=== PATIENT | female | born 1950 | race Caucasian/White ===

== ENCOUNTER 2019-09-21 11:27 | Outpatient (CLI) | payer MEDICARE, SELFPAY ==
[2019-09-21 11:49] LABS: Hematocrit 42.5 % (37.0-47.0); Hemoglobin 14.4 g/dL (12.0-15.0)
== END 2019-09-21 11:28 | disposition home or self-care (01) ==
LOC: ANHSURGERY 11:32
PROVIDERS: PCP Internal Medicine; Visit Provider Obstetrics & Gynecology
DX: Z01.818 Encounter for other preprocedural examination (principal); N95.9 Unspecified menopausal and perimenopausal disorder
CPT/HCPCS: 36415; 85014; 85018

== ENCOUNTER 2019-09-27 01:39 | Day surgery (SDC) | payer MEDICARE, SELFPAY ==
[2019-09-20 08:53] VITALS: BMI 21.2
--- NOTE | 2019-09-22 08:05 | P.HP_ITS ---
H&P: HPI History of Present Illness Chief complaint: post menopausal bleeding Narrative: Deidre Cuadra is a 68 year old female who is admitted for hysteroscopy dilatation curettage secondary to postmenopausal bleeding. She was turned over within her own. She had some mild spotting she will and underwent ultrasound which to an incomplete view of the endometrium. Risks and benefits of hysteroscopy dilatation curettage reviewed. She had all questions answered in asked to proceed. She received the [employer] handout entitled hysteroscopy is well dilatation curettage respectively. Review of Systems Review of Systems: All systems reviewed & are unremarkable except as noted in HPI and below COUNT INCLUDES THE [facility] Family History Family History (Updated 04/27/19 @ 08:43 by DOCTOR UNKNOWN) Mother Hypertension Sibling Patient's sister is in good health Patient's brother is in good health Family history of lung cancer Father Cerebrovascular accident Social History Social History Smoking status: Never smoker Alcohol intake: current Meds Home Medications and Allergies Home Medications Medication Instructions Recorded Confirmed Type estradiol 1 mg PO DAILY 09/20/19 09/20/19 History norethindrone acetate 5 mg PO DAILY 09/20/19 09/20/19 History Allergies Allergy/AdvReac Type Severity Reaction Status Date / Time adhesive Allergy Unknown Rash Verified 09/20/19 08:57 polymyxin B Allergy Unknown Rash Verified 09/20/19 08:57 Sulfa (Sulfonamide Allergy Unknown Hives Verified 09/20/19 08:57 Antibiotics) sulfanilamide Allergy Unknown Hives Verified 09/20/19 08:57 BANDAIDS Allergy Mild Rash Uncoded 09/20/19 08:57 NEOMYCIN SULFATE Allergy Mild Rash Uncoded 09/20/19 08:57 POLYMYXIN B SULFATE Allergy Mild Rash Uncoded 09/20/19 08:57 Exam Const: General: no acute distress Eyes: General: appearance normal, both eyes and all related structures Neck: Neck: supple and no JVD Thyroid: thyroid normal Resp: Effort & Inspection: normal respiratory effort Auscultation: clear to auscultation bilaterally Cardio: Rate: regular rate Rhythm: regular rhythm GI: Inspection: non-distended GI Palp: Yes Soft to palpation, No Tenderness to palpation present (GI) and No Guarding due to palpation present (GI) Auscultation: normal bowel sounds : General: Yes bladder normal to palpation External Female Exam: normal external appearance Speculum Exam - Vagina: normal vaginal discharge and No vaginal bleeding Speculum Exam - Cervix: nontender Bimanual exam- vagina & uterus: bladder normal to palpation and No Cervical tenderness present OB/external & speculum: No vaginal bleeding Skin: General skin exam: no rashes or lesions noted Extrem: General: normal to inspection and no edema Psych: Mental Status: mental status grossly normal Affect: normal affect Assessment and Plan Additional Plan Impression: Postmenopausal bleed Plan: Hysteroscopy, dilatation curettage
--- NOTE | 2019-09-27 06:54 | WPDHPUPDATE1 ---
History and Physical Update Update Date/Time: 09/27/19 06:54 History and Physical has been reviewed, including an updated exam of the patient. There are NO changes in the patient's condition. Risks, benefits, and alternatives have been discussed and questions answered. Patient agrees to proceed with procedure.
[2019-09-27 08:15] VITALS: BP 132/76; PULSE 72; RESP 18; TEMP 37; O2SAT 99
[2019-09-27] MEDS: LACTATED RINGERS 1,000 ML 30 ML IV CONT (08:15)
[2019-09-27] MEDS: ONDANSETRON INJ 4 MG/2 ML VIAL IV PUSH ×2 (08:35→08:45)
--- NOTE | 2019-09-27 08:54 | WPDANESEPPF ---
Anes - Initial Pre Proc Eval Procedure: Operation Date: 09/27/19 09:30 Proposed Procedures p Hysteroscopy Dilation and Curettage - Nicolas Lay MD Date/Time: 09/27/19 08:54 Surgeon: Nicolas Lay MD Pre Op Diagnosis: post menopausal bleeding Patient Data Age: 68 Gender: F Height: 5 ft 8 in Weight: 63.5 kg Allergies Allergy/AdvReac Type Severity Reaction Status Date / Time adhesive Allergy Unknown Rash Verified 09/20/19 08:57 polymyxin B Allergy Unknown Rash Verified 09/20/19 08:57 Sulfa (Sulfonamide Allergy Unknown Hives Verified 09/20/19 08:57 Antibiotics) sulfanilamide Allergy Unknown Hives Verified 09/20/19 08:57 BANDAIDS Allergy Mild Rash Uncoded 09/20/19 08:57 NEOMYCIN SULFATE Allergy Mild Rash Uncoded 09/20/19 08:57 POLYMYXIN B SULFATE Allergy Mild Rash Uncoded 09/20/19 08:57 Home Medications Medication Instructions Recorded Confirmed Type estradiol 1 mg PO DAILY 09/20/19 09/20/19 History norethindrone acetate 5 mg PO DAILY 09/20/19 09/20/19 History hydrocodone-acetaminophen [Maupin] 1 tablet PO Q4H PRN #10 tablet 09/27/19 Rx Patient hx anesthesia problems: none and post op nausea/vomiting Family hx anesthesia problems: none PMFSH Past Medical History Medical History Hx of migraines VONNIE (obstructive sleep apnea) Family History Family History Mother Hypertension Sibling Patient's sister is in good health Patient's brother is in good health Family history of lung cancer Father Cerebrovascular accident Social History Social History Smoking status: Never smoker Alcohol intake: current Anes - Eval Final PreProcedure Day of Procedure 09/27/19 08:54 Patient weight: normal Heart: regular rate and rhythm Lungs: clear to auscultation Airway: Mallampati scale class III Neurological: alert and oriented Last oral intake: >/= 8 hours ASA classification: II Emergent: no Anesthetic plan: proceed Anesthesia type and monitoring: general GIVS and standard monitoring Informed Consent: The patient's anesthetic plan and its attendant risks and benefits were discussed with the patient/family/POA. Questions were solicited and answers provided to the satisfaction of the patient/family/POA.
[2019-09-27] MEDS: SCOPOLAMINE 1.5 MG PATCH TRANSDERM (09:27)
[2019-09-27] MEDS: KETOROLAC 30 MG/ML VIAL (*BKC) IV PUSH (10:32)
--- NOTE | 2019-09-27 10:35 | PM.PROC ---
Procedure Note - Detailed Date of procedure: 09/27/19 Pre-op diagnosis: post menopausal bleeding Surgeon: Nicolas Lay MD Postop diagnosis: Postmenopausal bleeding/polyp Procedure: Hysteroscopy, polypectomy, dilatation curettage EBL: 5cc Findings: Benign-appearing endometrium with small endometrial polyp Complications: None Anesthesia: IV sedation local Description of procedure: The patient was prepped and draped in the normal sterile fashion placed in dorsal lithotomy position. Under excellent IV sedation weighted speculum placed post formed vagina. Anterior lip of the cervix grasped with a single-tooth tenaculum. 2.5cc of 1% xylocaine anesthesia placed at 2:48 a.m. and 10:00 a.m. respectively in the cervix. Uterus sounded to 8cm. Serial dilatation fragment out performed followed by passage of the 5mm visualizing hysteroscope. Normal saline was used as visualizing medium. A very small uterine polyp was seen and had a very benign appearance. This was grasped been broken and pieces. Next the D&C was undertaken. The uterus was scraped over entire 360? until a good grating sound was heard. When no further tissue removed. Instruments removed. All sponge, needle, instrument counts were correct. There were no immediate complications
[2019-09-27 10:39] VITALS: BP 101/51; PULSE 83; RESP 12; O2SAT 100
[2019-09-27 11:05] VITALS: BP 105/49; PULSE 66; O2SAT 100
[2019-09-27 11:35] VITALS: BP 114/75; PULSE 71
--- NOTE | 2019-09-27 11:53 | SUR.PHASEII ---
1150: RN called Dr. Lay so patient could get an update about her procedure. Patient is all dressed and ready to go home just waiting for ride. Patient is unhooked from the monitors and report given to KRYSTAL Randolph.
== END 2019-09-27 12:07 | disposition home or self-care (01) ==
PROVIDERS: PCP Internal Medicine; Visit Provider Obstetrics & Gynecology
PROC: 0U5B8ZZ Destruction of Endometrium, Via Natural or Artificial Opening Endoscopic (ICD-10-PCS; CPT 58563; principal; 2019-09-27 09:30)
DX: N95.0 Postmenopausal bleeding (principal); N84.0 Polyp of corpus uteri; G47.33 Obstructive sleep apnea (adult) (pediatric)
CPT/HCPCS: 58558; 88305; A9270; J0131; J1885; J2250; J2405; J2704; J3010; J7030; J7120

== ENCOUNTER → 2021-04-14 00:31 | Outpatient (CLI) | payer MEDICARE, SELFPAY ==
[2021-04-14 19:35] LABS: SARS-CoV-2 RNA PCR Negative
== END ==
PROVIDERS: PCP Internal Medicine; Visit Provider Internal Medicine Gastroenterology
DX: Z01.812 Encounter for preprocedural laboratory examination (principal); Z20.822 Contact with and (suspected) exposure to COVID-19
CPT/HCPCS: C9803; U0003; U0005

== ENCOUNTER 2021-04-18 01:36 | Day surgery (SDC) | payer MEDICARE, SELFPAY ==
[2021-04-10 09:20] VITALS: BMI 22.4
--- NOTE | 2021-04-17 14:01 | P.PNAN_ITS ---
Anes - Initial Pre Proc Eval Procedure: Operation Date: 04/18/21 10:00 Proposed Procedures p Screening Colonoscopy - Frank Smith MD Date/Time: 04/17/21 14:01 Surgeon: Frank Smith MD Pre Op Diagnosis: hx of colon polyps, neoplasm Patient Data Age: 70 Gender: F Height: 1.73 m Weight: 66.8 kg Allergies Allergy/AdvReac Type Severity Reaction Status Date / Time adhesive Allergy Unknown Rash Verified 04/18/21 09:03 polymyxin B Allergy Unknown Rash Verified 04/18/21 09:03 Sulfa (Sulfonamide Allergy Unknown Hives Verified 04/18/21 09:03 Antibiotics) sulfanilamide Allergy Unknown Hives Verified 04/18/21 09:03 BANDAIDS Allergy Mild Rash Uncoded 04/18/21 09:03 NEOMYCIN SULFATE Allergy Mild Rash Uncoded 04/18/21 09:03 POLYMYXIN B SULFATE Allergy Mild Rash Uncoded 04/18/21 09:03 Home Medications Medication Instructions Recorded Confirmed Type ascorbic acid (vitamin C) 500 mg 500 mg PO DAILY 02/28/21 04/10/21 History capsule calcium carbonate 600 mg (1,500 1 cap PO DAILY 02/28/21 04/10/21 History mg)-vitamin D3 500 unit capsule elderberry fruit 200 mg capsule 200 mg PO DAILY 02/28/21 04/10/21 History zinc 50 mg tablet 50 mg PO DAILY 02/28/21 04/10/21 History Patient hx anesthesia problems: none Family hx anesthesia problems: none Results Review: All pre-operative results and documents have been reviewed as p art of the pre-operative evaluation. [facility] Past Medical History Medical History (Updated 03/14/21 @ 13:46 by Arcelia Malhotra NP) Chicken pox Heartburn Hx of migraines Measles Mononucleosis Mumps VONNIE (obstructive sleep apnea) Surgical History Surgical History (Updated 04/17/21 @ 14:01 by Vu Alcantar DO) History of tubal ligation Family History Family History Mother Hypertension Sibling Patient's sister is in good health Patient's brother is in good health Family history of lung cancer Father Cerebrovascular accident Social History Social History Smoking status: Never smoker Alcohol intake: current Living arrangements: alone Spiritual care concerns: No Anes - Eval Final PreProcedure Day of Procedure 04/17/21 14:01 Patient weight: normal Heart: regular rate and rhythm Lungs: clear to auscultation and normal air movement Airway: Mallampati scale class III Neurological: alert and oriented Last oral intake: >/= 8 hours ASA classification: II Emergent: no Anesthetic plan: proceed Anesthesia type and monitoring: general GIVS and standard monitoring Results Review: All pre-operative results and documents have been reviewed as part of the pre-operative evaluation. Informed Consent: The patient's anesthetic plan and its attendant risks and benefits were discussed with the patient/family/POA. Questions were solicited and answers provided to the satisfaction of the patient/family/POA.
[2021-04-18 09:04] VITALS: BP 121/80; PULSE 72; RESP 16; TEMP 36.6; O2SAT 96
[2021-04-18] MEDS: LACTATED RINGERS 1,000 ML 150 ML IV CONT (09:14)
--- NOTE | 2021-04-18 09:32 | PM.HPGS ---
History of Present Illness History of Present Illness Consent: Risks, benefits, and alternatives have been discussed and questions answered. Patient agrees to proceed with procedure. Chief complaint: hx of colon polyps, neoplasm Narrative: Deidre Cuadra is a 70 year old female with last colonoscopy 2013 Review of Systems Constitutional: Constitutional: Denies headache(s) and Denies weakness Eyes: Eyes: Denies blurry vision ENT: Reports Normal hearing present, Denies headache(s) and Denies neck pain Cardiovascular: Cardiovascular: Denies chest pain and Denies dyspnea Respiratory: Respiratory: Denies dyspnea Gastrointestinal: Gastrointestinal: Reports no additional gastrointestinal complaints Genitourinary: Genitourinary: Denies dysuria Musculoskeletal: Musculoskeletal: Denies neck pain Integumentary/Breasts: Skin/Breast: Denies dry skin Neurologic: Reports Normal hearing present, Denies headache(s) and Denies weakness Psychiatric: Psychiatric: Denies anxiety Endocrine: Endocrine: Denies change in body appearance Hematologic/Lymphatic: Hematologic/Lymphatic: Denies easy bleeding Allergic/Immunologic: Allergic/Immunologic: Denies urticaria PMFSH Past Medical History Medical History (Updated 03/14/21 @ 13:46 by Arcelia Malhotra NP) Chicken pox Heartburn Hx of migraines Measles Mononucleosis Mumps VONNIE (obstructive sleep apnea) Surgical History Surgical History (Updated 04/17/21 @ 14:01 by Vu Alcantar DO) History of tubal ligation Family History Family History Mother Hypertension Sibling Patient's sister is in good health Patient's brother is in good health Family history of lung cancer Father Cerebrovascular accident Social History Social History Smoking status: Never smoker Alcohol intake: current Living arrangements: alone Spiritual care concerns: No Meds Home Medications and Allergies Home Medications Medication Instructions Recorded Confirmed Type ascorbic acid (vitamin C) 500 mg 500 mg PO DAILY 02/28/21 04/10/21 History capsule calcium carbonate 600 mg (1,500 1 cap PO DAILY 02/28/21 04/10/21 History mg)-vitamin D3 500 unit capsule elderberry fruit 200 mg capsule 200 mg PO DAILY 02/28/21 04/10/21 History zinc 50 mg tablet 50 mg PO DAILY 02/28/21 04/10/21 History Allergies Allergy/AdvReac Type Severity Reaction Status Date / Time adhesive Allergy Unknown Rash Verified 04/18/21 09:03 polymyxin B Allergy Unknown Rash Verified 04/18/21 09:03 Sulfa (Sulfonamide Allergy Unknown Hives Verified 04/18/21 09:03 Antibiotics) sulfanilamide Allergy Unknown Hives Verified 04/18/21 09:03 BANDAIDS Allergy Mild Rash Uncoded 04/18/21 09:03 NEOMYCIN SULFATE Allergy Mild Rash Uncoded 04/18/21 09:03 POLYMYXIN B SULFATE Allergy Mild Rash Uncoded 04/18/21 09:03 Vital Signs Vital Signs - 24 hr 04/18/21 09:04 Temperature 97.8 F Pulse Rate 72 Respiratory Rate 16 Blood Pressure 121/80 Pulse Oximetry 96 Exam Const: General: comfortable and no acute distress HENMT: General nose exam: Normal nares present Eyes: General: appearance normal, both eyes and all related structures Neck: Neck: no JVD Resp: Auscultation: clear to auscultation bilaterally Cardio: Rate: regular rate Rhythm: regular rhythm GI: Inspection: non-distended GI Palp: Yes Soft to palpation Skin: General skin exam: normal color Neuro: General: gait normal Speech: normal speech Extrem: General: normal to inspection Psych: Mental Status: mental status grossly normal Assessment and Plan Assessment and plan (1) Screening for colon cancer: Code(s): Z12.11 - Encounter for screening for malignant neoplasm of colon Status: Acute Assessment and Plan: colonoscopy
[2021-04-18 10:00] VITALS: BP 102/83; PULSE 68; RESP 15; O2SAT 100
[2021-04-18 10:10] VITALS: BP 121/83; PULSE 71; RESP 19; O2SAT 100
[2021-04-18 10:20] VITALS: BP 129/81; PULSE 72; RESP 15; O2SAT 100
== END 2021-04-18 10:35 | disposition home or self-care (01) ==
PROVIDERS: PCP Internal Medicine; Visit Provider Internal Medicine Gastroenterology
PROC: 0DJD8ZZ Inspection of Lower Intestinal Tract, Via Natural or Artificial Opening Endoscopic (ICD-10-PCS; CPT 45378; principal; 2021-04-18 10:00)
DX: Z12.11 Encounter for screening for malignant neoplasm of colon (principal); K63.5 Polyp of colon; K57.30 Diverticulosis of large intestine without perforation or abscess without bleeding; K64.8 Other hemorrhoids; G47.33 Obstructive sleep apnea (adult) (pediatric)
CPT/HCPCS: 45380; 88305; C9803; J2704; J7120; U0003; U0005

== ENCOUNTER 2021-08-24 10:58 | Outpatient (CLI) | payer MEDICARE, SELFPAY ==
--- NOTE | ~2021-08-24 | MM_ITS ---
EXAMINATION: MM screening [facility] BI w pippa HISTORY: Screening mammogram TECHNIQUE: Craniocaudal and mediolateral oblique 3-D tomosynthesis images were obtained and synthetic 2-D images were generated. CAD analysis was submitted and interpreted. COMPARISON: 11/15/2016, 05/25/2014, 09/16/2012 BREAST PARENCHYMAL COMPOSITION: The breasts are heterogeneously dense, which may obscure small masses . FINDINGS: There is no evidence of suspicious mass, calcification, or architectural distortion to sugg est malignancy in either breast. There has been no suspicious interval change. IMPRESSION: 1. No mammographic evidence of malignancy. 2. Recommend routine screening mammography in one year. BI-RADS Category 1: Negative Reviewed, dictated and finalized at location A. LE END SEWER
== END 2021-08-24 10:59 | disposition home or self-care (01) ==
LOC: ANHIMG 10:59
PROVIDERS: PCP Internal Medicine; Visit Provider Nurse Practitioner
DX: Z12.31 Encounter for screening mammogram for malignant neoplasm of breast (principal)
CPT/HCPCS: 77063; 77067

== ENCOUNTER 2022-06-20 11:23 | Emergency (ER) | payer MEDICARE, SELFPAY ==
[2022-06-20 11:38] VITALS: BP 121/84; PULSE 93; RESP 16; TEMP 38.3; O2SAT 99
--- NOTE | 2022-06-20 11:46 | ED.URI ---
HPI - URI/Sore Throat General Chief Complaint: Upper Respiratory Infection Stated Complaint: fever, coughing, SOB, headache Time Seen by Provider: 06/20/22 11:46 Source: patient Mode of arrival: ambulatory Limitations: no limitations History of Present Illness HPI Narrative: 71-year-old female presents with complaint of fever, fatigue, chills, cough, nasal congestion, headache for 2 days. Taking TheraFlu to treat symptoms. Denies chest pain and shortness of breath. No nausea vomiting diarrhea. All systems reviewed and negative except as noted above. Related Data Home Medications Medication Instructions Recorded Confirmed ascorbic acid (vitamin C) 500 mg 500 mg PO DAILY 02/28/21 04/10/21 capsule calcium carbonate 600 mg-vitamin 1 cap PO DAILY 02/28/21 04/10/21 D3 12.5 mcg (500 unit) capsule (Calcium 600 with Vitamin D3) elderberry fruit 200 mg capsule 200 mg PO DAILY 02/28/21 04/10/21 zinc 50 mg tablet 50 mg PO DAILY 02/28/21 04/10/21 estradiol 10 mcg vaginal tablet 10 mcg vaginal USEASDIRECTD 06/20/22 06/20/22 Allergies Allergy/AdvReac Type Severity Reaction Status Date / Time adhesive Allergy Unknown Rash Verified 06/20/22 11:37 polymyxin B Allergy Unknown Rash Verified 06/20/22 11:37 Sulfa (Sulfonamide Allergy Unknown Hives Verified 06/20/22 11:37 Antibiotics) sulfanilamide Allergy Unknown Hives Verified 06/20/22 11:37 BANDAIDS Allergy Mild Rash Uncoded 06/20/22 11:37 NEOMYCIN SULFATE Allergy Mild Rash Uncoded 06/20/22 11:37 POLYMYXIN B SULFATE Allergy Mild Rash Uncoded 06/20/22 11:37 Review of Systems Review of Systems: CONSTITUTIONAL: Report fever, chills, or sweats. EYES: Denies visual changes, redness, or discharge. ENT: Reports rhinorrhea, congestion, sore throat. Denies otalgia. CARDIOVASCULAR: Denies chest pain, palpitations, or edema. RESPIRATORY: Reports cough. Denies dyspnea. GASTROINTESTINAL: Denies abdominal pain, nausea, vomiting, or diarrhea. GENITOURINARY: Denies dysuria or hematuria. SKIN: Denies rash or itching. MUSCULOSKELETAL: Denies back pain, joint pain, or myalgia. NEUROLOGIC: Denies headache, numbness, or weakness. PSYCHIATRIC: Denies anxiety or depression. All other systems reviewed are negative, except as documented in HPI. [facility] Past Medical History Medical History (Updated 06/20/22 @ 11:52 by Lady Mckinley NP) Chicken pox Heartburn Hx of migraines Measles Mononucleosis Mumps VONNIE (obstructive sleep apnea) Surgical History Surgical History (Updated 04/17/21 @ 14:01 by Vu Alcantar DO) History of tubal ligation Family History Family History Mother Hypertension Sibling Patient's sister is in good health Patient's brother is in good health Family history of lung cancer Father Cerebrovascular accident Social History Social History Smoking status: Never smoker Alcohol intake: current Spiritual care concerns: No Comments At time of signature, agree with nursing past medical, surgical, social and family history. There is no relevant family history pertinent to the presenting complaint. Exam Narrative: GENERAL: This is a well-nourished, well-developed patient. Patient ill-appearing but no distress rate HEAD: normocephalic, atraumatic. EYES: PERRL. Sclera clear/white. Vision is grossly intact. EARS: External ears normal, auditory canals clear and without drainage, TMs normal without perforation. Hearing grossly intact. NOSE: External nose normal with clear nasal drainage, erythema tenderness. THROAT: Mucous membranes moist, mild erythema. NECK: Neck supple, non-tender without lymphadenopathy, masses or thyromegaly. CARDIOVASCULAR: Regular rate and rhythm without murmurs, gallops, or rubs. RESPIRATORY: Clear to auscultation. Breath sounds equal bilaterally. No wheezes, rales, or rhonchi. SKIN: warm, Dry, intact wit
== END 2022-06-20 11:58 | disposition home or self-care (01) ==
PROVIDERS: Emergency Provider Nurse Practitioner Family; PCP Internal Medicine
DX: J10.1 Influenza due to other identified influenza virus with other respiratory manifestations (principal)
CPT/HCPCS: 87804; 99213; G0463

== ENCOUNTER → 2022-08-28 11:04 | Outpatient (CLI) | payer MEDICARE, SELFPAY ==
--- NOTE | ~2022-08-28 | XR_ITS ---
XR hip RT min 2V 08/28/2022 11:22 Indication: Right hip pain Procedure: 2 views right hip Comparison: No prior studies for comparison. Findings: There is mild osteoarthritis of the right hip. No fracture, subluxation or dislocation is s acral foramen are symmetric. No significant soft tissue abnormality. No foreign bodies. Impression: 1: Mild osteoarthritis of the right hip. Reviewed, dictated and finalized at location A. ESSIONAL BASS FISHER Impression: 1: Mild osteoarthritis of the right hip.
--- NOTE | ~2022-08-28 | XR_ITS ---
EXAMINATION: XR hip LT min 2V INDICATION: Left hip pain TECHNIQUE: Two views of the left hip are obtained. COMPARISON: 06/01/2018 FINDINGS: Bone alignment is normal. There is no fracture. There is mild osteoarthritis of the left hi p. Mild spondylosis is noted in the visualized lower lumbar spine. There are phleboliths of the pelvi s. IMPRESSION: 1. Mild osteoarthritis of the hip. Reviewed, dictated and finalized at location B. CAPTAIN
== END ==
PROVIDERS: PCP Internal Medicine; Visit Provider Nurse Practitioner
DX: M16.0 Bilateral primary osteoarthritis of hip (principal)
CPT/HCPCS: 73502

== ENCOUNTER → 2022-08-30 12:49 | Outpatient (CLI) | payer MEDICARE, SELFPAY ==
--- NOTE | ~2022-08-30 | US_ITS ---
US soft tissue upper back 08/30/2022 13:07 Indication: Palpable lump of the midupper back on the right Procedure: High-resolution Limited ultrasound of the right midupper back soft tissues Comparison: No prior studies for comparison. Findings: In the area of palpable concern there is an oval circumscribed hypoechoic mass with paralle l orientation, no significant posterior features and no internal vascularity measuring 1.6 x 1.5 x 0. 4 cm. There are areas of horizontally oriented linear striation. Impression: 1: Benign-appearing elliptical hypoechoic mass corresponding to the area of palpable concern. This ma y represent a benign lipoma, seroma or hematoma. Recommend follow-up ultrasound as clinically warrant ed. Reviewed, dictated and finalized at location A. LE WRAPPER Impression: 1: Benign-appearing elliptical hypoechoic mass corresponding to the area of pal pable concern. This may represent a benign lipoma, seroma or hematoma. Recommen d follow-up ultrasound as clinically warranted.
== END ==
PROVIDERS: PCP Internal Medicine; Visit Provider Nurse Practitioner
DX: R22.9 Localized swelling, mass and lump, unspecified (principal)
CPT/HCPCS: 76604

== ENCOUNTER 2022-10-17 09:00 | Outpatient (RCR) | payer MEDICARE, SELFPAY ==
--- NOTE | 2022-09-26 13:26 | PTOPEVAL1 ---
Assessment and note entered by Justus Galvin, PT, DPT Evaluation Information Assessment Status Evaluation Diagnosis andrea hip pain Onset chronic Subjective Information Pt states her imaging shows mild hip OA R > L. She states she has had hip pain for a while but it has increased notably in the last 6 months. She states her worst pain is initially when standing. Pt likes to swing dance. Reported Pain Level Pain Score 3: Self Report Assessment PT Clinical Summary Deidre presents to therapy today for her initial evaluation with a diagnosis of Andrea hip pain. Today she demonstrates decreased active and passive ROM of her R hip when compared to her L hip. She does demonstrate decreased strength andrea R >L, resulting in decreased strength and stability during functional tasks. Skilled physical therapy services are indicated to improve ROM, strength, and pain, to improve stability, and to improve overall functional mobility. Plan of Care Interventions Electrical Stimulation,Gait Training,Hot Pack/Cold Pack,Manual Therapy,Neuro Re-education,Patient/ Caregiver Educati,Therapeutic Activities, Therapeutic Exercise PT Services Indicated Yes Treatment Frequency and 2x/wk for 4 wks Duration These treatments will address the objective and functional deficits as defined above. The patient will be advanced safely and appropriately in order for the patient to progress towards his/her prior level of function. Additional exercises will be introduced and as well as a comprehensive home exercise program upon discharge, if needed, ?to ensure carryover of functional gains achieved in the clinic. This treatment plan has been reviewed and agreement upon by the patient.
--- NOTE | 2022-10-04 09:53 | PCPTNOTE ---
Patient canceled this date due to battery.
--- NOTE | 2022-10-17 09:41 | PTOPDC ---
Assessment and note entered by Justus Galvin, PT, DPT Evaluation Information Assessment Status Discharge Diagnosis anali hip pain Onset chronic Subjective Information Pt states sometimes her hip is better. She states it feels like her hip is worse the morning after she dances. She states her leg is a 10/10 pain after she dances but she is too lazy to take ibuprofen to help . She states she can go up/down the stairs better than usual. She reports 40-50% improvement in overall symptoms . Reported Pain Level Pain Score 3: Self Report Assessment PT Clinical Summary Deidre presents to therapy today for her progress report following 4 visits of skilled therapy to treat her R hip pain. Today she demonstrates improved hip rotation ROM and reports decreased pain reports with passive ROM. She demonstrates decreased deviations during sit <> stands as well as ambulation. Her subjective pain reports remain high but her overall function, strength, and mobility has improved. She would like to continue her HEP on her own. She will be discharged at this time. Plan of Care PT Services Indicated No
== END 2022-10-17 11:14 | disposition home or self-care (01) ==
LOC: ANHGOSHPT 09:00
PROVIDERS: PCP Internal Medicine; Visit Provider Nurse Practitioner
DX: M25.551 Pain in right hip (principal); M25.552 Pain in left hip
CPT/HCPCS: 97110; 97112; 97140; 97161

== ENCOUNTER 2023-06-19 10:12 | Outpatient (CLI) | payer MEDICARE, SELFPAY ==
[2023-06-19 12:00] LABS: Basophils Absolute Auto 0.1 K/mm3 (0.0-0.1); Basophils Percent Auto 0.7 % (0.2-1.2); Eosinophils Absolute Auto 0.1 K/mm3 (0-0.3); Eosinophils Percent Auto 0.8 % (0-4.4); Hematocrit 41.6 % (37.0-47.0); Hemoglobin 13.4 g/dL (12.0-15.0); Immature Granulocyte Absolute 0.05 K/mm3 (0.00-0.031); Immature Granulocyte Percent A 0.7 % (0-0.5); Lymphocytes Absolute Auto 1.36 K/mm3 (0.9-3.2); Lymphocytes Percent Auto 18.8 % (18.3-44.2); Mean Corpuscular HGB Conc 32.2 g/dl (32-36); Mean Corpuscular Hemoglobin 31.3 pg (26-34); Mean Corpuscular Volume 97.2 fl (80-100); Mean Platelet Volume 10.5 fl (7.4-10.4); Monocytes Absolute Auto 0.8 K/mm3 (0.1-0.6); Monocytes Percent Auto 10.8 % (2.6-8.5); Neutrophils Absolute Auto 4.9 K/mm3 (1.3-6.7); Neutrophils Percent Auto 68.2 % (45.5-73.1); Platelet Count Result 400 k/mm3 (150-375); Red Blood Count 4.28 M/mm3 (4.2-5.4); Red Cell Distribution Width 13.2 % (11.5-14.5); White Blood Count 7.2 K/mm3 (4.5-10.0)
[2023-06-19 12:11] LABS: Alanine Aminotransferase 18 U/L (6-35); Albumin Level 4.5 g/dL (3.5-5.1); Alkaline Phosphatase 84 U/L (38-126); Anion Gap 9 mmol/L (8-16); Appearance Urine Cloudy (Clear); Aspartate Amino Transferase 43 U/L (14-36); Bilirubin Urine Negative (Negative); Bilirubin,Total 0.9 mg/dL (0.2-1.3); Blood Urea Nitrogen 14 mg/dL (7-17); Blood Urine Negative (Negative); Calcium 9.5 mg/dL (8.4-10.2); Calcium Oxalate Crystals Urine Present /hpf; Carbon Dioxide 33 mmol/L (22-30); Chloride 89 mmol/L (98-107); Color Urine Dark Yellow (Yellow); Estimated Glomerular Filt Rate 44; Glucose 230 mg/dL (65-110); Glucose Urine UA Trace mg/dL (Negative); Ketones Urine 1+ mg/dL (Negative); Leukocyte Esterase Ur 1+ LEU/UL (NEGATIVE); Need Manual Microscopic Reviewed; Nitrate Urine Negative (Negative); Non Pathogenic Casts 0-2; Potassium 3.7 mmol/L (3.4-5.0); Protein Urine 1+ mg/dL (Negative); RBC Urine 0-2 /hpf (0-2); Sodium 131 mmol/L (137-145); Squamous Epithelial Cell Urine Many /hpf (Few); WBC Urine 51-100 /hpf (0-3); pH Urine 5.5 (5.0-9.0)
[2023-06-19 12:18] LABS: Specific Grav Ur 1.036 (1.001-1.035)
[2023-06-19 12:19] LABS: Add Urine Microscopic? YES; Bacteria Urine 1+ /hpf
[2023-06-19 12:28] LABS: Erythrocyte Sedimentation Rate 8 mm/hr (0-20)
[2023-06-19 12:33] LABS: Hemoglobin A1C 7.6 % (<5.7)
== END 2023-06-19 10:13 | disposition home or self-care (01) ==
LOC: ANHGOSHLAB 10:14
PROVIDERS: PCP Internal Medicine; Visit Provider Internal Medicine
DX: C64.9 Malignant neoplasm of unspecified kidney, except renal pelvis (principal); M25.551 Pain in right hip; M25.552 Pain in left hip; E10.9 Type 1 diabetes mellitus without complications; R30.0 Dysuria
CPT/HCPCS: 36415; 80053; 81001; 82607; 82746; 83036; 85025; 85652; 87086

== ENCOUNTER 2023-06-20 13:07 | Observation (INO) | payer MEDICARE, SELFPAY ==
[2023-06-20] VITALS (14 sets, daily range): BP systolic 146–169; BP diastolic 78–115; PULSE 67–82; RESP 11–20; TEMP 36.6–37; O2SAT 95–99; BMI 21.9
--- NOTE | 2023-06-20 16:05 | ED.GENADULT ---
HPI - General Adult General Chief complaint: Nausea/Vomiting/Diarrhea Stated complaint: nausea Time Seen by Provider: 06/20/23 16:05 History of Present Illness HPI narrative: Patient is a 72-year-old female with history of renal cell carcinoma, status post left nephrectomy March 2023, medication induced type 1 diabetes here with nausea, vomiting, diarrhea, dizziness, headache. her daughter at bedside helps with history. They state that she was diagnosed with renal cell carcinoma, had a nephrectomy at [facility] in March 2023. She then received 2 courses of Keytruda and developed type 1 diabetes as a side effect of the medication. She has been in an out of both [facility] and [facility] since this diagnosis. They note that after IV fluids she tends to feel a bit better but quickly feels worse again. she was last in an emergency department at [facility] from 06-09 through 06-10, receive some IV fluids and was discharged home. They have changed the type of insulin that she has been on to be similar to the insulin she receives well being hospitalized, they are unsure if this has helped. They are also unsure if the cage treated could be causing these persistent symptoms. He did see her primary care doctor yesterday, he had recommended she come into the emergency department at that time, the compromised and she received IV fluids through the infusion center and had lab work performed. He identified a large number of white blood cells on a urine dipstick in his office and had called in [facility], it is not been started yet. No cough, congestion, fever. No sick contacts. Related Data Home Medications Medication Instructions Recorded Confirmed blood sugar diagnostic (OneTouch #10 ea 05/26/23 06/19/23 Verio test strips) lancets 33 gauge (OneTouch Delica #100 ea 05/26/23 06/19/23 Plus Lancet) pen needle, diabetic 32 gauge x #1,200 ea 05/26/23 06/19/23 (BD Priyanka 2nd Gen Pen Needle) meclizine 25 mg tablet 25 mg PO TID 06/19/23 06/19/23 metoclopramide HCl 10 mg tablet 10 mg PO Q6H PRN 06/19/23 06/19/23 prochlorperazine maleate 10 mg 10 mg PO Q8H PRN 12/07/23 12/07/23 tablet Allergies Allergy/AdvReac Type Severity Reaction Status Date / Time adhesive Allergy Unknown Rash Verified 06/20/23 13:19 polymyxin B Allergy Unknown Rash Verified 06/20/23 13:19 Sulfa (Sulfonamide Allergy Unknown Hives Verified 06/20/23 13:19 Antibiotics) sulfanilamide Allergy Unknown Hives Verified 06/20/23 13:19 BANDAIDS Allergy Mild Rash Uncoded 06/19/23 09:27 NEOMYCIN SULFATE Allergy Mild Rash Uncoded 06/19/23 09:27 POLYMYXIN B SULFATE Allergy Mild Rash Uncoded 06/19/23 09:27 PMFSH Past Medical History Medical History Chicken pox Heartburn Hx of migraines Measles Mononucleosis Mumps VONNIE (obstructive sleep apnea) Vomiting Surgical History Surgical History History of tubal ligation Family History Family History Mother Hypertension Sibling Patient's sister is in good health Patient's brother is in good health Family history of lung cancer Father Cerebrovascular accident Social History Social History Smoking status: Never smoker Alcohol intake: current Lack of Transportation: No Lack of Food: Never True Current Housing: I Have Housing Concerned About Future Housing: No Difficulty Paying Gas/Electric Bills: No Difficulty Paying for Meds: No Currently Unemployed: No Education: High School Diploma/GED Difficulty w/ Childcare or Family Care: No Living arrangements: alone Spiritual care concerns: No Course Course Emergency Course: Chart review performed. Patient here with N/V headache, weakness. Reportedly had nephrectomy 2 months ago at outside h
--- NOTE | 2023-06-20 16:07 | ECG_ITS ---
Measurements Intervals [place] Rate: 75 P: 79 [place]: 150 QRS: 67 QRSD: 92 T: 62 QT: 397 QTc: 445 Interpretive Statements SINUS RHYTHM NO PREVIOUS ECG AVAILABLE FOR COMPARISON Electronically Signed On 06-22-2023 10:13:28 PROCESS CONTROL MANAGER by Doyle Medeiros M.D.
[2023-06-20 16:28] LABS: Glucose Point of Care 203 mg/dl (65-105)
[2023-06-20 16:34] LABS: Fractional Inspired Oxygen 21 %; HCO3 VBG 29.8 mEq/l (24.0-30.0); PCO2 VBG 41.8 mmHg (42.0-48.0); PO2 VBG 41.8 mmHg (35.0-45.0)
[2023-06-20 16:39] LABS: Device ROOM AIR; pH VBG 7.471 (7.300-7.400)
[2023-06-20 16:42] LABS: Basophils Absolute Auto 0.1 K/mm3 (0.0-0.1); Basophils Percent Auto 0.6 % (0.2-1.2); Eosinophils Absolute Auto 0.1 K/mm3 (0-0.3); Eosinophils Percent Auto 1.2 % (0-4.4); Hemoglobin 12.8 g/dL (12.0-15.0); Immature Granulocyte Absolute 0.06 K/mm3 (0.00-0.031); Immature Granulocyte Percent A 0.7 % (0-0.5); Lymphocytes Absolute Auto 2.27 K/mm3 (0.9-3.2); Lymphocytes Percent Auto 27.7 % (18.3-44.2); Mean Corpuscular HGB Conc 32.8 g/dl (32-36); Mean Corpuscular Hemoglobin 31.4 pg (26-34); Mean Corpuscular Volume 95.6 fl (80-100); Mean Platelet Volume 9.7 fl (7.4-10.4); Monocytes Absolute Auto 0.9 K/mm3 (0.1-0.6); Monocytes Percent Auto 11.5 % (2.6-8.5); Neutrophils Absolute Auto 4.8 K/mm3 (1.3-6.7); Neutrophils Percent Auto 58.3 % (45.5-73.1); Platelet Count Result 384 k/mm3 (150-375); Red Blood Count 4.08 M/mm3 (4.2-5.4); White Blood Count 8.2 K/mm3 (4.5-10.0)
[2023-06-20 16:55] LABS: Alanine Aminotransferase 21 U/L (6-35); Albumin Level 4.4 g/dL (3.5-5.1); Alkaline Phosphatase 74 U/L (38-126); Anion Gap 8 mmol/L (8-16); Aspartate Amino Transferase 37 U/L (14-36); Bilirubin,Total 0.8 mg/dL (0.2-1.3); Blood Urea Nitrogen 12 mg/dL (7-17); Calcium 9.5 mg/dL (8.4-10.2); Carbon Dioxide 31 mmol/L (22-30); Chloride 90 mmol/L (98-107); Estimated CRCL calculation 37 ml/min; Estimated Glomerular Filt Rate 49; Glucose 183 mg/dL (65-110); Lipase 245 U/L (23-300); Potassium 3.9 mmol/L (3.4-5.0); Sodium 129 mmol/L (137-145)
[2023-06-20 16:56] LABS: Lactic Acid Reflex 1.1 mmol/L (0.7-2.0); Magnesium 1.7 mg/dL (1.6-2.3)
[2023-06-20] MEDS: ONDANSETRON INJ 4 MG/2 ML VIAL IV PUSH (17:24)
[2023-06-20] MEDS: LACTATED RINGERS 1,000 ML 999 ML IV CONT ×2 (17:24→18:36)
[2023-06-20 18:08] LABS: Influenza A QL RT-PCR Negative (Negative); Influenza B QL RT-PCR Negative (Negative); RSV RNA, RT-PCR Negative (Negative); SARS-CoV-2 RNA PCR Negative (Negative)
[2023-06-20 19:00] LABS: Appearance Urine Clear (Clear); Bacteria Urine None Seen /hpf; Bilirubin Urine Negative (Negative); Blood Urine Negative (Negative); Color Urine Yellow (Yellow); Glucose Urine UA Negative (Negative); Ketones Urine 1+ mg/dL (Negative); Leukocyte Esterase Ur 1+ LEU/UL (Negative); Nitrate Urine Negative (Negative); Non Pathogenic Casts 0-2; Protein Urine Negative (Negative); RBC Urine 0-2 /hpf (0-2); Specific Grav Ur 1.013 (1.001-1.035); Squamous Epithelial Cell Urine None seen /hpf (Few); Urobilinogen Urine 0.2 mg/dL (<2.0)
[2023-06-20 19:15] LABS: Add Urine Microscopic? YES
--- NOTE | 2023-06-20 19:28 | PC.NURSE ---
This RN assumed care of patient. This RN took patient report from KRYSTAL Scott.
--- NOTE | 2023-06-20 20:04 | PM.IMHP ---
H&P: HPI History of Present Illness Date/Time: 06/20/23 20:04 Chief Complaint: Nausea and vomiting Narrative: This is a 72-year-old female with past medical history significant for renal cell carcinoma status left nephrectomy, patient presents to the emergency room due to nausea vomiting poor per orally intake. Found to several WBCs present in urinalysis. Patient tested negative for COVID 19, influenza type A influenza type B and RSV. Patient was and Keytruda which had to be stopped due to adverse effects, pancreatitis. Review of Systems Review of Systems: Nausea, vomiting, poor per orally intake Constitutional: Constitutional: Denies chills, Denies fever(s), Reports malaise, Denies night sweats, Reports poor appetite and Reports weakness Eyes: Eyes: Denies change in vision ENT: Denies dysphagia, Denies vertigo, Denies dizziness and Denies odynophagia Cardiovascular: Cardiovascular: Denies chest pain, Denies radiating jaw, neck or arm pain and Denies palpitations Respiratory: Respiratory: Denies chest congestion, Denies cough and Denies dyspnea Gastrointestinal: Gastrointestinal: Denies abdominal pain, Reports nausea and Reports vomiting Genitourinary: Genitourinary: Denies dysuria Musculoskeletal: Musculoskeletal: Reports muscle weakness Integumentary/Breasts: Skin/Breast: Denies rash Neurologic: Denies focal weakness and Denies Sensory deficit (Neuro) Psychiatric: Psychiatric: Reports no additional psychiatric complaints and Reports as per HPI Endocrine: Endocrine: Denies cold intolerance, Denies fatigue, Denies flushing, Denies heat intolerance, Denies polyphagia, Denies polydipsia and Denies palpitations Hematologic/Lymphatic: Hematologic/Lymphatic: Reports no additional hematologic/lymphatic complaints and Reports as per HPI Allergic/Immunologic: Allergic/Immunologic: Reports no additional allergic/immunologic complaints and Reports as per HPI PMFSH Past Medical History Medical History Chicken pox Heartburn Hx of migraines Measles Mononucleosis Mumps VONNIE (obstructive sleep apnea) Vomiting Surgical History Surgical History History of tubal ligation Family History Family History Mother Hypertension Sibling Patient's sister is in good health Patient's brother is in good health Family history of lung cancer Father Cerebrovascular accident Social History Social History (Reviewed 06/19/23 @ 09:24 by Jennifer Camargo [facility]) Smoking status: Never smoker Alcohol intake: former Substance use: never Substance use type: does not use Lack of Transportation: No Lack of Food: Never True Current Housing: I Have Housing Concerned About Future Housing: No Difficulty Paying Gas/Electric Bills: No Difficulty Paying for Meds: No Currently Unemployed: No Education: High School Diploma/GED Difficulty w/ Childcare or Family Care: No Living arrangements: alone Spiritual care concerns: No Meds Home Medications and Allergies Home Medications Medication Instructions Recorded Confirmed Type Mask refit #1 ea 11/06/22 06/20/23 Rx blood sugar diagnostic (OneTouch #10 ea 05/26/23 06/20/23 History Verio test strips) lancets 33 gauge (OneTouch Delica #100 ea 05/26/23 06/20/23 History Plus Lancet) pen needle, diabetic 32 gauge x #1,200 ea 05/26/23 06/20/23 History 5/32 (BD Priyanka 2nd Gen Pen Needle) insulin lispro 100 unit/mL See Rx Instructions subcut 06/12/23 06/20/23 Rx subcutaneous pen (Humalog KwikPen USEASDIRECTD #15 mL (U-100) Insulin) insulin glargine 100 unit/mL (3 8 unit (0.08 mL) subcut QPM #15 mL 06/13/23 06/20/23 Rx mL) subcutaneous pen metoclopramide HCl 10 mg tablet 10 mg PO Q6H PRN Nausea And 06/19/23 06/20/23 History Vomiting Allergies Allergy/AdvReac Type Se
[2023-06-20 22:10] LABS: Glucose Point of Care 212 mg/dl (65-105)
--- NOTE | 2023-06-20 22:29 | ADMGEN ---
This patient, Deidre Cuadra, was admitted to 2 Medical Room 258-. Patient/family oriented to hospital policies and general routines including ID bracelet, bed and alarms, visiting hours, pain management, procedures, bathroom and other care routines, personal items, smoking policy, room service/diet, and visiting hours. Information on how to activate the Rapid Response Team has been discussed. Patient/Family are encouraged to report perceived risks to care and to ask questions if they do not understand what they are told or what they should do.
[2023-06-21] MEDS: ONDANSETRON INJ 4 MG/2 ML VIAL IV PUSH (02:54)
[2023-06-21 06:00] VITALS: BP 153/88; PULSE 76; RESP 18; TEMP 36.8; O2SAT 96
[2023-06-21 08:24] LABS: Glucose Point of Care 142 mg/dl (65-105)
--- NOTE | 2023-06-21 09:42 | PC.NURSE ---
Pt self-admistering insulin in bed. Pt states she takes 2 units with each meal. Pt instructed that no scheduled insulin is ordered for her in the hospital, only sliding scale insulin is ordered. Pt administered it to herself from her own supply.
[2023-06-21] MEDS: SODIUM CHLORIDE 0.9% IV 1,000 ML 100 ML IV CONT (09:45)
[2023-06-21] MEDS: METOCLOPRAMIDE HCL INJ 10 MG/2 ML VIAL IV PUSH ×3 (11:09→23:00)
[2023-06-21 12:23] LABS: Glucose Point of Care 193 mg/dl (65-105)
--- NOTE | 2023-06-21 12:36 | PM.IMPN ---
Progress Note: A&P Assessment and Plan (1) Acute urinary tract infection: Code(s): N39.0 - Urinary tract infection, site not specified Status: Acute Assessment and Plan: UA on 06/20/2023 showed +1 leukocyte esterase and 11-20 wbc's. Started on Rocephin Urine cultures pending. Adjust antibiotics to culture results. (2) Acute dehydration: Code(s): E86.0 - Dehydration Status: Acute Assessment and Plan: Patient given IV fluids in the ED. Encourage oral hydration. (3) Nausea: Code(s): R11.0 - Nausea Status: Acute Assessment and Plan: Patient has been nauseous for months now. She uses Reglan at home. IV Reglan q.6 hours Nausea began (4) Type 1 diabetes mellitus: Qualifiers: Diabetes mellitus complication status: with hyperglycemia Qualified Code(s): E10.65 - Type 1 diabetes mellitus with hyperglycemia Code(s): E10.9 - Type 1 diabetes mellitus without complications Status: Acute Assessment and Plan: Insulin Lispro sliding scale, Accu-checks qAc and HS and Hold oral hypoglycemics To units of glargine with meals Initiate hypoglycemic precautions (5) Renal carcinoma: Qualifiers: Laterality: left Qualified Code(s): C64.2 - Malignant neoplasm of left kidney, except renal pelvis Code(s): C64.9 - Malignant neoplasm of unspecified kidney, except renal pelvis Status: Acute Assessment and Plan: Status post left nephrectomy Subjective Date/time seen: 06/21/23 12:36 Interval history: Patient states that she continues to have nausea. Patient was very agitated that she did not get IV fluids overnight. I explained to her that IV fluids were not necessary at this time and encourage oral hydration. Although she is still nauseous she is adamant that she needs a diet. She has been nauseous for the past several weeks since she started the Keytruda. Keytruda has since been discontinued due to it causing diabetes and ongoing nausea. Being treated for UTI with IV antibiotics. Urine culture pending. Exam Narrative: GENERAL: Comfortable, no acute distress HENMT: moist mucous membranes EYES: EOM intact b/l NECK: no lymphadenopathy RESPIRATORY: clear to auscultation CARDIO: RRR GI: soft, nontender, bowel sounds present SKIN: no rashes EXTREMITIES: no edema, redness or tenderness Objective Data Vital Signs Vital Signs: Vital Signs - 24 hr 06/20/23 13:14 06/20/23 16:25 06/20/23 16:31 Temperature 98.6 F Pulse Rate 82 72 71 Respiratory Rate 16 14 11 L Blood Pressure 168/98 H 161/85 H 153/115 H Pulse Oximetry 98 97 97 Oxygen Delivery 06/20/23 16:46 06/20/23 17:01 06/20/23 17:16 Temperature Pulse Rate 67 69 69 Respiratory Rate 14 14 13 Blood Pressure 158/91 H 152/95 H 156/99 H Pulse Oximetry 96 97 95 Oxygen Delivery 06/20/23 17:31 06/20/23 17:45 06/20/23 17:46 Temperature Pulse Rate 69 78 76 Respiratory Rate 12 14 18 Blood Pressure 166/89 H 163/94 H Pulse Oximetry 98 98 98 Oxygen Delivery 06/20/23 18:11 06/20/23 18:12 06/20/23 18:16 Temperature Pulse Rate 70 71 76 Respiratory Rate 17 16 14 Blood Pressure 156/93 H 169/103 H Pulse Oximetry 96 97 97 Oxygen Delivery 06/20/23 18:31 06/20/23 22:09 06/20/23 22:00 Temperature 98 F Pulse Rate 79 67 Respiratory Rate 12 20 Blood Pressure 146/80 H 159/78 H Pulse Oximetry 99 98 Oxygen Delivery Room Air 06/21/23 06:00 06/21/23 08:00 Temperature 98.2 F Pulse Rate 76 Respiratory Rate 18 Blood Pressure 153/88 H Pulse Oximetry 96 Oxygen Delivery Room Air Intake/Output Intake/Output: Intake & Output 06/18/23 06/19/23 06/20/23 06/21/23 23:59 23:59 23:59 23:59 Intake Total 1050 240 Balance 1050 240 Meds/Results Medications: Active Medications Generic Name Dose Route Start Last Admin Trade Name Freq PRN Reason Stop
[2023-06-21] MEDS: ACETAMINOPHEN 325 MG TABLET 650 MG PO (12:58)
[2023-06-21 14:00] VITALS: BP 148/82; PULSE 72; RESP 18; TEMP 36.8; O2SAT 95
[2023-06-21] MEDS: LOPERAMIDE HCL 2 MG CAPSULE PO (14:48)
[2023-06-21 15:11] LABS: IFOB Positive Control Positive; Immunochemical Fecal Occult Bl Negative (N)
[2023-06-21 15:38] LABS: Toxigenic C. Diff NEGATIVE (NEGATIVE)
[2023-06-21 17:23] LABS: Glucose Point of Care 174 mg/dl (65-105)
[2023-06-21 19:31] VITALS: BP 147/92; PULSE 80; RESP 18; TEMP 36.6; O2SAT 96
[2023-06-21] MEDS: HOME MEDICATION 8 EACH SUB-Q (20:18)
[2023-06-21 20:40] LABS: Glucose Point of Care 239 mg/dl (65-105)
[2023-06-22] MEDS: METOCLOPRAMIDE HCL INJ 10 MG/2 ML VIAL IV PUSH (05:14)
[2023-06-22 06:00] VITALS: BP 167/99; PULSE 74; RESP 18; TEMP 36.7; O2SAT 95
[2023-06-22 06:04] LABS: Hematocrit 38.3 % (37.0-47.0); Hemoglobin 12.5 g/dL (12.0-15.0); Mean Corpuscular HGB Conc 32.6 g/dl (32-36); Mean Corpuscular Hemoglobin 31.6 pg (26-34); Mean Corpuscular Volume 96.7 fl (80-100); Mean Platelet Volume 9.8 fl (7.4-10.4); Platelet Count Result 395 k/mm3 (150-375); Red Blood Count 3.96 M/mm3 (4.2-5.4); White Blood Count 6.2 K/mm3 (4.5-10.0)
[2023-06-22 06:24] LABS: Anion Gap 4 mmol/L (8-16); Blood Urea Nitrogen 10 mg/dL (7-17); Calcium 9.5 mg/dL (8.4-10.2); Carbon Dioxide 33 mmol/L (22-30); Chloride 94 mmol/L (98-107); Estimated CRCL calculation 39 ml/min; Estimated Glomerular Filt Rate 49; Glucose 141 mg/dL (65-110); Potassium 3.8 mmol/L (3.4-5.0); Sodium 131 mmol/L (137-145)
[2023-06-22 08:48] LABS: Glucose Point of Care 170 mg/dl (65-105)
--- NOTE | 2023-06-22 11:00 | PM.DS ---
DS: Admitting Diagnosis Discharge Date 06/22/23 Admitting Diagnosis UTI DS: Discharge Diagnosis Discharge Diagnosis (1) Acute urinary tract infection: Code(s): N39.0 - Urinary tract infection, site not specified Status: Acute (2) Acute dehydration: Code(s): E86.0 - Dehydration Status: Acute (3) Nausea: Code(s): R11.0 - Nausea Status: Acute (4) Type 1 diabetes mellitus: Qualifiers: Diabetes mellitus complication status: with hyperglycemia Qualified Code(s): E10.65 - Type 1 diabetes mellitus with hyperglycemia Code(s): E10.9 - Type 1 diabetes mellitus without complications Status: Acute (5) Renal carcinoma: Qualifiers: Laterality: left Qualified Code(s): C64.2 - Malignant neoplasm of left kidney, except renal pelvis Code(s): C64.9 - Malignant neoplasm of unspecified kidney, except renal pelvis Status: Acute DS: Summary Hospital Course Hospital Course: This is a 72-year-old female with past medical history of renal cell carcinoma status post left nephrectomy the presented to the ED due to nausea vomiting. Patient has had nausea vomiting since she has started Keytruda that cause adverse effects to her pancreas. She has since discontinued the Keytruda but nausea continues. She was found to have a UA that appeared infectious and she was admitted for further testing. She did have some urinary frequency and she was started on Rocephin. UA came back with normal growth. Due to patient being symptomatic will go ahead and continue full treatment of UTI. She was given antibiotics by her primary care provider and advised that she pick these up from pharmacy and continue those. She takes Reglan at home for her ongoing nausea. Her labs and vital signs are stable and she is medically cleared for discharge at this time. Time Spent with Patient Time attestation: Total time spent providing and/or coordinating discharge services: Exam Narrative: GENERAL: Comfortable, no acute distress HENMT: moist mucous membranes EYES: EOM intact b/l NECK: no lymphadenopathy RESPIRATORY: clear to auscultation CARDIO: RRR GI: soft, nontender, bowel sounds present SKIN: no rashes EXTREMITIES: no edema, redness or tenderness DS: Data Data Completed and Pending Labs on day of discharge: Labs from last 24 hours 06/22/23 06/22/23 06/21/23 08:41 05:40 20:17 WBC 6.2 RBC 3.96 L Hgb 12.5 Hct 38.3 MCV 96.7 MCH 31.6 MCHC 32.6 RDW 13.0 Plt Count 395 H MPV 9.8 Sodium 131 L Potassium 3.8 Chloride 94 L Carbon Dioxide 33 H Anion Gap 4 L BUN 10 Creatinine 1.10 H Estim Creat Clear Calc 39 Estimated GFR 49 L Glucose 141 H POC Capillary Glucose 170 H 239 H Calcium 9.5 Stl Occult Blood (IFOB) C. difficile (PCR) 06/21/23 06/21/23 06/21/23 17:15 14:17 12:13 WBC RBC Hgb Hct MCV MCH MCHC RDW Plt Count MPV Sodium Potassium Chloride Carbon Dioxide Anion Gap BUN Creatinine Estim Creat Clear Calc Estimated GFR Glucose POC Capillary Glucose 174 H 193 H Calcium Stl Occult Blood (IFOB) Negative C. difficile (PCR) Negative Preliminary micro results at discharge 06/20/23 16:30 Blood Culture - Preliminary Blood 06/20/23 16:46 Blood Culture - Preliminary Blood Discharge Plan Discharge Attending physician on discharge: Lyndsay Caba Discharging Clinician: Leticia Casper Patient Disposition: Home, Self-Care Activity: as tolerated Diet: diabetic Discharge Instructions: Take antibiotic that was prescribed by your PCP as prescribed. For further evaluation of ongoing nausea will refer to outpatient GI. Discharge disposition: Take medications as prescribed Monitor blood pressures Avoid social areas, you wear a mask when in social settings Encouraged to
[2023-06-22 12:22] LABS: Glucose Point of Care 188 mg/dl (65-105)
== END 2023-06-22 12:30 | disposition home or self-care (01) ==
LOC: ANHED 19:51 → ANH2MED 06-22 08:22
PROVIDERS: Internal Medicine Critical Care Medicine; Admitting Provider Internal Medicine; Emergency Provider Student in an Organized Health Care Education/Training Program; PCP Internal Medicine; Visit Provider Family Medicine
DX: N39.0 Urinary tract infection, site not specified (principal); E86.0 Dehydration; R11.0 Nausea; E10.65 Type 1 diabetes mellitus with hyperglycemia; R19.7 Diarrhea, unspecified; C64.2 Malignant neoplasm of left kidney, except renal pelvis; R42 Dizziness and giddiness; R53.1 Weakness; R51.9 Headache, unspecified; G47.33 Obstructive sleep apnea (adult) (pediatric); Z20.822 Contact with and (suspected) exposure to COVID-19; Z90.5 Acquired absence of kidney; Z85.528 Personal history of other malignant neoplasm of kidney; F10.90 Alcohol use, unspecified, uncomplicated; Z79.4 Long term (current) use of insulin
CPT/HCPCS: 36415; 80048; 80053; 81001; 82274; 82803; 82948; 83605; 83690; 83735; 85025; 85027; 87040; 87045; 87086; 87427; 87449; 87493; 87637; 93005; 96361; 96365; 96375; 96376; 99285; A9270; G0378; J0696; J1815; J2405; J2765; J7030; J7120

== ENCOUNTER 2023-09-29 11:27 | Outpatient (CLI) | payer MEDICARE, SELFPAY ==
[2023-09-29 12:52] LABS: Basophils Absolute Auto 0.1 K/mm3 (0.0-0.1); Basophils Percent Auto 0.7 % (0.2-1.2); Eosinophils Absolute Auto 0.2 K/mm3 (0-0.3); Eosinophils Percent Auto 2.5 % (0-4.4); Hematocrit 45.7 % (37.0-47.0); Hemoglobin 14.4 g/dL (12.0-15.0); Immature Granulocyte Absolute 0.03 K/mm3 (0.00-0.031); Immature Granulocyte Percent A 0.4 % (0-0.5); Lymphocytes Absolute Auto 2.15 K/mm3 (0.9-3.2); Lymphocytes Percent Auto 30.3 % (18.3-44.2); Mean Corpuscular HGB Conc 31.5 g/dl (32-36); Mean Corpuscular Hemoglobin 30.7 pg (26-34); Mean Corpuscular Volume 97.4 fl (80-100); Monocytes Absolute Auto 0.7 K/mm3 (0.1-0.6); Monocytes Percent Auto 9.2 % (2.6-8.5); Neutrophils Percent Auto 56.9 % (45.5-73.1); Platelet Count Result 366 k/mm3 (150-375); Red Blood Count 4.69 M/mm3 (4.2-5.4); Red Cell Distribution Width 12.2 % (11.5-14.5); White Blood Count 7.1 K/mm3 (4.5-10.0)
[2023-09-29 13:11] LABS: Alanine Aminotransferase 34 U/L (6-35); Albumin Level 4.4 g/dL (3.5-5.1); Alkaline Phosphatase 85 U/L (38-126); Anion Gap 6 mmol/L (8-16); Aspartate Amino Transferase 66 U/L (14-36); Bilirubin,Total 0.8 mg/dL (0.2-1.3); Blood Urea Nitrogen 25 mg/dL (7-17); CRP < 0.5 mg/dL (<1.0); Calcium 10.1 mg/dL (8.4-10.2); Carbon Dioxide 34 mmol/L (22-30); Chloride 96 mmol/L (98-107); Estimated Glomerular Filt Rate 44; Glucose 126 mg/dL (65-110); Potassium 3.7 mmol/L (3.4-5.0); Sodium 136 mmol/L (137-145)
[2023-09-29 13:14] LABS: D Dimer 2.35 ug/mL (<0.48)
[2023-09-29 13:15] LABS: Iron 109 ug/dL (37-170)
[2023-09-29 13:31] LABS: Percent Iron Saturation 41 % (20-50)
[2023-09-29 13:34] LABS: Free T4 Free Thyroxine 1.17 ng/mL (0.78-2.19)
[2023-09-29 13:52] LABS: Vitamin D 25 Hydroxy 65.1 ng/mL
[2023-09-29 13:57] LABS: Erythrocyte Sedimentation Rate 10 mm/hr (0-20)
[2023-09-29 14:08] LABS: Folic Acid 10.6 ng/mL (2.76->20)
[2023-10-02 07:21] LABS: T3 Reverse 18 ng/dL (8-25)
[2023-10-02 11:47] LABS: Anti Nuclear Antibody Titer 1:40 (Negative)
[2023-10-02 23:15] LABS: Vitamin D 1,25 (OH)2 Total 22 pg/mL (18-72); Vitamin D2 1,25 (OH)2 <8 pg/mL; Vitamin D3 1,25 (OH)2 22 pg/mL
[2023-10-03 12:10] LABS: Vitamin B1 15 nmol/L (8-30)
[2023-10-03 15:02] LABS: Vitamin B6 15.2 ng/mL (2.1-21.7)
== END 2023-09-29 11:28 | disposition home or self-care (01) ==
PROVIDERS: PCP Internal Medicine; Visit Provider Clinical Nurse Specialist
DX: C64.9 Malignant neoplasm of unspecified kidney, except renal pelvis (principal); E10.9 Type 1 diabetes mellitus without complications; M62.81 Muscle weakness (generalized); R06.02 Shortness of breath; R63.4 Abnormal weight loss; Z13.21 Encounter for screening for nutritional disorder; Z90.5 Acquired absence of kidney; E55.9 Vitamin D deficiency, unspecified; R74.8 Abnormal levels of other serum enzymes
CPT/HCPCS: 36415; 80053; 82306; 82607; 82652; 82728; 82746; 83540; 83550; 84207; 84425; 84439; 84443; 84482; 85025; 85380; 85652; 86038; 86039; 86140; 86800

== ENCOUNTER 2023-09-29 14:50 | Outpatient (CLI) | payer MEDICARE, SELFPAY ==
--- NOTE | ~2023-09-29 | CT_ITS ---
EXAMINATION: CTA chest PE protocol DATE: 09/29/2023 15:17 INDICATION: R06.02 - Shortness of breath TECHNIQUE: Computed tomography angiography (CTA) of the chest was performed with 100 mL Omnipaque-350 intravenous contrast timed to evaluate the pulmonary arteries. Coronal maximum intensity projection 3D-reconstructions were created by the technologist. The dose-length product (DLP) was 153.77 mGy-cm. Automated exposure control and iterative reconstruction technique were employed. COMPARISON: None. FINDINGS: Lung parenchyma and airways: Clear. Pleura: Unremarkable. Thoracic inlet, axillae and chest wall: Unremarkable. Thoracic aorta: No significant dilation. No dissection. Mediastinum: Normal. Heart and pericardium: Normal. Coronary artery calcifications: Absent. Upper abdomen: No significant finding. Bones: No acute osseous finding. Pulmonary arteries: Study quality: Adequate. No pulmonary emboli detected. IMPRESSION: No CT evidence of acute pulmonary embolus. No acute process detected in the chest. Reviewed, dictated and finalized at location K.
== END 2023-09-29 14:51 | disposition home or self-care (01) ==
LOC: ANHIMG 14:53
PROVIDERS: PCP Internal Medicine; Visit Provider Clinical Nurse Specialist
DX: R06.02 Shortness of breath (principal); R79.89 Other specified abnormal findings of blood chemistry
CPT/HCPCS: 36415; 71275; 80053; 82306; 82607; 82652; 82728; 82746; 83540; 83550; 84207; 84425; 84439; 84443; 84482; 85025; 85380; 85652; 86038; 86039; 86140; 86800; Q9967

== ENCOUNTER 2023-10-16 12:29 | Outpatient (CLI) | payer MEDICARE, SELFPAY ==
--- NOTE | ~2023-10-16 | MR_ITS ---
EXAMINATION: MR brain/brain stem wo/w con DATE: 10/16/2023 13:21 INDICATION: Traumatic subdural hematoma. TECHNIQUE: Magnetic resonance imaging (MRI) of the brain and brainstem was performed without and with 11 mL MultiHance intravenous contrast. COMPARISON: Brain MRI 02/13/2017 FINDINGS: There are scattered areas of nonspecific increased T2-weighted signal intensity in the cere bral white matter. There is no intracranial hemorrhage, acute infarction, or abnormal intracranial ma ss lesion. There is bilateral pachymeningeal thickening and enhancement. The ventricles are normal in size. There are likely changes of ocular lens replacement surgeries. There is mucosal thickening in the paranasal sinuses. There is a trace right mastoid effusion. IMPRESSION: 1. Bilateral pachymeningeal thickening and enhancement. This finding is most commonly secondary to pr ior lumbar puncture or spine surgery and can be chronic. 2. Mild nonspecific cerebral white matter disease, which likely represents chronic small vessel ische addi disease. Reviewed, dictated and finalized at location A. IMPRESSION: 1. Bilateral pachymeningeal thickening and enhancement. This finding is most co mmonly secondary to prior lumbar puncture or spine surgery and can be chronic. 2. Mild nonspecific cerebral white matter disease, which likely represents chronic disease manager rosy small vessel ischemic disease.
--- NOTE | 2023-10-16 13:38 | ECHO_ITS ---
Patient Info Name: Deidre Cuadra Age: 73 years : 1950 Gender: Female Ht: 67 in Wt: 112 lbs BSA: 1.54 m2 HR: 70 bpm BP: 131 / 94 mmHg Technical Quality: Good Exam Date: 10/16/2023 1:42 PM Exam Location: Echo Lab Patient Status: Outpatient Admit Date: 10/16/2023 Staff Ordering Physician: Adeola Porter Liquor Merchant: Baltazar Ragland RDCS Attending Provider: Adeola Porter Referring Physician: Charlotte CAMACHO; Exam Type: CA echo doppler color flow Study Info Indications R06.02 - Shortness of breath Complete two-dimensional, color flow and Doppler transthoracic echocardiogram is performed. Summary 1. Complete two-dimensional, color flow and Doppler transthoracic echocardiogram is performed. 2. Left ventricular chamber dimension is normal. 3. Left ventricular systolic function is normal, estimated at 65-70%. 4. The left ventricular diastolic function is grade I diastolic dysfunction. 5. E/e' 7 is not elevated. 6. There is mild mitral valve regurgitation. 7. There is moderate tricuspid valve regurgitation. 8. No pulmonary hypertension, estimated pulmonary arterial systolic pressure is 28 mmHg. Left Ventricle E/e' 7 is not elevated. Left ventricular chamber dimension is normal. Left ventricular systolic function is normal, estimated at 65-70%. The left ventricular diastolic function is grade I diastolic dysfunction. Right Ventricle Right ventricular systolic function is normal and with normal TAPSE 2.4 cm. Right ventricular chamber dimension is normal. Left Atria Left atrial chamber dimension is normal. Right Atria Right atrial chamber dimension is normal. Aortic Valve The aortic valve is trileaflet. There is no aortic valve stenosis. There is no aortic valve regurgitation. Pulmonic Valve There is no pulmonic regurgitation. Mitral Valve There is no mitral valve stenosis. There is mild mitral valve regurgitation. Tricuspid Valve There is moderate tricuspid valve regurgitation. No pulmonary hypertension, estimated pulmonary arterial systolic pressure is 28 mmHg. Pericardium/Pleural There is no pericardial effusion. Inferior Vena Cava Normal inferior vena cava with >50% collapse upon inspiration consistent with normal right atrial pressure, 5 mmHg. Aorta The aortic root size at the sinus of Valsalva is normal. Left Ventricular Outflow Tract Name Value Normal LVOT 2D LVOT Diameter 1.9 cm LVOT Doppler LVOT Peak Gradient 3 mmHg LVOT Mean Gradient 1 mmHg LVOT VTI 17 cm LVOT VTI/AV VTI Ratio 0.9 LVOT Stroke Volume 51 ml LVOT CO 3.5 l/min LVOT CI 2.3 l/min/m2 Pulmonic Valve Name Value Normal RVOT Doppler RVOT Peak Gradient 1 mmHg PV Doppler
--- NOTE | 2023-10-16 17:26 | WPDPFTINT ---
PFT Procedure Performed PFT Procedure Performed Spirometry with Pre/Post Bronchodilator Plethysmography (Lung Vol) Diffusing Cap (DLCO) Flow Vol Loop PFT Interpretation This is a pulmonary function test with pre and post-bronchodilator spirometry, plethysmography and diffusing capacity. The test was performed and results interpreted in accordance with the 2019 and 2005 ATS/ERS Task Force guidelines respectively using the Global Lung Function Initiative-2012 reference equations. Patient demonstrated good effort and cooperation. Reproducibility criteria were met. The quality of the pre bronchodilator spirometry maneuver was Grade A and post bronchodilator spirometry maneuver was Grade A. Findings: Spirometry: The contour the inspiratory and expiratory flow tracing are normal. The pre bronchodilator FVC is 3.39 L, 112% predicted. The pre bronchodilator FEV1 is 2.60 L, 113% predicted. The pre bronchodilator FEV1: FVC ratio is 77%. The post bronchodilator FVC is 3.17 L, representing a 6% decrease. The post bronchodilator FEV1 is 2.61 L, representing no change. The post bronchodilator FEV1: FVC ratio was 82%. Plethysmography: The total lung capacity is 5.32 L, 97% predicted. The functional residual capacity is 3.67 L, 116% predicted. The residual volume is 1.93 L, 80% predicted. Diffusing capacity: The diffusing capacity unadjusted for hemoglobin and carboxyhemoglobin is 14.2, 67% predicted. The diffusing capacity adjusted for alveolar volume is 3.54, 87% predicted. Impression: The spirometry is normal without evidence of an obstructive abnormality. There is no significant improvement after inhaling a single dose of albuterol. The lung volumes are normal. The diffusing capacity unadjusted for hemoglobin and carboxyhemoglobin is mildly decreased and normalizes when adjusted for alveolar volume. There are no prior studies for comparison
== END 2023-10-16 12:30 | disposition home or self-care (01) ==
PROVIDERS: PCP Internal Medicine; Visit Provider Clinical Nurse Specialist
DX: R06.02 Shortness of breath (principal); S06.5XAA Traumatic subdural hemorrhage with loss of consciousness status unknown, initial encounter; Z12.11 Encounter for screening for malignant neoplasm of colon; X58.XXXA Exposure to other specified factors, initial encounter; R90.82 White matter disease, unspecified
CPT/HCPCS: 70553; 93306; 94060; 94726; 94729; A9577

== ENCOUNTER 2023-12-15 09:00 | Outpatient (RCR) | payer MEDICARE, SELFPAY ==
--- NOTE | 2023-09-18 11:42 | PTOPEVAL1 ---
Assessment and note entered by Davey Carias, PT Evaluation Information Assessment Status Evaluation Diagnosis Generalized muscle weakness Onset February 2023 Subjective Information Reports that she had kidney cancer last year resulting in removal on left kidney. She was put on medication which caused pancreatic dysfunction. She is not diabetic. Reports that she also had history of a fall which resulted in small brain bleed on 08/24/23 and 08/27/23. Reports that she feels she may have had a mini stroke because her coordination and strength have been off. She was assessed on 08/28-08/30 receiving testing. She has chronic diarrhea which causes dehydration. Reports that she has frequent stomach pains but no extremity or back pain. Reported Pain Level Pain Score 0: Self Report Assessment PT Clinical Summary Patient presented to therapy with elevated blood sugar levels today limiting exertion and exercise activity. Emphasis was placed on conversation about self care and therapy planning. Presents with poor balance, anali hip weakness, and poor endurance with increased fall risk at this time. She will benefit from skilled therapy to address deficits and promote increased mobility and safety with ADLs. Plan of Care Interventions Gait Training,Manual Therapy,Neuro Re-education, Therapeutic Activities,Therapeutic Exercise PT Services Indicated Yes Treatment Frequency and 2x/week for 10 visits Duration These treatments will address the objective and functional deficits as defined above. The patient will be advanced safely and appropriately in order for the patient to progress towards his/her prior level of function. Additional exercises will be introduced and as well as a comprehensive home exercise program upon discharge, if needed, ?to ensure carryover of functional gains achieved in the clinic. This treatment plan has been reviewed and agreement upon by the patient.
--- NOTE | 2023-09-18 11:43 | OPREHPOC ---
Outpatient Therapy Plan of Care This is a Multidisciplinary Plan of Care that may contain components documented by all disciplines (PT, OT, and ST.) PT Problem 1 PT Problem #1 Knowledge Deficit PT Goal 1 Goal Independent with HEP Target Visit 4 PT Problem 2 PT Problem #2 Impaired Strength PT Goal 1 Goal Improve anali hip flexion strength to 4+/5 to improve foot clearance with ADL activity. Target Visit 10 PT Goal 2 Goal Improve anali hip abduction strength to 4/5 to improve lateral stability with ADL activity. Target Visit 10 PT Problem 3 PT Problem #3 Impaired Balance PT Goal 1 Goal Improve Tinetti score by 6 points to reduce fall risk with ADL performance and walking Target Visit 10
--- NOTE | 2023-11-06 11:49 | PTOPPROG ---
Assessment and note entered by Davey Carias, PT Evaluation Information Assessment Status Progress Diagnosis Generalized muscle weakness Onset February 2023 Subjective Information Reports that overall she feels that her balance is getting a lot better. Most days she feels that she is walking better and doing a little more. She has been concentrating on her gait cycle and progress. She has been out more including trips to [place] and 2 trips [place] [facility] for [place]. She is more comfortable with long walks. Assessment PT Clinical Summary Patient has shown progress at this time with strength and Tinetti score improvement reducing her overall fall risk. She continues to show apprehension with gait independent of AD which will need continued work through proprioception and lateral hip stability. Patient will continue to benefit from skilled therapy to address these deficits and improve gross function safely. Plan of Care Interventions Gait Training,Manual Therapy,Neuro Re-education, Therapeutic Activities,Therapeutic Exercise PT Services Indicated Yes Treatment Frequency and 2x/week for 10 visits Duration These treatments will address the objective and functional deficits as defined above. The patient will be advanced safely and appropriately in order for the patient to progress towards his/her prior level of function. Additional exercises will be introduced and as well as a comprehensive home exercise program upon discharge, if needed, ?to ensure carryover of functional gains achieved in the clinic. This treatment plan has been reviewed and agreement upon by the patient.
--- NOTE | 2023-11-06 11:49 | OPREHPOC ---
Outpatient Therapy Plan of Care This is a Multidisciplinary Plan of Care that may contain components documented by all disciplines (PT, OT, and ST.) PT Problem 1 PT Problem #1 Knowledge Deficit PT Goal 1 Goal Independent with HEP Target Visit 4 Progress Met PT Problem 2 PT Problem #2 Impaired Strength PT Goal 1 Goal Improve anali hip flexion strength to 4+/5 to improve foot clearance with ADL activity. Target Visit 20 Progress Partially Met PT Goal 2 Goal Improve anali hip abduction strength to 4/5 to improve lateral stability with ADL activity. Target Visit 20 Progress Partially Met PT Problem 3 PT Problem #3 Impaired Balance PT Goal 1 Goal Improve Tinetti score by 6 points to reduce fall risk with ADL performance and walking Target Visit 20 Progress Partially Met Comment Update: Improve to 22+
--- NOTE | 2023-11-17 09:17 | PCPTNOTE ---
Pt. called to cancel appointment due to transportation issues today.
--- NOTE | 2023-11-27 15:40 | PCPTNOTE ---
Patient cancelled today's appointment secondary to illness.
--- NOTE | 2023-12-15 10:00 | OPREHPOC ---
Outpatient Therapy Plan of Care This is a Multidisciplinary Plan of Care that may contain components documented by all disciplines (PT, OT, and ST.) PT Problem 1 PT Problem #1 Knowledge Deficit PT Goal 1 Goal Independent with HEP Target Visit 4 Progress Met PT Goal 2 Goal 12-15-23 progress met goal continue to progress HEP and education Target Visit 24 PT Problem 2 PT Problem #2 Impaired Strength PT Goal 1 Goal Improve anali hip flexion strength to 4+/5 to improve foot clearance with ADL activity. Target Visit 20 Progress Partially Met PT Goal 2 Goal Improve anali hip abduction strength to 4/5 to improve lateral stability with ADL activity. Target Visit 20 Progress Partially Met Comment 12-15-23 progress improved with both but goals not met; continue to increase hip strength: ADD: *single leg standing R x 10 seconds * single leg standing L x 10 seconds PT Problem 3 PT Problem #3 Impaired Balance PT Goal 1 Goal Improve Tinetti score by 6 points to reduce fall risk with ADL performance and walking Target Visit 20 Progress Partially Met Comment Update: Improve to 22+ PT Goal 2 Goal 12-15-23 progress goal not met NEW GOAL: * Tinetti balance score of 24/28 * 2 minute walking test distance of 360' with assistive device Target Visit 24
--- NOTE | 2023-12-15 10:00 | PTOPPROG ---
Assessment and note entered by Karley Molina, PT Progress Report Assessment Status Progress Diagnosis Generalized muscle weakness Onset February 2023 Subjective Information feel like I am about the same; frustrated about her situation; have good days and bad days; sometimes feel walking and balance are better, other days not so good; have appointments for food analyst and Speech therapy; R side is not working well and not where I want to be at with getting around; have been doing the exercises at home. following with neurologist, 3d specialist at start of session--blood glucose monitor 160 reading; problems with using R arm with cooking- it goes where it wants to go; have not had any falls; use the wheeled walker when go out of home; in the house do not use the wheeled walker, have bi-level home with constantly going on stairs. is doing her light home cleaning laundry and drives. having problems keeping up with her home- live alone and stairs are an issue and have yard work hired out now; Assessment PT Clinical Summary Deidre has received 18 PT sessions. Compared to the last progress report: increased R and L LE strength; 2 minute walking test distance without device is 130' and with rollator is 310'; Tinetti balance score improved by 1 to 18= high risk for falls; on stairs, requires one hand railing and single step pattern; The goals were partially met. Progress has been limited due to her issues with blood glucose and fatigue, requiring frequent breaks and rest periods. Continue PT, with decreased frequency to 1x/week. Plan of Care Interventions Gait Training,Neuro Re-education,Patient Education,Therapeutic Activities,Therapeutic Exercise PT Services Indicated Yes Treatment Frequency and 1x/wk for 6 additional visits Duration These treatments will address the objective and functional deficits as defined above. The patient will be advanced safely and appropriately in order for the patient to progress towards his/her prior level of function. Additional exercises will be introduced and as well as a comprehensive home exercise program upon discharge, if needed, ?to ensure carryover of functional gains achieved in the clinic. This treatment plan has been reviewed and agree
--- NOTE | 2023-12-17 10:15 | PCPTNOTE ---
This treatment is being continued on visit number [id number]. Please see documentation on both accounts to view progress. Completed interventions, outcomes, and problems have been marked as Inactive to facilitate the copying of the Care plan routine for recurring accounts.
== END 2023-12-16 08:48 | disposition home or self-care (01) ==
LOC: ANHPT 09:00
PROVIDERS: PCP Internal Medicine; Visit Provider Clinical Nurse Specialist
DX: M62.81 Muscle weakness (generalized) (principal)
CPT/HCPCS: 97110; 97112; 97116; 97161; 97530

== ENCOUNTER 2023-12-16 09:26 | Outpatient (CLI) | payer MEDICARE, SELFPAY ==
--- NOTE | ~2023-12-16 | MM_ITS ---
EXAMINATION: MM screening veronica BI w pippa HISTORY: Screening TECHNIQUE: Craniocaudal and mediolateral oblique 3-D tomosynthesis images were obtained and synthetic 2-D images were generated. CAD analysis was submitted and interpreted. COMPARISON: Comparison to multiple prior studies sequentially, with oldest reviewed study dated 05/14. BREAST PARENCHYMAL COMPOSITION: Dense: The breasts are extremely dense, which lowers the sensitivity of mammography. FINDINGS: There is no evidence of suspicious mass, calcification, or architectural distortion to sugg est malignancy in either breast. There has been no suspicious interval change. IMPRESSION: 1. No mammographic evidence of malignancy. 2. Recommend routine screening mammography in one year. BI-RADS Category 1: Negative Reviewed, dictated and finalized at location B.
== END 2023-12-16 09:27 | disposition home or self-care (01) ==
PROVIDERS: PCP Internal Medicine; Visit Provider Internal Medicine
DX: Z12.31 Encounter for screening mammogram for malignant neoplasm of breast (principal)
CPT/HCPCS: 77063; 77067

== ENCOUNTER 2024-01-26 10:00 | Outpatient (RCR) | payer MEDICARE, SELFPAY ==
--- NOTE | 2023-12-17 10:17 | PCPTNOTE ---
This treatment is being continued from visit number [id number]. Please see documentation on both accounts to view progress. Completed interventions, outcomes, and problems have been marked as Inactive to facilitate the copying of the Care plan routine for recurring accounts.
--- NOTE | 2023-12-22 13:02 | OPREHPOC ---
Outpatient Therapy Plan of Care This is a Multidisciplinary Plan of Care that may contain components documented by all disciplines (PT, OT, and ST.) PT Problem 1 PT Problem #1 Knowledge Deficit PT Goal 1 Goal Independent with HEP Target Visit 4 Progress Met PT Goal 2 Goal 624 progress met goal continue to progress HEP and education Target Visit 24 PT Problem 2 PT Problem #2 Impaired Strength PT Goal 1 Goal Improve anali hip flexion strength to 4+/5 to improve foot clearance with ADL activity. Target Visit 20 Progress Partially Met PT Goal 2 Goal Improve anali hip abduction strength to 4/5 to improve lateral stability with ADL activity. Target Visit 20 Progress Partially Met PT Problem 3 PT Problem #3 Impaired Balance PT Goal 1 Goal Improve Tinetti score by 6 points to reduce fall risk with ADL performance and walking Target Visit 20 Progress Partially Met PT Goal 2 Goal 12-15-23 progress goal not met NEW GOAL: * Tinetti balance score of 24/28 * 2 minute walking test distance of 360' with assistive device Target Visit [address] Problem #[address] Goal 1 Goal 1. Patient will voice and demonstrate anatomy and physiology related to speech and voicing, communication impairment, treatment plan, home exercise program, compensatory programs, and risks and benefits related to direct Speech Therapy tasks. Target Visit [address] Problem #[address] Goal 1 Goal 1. Patient will demonstrate good understanding of vocal hygiene program and tasks to increase the strength of the voice without abusing the voice.
--- NOTE | 2023-12-22 13:03 | STOPEVAL1 ---
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 She reported that she feels her tongue feels thick and she has to think about her words and concentrate in order to choose her words and say them clearly. She stated she knows what she wants to say but has to concentrate on getting it out right. She reported she did not feel she necessarily needed Speech Therapy however her neurologist recommended it and that people told her she was slurring her speech. The Immediate Memory portion of the Ross Information Processing Assessment (RIPA) was presented to assess patient's ability to recall lengthy and complex information immediately after presentation. She she received 27/30 points for dropping pieces of information from each sentence. She was also presented with a lengthy and complex sentence from the Repetition subtest of the Western Aphasia Battery and dropped 2/3 pieces of information from that sentence. Patient was presented with three words from the Recent Memory subtest of the RIPA and with delay, she was able to use self-cues to recall 3/3 words presented prior to the Immediate Memory subtest. Patient was given the word repetition subtest from the Frenchay Dysarthria Assessment and imitated each mono- and bi-syllable word with 100% accuracy, On the Repetition subtest of the Western Aphasia Battery, she also imitated words, phrases, and sentences with 100% intelligibility for speech sound precision. Where she exhibited difficulty was during diadochokinetic rate (rapid repetition of speech sounds) test. See below this paragraph. Additionally, vocal loudness averaged 65 decibels, range 61-71 decibels. Average loudness for this speech therapy room is 68-74 decibels. Diadochokinetic rates
--- NOTE | 2023-12-29 15:18 | STOPDC ---
Assessment and note entered by Brissa Kruse MOVERS Evaluation Information Assessment Status Discharge Reported Pain Level Pain Score 0: Self Report Assessment ST Clinical Summary DISCHARGE SUMMARY AND TREATMENT SUMMARY The patient was seen for an initial speech evaluation which revealed mildly reduced vocal loudness and mild labial/lingual weakness, both contributing to friends and family having to ask her to repeat herself in order for them to understand her. She was seen for two additional visits, one for instruction of home exercise program, and a second to answer any questions, assess progress, and determine need to adjust any part of the home program or add new exercises. Today patient completed exercises with adequate loudness for sustaining ah sound, oral reading of common sentences, and responding to open-ended questions with 1-2 word and 3+word phrases/ sentences. She sustained ah sounds with 79-83 decibels, range over 15 trials, orally read sentences with an average of 72 decibels, average (within normal range as opposed to initial evaluation when speech averaged 64 decibels), and she responded to open-ended questions with 70 decibels, average. She reported that she feels that she has to exert herself to speak within the average loudness range (68-74 decibels, average) in this speech therapy room but she voices understanding that she must speak like that to be understood, especially in environments where other noises are present and competing for attention such as when the television is turned on or in the car with the radio playing. Patient is discharged this date with goals achieved and home exercise program in established. No additional skilled Speech Therapy is recommended at this time. Plan of Care ST Services Indicated No
--- NOTE | 2024-01-26 10:56 | PTOPDC ---
Assessment and note entered by Karley Molina, PT Discharge Report Assessment Status Discharge Diagnosis Generalized muscle weakness Onset February 2023 Subjective Information ready to be done with therapy; walk without anything most of the time; use the walker when walking a distance by myself; no falls; have been doing the exercises; is doing everything at home OK; working on blood sugar levels--going to get a pump and had training with master tax advisor; Reported Pain Level Pain Score 0: Self Report Assessment PT Clinical Summary Deidre has received a total of 24 PT sessions. Compared to the last reevaluation, she has improved in all areas: increase LE strength; gait without assistive device, with 2 minute walking test distance from 120' to 320'; Tinetti balance score from 18 to 25/28; single leg standing on R 6/ L 12 seconds; education completed for HEP. The goals were achieved except single leg standing time on R LE. Discharge PT services. She is to continue with her home exercise program. Plan of Care PT Services Indicated No
== END 2024-01-26 13:46 | disposition home or self-care (01) ==
LOC: ANHPT 10:00
PROVIDERS: PCP Internal Medicine; Visit Provider Clinical Nurse Specialist
DX: M62.81 Muscle weakness (generalized) (principal); G93.9 Disorder of brain, unspecified; R47.02 Dysphasia
CPT/HCPCS: 92507; 92522; 96125; 97110; 97112; 97116; 97530

== ENCOUNTER 2024-03-02 09:15 | Outpatient (RCR) | payer MEDICARE, SELFPAY ==
[2023-12-16 10:50] VITALS: BMI 17.2
[2023-12-24 08:15] VITALS: BMI 18.3
[2024-01-07 09:40] VITALS: BMI 18.0; BMI 18.3
== END 2024-03-15 23:59 | disposition home or self-care (01) ==
LOC: ANHDMC 09:15
PROVIDERS: PCP Internal Medicine; Visit Provider Clinical Nurse Specialist
DX: E10.9 Type 1 diabetes mellitus without complications (principal); C64.9 Malignant neoplasm of unspecified kidney, except renal pelvis; R63.4 Abnormal weight loss; Z90.5 Acquired absence of kidney; Z71.3 Dietary counseling and surveillance; Z71.89 Other specified counseling
CPT/HCPCS: 97802; 97803; G0108

== ENCOUNTER 2024-06-08 09:15 | Outpatient (RCR) | payer MEDICARE, SELFPAY | END 2024-07-05 08:30 | disposition home or self-care (01) | LOC: ANHDMC 09:15 | PROVIDERS: PCP Internal Medicine; Visit Provider Clinical Nurse Specialist | DX: E10.65 Type 1 diabetes mellitus with hyperglycemia (principal); E10.649 Type 1 diabetes mellitus with hypoglycemia without coma; Z71.89 Other specified counseling; R63.4 Abnormal weight loss; C64.9 Malignant neoplasm of unspecified kidney, except renal pelvis; Z90.5 Acquired absence of kidney | CPT/HCPCS: G0108 ==

== ENCOUNTER 2024-06-16 08:45 | Outpatient (CLI) | payer MEDICARE, SELFPAY ==
--- NOTE | ~2024-06-16 | US_ITS ---
EXAMINATION: US soft tissue abdomen DATE: 06/16/2024 09:07 INDICATION: Left flank lump. TECHNIQUE: Multiple grayscale and Doppler ultrasound images of the abdomen were obtained. COMPARISON: Chest CT 09/29/2023 FINDINGS: In the patient's area of concern in the left flank, there is a 6 x 7 x 4 mm subcutaneous ma ss that is isoechoic to subcutaneous fat with similar echotexture. IMPRESSION: 1. Nonspecific 7 mm subcutaneous mass in the left flank, which may be inflammation or a lipoma. Reviewed, dictated and finalized at location A. CTOR PRODUCT MANAGEMENT IMPRESSION: 1. Nonspecific 7 mm subcutaneous mass in the left flank, which may be inflammat ion or a lipoma.
--- NOTE | ~2024-06-16 | US_ITS ---
EXAMINATION: US soft tissue groin LT DATE: 06/16/2024 09:07 INDICATION: Left groin lump. TECHNIQUE: Multiple grayscale and Doppler ultrasound images of the left groin were obtained. COMPARISON: None FINDINGS: There are normal lymph nodes in the left groin. IMPRESSION: 1. No abnormal mass or lymphadenopathy in the left groin. Reviewed, dictated and finalized at location A. ONAL SUPPORT WORKER
--- NOTE | ~2024-06-16 | US_ITS ---
EXAMINATION: US soft tissue groin RT DATE: 06/16/2024 09:07 INDICATION: Right groin lump. TECHNIQUE: Multiple grayscale and Doppler ultrasound images of the right groin were obtained. COMPARISON: None FINDINGS: There are normal lymph nodes in the right groin. IMPRESSION: 1. No abnormal mass or lymphadenopathy in the right groin. Reviewed, dictated and finalized at location A. AND WO[employer]ODU[employer] FACTORY WORKER
== END 2024-06-16 08:46 | disposition home or self-care (01) ==
LOC: GOSHIMG 08:45
PROVIDERS: PCP Internal Medicine; Visit Provider Clinical Nurse Specialist
DX: M25.551 Pain in right hip (principal); M25.552 Pain in left hip; Z85.528 Personal history of other malignant neoplasm of kidney
CPT/HCPCS: 76705; 76882

== ENCOUNTER 2024-07-08 09:58 | Outpatient (CLI) | payer MEDICARE, SELFPAY ==
--- NOTE | ~2024-07-08 | XR_ITS ---
3 VIEWS LUMBAR SPINE Ordering provider: MEIR Hartley History: . M54.50 - Low back pain, unspecified . Comparison: None. FINDINGS: VERTEBRAL BODIES: No visible fracture or subluxation. DISK SPACES: Narrowing of the disc L4-L5 and L5-S1. SOFT TISSUES: Normal. IMPRESSION: No acute osseous abnormality lumbar spine. Degenerative disc disease at the level of L4-L5 and L5-S1. Reviewed, dictated and finalized at location A. E MANAGEMENT SPECIALIST
== END 2024-07-08 09:59 | disposition home or self-care (01) ==
PROVIDERS: PCP Internal Medicine; Visit Provider Clinical Nurse Specialist
DX: M51.379 Other intervertebral disc degeneration, lumbosacral region without mention of lumbar back pain or lower extremity pain (principal); M51.369 Other intervertebral disc degeneration, lumbar region without mention of lumbar back pain or lower extremity pain; R27.0 Ataxia, unspecified
CPT/HCPCS: 72100

== ENCOUNTER 2024-09-07 16:58 | Observation (INO) | payer MEDICARE, SELFPAY ==
--- NOTE | ~2024-09-07 | MR_ITS ---
EXAMINATION: MR brain/brain stem wo/w con DATE: 09/08/2024 11:34 INDICATION: Medullary stroke TECHNIQUE: Magnetic resonance imaging (MRI) of the brain and brainstem was performed without and with 11 mL Multihance intravenous contrast. Sequences included sagittal and axial T1-weighted SE, axial d iffusion-weighted FS SE, axial 3D SWAN, axial T2-weighted FLAIR, and axial T2-weighted FSE. Postcontr ast axial and coronal T1-weighted SE was obtained. Apparent diffusion coefficient (ADC) maps were cre ated. COMPARISON: 10/16/2023 FINDINGS: There are no areas of restricted diffusion to suggest acute infarction. No intracranial hemorrhage or abnormal intracranial mass lesion. There are scattered areas of nonspecific increased T2-weighted si gnal intensity in the cerebral white matter, predominantly involving the deep and periventricular whi te matter. There are no intraparenchymal signal abnormalities seen on the other pulse sequences. The ventricles are symmetric and normal in size. There are no abnormal extra-axial fluid collections. Terry w voids are seen in the cerebral arteries on the T2-weighted sequences consistent with their expected patency. Changes of bilateral intraocular lens replacement. Visualized orbits and soft tissues are u nremarkable. The prior pachymeningeal enhancement has resolved. There are no areas of abnormal enhanc ement on the post contrast images. IMPRESSION: 1. No acute intracranial process. 2. No significant change in mild scattered nonspecific cerebral white matter hyperintensity consisten t with chronic small vessel ischemic disease. Reviewed, dictated and finalized at location B. 3D ARTIST IMPRESSION: 1. No acute intracranial process. 2. No significant change in mild scattered nonspecific cerebral white matter hy perintensity consistent with chronic small vessel ischemic disease.
--- NOTE | ~2024-09-07 | MR_ITS ---
EXAMINATION: MRA brain wo con DATE: 09/08/2024 11:25 INDICATION: Cerebrovascular accident. TECHNIQUE: Magnetic resonance angiography (MRA) of the brain was performed without intravenous contra st with T1-weighted SPGR by the 3D [id number] technique. Maximum intensity projection 3D-reconstr uctions were obtained. COMPARISON: None. FINDINGS: Left vertebral artery is dominant. There is no significant stenosis of basilar artery or the posterio r cerebral arteries. There is no significant stenosis of the intracranial internal carotid arteries o r anterior or middle cerebral arteries. Anterior communicating artery is normal. Posterior communicat ing arteries are not identified. There is no aneurysm. IMPRESSION: 1. Normal MRA. Reviewed, dictated and finalized at location A. RACTS LAW PROFESSOR IMPRESSION: 1. Normal MRA.
--- NOTE | ~2024-09-07 | CT_ITS ---
EXAMINATION: CT brain wo con DATE: 09/07/2024 18:45 INDICATION: headache, atraumatic . TECHNIQUE: Computed tomography (CT) of the head was performed without intravenous contrast. The mA wa s adjusted according to patient size. Iterative reconstruction technique was employed. The dose-lengt h product was 605.33 mGy-cm. COMPARISON: MR brain 10/16/2023 and 02/13/2017. FINDINGS: No acute intracranial hemorrhage or extra-axial fluid collection. No hydrocephalus, mass, or herniation. No acute large vessel ischemic infarct. Focal, 6 mm hypodensity in the left medulla. Unremarkable dural venous sinus attenuation. No acute osseous abnormality. Minimal left mastoid fluid, mild right maxillary mucosal thickening, small right maxillary retention cyst or polyp, the remaining aerated spaces are clear. Mild atrophy and chronic white matter change. Atherosclerotic intracranial calcification. Bilateral l ens replacements. IMPRESSION: Focal hypodensity in the left medulla, may represent acute or chronic infarct versus artifact. Recomm end MRI of the brain for further characterization. Reviewed, dictated and finalized at location K. FINISHER IMPRESSION: Focal hypodensity in the left medulla, may represent acute or chronic infarct v ersus artifact. Recommend MRI of the brain for further characterization.
--- NOTE | ~2024-09-07 | XR_ITS ---
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 RESULT: Lines, tubes, and devices: None. Lungs and pleura: Clear. Cardiomediastinal silhouette: Dilated aortic root, prominent aortic knob, aortic unfolding. Normal h eart size. Other: No acute osseous or upper abdominal finding. IMPRESSION: Aortic ectasia. Consider CTA of the chest there is concern for aortic aneurysm/dissection. Reviewed, dictated and finalized at location K. WORKER IMPRESSION: Aortic ectasia. Consider CTA of the chest there is concern for aortic aneurysm/ dissection.
--- NOTE | 2024-09-07 17:21 | PC.NURSE ---
Pt called twice for VS, no answer.
[2024-09-07 18:08] VITALS: BP 178/110; PULSE 81; RESP 16; TEMP 36.7; O2SAT 99
--- NOTE | 2024-09-07 18:18 | ED_ITS ---
HPI - Recheck/Abnormal Lab/Rx General Chief Complaint: Recheck/Abnormal Lab/Rx <Robby Uribe PA-C - Last Filed: 09/07/24 18:29> Stated Complaint: htn <Robby Uribe PA-C - Last Filed: 09/07/24 18:29> Time Seen by Provider: 09/07/24 18:18 <Robby Uribe PA-C - Last Filed: 09/07/24 18:29> Focused HPI: This is a 73-year-old female who presents to the ED for chief complaint of elevated blood pressure. She was seen urgent care prior to arrival because she was taking her blood pressures at home and noticed there elevated. She was told to come to the ER with a blood pressure of 170 systolic. Patient states that she has been feeling generally unwell today. She has had nausea and dizziness today. Endorses mild headache and mild chest pressure. States that she is actually feeling much better on my initial evaluation. States that she go home from a cruise about a week ago. GENERAL: Well-appearing, well-nourished, and in no acute distress. HEAD: Normocephalic, atraumatic. CHEST: Clear to auscultation. No respiratory distress. HEART: Regular rate and rhythm. NEURO: Alert and oriented x3. Patient screened in triage and initial orders placed. Additional care and disposition to be based upon diagnostic testing and treatment. <Robby Uribe PA-C - Last Filed: 09/07/24 18:29> Source: patient <Robby Uribe PA-C - Last Filed: 09/07/24 18:29> Mode of arrival: ambulatory <Robby Uribe PA-C - Last Filed: 09/07/24 18:29> Limitations: no limitations <Robby Uribe PA-C - Last Filed: 09/07/24 18:29> History of Present Illness HPI narrative: I agree with the above HPI <Michael Rivera MD - Last Filed: 09/08/24 00:10> Related Data Home Medications: Home Medications ?Medication ?Instructions ?Recorded ?Confirmed ?Last Taken ?Type subcutaneous insulin pump 03/01/24 06/17/24 Unknown History estradiol 10 mcg vaginal tablet mcg vaginal 07/01/24 07/01/24 Unknown History <Robby Uribe PA-C - Last Filed: 09/07/24 18:29> Allergies/Adverse Reactions: Allergies Allergy/AdvReac Type Severity Reaction Status Date / Time insulin aspart (From Novolog Allergy Severe Rash Verified 09/07/24 16:59 U-100 Insulin aspart) adhesive Allergy Unknown Rash Verified 09/07/24 16:59 polymyxin B Allergy Unknown Rash Verified 09/07/24 16:59 Sulfa (Sulfonamide Allergy Unknown Hives Verified 09/07/24 16:59 Antibiotics) sulfanilamide Allergy Unknown Hives Verified 09/07/24 16:59 BANDAIDS Allergy Mild Rash Uncoded 09/07/24 16:59 NEOMYCIN SULFATE Allergy Mild Rash Uncoded 09/07/24 16:59 POLYMYXIN B SULFATE Allergy Mild Rash Uncoded 09/07/24 16:59 <Robby Uribe PA-C - Last Filed: 09/07/24 18:29> Review of Systems 2 Review of Systems: All systems as dictated in HPI <Robby Uribe PA-C - Last Filed: 09/07/24 18:29> [facility] Past Medical History Medical History: Medical History Acute cerebellar syndrome Ataxia Cerebellar midline syndrome Cerebellar stroke syndrome Chicken pox Chronic kidney disease (CKD) Heartburn Hx of migraines Measles Mononucleosis Mumps VONNIE (obstructive sleep apnea) Renal cell carcinoma Vomiting <Robby Uribe PA-C - Last Filed: 09/07/24 18:29> Surgical History Surgical History: Surgical History History of tubal ligation <Robby Uribe PA-C - Last Filed: 09/07/24 18:29> Family History Family History: Family History Mother Hypertension Sibling Patient's sister is in good health Patient's brother is in good health Family history of lung cancer Father Cerebrovascular accident <Robby Uribe PA-C - Last Filed: 09/07/24 18:29> Social History Social History: Social History Smoking status: Never smoker Alcohol intake: former Substance use: never Substance use type: does not use Do You Feel Safe in your Home?: Yes Lack of Transportation: No Lack of Food: Never True Current Housing: I Have Housing Concerned About Future Housing: No Difficulty Paying Gas/Electric Bills: No Difficulty Paying for Meds: No Currently Unemployed: No Education: High School Diploma/GED Difficulty w/ Childcare or Family Care: No Living arrangements: alone Spiritual care concerns: No <Robby Uribe PA-C - Last Filed: 09/07/24 18:29> Exam 2 Narrative: GENERAL: Well-appearing, well-nourished, and in no acute distress. HEAD: Normocephalic, atraumatic. EYES: PERRLA and EOMI. ENT: Nares clear, no rhinorrhea or epistaxis. Mucous membranes moist. Oropharynx without tonsillar hypertrophy exudate or other lesions. NECK: Supple. No adenopathy or masses. CHEST: No respiratory distress. Clear to auscultation. No wheezes rales or rhonchi HEART: Regular rate and rhythm. No murmur heard. Normal peripheral pulses. ABDOMEN: Soft, nontender, nondistended, normal active bowel sounds. MSK: Normal range of motion. No edema. SKIN: Warm, dry, no rash. NEURO: Alert and oriented x4. No focal deficits. PSYCH: Normal mood and affect. <Robby Uribe PA-C - Last Filed: 09/07/24 18:29> GENERAL: Well-appearing, well-nourished, and in no acute distress. HEAD: Normocephalic, atraumatic. EYES: PERRLA and EOMI. ENT: Nares clear, no rhinorrhea or epistaxis. Mucous membranes moist. Oropharynx without tonsillar hypertrophy exudate or other lesions. NECK: Supple. No adenopathy or masses. CHEST: No respiratory distress. Clear to auscultation. No wheezes rales or rhonchi HEART: Regular rate and rhythm. No murmur heard. Normal peripheral pulses. ABDOMEN: Soft, nontender, nondistended, normal active bowel sounds. MSK: Normal range of motion. No edema. SKIN: Warm, dry, no rash. NEURO: Alert and oriented x4. No focal deficits. Patient does have chronic right-sided deficits which he states are unchanged today. PSYCH: Normal mood and affect. <Michael Rivera MD - Last Filed: 09/08/24 00:10> Course Vital Signs Vital signs: Vital Signs Temperature 98.1 F 09/07/24 18:08 Pulse Rate 81 09/07/24 18:08 Respiratory Rate 16 09/07/24 18:08 Blood Pressure 178/110 H 09/07/24 18:08 Pulse Oximetry 99 09/07/24 18:08 Temperature 98.1 F 09/07/24 18:08 Pulse Rate 64 09/07/24 22:30 Respiratory Rate 20 09/07/24 22:30 Blood Pressure 165/91 H 09/07/24 22:30 Pulse Oximetry 99 09/07/24 22:30 <Robby Uribe PA-C - Last Filed: 09/07/24 18:29> Vital Signs Temperature 98.1 F 09/07/24 18:08 Pulse Rate 81 09/07/24 18:08 Respiratory Rate 16 09/07/24 18:08 Blood Pressure 178/110 H 09/07/24 18:08 Pulse Oximetry 99 09/07/24 18:08 Temperature 98.1 F 09/07/24 18:08 Pulse Rate 64 09/07/24 22:30 Respiratory Rate 20 09/07/24 22:30 Blood Pressure 165/91 H 09/07/24 22:30 Pulse Oximetry 99 09/07/24 22:30 <Michael Rivera MD - Last Filed: 09/08/24 00:10> MDM - Recheck/Abnormal Lab/Rx MDM Narrative Medical decision making narrative: [age] old female presents emergency department for evaluation for an episode of feeling flushed dizzy and not feeling well today when she went to Urgent Care was found to be hypertensive. Patient was instructed to present to emergency department for further evaluation. Patient is currently afebrile with no leukocytosis and a stable hemoglobin of 13.4. Patient has no significant abnormalities on her CMP patient was negative for influenza RSV, CT brain was concerning for possible medullary infarct. 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 No change in that deficit. Neurology was consulted and they were comfortable with plan for admission with MRI. They are also okay with maintaining permissive hypertension. Case was discussed with hospitalist patient was accepted for admission. Patient was updated on the results of workup and plan for admission. All questions concerns were addressed. <Michael Rivera MD - Last Filed: 09/08/24 00:10> Differential Diagnosis Differential diagnosis: Likely other (TIA, CVA, hypertension) <Michael Rivera MD - Last Filed: 09/08/24 00:10> Lab Data Attestation: I reviewed the patient's lab results. <Michael Rivera MD - Last Filed: 09/08/24 00:10> Result diagrams: 09/07/24 20:51 09/07/24 20:51 <Robby Uribe PA-C - Last Filed: 09/07/24 18:29> Labs: Lab Results 09/07/24 Range/Units 20:51 WBC 6.1 (4.5-10.0) K/mm3 RBC 4.28 (4.2-5.4) M/mm3 Hgb 13.4 (12.0-15.0) g/dL Hct 40.5 (37.0-47.0) % MCV 94.6 (80-100) fl MCH 31.3 (26-34) pg MCHC 33.1 (32-36) g/dl RDW 12.8 (11.5-14.5) % Plt Count 248 (150-375) k/mm3 MPV 10.0 (7.4-10.4) fl Immature Gran % (Auto) 0.2 (0-0.5) % Neut % (Auto) 49.8 (45.5-73.1) % Lymph % (Auto) 37.0 (18.3-44.2) % [place] % (Auto) 10.0 H (2.6-8.5) % Eos % (Auto) 2.3 (0-4.4) % Baso % (Auto) 0.7 (0.2-1.2) % Lymph # (Auto) 2.26 (0.9-3.2) K/mm3 [place] # (Auto) 0.6 (0.1-0.6) K/mm3 Eos # (Auto) 0.1 (0-0.3) K/mm3 Baso # (Auto) 0.0 (0.0-0.1) K/mm3 Abs Immat Gran (auto) 0.01 (0.00-0.031) K/mm3 Absolute Neuts (auto) 3.0 (1.3-6.7) K/mm3 Absolute Nucleated RBC 0.000 (0.0-0.012) K/mm3 Nucleated RBC % 0.0 (0.0-0.2) % Sodium 132 L (137-145) mmol/L Potassium 4.7 (3.4-5.0) mmol/L Chloride 92 L (98-107) mmol/L Carbon Dioxide 32 H (22-30) mmol/L Anion Gap 8 (4-12) mmol/L BUN 22 H (7-17) mg/dL Creatinine 1.05 H (0.7-1.0) mg/dL Estim Creat Clear Calc 35 ml/min Estimated GFR 51 L (59 - ) Glucose 288 H (65-110) mg/dL Hemoglobin A1c Pending Calcium 9.5 (8.4-10.2) mg/dL Total Bilirubin 1.1 (0.2-1.3) mg/dL AST 35 (14-36) U/L ALT 27 (6-35) U/L Alkaline Phosphatase 129 H (38-126) U/L Troponin I < 0.012 (0.000-0.034) ng/mL Total Protein 7.0 (6.3-8.2) g/dL Albumin 4.3 (3.5-5.1) g/dL Triglycerides Pending Cholesterol Pending LDL Cholesterol Direct Pending HDL Direct Pending Influenza A (RT-PCR) Negative (Negative) Influenza B (RT-PCR) Negative (Negative) RSV (RT-PCR) Negative (Negative) SARS-CoV-2 RNA (RT-PCR) Negative (Negative) <Robby Uribe PA-C - Last Filed: 09/07/24 18:29> Lab Results 09/07/24 Range/Units 20:51 WBC 6.1 (4.5-10.0) K/mm3 RBC 4.28 (4.2-5.4) M/mm3 Hgb 13.4 (12.0-15.0) g/dL Hct 40.5 (37.0-47.0) % MCV 94.6 (80-100) fl MCH 31.3 (26-34) pg MCHC 33.1 (32-36) g/dl RDW 12.8 (11.5-14.5) % Plt Count 248 (150-375) k/mm3 MPV 10.0 (7.4-10.4) fl Immature Gran % (Auto) 0.2 (0-0.5) % Neut % (Auto) 49.8 (45.5-73.1) % Lymph % (Auto) 37.0 (18.3-44.2) % [place] % (Auto) 10.0 H (2.6-8.5) % Eos % (Auto) 2.3 (0-4.4) % Baso % (Auto) 0.7 (0.2-1.2) % Lymph # (Auto) 2.26 (0.9-3.2) K/mm3 [place] # (Auto) 0.6 (0.1-0.6) K/mm3 Eos # (Auto) 0.1 (0-0.3) K/mm3 Baso # (Auto) 0.0 (0.0-0.1) K/mm3 Abs Immat Gran (auto) 0.01 (0.00-0.031) K/mm3 Absolute Neuts (auto) 3.0 (1.3-6.7) K/mm3 Absolute Nucleated RBC 0.000 (0.0-0.012) K/mm3 Nucleated RBC % 0.0 (0.0-0.2) % Sodium 132 L (137-145) mmol/L Potassium 4.7 (3.4-5.0) mmol/L Chloride 92 L (98-107) mmol/L Carbon Dioxide 32 H (22-30) mmol/L Anion Gap 8 (4-12) mmol/L BUN 22 H (7-17) mg/dL Creatinine 1.05 H (0.7-1.0) mg/dL Estim Creat Clear Calc 35 ml/min Estimated GFR 51 L (59 - ) Glucose 288 H (65-110) mg/dL Hemoglobin A1c Pending Calcium 9.5 (8.4-10.2) mg/dL Total Bilirubin 1.1 (0.2-1.3) mg/dL AST 35 (14-36) U/L ALT 27 (6-35) U/L Alkaline Phosphatase 129 H (38-126) U/L Troponin I < 0.012 (0.000-0.034) ng/mL Total Protein 7.0 (6.3-8.2) g/dL Albumin 4.3 (3.5-5.1) g/dL Triglycerides Pending Cholesterol Pending LDL Cholesterol Direct Pending HDL Direct Pending Influenza A (RT-PCR) Negative (Negative) Influenza B (RT-PCR) Negative (Negative) RSV (RT-PCR) Negative (Negative) SARS-CoV-2 RNA (RT-PCR) Negative (Negative) <Michael Rivera MD - Last Filed: 09/08/24 00:10> Imaging Data Radiologist's impression: Impressions Head CT 09/07/24 18:46 IMPRESSION: Focal hypodensity in the left medulla, may represent acute or chronic infarct versus artifact. Recommend MRI of the brain for further characterization. Chest X-Ray 09/07/24 18:59 IMPRESSION: Aortic ectasia. Consider CTA of the chest there is concern for aortic aneurysm/dissection. <Michael Rivera MD - Last Filed: 09/08/24 00:10> ECG Data EKG #1: EKG Interpretation: normal rate, sinus rhythm, no ectopy, non-specific ST changes, normal QRS and normal QT <Michael Rivera MD - Last Filed: 09/08/24 00:10> Discharge Plan Discharge Clinical Impression: Acute CVA (cerebrovascular accident), Hypertension <Robby Uribe PA-C - Last Filed: 09/07/24 18:29> Patient Disposition: Home, Self-Care <Robby Uribe PA-C - Last Filed: 09/07/24 18:29> Condition: Stable <Robby Uribe PA-C - Last Filed: 09/07/24 18:29>
--- NOTE | 2024-09-07 18:26 | ECG_ITS ---
Test Date: 2024-09-07 21:01:01 Measurements Intervals [place] Rate: 65 P: 71 [place]: 184 QRS: 70 QRSD: 90 T: 60 QT: 427 QTc: 445 Interpretive Statements SINUS RHYTHM BASELINE ARTIFACT- I, II, III, AVR, AVL, AVF, V5-V6 NORMAL ECG No previous ECG available for comparison Electronically Signed On 09-08-2024 15:46:30 NEWS DIRECTOR by Miguel Arriola D.O.
--- OUTSIDE RECORDS SUMMARY | 2024-09-07 18:52 | XMS_ITS | Patient Health Summary ---
Author Organization [facility] Address [address] [place] [place] [address] Care Team Providers Care Carcass Splitter Name Role Phone Provider, No Pcp Primary Care Provider Unavailab le Note from [facility],non-owned Affiliates and Associated Physician Practices is amultiple site organization consisting of ambulatory clinics and hospital sitesin [place], [place], [place] and [place]. This disclosure is being madepursuant to the Care Everywhere program and may not contain all information available regarding this patient. Last updated 18.[facility] Allergies * Adhesive Sensitivity(Unknown) * Insulin Aspart(Nausea and/or Vomiting) -Low Criticality * Mlxqb-Xcszp-Fupwpnd-Pramoxine(Rash) -Medium Criticality * Sulfa Drugs(Unknown) Medications * Be aware that medications may not be up to date on this document. Alwaysverify current medications with the patient. * estradiol (Vagifem) 10 MCG vaginal tablet(Started 07/26/2023) Insert 1 (one) tablet into the vagina Two times a week * ascorbic acid (VITAMIN C) 500 MG tablet Take 1 (one) tablet by mouth once daily * Methylcobalamin (Methyl B-12) 5000 MCG CHEW Take 1 tablet by mouth once daily * ELDERBERRY PO Take 50 mg by mouth 2 times daily * Pantothenic Acid 500 MG Take 2 (two) tablets by mouth once daily * calcium carbonate (Calcium 600) 600 MG tablet Take 1 (one) tablet by mouth 2 times daily * Cholecalciferol (vitamin D3) 1.25 MG (15737 UT) capsule Take 1 (one) capsule by mouth once daily * Lancets (ONETOUCH DELICA PLUS 33G EXTRA FINE LANCET)(Started 09/24/2023) USE TO CHECK BLOOD SUGAR 4 TIMES DAILY * OneTouch Verio test strip(Started 09/24/2023) USE TO TEST BLOOD SUGAR 4 TIMES A DAY * fluticasone propionate (Flonase) 50 MCG/ACT nasal spray Hartly 2 (two) sprays into each nostril once daily * cetirizine (ZyrTEC) 10 MG tablet Take 1 (one) tablet by mouth once daily * Insulin Disposable Pump (Omnipod 5 G7 Intro, Gen 5,) KIT(Started 01/22/2024) Use 1 Each continuous * insulin lispro (HumaLOG) 100 UNIT/ML vial(Started 02/11/2024) Use for insulin pump, daily max 40 units 3 refills by 02/10/2025 * insulin glargine-yfgn (Semglee) pen(Started 02/17/2024) Inject 6 (six) Units subcutaneously at bedtime 3 refills by 02/16/2025 * insulin lispro (HumaLOG KwikPen) 100 UNIT/ML pen(Started 02/17/2024) Inject 3 (three) Units subcutaneously 3 times daily before meals 3 refills by 02/16/2025 * Insulin Disposable Pump (Omnipod 5 [id number] Pods Gen 5) MISC(Started 07/22/2024) CHANGE pod every TWO DAYS as directed. 3 refills by 07/22/2025 Active Problems No known active problems Social History Tobacco Use Types Packs/Day Years Used Date Smoking Tobacco: Never Smokeless Tobacco: Never Tobacco Cessation:Counseling Given: Not Answered Alcohol Use Standard Drinks/Week Comments Not Currently 0 (1 standard drink = 0.6 oz pur e alcohol) Sex and Gender Information Value Date Recorded Sex Assigned at Not on file Gender Identity Not on file Sexual Orientation Not on file Last Filed Vital Signs Vital Sign Reading Time Taken Comments Blood Pressure 138/91 04/26/2024 10:08 AM CDT Pulse 73 04/26/2024 10:08 AM CDT Temperature 36.6 C (97.8 F) 04/26/2024 10:08 AM CDT Respiratory Rate - - Oxygen Saturation 97% 04/26/2024 10:08 AM CDT Inhaled Oxygen Concentration - - Weight 54.9 kg (121 lb) 04/26/2024 10:08 AM CDT Height 170.2 cm (5' 7 ) 01/12/2024 10:31 AM CDT Body Mass Index 18.95 01/12/2024 10:31 AM CDT Procedures * HEMOGLOBIN A1C - POINT OF CARE (AMB) SLU(Performed 04/26/2024) Performed for Type 1 diabetes mellitus without complication (HCC) * CBC W AUTO DIFFERENTIAL(Performed 01/21/2024) * COMPREHENSIVE METABOLIC PANEL(Performed 01/21/2024) * C-PEPTIDE(Performed 01/21/2024) Performed for Type 1 diabetes mellitus without complication (HCC) * HEMOGLOBIN A1C - POINT OF CARE (AMB) [facility](Performed 01/12/2024) Performed for Type 1 diabetes mellitus without complication (HCC) * ISLET CELL ANTIBODY TITER(Performed 09/16/2023) * LIPID PROFILE(Performed 09/16/2023) Performed for Type 1 diabetes mellitus without complication (HCC) * T4 FREE(Performed 09/16/2023) Performed for Type 1 diabetes mellitus without complication (HCC) * MICROALB/CREAT RATIO URINE RANDOM PANEL(Performed 09/16/2023) Performed for Type 1 diabetes mellitus without complication (HCC) * ISLET CELL ANTIBODY(Performed 09/16/2023) Performed for Type 1 diabetes mellitus without complication (HCC) * INSULIN ANTIBODY(Performed 09/16/2023) Performed for Type 1 diabetes mellitus without complication (HCC) * TSH(Performed 09/16/2023) Performed for Type 1 diabetes mellitus without complication (HCC) * BASIC METABOLIC PANEL (CALCIUM TOTAL)(Performed 09/16/2023) Performed for Type 1 diabetes mellitus without complication (HCC) * ZINC TRANSPORTER 8 ANTIBODY(Performed 09/16/2023) Performed for Type 1 diabetes mellitus without complication (HCC) * IA-2 ANTIBODY(Performed 09/16/2023) Performed for Type 1 diabetes mellitus without complication (HCC) * GLUTAMIC ACID DECARBOXYLASE (TRELL) ANTIBODY(Performed 09/16/2023) Performed for Type 1 diabetes mellitus without complication (HCC) * HEMOGLOBIN A1C - POINT OF CARE (AMB) [facility]U(Performed 09/15/2023) Performed for Type 1 diabetes mellitus without complication (HCC) * DERMATOPATHOLOGY(Performed 08/26/2018) * DERMATOPATHOLOGY(Performed 10/01/2016) * DERMATOPATHOLOGY(Performed 09/19/2015) * DERMATOPATHOLOGY(Performed 01/06/2013) * DERMATOPATHOLOGY(Performed 11/24/2012) Results * HEMOGLOBIN A1C - POINT OF CARE (AMB) [facility] (04/26/2024 10:09 AM CDT) Only the most recent of3 resultswithin the time period is included. Hemoglobin A1c POCT 8.0 % THIERRY JACOME RD BLOOD SPECIMEN / Unknown 04/26/2024 10:09 AM CDT Arcelia M Immanuel [facility] LAB - POINT OF CARE ORDERABLES THIERRY JAC[address] RD [address], [facility] [address] [place] [address], [facility] [phone] * CBC WITH DIFFERENTIAL (01/21/2024 8:22 AM CDT) Pathologist [facility] White Blood Cell Count 7.1 3.8 - 10.8 Thousand/u L [facility] RBC 4.40 3.80 - 5.10 Million/uL [facility] Hemoglobin 13.9 11.7 - 15.5 g/dL [facility] Hematocrit 40.7 35.0 - 45.0 % [facility] MCV 92.5 80.0 - 100.0 fL [facility] MCH 31.6 27.0 - 33.0 pg [facility] MCHC 34.2 32.0 - 36.0 g/dL [facility] RDW 12.3 11.0 - 15.0 % [facility] Platelet Count 312 140 - 400 Thousand/u L [facility] MPV 11.0 7.5 - 12.5 fL [facility] Neutrophil Absolute 4040 1500 - 7800 cells/uL [facility] Lymphocytes Absolute 2166 850 - 3900 cells/uL [facility] Absolute Monocytes 632 200 - 950 cells/uL [facility] Eosinophils Absolute 220 15 - 500 cells/uL [facility] Basophils Absolute 43 0 - 200 cells/uL [facility] Granulocytes % 56.9 % [facility] Lymphocytes % 30.5 % [facility] Monocytes % 8.9 % [facility] Eosinophils % 3.1 % [facility] Basophils % 0.6 % [facility] Comment: Test Performed at: [facility] [address] [address] ABIMAEL WU MD 01/21/2024 8:22 AM CDT 01/21/2024 8:23 AM CDT Rosemary Mayen PA-C LAB - HEMATOLOGY ORD ERABLES Performing Organization Address [facility] de Phone Number [facility] [address] [place] [address] * (ABNORMAL) COMPREHENSIVE METABOLIC PANEL (01/21/2024 8:22 AM CDT) Glucose 200(H) 65 - 99 mg/dL [facility] Comment: Fasting reference interval For someone without known diabetes, a glucose value >125 mg/dL indicates that they may have diabetes and this should be confirmed with a follow-up test. BUN 23 7 - 25 mg/dL [facility] Creatinine 1.13(H) 0.60 - 1.00 mg/dL [facility] eGFR by Cystatin C 51(L) > OR = 60 mL/min/1.7 3m2 [facility] BUN/Creatinine Ratio 20 6 - 22 (calc) [facility] Sodium 137 135 - 146 mmol/L [facility] Potassium 4.8 3.5 - 5.3 mmol/L [facility] Chloride 98 98 - 110 mmol/L [facility] CO2 32 20 - 32 mmol/L [facility] Calcium 9.9 8.6 - 10.4 mg/dL [facility] Protein Total 7.2 6.1 - 8.1 g/dL [facility] Albumin 4.3 3.6 - 5.1 g/dL [facility] Globulin Total 2.9 1.9 - 3.7 g/dL (calc) [facility] Albumin/Globulin Ratio 1.5 1.0 - 2.5 (calc) [facility] Bilirubin Total 0.7 0.2 - 1.2 mg/dL [facility] Alkaline Phosphatase 115 37 - 153 U/L [facility] AST 21 10 - 35 U/L [facility] ALT 18 6 - 29 U/L [facility] Comment: Test Performed at: [facility] [id number] [facility] [place] [address] ABIMAEL WU MD 01/21/2024 8:22 AM CDT 01/21/2024 8:23 AM CDT Rosemary Mayen PA-C LAB - CHEMISTRY ORDBarbara MAYES Performing Organization Address [facility] de Phone Number [facility] [address] [place] [address] * (ABNORMAL) C-PEPTIDE (01/21/2024 8:18 AM CDT) C-Peptide 0.20(L) 0.80 - 3.85 ng/mL [facility] Comment: REPORT COMMENT: FASTING:YES Test Performed at: [facility] [place] [address] [place] [address] ABIMAEL WU MD Blood BLOOD SPECIMEN / Unknown 01/21/2024 8:18 AM CDT 01/21/2024 8:19 AM CDT Arcleia Castro Immanuel [facility] LAB - CHEMISTRY ESEQUIEL MAYES Performing Organization Address [facility] [place] [address] * ZINC TRANSPORTER 8 ANTIBODY (09/16/2023 9:33 AM ORNAMENTAL METAL WORKER) Zinc Transporter 8 Antibody <10 <15 U/mL [facility] Comment: For additional information, please refer to http://education.Zmqnw.com.cn/faq/OWR174 (This link is being provided for information/educational purposes only.) Test Performed at: [facility] [facility] [address] [place] [address] ROMAN LAI MD,PHD,BRODY Blood BLOOD SPECIMEN / Unknown 09/16/2023 9:33 AM ORNAMENTAL METAL WORKER 09/16/2023 9:35 AM ORNAMENTAL METAL WORKER Arcelia Gambino DO LAB - CHEMISTRY LEONIDASBarbara GERBER Performing Organization Address [facility] Co de Phone Number [address] [address] * (ABNORMAL) INSULIN ANTIBODY (09/16/2023 9:33 AM ORNAMENTAL METAL WORKER) Insulin Antibody 1.6(H) <0.4 U/mL [facility] Comment: Test Performed at: [facility] [facility] [address] [place] [address] ROMAN LAI MD,PHD,BRODY Blood BLOOD SPECIMEN / Unknown 09/16/2023 9:33 AM ORNAMENTAL METAL WORKER 09/16/2023 9:35 AM ORNAMENTAL METAL WORKER Arcelia Gambino DO LAB - CHEMISTRY ORDE RABKANE Performing Organization Address [facility] Co de Phone Number [facility] [address] [place] [address] * (ABNORMAL) IA-2 ANTIBODY (09/16/2023 9:33 AM ORNAMENTAL METAL WORKER) IA-2 Antibody 130.7(H) <5.4 U/mL [facility] Comment: This test was performed using the IA-2 Antibody JUAN PABLO method which is standardized against the WHO Reference Reagent 97/550. The reference range reported was established specifically for this test method. Test Performed at: [facility] [address] [place] [address] ROMAN LAI MD,PHD,BRODY Blood BLOOD SPECIMEN / Unknown 09/16/2023 9:33 AM ORNAMENTAL METAL WORKER 09/16/2023 9:35 AM ORNAMENTAL METAL WORKER Arcelia Gambino DO LAB - SEROLOGY ORDER RON Performing Organization Address [facility] de Phone Number [facility] [address] [place] [address] * MICROALB/CREAT RATIO URINE RANDOM PANEL (09/16/2023 9:33 AM ORNAMENTAL METAL WORKER) Creatinine Urine 220 20 - 275 mg/dL [facility] Microalbumin Urine 2.0 mg/dL [facility] Comment: Reference Range Not established Microalbumin/Creat inine Ratio 9 <30 mcg/mg creat [facility] Comment: The ADA defines abnormalities in albumin excretion as follows: Albuminuria Category Result (mcg/mg creatinine) Normal to Mildly increased <30 Moderately increased 30-299 Severely increased > OR = 300 The ADA recommends that at least two of three specimens collected within a 3-6 month period be abnormal before considering a patient to be within a diagnostic category. Test Performed at: [facility] [address] [place] [address] ABIMAEL WU MD Urine URINE SPECIMEN OBTAINED BY CLEAN CATCH PROCEDURE / Unknown 09/16/2023 9:33 AM ORNAMENTAL METAL WORKER 09/16/2023 9:35 AM ORNAMENTAL METAL WORKER Arcelia Gambino DO LAB - URINE CHEMISTR Y ORDERABLES Performing Organization Address [facility] Co de Phone Number [facility] [phone] [place] [address] * (ABNORMAL) ISLET CELL ANTIBODY (09/16/2023 9:33 AM ORNAMENTAL METAL WORKER) Pathologist [facility] Islet Cell Antibody Screen POSITIVE( A) NEGATIVE [facility] Comment: This test was developed and its analytical performance characteristics have been determined by [employer]. It has not been cleared or approved by FDA. This assay has been validated pursuant to the CLIA regulations and is used for clinical purposes. Test Performed at: [facility] [address] [place] [address] ROMAN LAI MD,PHD,BRODY Blood BLOOD SPECIMEN / Unknown 09/16/2023 9:33 AM ORNAMENTAL METAL WORKER 09/16/2023 9:35 AM ORNAMENTAL METAL WORKER Arcelia Gambino DO LAB - SEROLOGY ORDER RON Performing Organization Address [facility] de Phone Number [facility] [phone] [place] [address] * (ABNORMAL) ISLET CELL ANTIBODY TITER (09/16/2023 9:33 AM ORNAMENTAL METAL WORKER) Pathologist [facility] Islet Cell Antibody Titer 320(H) JDF units [facility] Comment: Reference Range: LESS THAN 1.25 NOTE: End point titers are compared to a single international reference standard and values are reported in JDF (Juvenile Diabetes Foundation) units. Test Performed at: [facility] [facility] [address] [place] [address] ROMAN LAI MD,PHD,BRODY 09/16/2023 9:33 AM ORNAMENTAL METAL WORKER 09/16/2023 9:35 AM ORNAMENTAL METAL WORKER Arcelia Gambino DO LAB - SEROLOGY ORDER RON Performing Organization Address [facility] Co de Phone Number [facility] [phone] [place] [address] * (ABNORMAL) GLUTAMIC ACID DECARBOXYLASE (TRELL) ANTIBODY (09/16/2023 9:33 AM ORNAMENTAL METAL WORKER) Glutamic Acid Decarboxylase Antibody >250(H) <5 IU/mL [facility] Comment: This test was performed using the GAD65 JUAN PABLO method, which is standardized against the International reference preparation 97/550. Test Performed at: [facility] [address] [place], [place] MARKEL GRAY MD,PHD Blood BLOOD SPECIMEN / Unknown 09/16/2023 9:33 AM ORNAMENTAL METAL WORKER 09/16/2023 9:35 AM ORNAMENTAL METAL WORKER Arcelia Gambino DO LAB - SEROLOGY ORDER RON Performing Organization Address [facility] de Phone Number [facility] [address] [place] [address] * (ABNORMAL) BASIC METABOLIC PANEL (CALCIUM TOTAL) (09/16/2023 9:33 AM ORNAMENTAL METAL WORKER) Glucose 187(H) 65 - 99 mg/dL [facility] Comment: Fasting reference interval For someone without known diabetes, a glucose value >125 mg/dL indicates that they may have diabetes and this should be confirmed with a follow-up test. BUN 22 7 - 25 mg/dL [facility] Creatinine 1.24(H) 0.60 - 1.00 mg/dL [facility] eGFR by Cystatin C 46(L) > OR = 60 mL/min/1.7 3m2 [facility] BUN/Creatinine Ratio 18 6 - 22 (calc) [facility] Sodium 137 135 - 146 mmol/L [facility] Potassium 4.1 3.5 - 5.3 mmol/L [facility] Chloride 93(L) 98 - 110 mmol/L [facility] CO2 30 20 - 32 mmol/L [facility] Calcium 10.2 8.6 - 10.4 mg/dL [facility] Comment: Test Performed at: [facility] [place] [address] [place] [address] ABIMAEL WU MD Blood BLOOD SPECIMEN / Unknown 09/16/2023 9:33 AM ORNAMENTAL METAL WORKER 09/16/2023 9:35 AM ORNAMENTAL METAL WORKER Arcelia Gambino DO LAB - CHEMISTRY ORDE GERBER Performing Organization Address City/[facility] Co de Phone Number [facility] [address] [place] [phone] * TSH (09/16/2023 9:33 AM ORNAMENTAL METAL WORKER) [facility] TSH 3.96 0.40 - 4.50 mIU/L [facility] Comment: Test Performed at: [facility] [address] [place] [address] ABIMAEL WU MD Blood BLOOD SPECIMEN / Unknown 09/16/2023 9:33 AM ORNAMENTAL METAL WORKER 09/16/2023 9:35 AM ORNAMENTAL METAL WORKER Arcelia Gambino DO LAB - CHEMISTRY ORDBarbara MAYES Performing Organization Address City/[facility]/ZIP Co de Phone Number [facility] [address] [place] [phone] * T4 FREE (09/16/2023 9:33 AM ORNAMENTAL METAL WORKER) [facility] T4 Free 1.2 0.8 - 1.8 ng/dL [facility] Comment: Test Performed at: [facility] [address] [place] [address] ABIMAEL WU MD Blood BLOOD SPECIMEN / Unknown 09/16/2023 9:33 AM ORNAMENTAL METAL WORKER 09/16/2023 9:35 AM ORNAMENTAL METAL WORKER Arcelia Gambino DO LAB - CHEMISTRY ESEQUIEL MAYES Performing Organization Address [facility] Co de Phone Number [facility] [address] [place] [address] * (ABNORMAL) LIPID PROFILE (09/16/2023 9:33 AM ORNAMENTAL METAL WORKER) [facility] Cholesterol 211(H) <200 mg/dL [facility] HDL Cholesterol 80 > OR = 50 mg/dL [facility] Triglycerides 129 <150 mg/dL [facility] LDL Calculated 107(H) mg/dL (calc) [facility] Comment: Reference range: <100 Desirable range <100 mg/dL for primary prevention; <70 mg/dL for patients with CHD or diabetic patients with > or = 2 CHD risk factors. LDL-C is now calculated using the Jem calculation, which is a validated novel method providing better accuracy than the Friedewald equation in the estimation of LDL-C. Luis CUEVAS et al. KRISTAN. 2013;310(19): 9184-7672 (http://education.[facility].Sandata/faq/ULP197) CHOL/HDLC RATIO 2.6 <5.0 (calc) [facility] Non HDL Cholesterol 131(H) <130 mg/dL (calc) [facility] Comment: For patients with diabetes plus 1 major ASCVD risk factor, treating to a non-HDL-C goal of <100 mg/dL (LDL-C of <70 mg/dL) is considered a therapeutic option. Test Performed at: [facility] [address] [place] [address] ABIMAEL WU MD Blood BLOOD SPECIMEN / Unknown 09/16/2023 9:33 AM ORNAMENTAL METAL WORKER 09/16/2023 9:35 AM ORNAMENTAL METAL WORKER Arcelia M Immanuel [facility] LAB - CHEMISTRY ESEQUIEL MAYES Performing Organization Address City/State/[facility] Co de Phone Number [facility] [address] [place] [address] * DERMATOPATHOLOGY (08/26/2018 12:00 AM ORNAMENTAL METAL WORKER) Only the most recent of5 resultswithin the time period is included. 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 SKIN, left upper quadrant abdomen: SOLAR LENTIGO, INFLAMED (L81.4) Specimen B. 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 B: R/O Jordan's. Check margins. 12:44 PM [facility] Gross Description Specimen A: Received is one formalin filled container labeled with the patient's name and designated left upper quadrant abdomen. The specimen consists of a shave biopsy measuring [id number]. Jar 0. Specimen B: Received is one formalin filled container labeled with the patient's name and designated left lateral upper arm.The specimen consists of a punch excision measuring [id number] and is oriented with the notch at the 12 o'clock position labeled on the requisition as notch 12 o'clock. The epidermal surface consists of a 5x5mm pale macule near one margin. The 12 to 6 o'clock margin is inked green. The 6 o'clock to 12 o'clock margin is inked black. The 12 o'clock tip is submitted in cassette 1. The 6 o'clock tip is submitted in cassette 2. The remainder of the ellipse is serially sectioned and submitted in cassettes 3-4. Jar 0. 9 12:44 PM [facility] Microscopic Description Specimen A. SKIN, left upper quadrant abdomen: There is orthokeratosis. There is a slight increase in epidermal thickness with lentiginous buds of hyperpigmented keratinocytes. The number of melanocytes is only mildly increased. In the dermis, there is basophilic degeneration of elastic fibers. There is a lymphohistiocytic infiltrate within the dermis. Specimen B. SKIN, left lateral upper arm: There are fibroblasts and collagen bundles oriented parallel to the skin surface. There are elongated blood vessels, some of which are oriented perpendicular to the skin surface. No residual squamous cell carcinoma in situ is identified. The dermal scar extends to the margin of the specimen and is present at the 12 to 6 o'clock (green inked) margin of the specimen in block 4 and is present at the base of the specimen. 9 12:44 PM [facility] Disclaimer An external and internal positive and negative controls are appropriate for the histochemical, immunohistochemical and immunofluorescence stain(s) in this case (if any), except where stated explicitly. The performance characteristics of the stain(s) cited in this report were developed and its performance characteristic determined by the Dermatopathology Laboratory at [facility], directed by Dr. Hong Mohr. These tests need not be, and therefore are not, approved by the [place] Food and Drug Administration. The tests are used for clinical purposes. Billing Codes Specimen Charges Stain Charges 48232 [id number] 1 1 9 12:44 PM ORNAMENTAL METAL WORKER DERMATOPATHOLOGY LABORATORY Embedded Images 9 12:44 PM ORNAMENTAL METAL WORKER DERMATOPATHOLOGY LABORATORY Pathology/Cytology TISSUE SPECIMEN FROM SKIN / Unknown 08/26/2018 08/27/2018 11:34 AM ORNAMENTAL METAL WORKER Miscellaneous samples (specimen) TISSUE SPECIMEN FROM SKIN / Unknown 08/26/2018 08/27/2018 11:34 AM ORNAMENTAL METAL WORKER Vishnu Aggarwal MD LAB - PATHOLOGY/CYTO LOGY ORDERABLES DERMATOPATHOLOGY LABORATORY [facility] - Department of Dermatology [address] [place] [address], [address] Floor Lab [address] [phone] Care Teams Carcass Splitter Relationship Specialty Start Date End Date Provider, No Pcp PCP - General 04/26/24
--- OUTSIDE RECORDS SUMMARY | 2024-09-07 18:52 | XMS_ITS | Referral Summary ---
Author Organization [facility] Address [address] [place] [address] Care Team Providers Care Chemical Strength Tester Name Role Phone Provider, No Pcp Primary Care Provider Unavailab le Source Comments [facility],non-owned Affiliates and Associated Physician Practices is amultiple site organization consisting of ambulatory clinics and hospital sitesin [place], [place], [place] and [place]. This disclosure is being madepursuant to the Care Everywhere program and may not contain all information available regarding this patient. Last updated 18.[facility] Encounters Date Type Department Care Team Description 07/22/2024 Refill [facility] - Endocrinology [address] [place] [address] Arcelia Gambino DO Refill Request 06/23/2024 Travel from Last 3 Months Allergies Active Allergy Reactions Criticality Noted Date Comments Adhesive Sensitivity Unknown 03/31/2020 Insulin Aspart Nausea and/or Vomiting Low 4 Rpzos-Bqzkl-Wzmdhpw-Pramoxine Rash Medium 2022 Sulfa Drugs Unknown 03/31/2020 Medications * Be aware that medications may not be up to date on this document. Alwaysverify current medications with the patient. Medication Sig Dispensed Refills Start Date End Date Status estradiol (Vagifem) 10 MCG vaginal tablet Insert 1 (one) tablet into the vagina Two times a week 07/26/2023 Active ascorbic acid (VITAMIN C) 500 MG tablet Take 1 (one) tablet by mouth once daily Active Methylcobalamin (Methyl B-12) 5000 MCG CHEW Take 1 tablet by mouth once daily Active ELDERBERRY PO Take 50 mg by mouth 2 times daily Active Pantothenic Acid 500 MG Take 2 (two) tablets by mouth once daily Active calcium carbonate (Calcium 600) 600 MG tablet Take 1 (one) tablet by mouth 2 times daily Active Cholecalciferol (vitamin D3) 1.25 MG (85346 UT) capsule Take 1 (one) capsule by mouth once daily Active Lancets (ONETOUCH DELICA PLUS 33G EXTRA FINE LANCET) USE TO CHECK BLOOD SUGAR 4 TIMES DAILY 09/24/2023 Active OneTouch Verio test strip USE TO TEST BLOOD SUGAR 4 TIMES A DAY 09/24/2023 Active fluticasone propionate (Flonase) 50 MCG/ACT nasal spray [place] 2 (two) sprays into each nostril once daily Active cetirizine (ZyrTEC) 10 MG tablet Take 1 (one) tablet by mouth once daily Active Insulin Disposable Pump (Omnipod 5 G7 Intro, Gen 5,) KITIndications:Type 1 diabetes mellitus without complication (HCC) Use 1 Each continuous 1 kit 01/22/2024 Active insulin lispro (HumaLOG) 100 UNIT/ML vial Use for insulin pump, daily max 40 units 30 mL 3 02/11/2024 Active insulin glargine-yfgn (Semglee) penIndications:Type 1 diabetes mellitus without complication (HCC) Inject 6 (six) Units subcutaneously at bedtime 15 mL 3 02/17/2024 Active Additional Information Patient not taking.Reported on 04/26/2024 insulin lispro (HumaLOG KwikPen) 100 UNIT/ML penIndications:Type 1 diabetes mellitus without complication (HCC) Inject 3 (three) Units subcutaneously 3 times daily before meals 15 mL 3 02/17/2024 Active Insulin Disposable Pump (Omnipod 5 [id number] Pods Gen 5) MISCIndications:Typ e 1 diabetes mellitus without complication (HCC) CHANGE pod every TWO DAYS as directed. 15 Each 3 07/22/2024 Active Active Problems No known active problems Social [...] Mass Index 18.95 01/12/2024 10:31 AM CDT Plan of Treatment Upcoming Encounters Date Type Department Care Team (Late st Contact Info) Description 10/07/2024 2:20 PM CDT Office Visit [facility] - Endocrinology [address] [place] [address] Arcelia Gambino, DO [address] [facility] [address] [place] [id number] Procedures Procedure Name Priority Date/Time Associated Diagnosis Comments LIPID PROFILE Routine 09/16/2023 9:33 AM VALVE TECHNICIAN Type 1 diabetes mellitus without complication (HCC) from Last 3 Months or Most Recently Relevant to Health Maintenance Results * (ABNORMAL) LIPID PROFILE (09/16/2023 9:33 AM VALVE TECHNICIAN) Cholesterol 211(H) <200 mg/dL [facility] HDL Cholesterol [...] LDL-C. Luis CUEVAS et al. KRISTAN. 2013;310(19): 4484-7167 (http://education.[employer].Rewarder/faq/RCO832) CHOL/HDLC RATIO 2.6 <5.0 (calc) [facility] Non HDL Cholesterol 131(H) <130 mg/dL (calc) [facility] Comment: For patients with diabetes plus 1 major ASCVD risk factor, treating to a non-HDL-C goal of <100 mg/dL (LDL-C of <70 mg/dL) is considered a therapeutic option. Test Performed at: [facility] [address] [place] [address] ABIMAEL WU MD Blood BLOOD SPECIMEN / Unknown 09/16/2023 9:33 AM VALVE TECHNICIAN 09/16/2023 9:35 AM VALVE TECHNICIAN Arcelia Gambino DO LAB - CHEMISTRY [facility] [place] [address] [place] [address] from Last 3 Months or Most Recently Relevant to Health Maintenance Care Teams Chemical Strength Tester Relationship Specialty Start Date End Date Provider, No Pcp PCP - General 04/26/24
--- OUTSIDE RECORDS SUMMARY | 2024-09-07 18:52 | XMS_ITS | Encounter Summary ---
Author Organization [facility] Address [address] [facility] [place] [address] Care Team Providers Care Teletype Or Varitype Keyboard Operator Name Role Phone Lonnyjunito Giovanny Mario Alberto DO Primary Care Provider Provider, No Pcp Primary Care Provider Unavailab le Encounter Details Date Type Department Care Team (Late Contact Info) Description 08/27/2018 Lab Requisition [facility] D[facility] Lab [address] [facility] [place] [phone] Vishnu Aggarwal MD [address] [place] [address] Social History Tobacco Use Types Packs/Day Years Used Date Smoking Tobacco: Never Assessed Sex and Gender Information Value Date Recorded Sex Assigned at Not on file Gender Identity Not on file Sexual Orientation Not on file documented as of this encounter Plan of Treatment Upcoming Encounters Date Type Department Care Team (Late Contact Info) Description 10/07/2024 2:20 PM CDT Office Visit [facility] - Endocrinology [address] [place] [phone] Arcelia Gambino DO [address] [facility] [address] [place] [phone] documented as of this encounter Procedures Procedure Name Priority Date/Time Associated Diagnosis Comments DERMATOPATHOLOGY Routine 08/26/2018 12:0 0 AM TURBINE BLADE ASSEMBLER documented in this encounter Results * DERMATOPATHOLOGY (08/26/2018 12:00 AM TURBINE BLADE ASSEMBLER) Case Report Dermatopathology Report Case: [id number] Authorizing Provider: Vishnu Aggarwal MD Collected: 08/26/2018 12:00 AM Pathologist: Barbie Fitzgerald MD Received: 08/27/2018 11:34 AM Specimens: A) - Skin, left upper quadrant abdomen B) - Skin, left lateral upper arm 12:44 PM [facility] DERMATOP[facility]ORATORY Amended Report Addition of in situ to diagnosis and microscopic description to read 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 SKIN, left upper quadrant abdomen: SOLAR LENTIGO, INFLAMED (L81.4) Specimen B. 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 B: R/O Jordan's. Check margins. 12:44 PM [facility] DERMATOPATHOLOGY LABORATORY Gross Description Specimen A: Received is one formalin filled container labeled with the patient's name and designated left upper quadrant abdomen. The specimen consists of a shave biopsy measuring [id number]. Jar 0. Specimen B: Received is one formalin filled container labeled with the patient's name and designated left lateral upper arm.The specimen consists of a punch excision measuring [id number] and is oriented with the notch at [...] and submitted in cassettes 3-4. Jar 0. 12:44 PM [facility] DERMAT[facility]ATH[facility]ORATORY Microscopic Description Specimen A. SKIN, [...] present at the base of the specimen. 12:44 PM [facility] DERMAT[facility]ATH[facility]ORY Disclaimer An external and internal positive and negative controls are appropriate for the histochemical, immunohistochemical and immunofluorescence stain(s) in this case (if any), except where stated explicitly. The performance characteristics of the stain(s) cited in this report were developed and its performance characteristic determined by the Dermatopathology Laboratory at [facility], directed by Dr. Hong Mohr. These tests need not be, and therefore are not, approved by the [place] Food and Drug Administration. The tests are used for clinical purposes. Billing Codes Specimen Charges Stain Charges 58223 21364 1 1 12:44 PM [facility] DERMATOPATH[facility]Y [facility]ORATORY Embedded Images 12:44 PM [facility] DERMATOP[facility]ORY Pathology/Cytology TISSUE SPECIMEN FROM SKIN / Unknown 08/26/2018 08/27/2018 11:34 AM TURBINE BLADE ASSEMBLER Miscellaneous samples (specimen) TISSUE SPECIMEN FROM SKIN / Unknown 08/26/2018 08/27/2018 11:34 AM TURBINE BLADE ASSEMBLER Vishnu Aggarwal MD LAB - PATHOLOGY/CYTO LOGY ORDERABLES DERMATOPATHOLOGY LABORATORY [facility] - Department of Dermatology [facility] [facility] [place] [address], [place] [phone] documented in this encounter Visit Diagnoses Not on filedocumented in this encounter Care Teams Teletype Or Varitype Keyboard Operator Relationship Specialty Start Date End Date Giovanny Farias, PCP - General Internal Medicine 06/10/23 04/25/24 Provider, No Pcp PCP - General 04/26/24 documented as of this encounter
--- OUTSIDE RECORDS SUMMARY | 2024-09-07 18:52 | XMS_ITS | Clinical Summary ---
Author Organization [facility] Address [address] [place] [address] Phone Care Team Providers Care Urinalysis Technician Name Role Phone ShaniajonathanGiovanny king Garland Primary Care Provider Allergies Active Allergy Reactions Criticality Noted Date Comments Adhesive Tape-Silicones Unknown 03/31/2020 Insulin Aspart Nausea and Vomiting Low 08/28/2023 Oklfx-Kwmyn-Qkvrqtn-Pramoxine Rash Low 2022 Neomycin Rash Low 02/20/2023 Mszbuzfn-Oohapsihpp-Gmpvvhfkr Rash Medium 2023 Penicillin Unknown 10/24/2023 Polymyxin B Rash Low 02/20/2023 Sulfa (Sulfonamide Antibiotics) Unknown 03/14 Medications estradioL (VAGIFEM) 10 mcg tablet Insert 1 Tablet (10 mcg) vaginally twice weekly. 24 Tablet 4 3 Active pantothenic acid, vit B5, (PANTOTHENIC ACID ORAL) Take 1 Tablet by mouth daily. Active cholecalciferol , vitamin D3, (VITAMIN D3 ORAL) Take by mouth. Activ e CALCIUM ORAL Take by mouth. Ac tive ascorbic acid (VITAMIN C ORAL) Take 1 Tablet by mouth daily. Active ZINC ORAL Take by mouth. Activ e elderberry fruit (ELDERBERRY ORAL) Take by mouth. Activ e [id number] HYDROFOLATE-B6 ORAL Take by mouth. Activ e blood sugar diagnostic (OneTouch Verio test strips) Strip Use to test blood glucose 3 times daily as directed. 100 Each 05/19/2023 3:06 PM HOUSE MANAGER 3 Active Blood-Glucose Meter (OneTouch Verio Flex meter) Use as directed 1 Each 05/28/2023 11:33 AM HOUSE MANAGER 3 Active prochlorperazin e maleate (Compazine) 10 mg tabletIndicatio ns:Bilious vomiting with nausea Take 1 Tablet (10 mg) by mouth every 6 hours as needed for Nausea/Emesis. 30 Tablet 1 3 Active Blood-Glucose Sensor (Dexcom G7 Sensor) Device Discreetly worn under clothing to measure glucose levels just underneath the skin. Must change sensor every 10.5 days. 3 Each 11 3 Active insulin lispro (HumaLOG) 100 unit/mL vial Inject 0-10 Units by subcutaneous injection 3 times daily with meals. For Blood Sugar: 180 or less no insulin 181-200, Give 2 units; 201-250, Give 4 units; 251-300, Give 6 units; 301-350, Give 8 units; 351-400, Give 10 units. 401 and greater, Give 12 units Active estradioL (VAGIFEM) 10 mcg tablet Insert 1 Tablet (10 mcg) vaginally twice weekly. 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 coma 05/18/2023 Clear cell adenocarcinoma of left kidney 023 Overview (05/19/2023): Clear cell, pathology 03/14/23 Dehydration 03/08/2023 VONNIE (obstructive sleep apnea) 03/08/2023 Overview (05/19/2023): Settings 10/20, nasal CPAP, noncompliance Resolved Problems Problem Noted Date Diagnosed Date Resolved Date Renal carcinoma, left 05/19/20232022 Overview (05/19/2023): Clear Cell, pathology 03/14/23 Left renal mass 03/08/2023 05/19/2023 Flank pain 03/08/2023 05/19/2023 Acute cystitis with hematuria 03/08/2023 05/19/2023 Leukemoid reaction 03/08/2023 Hyperglycemia 03/08/2023 05/19/2023 Encounters Date Type Department Care Team Description 08/06/2024 Results Follow-Up [facility] (Former[facility]3] RELIEF MANAGER [facility] [address] [facility] [address] [place] [address] Haldey Truong MD CERV/VAG CYTO SCREEN PAP RLFX HPV 08/04/2024 12:40 PM HOUSE MANAGER Office Visit [facility] ([facility]3] RELIEF MANAGER [facility] [address] [facility] [address] [place] [address] Hadley Truong MD Encounter for gynecological examination with abnormal finding (Primary Dx); Declined influenza vaccine; Encounter for osteoporosis screening in asymptomatic postmenopausal patient; Vaginal dryness, menopausal; Dyspareunia in female; History of kidney cancer; Screening mammogram, encounter for; Screening for cervical cancer 07/27/2024 External Device Data STL ABSTRACTION Provider, Abstract 07/12/2024 Abstract [facility] ([facility]3] RELIEF MANAGER [facility] [address] [facility] [address] [place] [address] Hadley Truong MD from Last 3 Months Family History Medical History Relation Name Comments Melanoma Father Edward Delaney Stroke Father Edward Delaney at age 92 Heart Disease Mother Cynthia Delaney at age 86 Hypertension Mother Cynthia Delaney Melanoma Mother Cynthia Delaney Small spot on left thigh Lung Cancer Sister 1 lifelong smoker - mets to brain as well. Hypertension Sister 2 Mariluz Guzman Lung Cancer Sister 3 Veronica Lanier Relation Name Status Comments Father Edward Delaney Alive Mother Cynthia Delaney Alive Sister 1 Sister 2 Mariluz Guzman Alive Sister 3 Veronica Lanier Alive Social History Tobacco Use Types Packs/Day Years Used Date Smoking Tobacco: Never Passive Smoke Exposure: Never Smokeless Tobacco: Never Tobacco Cessation:Counseling Given: Yes Alcohol Use Standard Drinks/Week Comments Never 0 (1 standard drink = 0.6 oz pur e alcohol) Occasionally Feeling Safe Answer Date Recorded Are you in a relationship wi th someone who hurts you emotionally and/or physically? No 08/28/2023 Food Insecurity Answer Date Recorded Social/Environmental Concerns No concerns Transportation Needs Answer Date Record ed Social/Environmental Concerns No concerns Housing Stability Answer Date Recorded Social/Environmental Concerns No concerns Utility Needs Answer Date Recorded Social/Environmental Concerns No concerns Comments No Sex and Gender Information Value Date Recorded Sex Assigned at Female 02/16/2023 9:31 PM CDT Legal Sex Female 6:06 AM HOUSE MANAGER Gender Identity Female 02/16/2023 9:31 PM CDT Sexual Orientation Not on file Last Filed Vital Signs Vital Sign Reading Time Taken Comments Blood Pressure 114/68 08/04/2024 12:43 PM HOUSE MANAGER Pulse 104 04/29/2024 10:46 AM CDT Temperature 36.3 C (97.4 F) 04/29/2024 10:46 AM CDT Respiratory Rate 18 04/29/2024 10:46 AM CDT Oxygen Saturation 98% 04/29/2024 10:46 AM CDT Inhaled Oxygen Concentration - - Weight 55.3 kg (122 lb) 08/04/2024 12:43 PM HOUSE MANAGER Height 170.2 cm (5' 7 ) 08/04/2024 12:43 PM HOUSE MANAGER Body Mass Index 19.11 08/04/2024 12:43 PM HOUSE MANAGER Plan of Treatment Upcoming Encounters Date Type Department Care Team (Late st Contact Info) Description 10/21/2024 9:15 AM CDT Office Visit [facility] [place] [address] [place] [address] Johan Ledesma MD [id number] [place] [address] 11/02/2024 10:30 AM CDT Office Visit [facility] [place] [address] [place] [address] Marvin Holman MD [address] [facility] [address] [place] [address] Health Maintenance Due Date Last Done Comments DIABETES ANNUAL FOOT EXAM 10/05/1967 DIABETES ANNUAL RETINAL EXAM 10/05/1967 DIABETES MICROALBUMIN ANNUAL SCREEN 10/05/1967 LDL CHOLESTEROL ANNUAL 10/05/1967 DTAP/TDAP/TD VACCINES (1 - Tdap) 1968 PNEUMOCOCCAL VACCINE 65+ YEA RS (1 of 2 - PCV) 1968 BREAST CANCER SCREENING 1989 FIT-DNA Q 3 years 1994 FIT/FOBT Q 1 year 1994 Flex Sig/CT Colonography Q 5 years 1994 ZOSTER VACCINE (1 of 2) 10/05/1999 RSV VACCINE (60+ or ) (1 - Risk 60-74 years 1-dose series) 2009 OSTEOPOROSIS SCREENING 2014 DIABETES HBA1C Q 6 MONTHS 10/25/20242023, 01/12/2024, 09/15/2023, Additional history exists COLORECTAL SCREENING 08/30/2033 08/30/2023, 08/30/19 Colorectal Cancer Screening 08/30/2033 INFLUENZA VACCINE Completed 08/04/2024 Medicare Advantage (NE) Preventative Visit/Annual Wellness Visit Completed 08/04/2024 Medical Devices Implanted Type Area Foster Parent Device Identifier Shelf Expiration Date Model / Serial / Lot Glucose Monitor Continuous Glucose Monitor Description:Must be removed prior to MRI -yasmeen 08/29/23 Hemostat Surg Snow 2x4in 2081 - [id number] Implanted:Qt y: 1 on 03/14/2023 by Marvin Holman MD at [facility] Hemostatic Left: Abdomen J[employer]J- [employer] [id number] 2081 / / Hemostat Surg Snow 2x4in 2081 - [id number] Implanted:Qt y: 1 on 03/14/2023 by Marvin Holman MD at [facility] Hemostatic Left: Abdomen J[employer]- [employer] [id number] 09/10/2024 2082 / / [id number] Tmj Implants Procedures Procedure Name Priority Date/Time Associated Diagnosis Comments CERV/VAG CYTO SCREEN PAP RLFX HPV Routine 08/04/2024 3:14 PM HOUSE MANAGER Encounter for gynecological examination with abnormal finding Screening for cervical cancer COLONOSCOPY REPORT 08/30/2023 9: 48 AM HOUSE MANAGER HEMOGLOBIN A1C Routine 08/28/2023 10:50 PM HOUSE MANAGER from Last 3 Months or Most Recently Relevant to Health Maintenance Results * CERV/VAG CYTO SCREEN PAP RLFX HPV (08/04/2024 3:14 PM HOUSE MANAGER) CLINICAL INFORMATION Tennille Valdez Comment:Routine exam LAST MENSTRUAL PERIOD Tennille Valdez Comment:NONE GIVEN PREV PAP: Tennille Valdez Comment:NONE GIVEN PREV BX: Tennille Valdez Comment:NONE GIVEN SOURCE Tennille Valdez Comment:Endocervix ADEQUACY: Tennille Valdez Comment: Satisfactory for evaluation. Endocervical/transformation zone component present. PAP INTERP Tennille Valdez Comment: Cytology Results: Negative for intraepithelial lesion or malignancy. COMMENT (PAP TEST) Q uest Lorelei Valdez Comment: This Pap test has been evaluated with computer assisted technology. DIRECTOR FUNDRAISING: Yen Valdez Comment: FADY GRACE(ASCP) CT screening location: [place] [address] [address] [address] Lorelei Valdez Comment: EXPLANATORY NOTE: The Pap is a screening test for cervical cancer. It is not a diagnostic test and is subject to false negative and false positive results. It is most reliable when a satisfactory sample, regularly obtained, is submitted with relevant clinical findings and history, and when the Pap result is evaluated along with historic and current clinical information. Test Performed at: [place] [address] [address] [place] [address] [facility] Genital SWAB OF ENDOCERVIX / Unknown 08/04/2024 3:14 PM HOUSE MANAGER 08/05/2024 2:38 AM HOUSE MANAGER Hadley Truong MD PATHOLOGY/CYTOLOGY ORDERABLES Fi nal Result [facility] [phone] [place] [address] [place] [address] * COLONOSCOPY REPORT (08/30/2023 9:48 AM HOUSE MANAGER) Narrative Procedure Note Johan Ledesma MD - 08/30/2023 9:47 AM CST [facility] Endoscopy Patient Name: Deidre Cuadra Procedure Date: 08/30/2023 Date of : 1950 Attending MD: Johan Ledesma MD, Procedure: Colonoscopy Indications: Chronic diarrhea Providers: Johan Ledesma MD Referring MD: Giovanny Farias Medicines: Propofol per Anesthesia Complications: No immediate complications. Procedure: Informed consent was obtained for the procedure, including moderate sedation after risks were discussed. Based on the pre-procedure assessment, including review of the patient's medical history, medications, allergies, and review of systems, the patient was deemed to be an appropriate candidate for sedation. A timeout was performed. Continuous ECG monitoring, pulse oximetry, blood pressure monitoring, and direct observation were performed. The Colonoscope was introduced through the anus and advanced to the terminal ileum, with identification of the appendiceal orifice and IC valve. The colonoscopy was performed without difficulty. The patient tolerated the procedure well. The quality of the bowel preparation was good. Estimated Blood Loss: Estimated blood loss: none. Findings: Multiple small-mouthed diverticula were found in the sigmoid colon. Normal mucosa was found in the entire colon. Biopsies for histology were taken with a cold forceps from the entire colon for evaluation of microscopic colitis (bottles labeled proximal and distal). Internal hemorrhoids were found during retroflexion. The hemorrhoids were small. Impression: - Moderate diverticulosis. - Normal mucosa in the entire examined colon. Biopsied. - Internal hemorrhoids. Recommendation: - Await pathology results. - Imodium/Lomotil prn for diarrhea pending biopsy results. - Low residue diet. - Will sign off. Please call if GI issues or questions arise as inpatient Johan Ledesma MD 08/30/2023 9:47:30 AM This report has been signed electronically. Number of Addenda: [phone]; [place] [address] Johan Ledesma MD GI PROCEDURE ORDERABLES Final Re sult * (ABNORMAL) HEMOGLOBIN A1C (08/28/2023 10:50 PM HOUSE MANAGER) HEMOGLOBIN A1C 7.5(H) <5.7 % 08/28/2023 11:09 PM HOUSE MANAGER [facility] EST. AVG GLUCOSE, A1C 169 mg/dL 08/28/2023 11:09 PM HOUSE MANAGER [facility] Blood Venipuncture / Unknown 08/28/2023 10:50 PM HOUSE MANAGER 08/28/2023 10:50 PM HOUSE MANAGER Narrative [facility] - [facility] - 08/28/2023 11:09 PM HOUSE MANAGER HGB A1C INTERPRETATION NORMAL: <5.7% PRE-DIABETES: 5.7 - 6.4% DIABETES: 6.5% OR GREATER Mesha Tello MD CHEMISTRY ORDERABLES Final Result [facility] CLIA# [id number] [address] [place] [address] from Last 3 Months or Most Recently Relevant to Health Maintenance Insurance AETNA O [facility] RX AETNA Medicare Part D RX [employer] (INTERNAL) [facility] RX [facility] Commercial RX [employer] (INTERNAL) [facility] Advance Directives For more information, please contact: [phone] * Full Code (Latest Code Status on File) Date Activated Date Inactivated Comments 08/28/2023 10:10 PM 08/30/2023 3:43 PM * Full Code Date Activated Date Inactivated Comments 06/01/2023 2:26 PM 06/06/2023 11:55 PM * Full Code Date Activated Date Inactivated Comments 05/18/2023 3:26 AM 05/24/2023 5:41 PM * Full Code Date Activated Date Inactivated Comments 03/14/2023 8:43 PM 03/16/2023 6:09 PM * Full Code Date Activated Date Inactivated Comments 03/14/2023 11:34 AM 03/14/2023 8:43 PM Care Teams Urinalysis Technician Relationship Specialty Start Date End Date Giovanny Farias DO [address] [address] PCP - General Internal Medicine 03/13/23
--- OUTSIDE RECORDS SUMMARY | 2024-09-07 18:52 | XMS_ITS ---
Author Organization [facility] Address [address] [place] [address] Phone Care Team Providers Care Metal Smelter Name Role Phone Giovanny Farias DO Primary Care Provider Active Problems Problem Noted Date Diagnosed Date [...] nephrectomy 05/19/2023 Overview (05/19/2023): 03/14/[address] booth DM (diabetes mellitus) 05/19/2023 Diabetic acidosis without coma 05/18/2023 Clear cell adenocarcinoma of left kidney 023 Overview (05/19/2023): Clear cell, pathology 03/14/23 Dehydration 03/08/2023 VONNIE (obstructive sleep apnea) 03/08/2023 Overview (05/19/2023): Settings 10/20, nasal CPAP, noncompliance Current Treatment and Therapy Plans OP ONC HYDRATION* Plan Start Date:05/30/2023 Plan Provider:Sherrie Carmona ANP Linked Problems Clear cell adenocarcinoma of left kidney (CMS/HCC)Dehydration Treatment Medications No medications scheduled. 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 Lifetime Dose Tracking * Chemical Lifetime Dose Automatic Entry Manual Entr y Effective Dose 82.17 mSv 82.17 mSv 0 mSv Total DLP 4,052.2 DLP 4,052.2 DLP 0 DLP CTDIvol Max 52.8 mGy 52.8 mGy 0 mGy CTDIvol Min 12.7 mGy 12.7 mGy 0 mGy Resolved Problems Problem Noted Date Diagnosed Date Resolved Date Renal carcinoma, left 05/19/20232022 Overview (05/19/2023): Clear Cell, pathology 03/14/23 Left renal mass 03/08/2023 05/19/2023 Flank pain 03/08/2023 05/19/2023 Acute cystitis with hematuria 03/08/2023 05/19/2023 Leukemoid reaction 03/08/2023 3 Hyperglycemia 03/08/2023 05/19/2023
--- OUTSIDE RECORDS SUMMARY | 2024-09-07 18:52 | XMS_ITS | Clinical Summary ---
Author Organization [facility] [address] Address [address] [place] [address] Care Team Providers Care Ambulatory Care Name Role Phone Giovanny Farias DO Primary Care Provider [phone] Allergies Active Allergy Reactions Criticality Noted Date Comments Adhesive Rash Medium 03/31/2020 Adhesive Tape-Silicones Unknown 03/31/2020 Insulin Aspart Nausea And Vomiting Low 08/28/2023 Zxzggvcm-Nkvskcotkr-Loiiurxzn Rash Medium 2023 Penicillin Unknown 10/24/2023 Sulfa (Sulfonamide Antibiotics) Unknown 03/14 Medications estradioL (VAGIFEM) 10 mcg tablet 07/18/2022 Active elderberry fruit 50 mg/5 mL syrup Take 50 mg by mouth 2 (two) times a day Active calcium carbonate (OS-EDILBERTO) 1,500 mg (600 mg elemental) tablet Take 600 mg by mouth 2 (two) times a day Active zinc gluconate 50 mg tablet Take 1 tablet (50 mg total) by mouth daily Active insulin lispro (HumaLOG, ADMELOG) 100 unit/mL vial for injection Inject 0-10 Units under the skin 3 (three) times a day Active insulin glargine 100 unit/mL (3 mL) pen for injection INJECT 8 UNITS UNDER THE SKIN EVERY EVENING Active cholecalciferol (VITAMIN D-3) 50,000 unit capsule Take 1 capsule (50,000 Units total) by mouth daily Active PANTOTHENIC ACID, VIT B5, ORAL Take 500 mg by mouth daily Active ascorbic acid 500 mg tablet,chewable Take 1 tablet/chew tab (500 mg total) by mouth daily Active cyanocobalamin (Vitamin B-12) 500 mcg tablet Take 1 tablet (500 mcg total) by mouth daily Active Active Problems Problem Noted Date Diagnosed Date Positive KERVIN (antinuclear antibody) 10/24/2023 Overview (10/30/2023): Labs 10/24/23: CK 73 AVISE 10/24/23: KERVIN by patty only, equiv RF IgM 3.9, weak positive anti- cardiolipin IgM 11 Assessment & Plan (10/24/2023 12:03 PM CDT): 73-year-old female with PMHx of T2DM, clear cell adenocarinoma s/p Lt nephrectomy, VONNIE, sicca, cataracts, migraines, and diverticulitis 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 Has been noticing diarrhea, poor balance, and hair loss since being treated with Keytruda and as of 08/2023 she noted right sided weakness which is being evaluated by neurology for possible stroke. She denies arthralgias, photosensitivity, rashes, raynaud's, iritis/uveitis, or oral/nasal sores. Notes dry eyes and mouth. There is no obvious synovitis or tenderness on peripheral joint exam. Symptoms and exam are not overly suspicious for a rheumatologic disease. Due to positive KERVIN, will order appropriate serologies to further evaluate. Follow up in 2 weeks. Sooner if needed. Seen with Dr. Orta. Chronic pansinusitis 07/23/2022 Deviated nasal septum 07/23/2022 Hypertrophy of both inferior nasal turbinates Nasal obstruction 07/23/2022 Sialolithiasis 07/23/2022 Surgical History Surgery Date Site/Laterality Comments TUBAL LIGATION 07/14/1991 - 07/13/1992 TEMPOROMANDIBULAR JOINT SURGERY 1984 - replace discs w/ metal/screws; 1994 - remove hardware NEPHRECTOMY 03/14/2023 Left CATARACT EXTRACTION 09/23/2022 Right CATARACT EXTRACTION 10/08/2022 Left Medical History Medical History Date Comments Sinusitis TMJ (dislocation of temporomandibular joint) Family History Medical History Relation Name Comments Cancer Sister Relation Name Status Comments Sister Social History Tobacco Use Types Packs/Day Years Used Date Smoking Tobacco: Never Smokeless Tobacco: Never Tobacco Cessation:Counseling Given: Not Answered Personal Safety Answer Date Recorded Have you ever been in or are you currently in a harmful physical or emotional relationship or is someone making you feel afraid or unsafe? Denies 06/09/2023 Comments Unknown Sex and Gender Information Value Date Recorded Sex Assigned at Not on file Legal Sex Female 7:58 AM IT TECHNICAL SUPPORT SPECIALIST Gender Identity Not on file Sexual Orientation Not on file Obstetrics History Last Filed Vital Signs Vital Sign Reading Time Taken Comments Blood Pressure 114/66 10/24/2023 9:52 AM CDT Pulse 96 10/24/2023 9:52 AM CDT Temperature 36.9 C (98.4 F) 06/09/2023 6:20 PM IT TECHNICAL SUPPORT SPECIALIST Respiratory Rate 19 06/10/2023 9:00 AM IT TECHNICAL SUPPORT SPECIALIST Oxygen Saturation 100% 10/24/2023 9:52 AM CDT Inhaled Oxygen Concentration - - Weight 53.5 kg (118 lb) 10/24/2023 9:52 AM CDT Height 170.2 cm (5' 7 ) 06/09/2023 6:20 PM IT TECHNICAL SUPPORT SPECIALIST Body Mass Index 18.48 06/09/2023 6:20 PM IT TECHNICAL SUPPORT SPECIALIST Plan of Treatment Health Maintenance Due Date Last Done Comments Breast Cancer Screening-Mammogram 1950 Colon Cancer Screening-Colonoscopy 1950 Depression Screening 1950 Fall Risk Assessment 1950 Hepatitis C Screening 1950 Osteoporosis Screening-Bone Density Scan 1950 DTaP/Tdap/Td Vaccine (1 - Tdap) 1960 Hepatitis B Screening 10/05/1967 Pneumococcal vaccine 65+ (1 of 1 - PCV) 10/05/1999 Zoster Vaccine (1 of 2) 10/05/1999 Well Visit 65+ 2014 Influenza Vaccine (#1) 2024 05/02/2016, 2012 Insurance AETNA MEDICARE Care Teams Ambulatory Care Relationship Specialty Start Date End Date Giovanny Farias DO PCP - General Internal Medicine 07/17/22
--- OUTSIDE RECORDS SUMMARY | 2024-09-07 18:52 | XMS_ITS | Continuity of Care Document ---
Author Organization [facility]. If a dditional information is needed, contact Health Information Management at [phone] Address [address] [place] [address] Phone Care Team Providers Care Pipelayer Name Role Phone Unavailable Unavailable Unavailable Unavailable Unavailable Unavailable Unavailable Unavailable Unavailable Unavailable Unavailable Unavailable Problems Renal mass Onset:20-Feb-2023 Gary SCHMID Blood in urine Onset:20-Feb-2023 Gary Alya S SHARMAINE Allergies and Adverse Reactions Neomycin(Allergy) Onset: 20-Feb-2023 Reaction:RED BUMPS/RASH bacitracin(Allergy) Onset: 20-Feb-2023 Reaction:RED BUMPS/RASH Polymyxin B(Allergy) Onset: 20-Feb-2023 Reaction:RED BUMPS/RASH Medications iopamidol;Provider Administr ation Instructions:MAXIMUM DOSE: 150 ML = ISOVUE-300 TO BE GIVEN IN CT/RADIOLOGY ONLY Quantity:1 Марина Bryson N DO Start:20-Feb-2023 Status:Discontinued Comments:Provider Administration Instructions:MAXIMUM DOSE: 150 ML = ISOVUE-300 TO BE GIVEN IN CT/RADIOLOGY ONLY Social History Smoking Status Never smoked tobacco Recorded: 20-Feb-2023
--- OUTSIDE RECORDS SUMMARY | 2024-09-07 18:52 | XMS_ITS | Clinical Summary ---
Author Organization [facility] Address [address] [place] [address] Care Team Providers Care Quill Cleaning Machine Operator Name Role Phone Provider, No Pcp Primary Care Provider Unavailab le Source Comments [facility],non-owned Affiliates and Associated Physician Practices is amultiple site organization consisting of ambulatory clinics and hospital sitesin [place], [place], [place] and [place]. This disclosure is being madepursuant to the Care Everywhere program and may not contain all information available regarding this patient. Last updated 18.[facility] Allergies Active Allergy Reactions Criticality Noted Date Comments Adhesive Sensitivity Unknown 03/31/2020 Insulin Aspart Nausea and/or Vomiting Low 4 Sszzs-Vciue-Hofqfmp-Pramoxine Rash Medium 2022 Sulfa Drugs Unknown 03/31/2020 [...] daily Active Cholecalciferol (vitamin D3) 1.25 MG (51057 UT) capsule Take 1 (one) capsule by mouth once daily Active Lancets (ONETOUCH DELICA PLUS 33G EXTRA FINE LANCET) USE TO CHECK BLOOD SUGAR 4 TIMES DAILY 09/24/2023 Active OneTouch Verio test strip USE TO TEST BLOOD SUGAR 4 TIMES A DAY 09/24/2023 Active fluticasone propionate (Flonase) 50 MCG/ACT nasal spray [place] 2 (two) sprays into each nostril once [...] 02/17/2024 Active Insulin Disposable Pump (Omnipod 5 [id number] Pods Gen 5) MISCIndications:Typ e 1 diabetes mellitus without complication (HCC) CHANGE pod every TWO DAYS as directed. 15 Each 3 07/22/2024 Active Active Problems No known active problems Encounters Date Type Department Care Team Description 07/22/2024 Refill [facility] - Endocrinology [address] [place] [address] Arcelia Gambino, DO Refill Request 06/23/2024 Travel from Last 3 Months Social History Tobacco Use Types Packs/Day Years [...] Description 10/07/2024 2:20 PM CDT Office Visit [facility] Endocr[facility]ology [address] [place] [phone] Arcelia Gambino, DO [address] [facility] [address] [place] [phone] Health Maintenance Due Date Last Done Comments BONE DENSITY TESTING 1950 COLOGUARD (AGES 45-75) - COL ON CA SCREENING 1949 COLON MONITORING 1949 COLONOSCOPY - COLON CA SCREENING 1949 CT COLONOGRAPHY - COLON CA SCREENING 1950 Colorectal Cancer Screening 1949 FIT - COLON CA SCREENING 1949 FLEX SIG - COLON CA SCREENING 1949 MAMMOGRAM 1949 HEPATITIS C SCREENING 09/30/1967 DTAP/TDAP/TD VACCINES (1 - Tdap) 1968 PNEUMOCOCCAL VACCINE 50+ (1 of 2 - PCV) 1968 ZOSTER VACCINE (1 of 2) 10/05/1999 COVID-19 VACCINE ( - 2023-2 5 season) 2024 INFLUENZA VACCINE (#1) 2024 DEPRESSION SCREENING 07/14/2024 MEDICARE AWV CALENDAR YEAR 2024 Respiratory Syncytial Virus (RSV) Vaccine Pt: or over 60 yrs (1 - 1-dose 75+ series) 2024 LIPID TESTING 09/15/2028 09/16/2023 HEPATITIS B VACCINE Aged Out No longe r eligible based on patient's age to complete this topic HIB VACCINE Aged Out No longer eligi ble based on patient's age to complete this topic HPV VACCINE Aged Out No longer eligi ble based on patient's age to complete this topic MENINGOCOCCAL (Group B) VACCINE Aged Out No longer eligible based on patient's age to complete this topic MENINGOCOCCAL VACCINE Aged Out No codi dina eligible based on patient's age to complete this topic Procedures Procedure Name Priority Date/Time Associated Diagnosis Comments LIPID PROFILE Routine 09/16/2023 9:33 AM SHALE PLANER OPERATOR Type 1 diabetes mellitus without complication (HCC) from Last 3 Months or Most Recently Relevant to Health Maintenance Results * (ABNORMAL) LIPID PROFILE (09/16/2023 9:33 AM SHALE PLANER OPERATOR) Cholesterol 211(H) <200 mg/dL [facility] HDL Cholesterol 80 > OR = 50 mg/dL [facility] Triglycerides 129 <150 mg/dL [facility] LDL Calculated 107(H) mg/dL (calc) [facility] Comment: Reference range: <100 Desirable range <100 mg/dL for primary prevention; <70 mg/dL for patients with CHD or diabetic patients with > or = 2 CHD risk factors. LDL-C is now calculated using the Luis-Kathy calculation, which is a validated novel method providing better accuracy than the Friedewald equation in the estimation of LDL-C. Luis SS et al. KRISTAN. 2013;310(19): 9615-8822 (http://education.GoodGuide.com/faq/QNU824) CHOL/HDLC RATIO 2.6 <5.0 (calc) [facility] Non HDL Cholesterol 131(H) <130 mg/dL (calc) [facility] Comment: For patients with diabetes plus 1 major ASCVD risk factor, treating to a non-HDL-C goal of <100 mg/dL (LDL-C of <70 mg/dL) is considered a therapeutic option. Test Performed at: [facility] [place] [address] [place] [address] ABIMAEL WU MD Blood BLOOD SPECIMEN / Unknown 09/16/2023 9:33 AM SHALE PLANER OPERATOR 09/16/2023 9:35 AM SHALE PLANER OPERATOR Arcelia Gambino DO LAB - CHEMISTRY ESEQUIEL MA[facility] [address] [place] [address] from Last 3 Months or Most Recently Relevant to Health Maintenance Care Teams Quill Cleaning Machine Operator Relationship Specialty Start Date End Date Provider, No Pcp PCP - General 04/26/24
--- OUTSIDE RECORDS SUMMARY | 2024-09-07 18:53 | XMS_ITS | Encounter Summary ---
Author Organization [facility] Address [address] [place] [address] Care Team Providers Care Production Line Mechanic Name Role Phone Giovanny Farias Primary Care Provider Encounter Details Date Type Department Care Team (Late st Contact Info) Description 08/06/2024 Results Follow-Up [facility] THERMAL CUTTING MACHINE OPERATOR [address] [facility] [address] [place] [address] Hadley Truong MD [address] [facility] [address] [place] [address] CERV/VAG CYTO SCREEN PAP RLFX HPV Social History Tobacco Use Types Packs/Day Years Used Date Smoking Tobacco: Never Passive Smoke Exposure: Never Smokeless Tobacco: Never Alcohol Use Standard Drinks/Week Comments Never 0 [...] PM CDT Legal Sex Female 6:06 AM SCRAP KETTLE TENDER Gender Identity Female 02/16/2023 9:31 PM CDT Sexual Orientation Not on file documented as of this encounter Plan of Treatment Upcoming Encounters Date Type Department Care Team (Late st Contact Info) Description 10/21/2024 9:15 AM CDT Office Visit [facility] Gastroenterology [address] [facility] [address] [place] [phone] Johan Ledesma MD [address] [facility] [address] [place] [address] 11/02/2024 10:30 AM CDT Office Visit [facility] - [place] [address] [facility] [address] [place] [address] Marvin Holman MD [address] [facility] [address] [place] [address] documented as of this encounter Visit Diagnoses Not on filedocumented in this encounter Care Teams Production Line Mechanic Relationship Specialty Start Date End Date Giovanny Farias DO [address] [address] PCP - General Internal Medicine 03/13/23 documented as of this encounter
--- OUTSIDE RECORDS SUMMARY | 2024-09-07 18:53 | XMS_ITS | Referral Summary ---
Author Organization [facility] [employer] Address [address] [place] [address] Care Team Providers Care Arresting Gear Operator Name Role Phone Giovanny Farias DO Primary Care Provider +1- [phone] Allergies Active Allergy Reactions Criticality Noted Date Comments Adhesive Rash Medium 03/31/2020 Adhesive Tape-Silicones Unknown 03/31/2020 Insulin Aspart Nausea And Vomiting Low 08/28/2023 Hggmuhjv-Aijtnzjouf-Dnkepreci Rash Medium 2023 Penicillin Unknown 10/24/2023 Sulfa [...] nasal turbinates Nasal obstruction 07/23/2022 Sialolithiasis 07/23/2022 Social History Tobacco Use Types Packs/Day Years [...] on file Legal Sex Female 7:58 AM ALEMITE OPERATOR Gender Identity Not on file Sexual Orientation Not on file Last Filed Vital Signs Vital Sign Reading Time Taken Comments Blood Pressure 114/66 10/24/2023 9:52 AM CDT Pulse 96 10/24/2023 9:52 AM CDT Temperature 36.9 C (98.4 F) 06/09/2023 6:20 PM ALEMITE OPERATOR Respiratory Rate 19 06/10/2023 9:00 AM ALEMITE OPERATOR Oxygen Saturation 100% 10/24/2023 9:52 AM CDT Inhaled Oxygen Concentration - - Weight 53.5 kg (118 lb) 10/24/2023 9:52 AM CDT Height 170.2 cm (5' 7 ) 06/09/2023 6:20 PM ALEMITE OPERATOR Body Mass Index 18.48 06/09/2023 6:20 PM ALEMITE OPERATOR Plan of Treatment Not on file Insurance AETNA MEDICARE AETNA MEDICARE Care Teams Arresting Gear Operator Relationship Specialty Start Date End Date Giovanny Farias DO PCP - General Internal Medicine 07/17/22
[2024-09-07 21:18] LABS: Basophils Percent Auto 0.7 % (0.2-1.2); Eosinophils Absolute Auto 0.1 K/mm3 (0-0.3); Eosinophils Percent Auto 2.3 % (0-4.4); Hematocrit 40.5 % (37.0-47.0); Hemoglobin 13.4 g/dL (12.0-15.0); Immature Granulocyte Absolute 0.01 K/mm3 (0.00-0.031); Immature Granulocyte Percent A 0.2 % (0-0.5); Lymphocytes Absolute Auto 2.26 K/mm3 (0.9-3.2); Mean Corpuscular HGB Conc 33.1 g/dl (32-36); Mean Corpuscular Hemoglobin 31.3 pg (26-34); Mean Corpuscular Volume 94.6 fl (80-100); Monocytes Absolute Auto 0.6 K/mm3 (0.1-0.6); Neutrophils Percent Auto 49.8 % (45.5-73.1); Platelet Count Result 248 k/mm3 (150-375); Red Blood Count 4.28 M/mm3 (4.2-5.4); Red Cell Distribution Width 12.8 % (11.5-14.5); White Blood Count 6.1 K/mm3 (4.5-10.0)
[2024-09-07 21:28] LABS: Alanine Aminotransferase 27 U/L (6-35); Albumin Level 4.3 g/dL (3.5-5.1); Alkaline Phosphatase 129 U/L (38-126); Anion Gap 8 mmol/L (4-12); Aspartate Amino Transferase 35 U/L (14-36); Bilirubin,Total 1.1 mg/dL (0.2-1.3); Blood Urea Nitrogen 22 mg/dL (7-17); Calcium 9.5 mg/dL (8.4-10.2); Carbon Dioxide 32 mmol/L (22-30); Chloride 92 mmol/L (98-107); Estimated CRCL calculation 35 ml/min; Estimated Glomerular Filt Rate 51; Glucose 288 mg/dL (65-110); Potassium 4.7 mmol/L (3.4-5.0); Sodium 132 mmol/L (137-145)
[2024-09-07 21:39] LABS: Troponin I < 0.012 ng/mL (0.000-0.034)
[2024-09-07 21:55] LABS: Influenza A QL RT-PCR Negative (Negative); Influenza B QL RT-PCR Negative (Negative); RSV RNA, RT-PCR Negative (Negative); SARS-CoV-2 RNA PCR Negative (Negative)
--- OUTSIDE RECORDS SUMMARY | 2024-09-07 21:55 | XMS_ITS | Referral Summary ---
Author Organization [facility] Address [address] [place] [address] Care Team Providers Care Finance Executive Name Role Phone Provider, No Pcp Primary Care Provider Unavailab le Source Comments [facility],non-owned Affiliates and Associated Physician Practices is amultiple site organization consisting of ambulatory clinics and hospital sitesin [place], [place], [place] and [place]. This disclosure is being madepursuant to the Care Everywhere program and may not contain all information available regarding this patient. Last updated 18.[facility] Encounters Date Type Department Care Team Description 07/22/2024 Refill [facility] - Endocrinology [address] [place] [address] Arcelia Gambino DO Refill Request 06/23/2024 Travel from Last 3 Months Allergies Active Allergy Reactions Criticality Noted Date Comments Adhesive Sensitivity Unknown 03/31/2020 Insulin Aspart Nausea and/or Vomiting Low 4 Vwezr-Gtese-Bzflqbc-Pramoxine Rash Medium 2022 Sulfa Drugs Unknown 03/31/2020 [...] daily Active Cholecalciferol (vitamin D3) 1.25 MG (31563 UT) capsule Take 1 (one) capsule by mouth once daily Active Lancets (ONETOUCH DELICA PLUS 33G EXTRA FINE LANCET) USE TO CHECK BLOOD SUGAR 4 TIMES DAILY 09/24/2023 Active OneTouch Verio test strip USE TO TEST BLOOD SUGAR 4 TIMES A DAY 09/24/2023 Active fluticasone propionate (Flonase) 50 MCG/ACT nasal spray [place] 2 (two) sprays into each nostril once [...] 02/17/2024 Active Insulin Disposable Pump (Omnipod 5 [id number] Pods Gen 5) MISCIndications:Typ e 1 diabetes [...] Description 10/07/2024 2:20 PM CDT Office Visit [facility] - Endocrinology [address] [place] [address] Arcelia Gambino, DO [address] [facility] [address] [place] [address] Procedures Procedure Name Priority Date/Time Associated Diagnosis Comments LIPID PROFILE Routine 09/16/2023 9:33 AM ORTHOPEDIC RN Type 1 diabetes mellitus without complication (HCC) from Last 3 Months or Most Recently Relevant to Health Maintenance Results * (ABNORMAL) LIPID PROFILE (09/16/2023 9:33 AM ORTHOPEDIC RN) Cholesterol 211(H) <200 mg/dL [facility] HDL Cholesterol [...] LDL-C. Luis CUEVAS et al. KRISTAN. 2013;310(19): 8464-3810 (http://education.Flavorvanil.Vizalytics Technology/faq/SKD892) CHOL/HDLC RATIO 2.6 <5.0 (calc) [facility] Non HDL Cholesterol 131(H) <130 mg/dL (calc) [facility] Comment: For patients with diabetes plus 1 major ASCVD risk factor, treating to a non-HDL-C goal of <100 mg/dL (LDL-C of <70 mg/dL) is considered a therapeutic option. Test Performed at: [facility] [address] [place] [address] ABIMAEL WU MD Blood BLOOD SPECIMEN / Unknown 09/16/2023 9:33 AM ORTHOPEDIC RN 09/16/2023 9:35 AM ORTHOPEDIC RN Arcelia Gambino DO LAB - CHEMISTRY ESEQUIEL MAYES [facility] [address] [place] [address] from Last 3 Months or Most Recently Relevant to Health Maintenance Care Teams Finance Executive Relationship Specialty Start Date End Date Provider, No Pcp PCP - General 04/26/24
--- OUTSIDE RECORDS SUMMARY | 2024-09-07 21:55 | XMS_ITS | Referral Summary ---
Author Organization [facility] [employer] Address [address] [place] [address] Care Team Providers Care Airplane And Engine Inspector Name Role Phone Giovanny Farias DO Primary Care Provider +1- [phone] Allergies Active Allergy Reactions Criticality Noted Date Comments Adhesive Rash Medium 03/31/2020 Adhesive Tape-Silicones Unknown 03/31/2020 Insulin Aspart Nausea And Vomiting Low 08/28/2023 Gcbfsrhx-Hykzbhvewk-Bcrpiwupk Rash Medium 2023 Penicillin Unknown 10/24/2023 Sulfa [...] on file Legal Sex Female 7:58 AM FIELD SUPPORT ENGINEER Gender Identity Not on file Sexual Orientation Not on file Last Filed Vital Signs Vital Sign Reading Time Taken Comments Blood Pressure 114/66 10/24/2023 9:52 AM CDT Pulse 96 10/24/2023 9:52 AM CDT Temperature 36.9 C (98.4 F) 06/09/2023 6:20 PM FIELD SUPPORT ENGINEER Respiratory Rate 19 06/10/2023 9:00 AM FIELD SUPPORT ENGINEER Oxygen Saturation 100% 10/24/2023 9:52 AM CDT Inhaled Oxygen Concentration - - Weight 53.5 kg (118 lb) 10/24/2023 9:52 AM CDT Height 170.2 cm (5' 7 ) 06/09/2023 6:20 PM FIELD SUPPORT ENGINEER Body Mass Index 18.48 06/09/2023 6:20 PM FIELD SUPPORT ENGINEER Plan of Treatment Not on file Insurance AETNA MEDICARE AETNA MEDICARE Care Teams Airplane And Engine Inspector Relationship Specialty Start Date End Date Giovanny Farias DO PCP - General Internal Medicine 07/17/22
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
--- OUTSIDE RECORDS SUMMARY | 2024-09-07 21:55 | XMS_ITS | Encounter Summary ---
Author Organization [facility] Address [address] [place] [address] Care Team Providers Care Garde Manger Name Role Phone Lonnyjunito Giovanny Mario Alberto DO Primary Care Provider Provider, No Pcp Primary Care Provider Unavailab le Encounter Details Date Type Department Care Team (Late Contact Info) Description 08/27/2018 Lab Requisition [facility] DermPath Lab [address] [facility], [place] [phone] Vishnu Aggarwal MD [address] [place] [address] Social History Tobacco Use Types Packs/Day Years [...] Physician Group - Endocrinology [address] [place] [phone] Arcelia Gambino DO [address] [facility] [address] [place] [phone] documented as of this encounter Procedures Procedure Name Priority Date/Time Associated Diagnosis Comments DERMATOPATHOLOGY Routine 08/26/2018 12:0 0 AM SALES AGENT FINANCIAL REPORT SERVICE documented in this encounter Results * DERMATOPATHOLOGY (08/26/2018 12:00 AM SALES AGENT FINANCIAL REPORT SERVICE) Case Report Dermatopathology Report Case: [id number] Authorizing Provider: Vishnu Aggarwal MD Collected: 08/26/2018 12:00 AM Pathologist: Barbie Fitzgerald MD Received: 08/27/2018 11:34 AM Specimens: A) - Skin, left upper quadrant abdomen B) - Skin, left lateral upper arm 12:44 PM [facility] DERMATOPATHOLOGY LABORATORY Amended Report Addition of in situ to diagnosis and microscopic description to read 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 SKIN, left upper quadrant abdomen: SOLAR LENTIGO, INFLAMED (L81.4) Specimen B. 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 B: R/O Jordan's. Check margins. 12:44 PM [facility] DERMATOPATHOLOGY LABORATORY Gross Description Specimen A: Received is one formalin filled container labeled with the patient's name and designated left upper quadrant abdomen. The specimen consists of a shave biopsy measuring 3x4w1hz. Jar 0. Specimen B: Received is one formalin filled container labeled with the patient's name and designated left lateral upper arm.The specimen consists of a punch excision measuring [id number] and is oriented with the notch at [...] in cassettes 3-4. Jar 0. 12:44 PM [facility] DERMATOPATHOLOGY LABORATORY Microscopic Description Specimen A. SKIN, [...] the base of the specimen. 12:44 PM [facility] DERMATOPATHOLOGY LABORATORY Disclaimer An external and internal positive and negative controls are appropriate for the histochemical, immunohistochemical and immunofluorescence stain(s) in this case (if any), except where stated explicitly. The performance characteristics of the stain(s) cited in this report were developed and its performance characteristic determined by the Dermatopathology Laboratory at [facility], directed by Dr. Hong Mohr. These tests need not be, and therefore are not, approved by the [place] Food and Drug Administration. The tests are used for clinical purposes. Billing Codes Specimen Charges Stain Charges 79202 94268 1 1 12:44 PM [facility] DERMATOPATHOLOGY LABORATORY Embedded Images 12:44 PM [facility] DERMATOPATHOLOGY LABORATORY Pathology/Cytology TISSUE SPECIMEN FROM SKIN / Unknown 08/26/2018 08/27/2018 11:34 AM SALES AGENT FINANCIAL REPORT SERVICE Miscellaneous samples (specimen) TISSUE SPECIMEN FROM SKIN / Unknown 08/26/2018 08/27/2018 11:34 AM SALES AGENT FINANCIAL REPORT SERVICE Vishnu Aggarwal MD LAB - PATHOLOGY/CYTO LOGY ORDERABLES DERMATOPATHOLOGY LABORATORY [facility] - Department of Dermatology [facility] [facility] [place] [address], [facility] [phone] documented in this encounter Visit Diagnoses Not on filedocumented in this encounter Care Teams Garde Manger Relationship Specialty Start Date End Date Giovanny Farias, PCP - General Internal Medicine 06/10/23 04/25/24 Provider, No Pcp PCP - General 04/26/24 documented as of this encounter
--- OUTSIDE RECORDS SUMMARY | 2024-09-07 21:55 | XMS_ITS | Clinical Summary ---
Author Organization [facility] Address [address] [place] [address] Care Team Providers Care Supervisor Rod Placing Name Role Phone Provider, No Pcp Primary Care Provider Unavailab le Source Comments [facility],non-owned Affiliates and Associated Physician Practices is amultiple site organization consisting of ambulatory clinics and hospital sitesin [place], [place], [place] and [place]. This disclosure is being madepursuant to the Care Everywhere program and may not contain all information available regarding this patient. Last updated 18.[facility] Allergies Active Allergy Reactions Criticality Noted Date Comments Adhesive Sensitivity Unknown 03/31/2020 Insulin Aspart Nausea and/or Vomiting Low 4 Srxla-Txfmo-Gxulwkd-Pramoxine Rash Medium 2022 Sulfa Drugs Unknown 03/31/2020 [...] daily Active Cholecalciferol (vitamin D3) 1.25 MG (85640 UT) capsule Take 1 (one) capsule by mouth once daily Active Lancets (ONETOUCH DELICA PLUS 33G EXTRA FINE LANCET) USE TO CHECK BLOOD SUGAR 4 TIMES DAILY 09/24/2023 Active OneTouch Verio test strip USE TO TEST BLOOD SUGAR 4 TIMES A DAY 09/24/2023 Active fluticasone propionate (Flonase) 50 MCG/ACT nasal spray [place] 2 (two) sprays into each nostril once [...] 02/17/2024 Active Insulin Disposable Pump (Omnipod 5 [id number] Pods Gen 5) MISCIndications:Typ e 1 diabetes mellitus without complication (HCC) CHANGE pod every TWO DAYS as directed. 15 Each 3 07/22/2024 Active Active Problems No known active problems Encounters Date Type Department Care Team Description 07/22/2024 Refill [facility] - Endocrinology [address] [place] [address] Arcelia Gambino, DO Refill Request [...] Physician Group - Endocrinology [address] [place] [phone] Arcelia Gambino, DO [address] [facility] [place] [facility] [address] [place] [phone] Health Maintenance Due Date Last Done Comments [...] Comments LIPID PROFILE Routine 09/16/2023 9:33 AM REUSE TECHNICIAN Type 1 diabetes mellitus without complication (HCC) from Last 3 Months or Most Recently Relevant to Health Maintenance Results * (ABNORMAL) LIPID PROFILE (09/16/2023 9:33 AM REUSE TECHNICIAN) Cholesterol 211(H) <200 mg/dL [facility] HDL [...] LDL-C. Luis SS et al. KRISTAN. 2013;310(19): 9778-6862 (http://education.ForeUp.com/faq/SPY234) CHOL/HDLC RATIO 2.6 <5.0 (calc) [facility] Non HDL Cholesterol 131(H) <130 mg/dL (calc) [facility] Comment: For patients with diabetes plus 1 major ASCVD risk factor, treating to a non-HDL-C goal of <100 mg/dL (LDL-C of <70 mg/dL) is considered a therapeutic option. Test Performed at: [facility] [address] [place] [address] ABIMAEL WU MD Blood BLOOD SPECIMEN / Unknown 09/16/2023 9:33 AM REUSE TECHNICIAN 09/16/2023 9:35 AM REUSE TECHNICIAN Arcelia Gambino DO LAB - CHEMISTRY [facility] [address] [place] [address] from Last 3 Months or Most Recently Relevant to Health Maintenance Care Teams Supervisor Rod Placing Relationship Specialty Start Date End Date Provider, No Pcp PCP - General 04/26/24
--- OUTSIDE RECORDS SUMMARY | 2024-09-07 21:55 | XMS_ITS | Clinical Summary ---
Author Organization [facility] Care Team Providers Care Policyholder Information Clerk Name Role Phone Unavailable Primary Care Provider Unavailabl e Social History Tobacco Use Types Packs/Day Years Used Date Smoking Tobacco: Never Assessed Comments Unknown Sex and Gender Information Value Date Recorded Sex Assigned at Not on file Legal Sex Female 8:41 AM HOUSEHOLD COORDINATOR Gender Identity Not on file Sexual Orientation Not on file Plan of Treatment Health Maintenance Due Date Last Done Comments Hepatitis C Virus (HCV) Screening 1950 TdaP Immunization 1950 Colonoscopy 1994 Colorectal Cancer Screening 1994 Cologuard 10/05/1999 Immunochemical Fecal Occult Blood 10/05/1999 Pneumococcal Immunization (5 0+ years) (1 of 1 - PCV) 10/05/1999 Zoster Immunization (1 of 2) 10/05/1999 Influenza Immunization (#1) 2024 05/02/2016 SARS-COV-2 Immunization (1 - 2023- season) 2024 Respiratory Syncytial Virus (RSV) Immunization (Adult) (1 - 1-dose 75+ series) 2024 Hepatitis B Immunization Aged Out No longer eligible based on patient's age to complete this topic Meningococcal Immunization (ACWY) Aged Out No longer eligible based on patient's age to complete this topic Rotavirus Immunization Aged Out No lo nger eligible based on patient's age to complete this topic
--- OUTSIDE RECORDS SUMMARY | 2024-09-07 21:55 | XMS_ITS | Encounter Summary ---
Author Organization [facility] Address [address] [place] [address] Care Team Providers Care Churner Name Role Phone Giovanny Farias Primary Care Provider Encounter Details Date Type Department Care Team (Late st Contact Info) Description 08/06/2024 Results Follow-Up [facility] STEVEDORING SUPERINTENDENT Medical [place] [address] [facility] [employer] [address] [place] [address] Hadley Truong MD [address] [facility] [address] [place] [address] CERV/VAG CYTO SCREEN PAP RLFX [...] PM CDT Legal Sex Female 6:06 AM DIRECTOR OF LEARNING Gender Identity Female 02/16/2023 9:31 PM CDT Sexual Orientation Not on file documented as of this encounter Plan of Treatment Upcoming Encounters Date Type Department Care Team (Late st Contact Info) Description 10/21/2024 9:15 AM CDT Office Visit [facility] Gastroenterology [address] [place] [phone] Johan Ledesma MD [id number] [place] [address] 11/02/2024 10:30 AM CDT Office Visit [facility] UROLOGY - [place] [address] [facility] [address] [place] [address] Marvin Holman MD [address] [facility] [address] [place] [address] documented as of this encounter Visit Diagnoses Not on filedocumented in this encounter Care Teams Churner Relationship Specialty Start Date End Date Giovanny Farias DO [address] [address] PCP - General Internal Medicine 03/13/23 documented as of this encounter
--- OUTSIDE RECORDS SUMMARY | 2024-09-07 21:55 | XMS_ITS ---
Author Organization [employer] [facility] Address [address] [place] [address] Phone Care Team Providers Care Bakery Chef Name Role Phone Giovanny Farias DO Primary [...]
--- OUTSIDE RECORDS SUMMARY | 2024-09-07 21:55 | XMS_ITS | Clinical Summary ---
Author Organization [facility] [address] Address [address] [place] [address] Care Team Providers Care Set Designer Name Role Phone Giovanny Farias DO Primary Care Provider [phone] Allergies Active Allergy Reactions Criticality Noted Date Comments Adhesive Rash Medium 03/31/2020 Adhesive Tape-Silicones Unknown 03/31/2020 Insulin Aspart Nausea And Vomiting Low 08/28/2023 Drhgrtxn-Xvfcrxgvoc-Cnmvfdwjl Rash Medium 2023 Penicillin Unknown 10/24/2023 Sulfa [...] on file Legal Sex Female 7:58 AM EMPLOYMENT ADVISOR Gender Identity Not on file Sexual Orientation Not on file Obstetrics History Last Filed Vital Signs Vital Sign Reading Time Taken Comments Blood Pressure 114/66 10/24/2023 9:52 AM CDT Pulse 96 10/24/2023 9:52 AM CDT Temperature 36.9 C (98.4 F) 06/09/2023 6:20 PM EMPLOYMENT ADVISOR Respiratory Rate 19 06/10/2023 9:00 AM EMPLOYMENT ADVISOR Oxygen Saturation 100% 10/24/2023 9:52 AM CDT Inhaled Oxygen Concentration - - Weight 53.5 kg (118 lb) 10/24/2023 9:52 AM CDT Height 170.2 cm (5' 7 ) 06/09/2023 6:20 PM EMPLOYMENT ADVISOR Body Mass Index 18.48 06/09/2023 6:20 PM EMPLOYMENT ADVISOR Plan of Treatment Health Maintenance Due Date [...] 05/02/2016, 2012 Insurance [employer] MEDICARE Care Teams Set Designer Relationship Specialty Start Date End Date Giovanny Farias DO PCP - General Internal Medicine 07/17/22
--- OUTSIDE RECORDS SUMMARY | 2024-09-07 21:55 | XMS_ITS | Patient Health Summary ---
Author Organization [facility] Address [address] [place] [address] Care Team Providers Care Drug Abuse Program Coordinator Name Role Phone Provider, No Pcp Primary Care Provider Unavailab le Note from [facility],non-owned Affiliates and Associated Physician Practices is amultiple site organization consisting of ambulatory clinics and hospital sitesin [place], [place], [place] and [place]. This disclosure is being madepursuant to the Care Everywhere program and may not contain all information available regarding this patient. Last updated 18.[facility] Allergies * Adhesive Sensitivity(Unknown) * Insulin Aspart(Nausea and/or Vomiting) -Low Criticality * Muvqn-Sbacc-Jahxcdi-Pramoxine(Rash) -Medium Criticality * Sulfa Drugs(Unknown) Medications * [...] daily * Cholecalciferol (vitamin D3) 1.25 MG (54129 UT) capsule Take 1 (one) capsule by mouth once daily * Lancets (ONETOUCH DELICA PLUS 33G EXTRA FINE LANCET)(Started 09/24/2023) USE TO CHECK BLOOD SUGAR 4 TIMES DAILY * OneTouch Verio test strip(Started 09/24/2023) USE TO TEST BLOOD SUGAR 4 TIMES A DAY * fluticasone propionate (Flonase) 50 MCG/ACT nasal spray Pyatt 2 (two) sprays into each nostril once [...] 02/16/2025 * Insulin Disposable Pump (Omnipod 5 [id number] Pods Gen 5) MISC(Started 07/22/2024) CHANGE pod [...] ORDERABLES THIERRY JACOME RD Marlen JAC[address], [facility] [address] [place] [address], [facility] [phone] * CBC WITH DIFFERENTIAL (01/21/2024 8:22 AM CDT) Pathologist [facility] White Blood Cell Count 7.1 3.8 - [...] 0.6 % [facility] Comment: Test Performed at: [facility] [address] [address] ABIMAEL WU MD 01/21/2024 8:22 AM CDT 01/21/2024 8:23 AM CDT Rosemary Mayen PA-C LAB - HEMATOLOGY ORD ERABLES Performing Organization Address [facility] de Phone Number [facility] [address] [place] [address] * (ABNORMAL) COMPREHENSIVE METABOLIC PANEL (01/21/2024 8:22 [...] 29 U/L [facility] Comment: Test Performed at: [facility] [address] [facility] [address] ABIMAEL WU MD 01/21/2024 8:22 AM CDT 01/21/2024 8:23 AM CDT Rosemary Mayen PA-C LAB - CHEMISTRY ORDBarbara MAYES Performing Organization Address [facility] de Phone Number [facility] [address] [place] [address] * (ABNORMAL) C-PEPTIDE (01/21/2024 8:18 AM CDT) C-Peptide 0.20(L) 0.80 - 3.85 ng/mL [facility] Comment: REPORT COMMENT: FASTING:YES Test Performed at: [facility] [place] [address] [place] [address] ABIMAEL WU MD Blood BLOOD SPECIMEN / Unknown 01/21/2024 8:18 AM CDT 01/21/2024 8:19 AM CDT Arcelia Castro Immanuel BOGGS LAB - CHEMISTRY ESEQUIEL MAYES Performing Organization Address [facility] [place] [address] * ZINC TRANSPORTER 8 ANTIBODY (09/16/2023 9:33 AM ASSISTANT MAINTENANCE MANAGER) Zinc Transporter 8 Antibody <10 <15 U/mL [facility] Comment: For additional information, please refer to http://education.DoNever Campus Love/faq/QSK872 (This link is being provided for information/educational purposes only.) Test Performed at: [facility] [address] [place] [address] ROMAN LAI MD,PHD,BRODY Blood BLOOD SPECIMEN / Unknown 09/16/2023 9:33 AM ASSISTANT MAINTENANCE MANAGER 09/16/2023 9:35 AM ASSISTANT MAINTENANCE MANAGER Arcelia Gambino DO LAB - CHEMISTRY LEONIDASBarbara GERBER Performing Organization Address [facility] Co de Phone Number [address] [address] * (ABNORMAL) INSULIN ANTIBODY (09/16/2023 9:33 AM ASSISTANT MAINTENANCE MANAGER) Insulin Antibody 1.6(H) <0.4 U/mL [facility] Comment: Test Performed at: [facility] [address] [place] [address] ROMAN LAI MD,PHD,BRODY Blood BLOOD SPECIMEN / Unknown 09/16/2023 9:33 AM ASSISTANT MAINTENANCE MANAGER 09/16/2023 9:35 AM ASSISTANT MAINTENANCE MANAGER Arcelia Gambino DO LAB - CHEMISTRY ORDE RABKANE Performing Organization Address [facility] Co de Phone Number [facility] [address] [place] [address] * (ABNORMAL) IA-2 ANTIBODY (09/16/2023 9:33 AM ASSISTANT MAINTENANCE MANAGER) IA-2 Antibody 130.7(H) <5.4 U/mL [facility] Comment: This test was performed using the IA-2 Antibody JUAN PABLO method which is standardized against the WHO Reference Reagent 97/550. The reference range reported was established specifically for this test method. Test Performed at: [facility] [address] [place] [address] ROMAN LAI MD,PHD,BRODY Blood BLOOD SPECIMEN / Unknown 09/16/2023 9:33 AM ASSISTANT MAINTENANCE MANAGER 09/16/2023 9:35 AM ASSISTANT MAINTENANCE MANAGER Arcelia Gambino DO LAB - SEROLOGY ORDER RON Performing Organization Address [facility] de Phone Number [facility] [address] [place] [address] * MICROALB/CREAT RATIO URINE RANDOM PANEL (09/16/2023 9:33 AM ASSISTANT MAINTENANCE MANAGER) Creatinine Urine 220 20 - 275 mg/dL [...] within a diagnostic category. Test Performed at: [facility] [address] [address] [facility] [address] ABIMAEL WU MD Urine URINE SPECIMEN OBTAINED BY CLEAN CATCH PROCEDURE / Unknown 09/16/2023 9:33 AM ASSISTANT MAINTENANCE MANAGER 09/16/2023 9:35 AM ASSISTANT MAINTENANCE MANAGER Arcelia Gambino DO LAB - URINE CHEMISTR Y ORDERABLES Performing Organization Address [facility] Co de Phone Number [facility] [phone] [place] [address] * (ABNORMAL) ISLET CELL ANTIBODY (09/16/2023 9:33 AM ASSISTANT MAINTENANCE MANAGER) Pathologist [facility] Islet Cell Antibody Screen POSITIVE( A) NEGATIVE [facility] Comment: This test was developed and its analytical performance characteristics have been determined by [employer]. It has not been cleared or approved by FDA. This assay has been validated pursuant to the CLIA regulations and is used for clinical purposes. Test Performed at: [facility] [address] [place] [address] ROMAN LAI MD,PHD,BRODY Blood BLOOD SPECIMEN / Unknown 09/16/2023 9:33 AM ASSISTANT MAINTENANCE MANAGER 09/16/2023 9:35 AM ASSISTANT MAINTENANCE MANAGER Arcelia Gambino DO LAB - SEROLOGY ORDER RON Performing Organization Address [facility] de Phone Number [facility] [phone] [place] [address] * (ABNORMAL) ISLET CELL ANTIBODY TITER (09/16/2023 9:33 AM ASSISTANT MAINTENANCE MANAGER) Pathologist [facility] Islet Cell Antibody Titer 320(H) JDF units [facility] Comment: Reference Range: LESS THAN 1.25 NOTE: End point titers are compared to a single international reference standard and values are reported in JDF (Juvenile Diabetes Foundation) units. Test Performed at: [facility] [address] [place] [address] ROMAN LAI MD,PHD,BRODY 09/16/2023 9:33 AM ASSISTANT MAINTENANCE MANAGER 09/16/2023 9:35 AM ASSISTANT MAINTENANCE MANAGER Arcelia Gambino DO LAB - SEROLOGY ORDER RON Performing Organization Address [facility] Co de Phone Number [facility] [phone] [place] [address] * (ABNORMAL) GLUTAMIC ACID DECARBOXYLASE (TRELL) ANTIBODY (09/16/2023 9:33 AM ASSISTANT MAINTENANCE MANAGER) Glutamic Acid Decarboxylase Antibody >250(H) <5 IU/mL [facility] Comment: This test was performed using the GAD65 JUAN PABLO method, which is standardized against the International reference preparation 97/550. Test Performed at: [facility] [address] [place], [place] MARKEL GRAY MD,PHD Blood BLOOD SPECIMEN / Unknown 09/16/2023 9:33 AM ASSISTANT MAINTENANCE MANAGER 09/16/2023 9:35 AM ASSISTANT MAINTENANCE MANAGER Arcelia Gambino DO LAB - SEROLOGY ORDER RON Performing Organization Address [facility] de Phone Number [facility] [address] [place] [address] * (ABNORMAL) BASIC METABOLIC PANEL (CALCIUM TOTAL) (09/16/2023 9:33 AM ASSISTANT MAINTENANCE MANAGER) Glucose 187(H) 65 - 99 mg/dL [facility] [...] 10.4 mg/dL [facility] Comment: Test Performed at: [facility] [place] [address] [place] [address] ABIMAEL WU MD Blood BLOOD SPECIMEN / Unknown 09/16/2023 9:33 AM ASSISTANT MAINTENANCE MANAGER 09/16/2023 9:35 AM ASSISTANT MAINTENANCE MANAGER Arcelia Gambino DO LAB - CHEMISTRY ORDE GERBER Performing Organization Address City/[facility] Co de Phone Number [facility] [address] [place] [phone] * TSH (09/16/2023 9:33 AM ASSISTANT MAINTENANCE MANAGER) [facility] TSH 3.96 0.40 - 4.50 mIU/L [facility] Comment: Test Performed at: [facility] [address] [place] [address] ABIMAEL WU MD Blood BLOOD SPECIMEN / Unknown 09/16/2023 9:33 AM ASSISTANT MAINTENANCE MANAGER 09/16/2023 9:35 AM ASSISTANT MAINTENANCE MANAGER Arcelia Gambino DO LAB - CHEMISTRY ORDBarbara MAYES Performing Organization Address City/[facility]/ZIP Co de Phone Number [facility] [address] [place] [phone] * T4 FREE (09/16/2023 9:33 AM ASSISTANT MAINTENANCE MANAGER) [facility] T4 Free 1.2 0.8 - 1.8 ng/dL [facility] Comment: Test Performed at: [facility] [address] [place] [address] ABIMAEL WU MD Blood BLOOD SPECIMEN / Unknown 09/16/2023 9:33 AM ASSISTANT MAINTENANCE MANAGER 09/16/2023 9:35 AM ASSISTANT MAINTENANCE MANAGER Arcelia Gambino DO LAB - CHEMISTRY ESEQUIEL MAYES Performing Organization Address [facility] Co de Phone Number [facility] [address] [place] [address] * (ABNORMAL) LIPID PROFILE (09/16/2023 9:33 AM ASSISTANT MAINTENANCE MANAGER) [facility] Cholesterol 211(H) <200 mg/dL [facility] HDL Cholesterol [...] LDL-C. Luis CUEVAS et al. KRISTAN. 2013;310(19): 3929-1710 (http://education.Slacker.InteliVideo/faq/QCZ519) CHOL/HDLC RATIO 2.6 <5.0 (calc) [facility] Non HDL Cholesterol 131(H) <130 mg/dL (calc) [facility] Comment: For patients with diabetes plus 1 major ASCVD risk factor, treating to a non-HDL-C goal of <100 mg/dL (LDL-C of <70 mg/dL) is considered a therapeutic option. Test Performed at: [facility] [address] [facility] [place] [place] [address] ABIMAEL WU MD Blood BLOOD SPECIMEN / Unknown 09/16/2023 9:33 AM ASSISTANT MAINTENANCE MANAGER 09/16/2023 9:35 AM ASSISTANT MAINTENANCE MANAGER Arcelia M Immanuel BOGGS LAB - CHEMISTRY ESEQUIEL MAYES Performing Organization Address City/State/[facility] Co de Phone Number [facility] [address] [place] [address] * DERMATOPATHOLOGY (08/26/2018 12:00 AM ASSISTANT MAINTENANCE MANAGER) Only the most recent of5 resultswithin the time period is included. 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 SKIN, left upper quadrant abdomen: SOLAR LENTIGO, INFLAMED (L81.4) Specimen B. 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 B: R/O Jordan's. Check margins. 12:44 PM [facility] Gross Description Specimen A: Received is one formalin filled container labeled with the patient's name and designated left upper quadrant abdomen. The specimen consists of a shave biopsy measuring [id number]. Jar 0. Specimen B: Received is one formalin filled container labeled with the patient's name and designated left lateral upper arm.The specimen consists of a punch excision measuring [id number] and is oriented with the notch at [...] cassettes 3-4. Jar 0. 9 12:44 PM [facility] Microscopic Description Specimen A. SKIN, [...] base of the specimen. 9 12:44 PM [facility] Disclaimer An external and internal positive and negative controls are appropriate for the histochemical, immunohistochemical and immunofluorescence stain(s) in this case (if any), except where stated explicitly. The performance characteristics of the stain(s) cited in this report were developed and its performance characteristic determined by the Dermatopathology Laboratory at [facility], directed by Dr. Hogn Mohr. These tests need not be, and therefore are not, approved by the [place] Food and Drug Administration. The tests are used for clinical purposes. Billing Codes Specimen Charges Stain Charges [address] 1 1 9 12:44 PM ASSISTANT MAINTENANCE MANAGER DERMATOPATHOLOGY LABORATORY Embedded Images 9 12:44 PM ASSISTANT MAINTENANCE MANAGER DERMATOPATHOLOGY LABORATORY Pathology/Cytology TISSUE SPECIMEN FROM SKIN / Unknown 08/26/2018 08/27/2018 11:34 AM ASSISTANT MAINTENANCE MANAGER Miscellaneous samples (specimen) TISSUE SPECIMEN FROM SKIN / Unknown 08/26/2018 08/27/2018 11:34 AM ASSISTANT MAINTENANCE MANAGER Vishnu Aggarwal MD LAB - PATHOLOGY/CYTO LOGY ORDERABLES DERMATOPATHOLOGY LABORATORY [facility] - Department of Dermatology [address] [place] [address], [address] Lab [address] [phone] Care Teams Drug Abuse Program Coordinator Relationship Specialty Start Date End Date Provider, No Pcp PCP - General 04/26/24
[2024-09-07 22:30] VITALS: BP 165/91; PULSE 64; RESP 20; O2SAT 99
--- NOTE | 2024-09-07 23:50 | PM.IMHP ---
H&P: HPI History of Present Illness Date/Time: 09/07/24 23:50 Chief Complaint: 1. Hypertension 2. Malaise Narrative: Deidre Cuadra is a 73 yo F with a mHx significant for RCC s/p nephrectomy, IDDM. She presents to the ED after experiencing symptoms of malaise, headaches, flushing sensation, fatigue and a restriction of her ADLs. With no known modifying factors to her symptoms her SBP was elevated at home >160; she visited an urgent care center and was referred to the ED for further evaluation and care. 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 No change in that deficit. Neurology was consulted and they were comfortable with plan for admission with MRI. They are also okay with maintaining permissive hypertension. Work-up findings: Na 135; K 3.6; Cl 96; CO2 30; BUN 22; Cr 1.04; GFR 52 influenza A/B, RSV, COVID-19: Not detected CT Head: Focal hypodensity in the left medulla, may represent acute or chronic infarct versus artifact. Recommend MRI of the brain for further characterization. CXR: Aortic ectasia. Consider CTA of the chest there is concern for aortic aneurysm/dissection. Deidre Cuadra will be admitted, evaluated and managed for stroke-like symptoms with probable CVA Review of Systems Review of Systems: All systems reviewed & are unremarkable except as noted in HPI and below PMFSH Past Medical History Medical History Acute cerebellar syndrome Ataxia Cerebellar midline syndrome Cerebellar stroke syndrome Chicken pox Chronic kidney disease (CKD) Heartburn Hx of migraines Measles Mononucleosis Mumps VONNIE (obstructive sleep apnea) Renal cell carcinoma Vomiting Surgical History Surgical History History of tubal ligation Family History Family History Mother Hypertension Sibling Patient's sister is in good health Patient's brother is in good health Family history of lung cancer Father Cerebrovascular accident Social History Social History Smoking status: Never smoker Alcohol intake: current Substance use: never Substance use type: does not use Do You Feel Safe in your Home?: Yes Lack of Transportation: No Lack of Food: Never True Current Housing: I Have Housing Concerned About Future Housing: No Difficulty Paying Gas/Electric Bills: No Difficulty Paying for Meds: No Currently Unemployed: No Education: High School Diploma/GED Difficulty w/ Childcare or Family Care: No Living arrangements: alone Spiritual care concerns: No Meds Home Medications and Allergies Home Medications ?Medication ?Instructions ?Recorded ?Confirmed ?Type Mask refit #1 ea 11/06/22 09/08/24 Rx blood sugar diagnostic (OneTouch #200 ea 07/03/23 09/08/24 Rx Verio test strips) lancets 33 gauge (OneTouch Delica #200 ea 07/03/23 09/08/24 Rx Plus Lancet) pen needle, diabetic 32 gauge x #200 ea 07/03/23 09/08/24 Rx 5/32 (BD Priyanka 2nd Gen Pen Needle) subcutaneous insulin pump 03/01/24 09/08/24 History estradiol 10 mcg vaginal tablet 10 mcg vaginal .2xweek 07/01/24 09/08/24 History insulin lispro 100 unit/mL 1 sliding scale dose .Route 09/08/24 09/08/24 History subcutaneous solution .COMPLEX insulin pump cartridge,auto 09/08/24 09/08/24 History dose,BT,G6/G7 with controller subcutaneous (Omnipod 5 G6-G7 Intro Kit(Gen 5) subcutaneous cartridge and controller) Allergies Allergy/AdvReac Type Severity Reaction Status Date / Time insulin aspart (From Novolog Allergy Severe Rash Verified 09/07/24 16:59 U-100 Insulin aspart) adhesive Allergy Unknown Rash Verified 09/07/24 16:59 polymyxin B Allergy Unknown Rash Verified 09/07/24 16:59 Sulfa (Sulfonamide Allergy Unknown Hives Verified 09/07/24 16:59 Antibiotics) sulfanilamide Allergy Unknown Hives Verified 09/07/24 16:59 BANDAIDS Allergy Mild Rash Uncoded 09/07/24 16:59 NEOMYCIN SULFATE Allergy Mild Rash Uncoded 09/07/24 16:59 POLYMYXIN B SULFATE Allergy Mild Rash Uncoded 09/07/24 16:59 Vital Signs Vital Signs - 24 hr 09/07/24 18:08 09/07/24 22:30 Temperature 98.1 F Pulse Rate 81 64 Respiratory Rate 16 20 Blood Pressure 178/110 H 165/91 H Pulse Oximetry 99 99 Exam Const: General: comfortable HENMT: Ears: TM's normal bilaterally Face/Nose/Sinus: Normal nares present Eyes: General: appearance normal, both eyes and all related structures Pupils: Equal, round and reactive pupils present EOM: EOMs intact bilaterally Neck: Neck: supple Resp: Effort & Inspection: normal respiratory effort Auscultation: clear to auscultation bilaterally Cardio: Rate: regular rate Rhythm: regular rhythm Skin: General skin exam: normal color Neuro: General: gait normal Motor exam (neuro): 5/5 motor strength present throughout, Normal motor muscle tone present throughout and Abnormal motor strength present Extrem: General: normal to inspection Psych: Mental Status: mental status grossly normal Affect: normal affect and Anxious affect present H&P: Results Labs Labs: Short CBC 09/07/24 Range/Units 20:51 WBC 6.1 (4.5-10.0) K/mm3 Hgb 13.4 (12.0-15.0) g/dL Hct 40.5 (37.0-47.0) % Plt Count 248 (150-375) k/mm3 BMP 09/07/24 20:51 Sodium 132 L Potassium 4.7 Chloride 92 L Carbon Dioxide 32 H BUN 22 H Creatinine 1.05 H Glucose 288 H Calcium 9.5 Cardiac Enzymes 09/07/24 Range/Units 20:51 Troponin I < 0.012 (0.000-0.034) ng/mL Liver Function 09/07/24 Range/Units 20:51 Total Bilirubin 1.1 (0.2-1.3) mg/dL AST 35 (14-36) U/L ALT 27 (6-35) U/L Alkaline Phosphatase 129 H (38-126) U/L Albumin 4.3 (3.5-5.1) g/dL Assessment and Plan Assessment and plan (1) Hypertension: Code(s): I10 - Essential (primary) hypertension Status: Acute (2) Stroke-like symptoms: Code(s): R29.90 - Unspecified symptoms and signs involving the nervous system Status: Acute Plan Acute and principal conditions 1. Stroke like symptoms Focal hypodensity in the left medulla, may represent acute or chronic infarct . 2. Hypertension. Rx: REFRACTORY SPECIALIST, PT/OT eval and Rx MRI brain ECHO Lipid panel Neurology recommends permissive hypertension Neurology consult Chronic and stable conditions 1. IDDM. on Insulin pump 2. RCC. s/p nephrectomy Miscellaneous care. Code status. Full Nutrition. Heart healthy Quality VTE Prophylaxis VTE prophylaxis: pharmacologic ordered Hospitalist [facility] Advance Care Plan I have confirmed that the patient's Advanced Care Plan is present, code status is documented, or surrogate decision maker is listed in patient medical record.: Yes Medication Reconciliation I have utilized all available resources to obtain, update and review the patients current medications (includes all prescriptions, OTC, herbals, cannabis, and nutritional supplements).: Yes The patient is not eligible for med reconciliation; the patient is in a emergent medical situation where delaying treatment would jeopardize the patients health.: Yes
[2024-09-08] VITALS (9 sets, daily range): BP systolic 131–153; BP diastolic 77–94; PULSE 63–98; RESP 14–18; TEMP 36.5–36.6; O2SAT 95–100; BMI 19.8
--- NOTE | 2024-09-08 | ECHO_ITS ---
Patient Info Name: Deidre Cuadra Age: 73 years : 1950 Gender: Female Ht: 66 in Wt: 122 lbs BSA: 1.60 m2 HR: 98 bpm BP: 141 / 77 mmHg Heart Rhythm: Sinus Rhythm Technical Quality: Fair Exam Date: 09/08/2024 10:05 AM Exam Location: Echo Lab Patient Status: Inpatient Admit Date: 09/07/2024 Staff Ordering Physician: Vinicio Dolan MD Flight Nurse: Jayro Low RDCS Attending Provider: Vinicio Dolan MD Referring Physician: Kelsi PASTOR; Exam Type: CA echo doppler w bubble study Study Info Indications - CVA Complete two-dimensional, color flow and Doppler transthoracic echocardiogram is performed with agitated saline. Summary 1. Left ventricular chamber dimension is normal. 2. Left ventricular systolic function is hyperdynamic, estimated at >70%. 3. The left ventricular diastolic function is grade I diastolic dysfunction. 4. E/e' 7 is not elevated. 5. Left atrial chamber dimension is mildly enlarged. 6. There is mild tricuspid valve regurgitation. 7. No pulmonary hypertension, estimated pulmonary arterial systolic pressure is 32 mmHg. Left Ventricle E/e' 7 is not elevated. Left ventricular chamber dimension is normal. Left ventricular systolic function is hyperdynamic, estimated at >70%. The left ventricular diastolic function is grade I diastolic dysfunction. Right Ventricle Right ventricular systolic function is normal and with normal TAPSE 2.5 cm. Right ventricular chamber dimension is normal. Left Atria Left atrial chamber dimension is mildly enlarged. Right Atria Right atrial chamber dimension is normal. Atrial Septum Agitated saline injection opacified right side cardiac chambers without shunt to left side cardiac chambers. Intact interatrial septum visualized by 2D and agitated saline imaging. Aortic Valve The aortic valve is trileaflet. There is no aortic valve stenosis. There is no aortic valve regurgitation. Pulmonic Valve There is no pulmonic regurgitation. Mitral Valve There is no mitral valve stenosis. There is no mitral valve regurgitation. Tricuspid Valve There is mild tricuspid valve regurgitation. No pulmonary hypertension, estimated pulmonary arterial systolic pressure is 32 mmHg. Pericardium/Pleural There is no pericardial effusion. Inferior Vena Cava Normal inferior vena cava with >50% collapse upon inspiration consistent with normal right atrial pressure, 5 mmHg. Aorta The aortic root size at the sinus of Valsalva is normal. Left Ventricular Outflow Tract Name Value Normal LVOT 2D LVOT Diameter 2.0 cm LVOT Doppler LVOT Peak Gradient 4 mmHg LVOT Mean Gradient 2 mmHg LVOT VTI 23 cm LVOT VTI/AV VTI Ratio 1.0 LVOT Stroke Volume 74 ml LVOT CO 5.1 l/min LVOT CI 3.2 l/min/m2 Pulmonic Valve Name Value Normal PV Doppler PV Peak Gradient 4 mmHg Mitral Valve Name Value Normal MV Doppler MV Decel Crenshaw 256 cm/s2 MV PHT 70 ms MV Area (PHT) 3.1 cm2 4.0-5.0 MV Diastolic Function MV E Peak Velocity 62 cm/s MV A Peak Velocity 83 cm/s MV E/A 0.7 MV Decel Time 243 ms MV Annular TDI MV E/e' (Septal) 7.2 <=8.0 MV E/e' (Lateral) 7.9 <=8.0 MV E/e' (Average) 7.6 Tricuspid Valve Name Value Normal TV Regurgitation Doppler TR Peak Velocity 261 cm/s TR Peak Gradient 27 mmHg Estimated PAP/RSVP RA Pressure 5 mmHg <=5 PA Systolic Pressure 32 mmHg <36 RV Systolic Pressure 32 mmHg <36 Aortic Valve Name Value Normal AV Doppler AV Peak Velocity 108 cm/s AV Peak Gradient 5 mmHg AV Mean Gradient 2 mmHg AV VTI 24 cm AV Area (Cont Eq VTI) 3.1 cm2 >=3.0 AV Area (Cont Eq Pio) 2.9 cm2 AV Regurgitation 2D LVOT Area 3.2 cm2 Ventricles Name Value Normal LV Dimensions 2D/MM IVS Diastolic Thickness (2D) 1.1 cm 0.6-1.0 LVID Diastole (2D) 0.0 cm 3.8-5.2 LVIW Diastolic Thickness (2D) 3.0 cm 0.6-0.9 LVID Systole (2D) 2.1 cm 2.2-3.5 LVOT Diameter 2.0 cm LV Mass (2D Cubed) 55.19 g 67.00-162.00 LV Mass Index (2D Cubed) 34 g/m2 43-95 LV Fractional Shortening/Ejection Fraction 2D/MM LV Fractional Shortening (2D) 34 % 27-45 LV EF (2D Teicholz) 95 % 54-74 LV Diastolic Volume (4C MOD) 82 ml LV EF (4C MOD) 62 % LV Diastolic Volume (2C MOD) 73 ml LV EF (2C MOD) 56 % LV Diastolic Volume (BP MOD) 74 ml 46-106 LV Diastolic Volume Index (BP MOD) 46 ml/m2 29-61 LV Systolic Volume (BP MOD) 33 ml 14-42 LV Systolic Volume Index (BP MOD) 21 ml/m2 8-24 LV EF (BP MOD) 55 % 54-74 LV Diastolic Length (4C) 8.0 cm LV Systolic Length (4C) 6.4 cm LV Stroke Volume (4C MOD) 51 ml Atria Name Value Normal LA Dimensions LA Volume (4C A-L) 30 ml LA Volume (BP A-L) 48 ml RA Dimensions RA Area (4C) 15.5 cm2 <=18.0 Report Signatures
[2024-09-08 00:21] LABS: Cholesterol 201 mg/dL (0-200); HDL Direct 102 mg/dL; Triglycerides 113 mg/dL (<150)
[2024-09-08 00:33] LABS: LDL Cholesterol Direct 73 mg/dL
[2024-09-08 01:37] LABS: Hemoglobin A1C 7.7 % (<5.7)
--- NOTE | 2024-09-08 03:08 | ADMGEN ---
This patient, Deidre Cuadra, was admitted to Medical Room 344-01. Patient/family oriented to hospital policies and general routines including ID bracelet, bed and alarms, visiting hours, pain management, procedures, bathroom and other care routines, personal items, smoking policy, room service/diet, and visiting hours. Information on how to activate the Rapid Response Team has been discussed. Patient/Family are encouraged to report perceived risks to care and to ask questions if they do not understand what they are told or what they should do.
[2024-09-08] MEDS: SODIUM CHLORIDE 0.9% IV 1,000 ML 50 ML IV CONT ×2 (04:29→20:38)
[2024-09-08 05:58] LABS: Basophils Percent Auto 0.6 % (0.2-1.2); Eosinophils Absolute Auto 0.2 K/mm3 (0-0.3); Eosinophils Percent Auto 3.2 % (0-4.4); Hematocrit 40.8 % (37.0-47.0); Hemoglobin 13.2 g/dL (12.0-15.0); Immature Granulocyte Absolute 0.02 K/mm3 (0.00-0.031); Immature Granulocyte Percent A 0.3 % (0-0.5); Lymphocytes Absolute Auto 2.21 K/mm3 (0.9-3.2); Lymphocytes Percent Auto 35.4 % (18.3-44.2); Mean Corpuscular HGB Conc 32.4 g/dl (32-36); Mean Corpuscular Hemoglobin 30.8 pg (26-34); Mean Corpuscular Volume 95.1 fl (80-100); Mean Platelet Volume 10.3 fl (7.4-10.4); Monocytes Absolute Auto 0.8 K/mm3 (0.1-0.6); Monocytes Percent Auto 13.1 % (2.6-8.5); Neutrophils Percent Auto 47.4 % (45.5-73.1); Platelet Count Result 245 k/mm3 (150-375); Red Blood Count 4.29 M/mm3 (4.2-5.4); Red Cell Distribution Width 12.8 % (11.5-14.5); White Blood Count 6.2 K/mm3 (4.5-10.0)
[2024-09-08 06:15] LABS: Alanine Aminotransferase 23 U/L (6-35); Albumin Level 3.8 g/dL (3.5-5.1); Alkaline Phosphatase 114 U/L (38-126); Anion Gap 9 mmol/L (4-12); Aspartate Amino Transferase 32 U/L (14-36); Bilirubin,Total 0.9 mg/dL (0.2-1.3); Blood Urea Nitrogen 22 mg/dL (7-17); Calcium 9.3 mg/dL (8.4-10.2); Carbon Dioxide 30 mmol/L (22-30); Chloride 96 mmol/L (98-107); Estimated CRCL calculation 37 ml/min; Estimated Glomerular Filt Rate 52; Glucose 117 mg/dL (65-110); Potassium 3.6 mmol/L (3.4-5.0); Sodium 135 mmol/L (137-145)
[2024-09-08 09:11] LABS: Glucose Point of Care 129 mg/dl (65-105)
--- NOTE | 2024-09-08 09:38 | PCSTNOTE ---
Please refer to the Bedside Swallow Evaluation in the EMR. Please note, silent aspiration cannot be ruled out at bedside.
[2024-09-08] MEDS: ASPIRIN 81 MG CHEWABLE TABLET PO (09:57)
--- NOTE | 2024-09-08 11:49 | PM.IMPN ---
Progress Note: A&P Assessment and Plan (1) Hypertension: Code(s): I10 - Essential (primary) hypertension Status: Acute (2) Stroke-like symptoms: Code(s): R29.90 - Unspecified symptoms and signs involving the nervous system Status: Acute Plan Acute and principal conditions 1. Stroke like symptoms Focal hypodensity in the left medulla, may represent acute or chronic infarct . 2. Hypertension. Rx: ORIENTAL RUG REPAIRER, PT/OT eval and Rx MRI brain ECHO Lipid panel Neurology recommends permissive hypertension Neurology consulted- awaiting recommendations discussed with pt and will start on low dose losartan- monitor overnight. Possible to wean off medication but she will need to work with her PCP Chronic and stable conditions 1. IDDM. on Insulin pump 2. RCC. s/p nephrectomy Code status. Full Nutrition. Heart healthy Time Spent With Patient Time with patient: 25 - 35 minutes Subjective Date/time seen: 09/08/24 11:49 Interval history: 1. Hypertension 2. Malaise Deidre Cuadra is a 73 yo F with a mHx significant for RCC s/p nephrectomy, IDDM admitted for HTN and malaise and stroke like symptoms. She presents to the ED after experiencing symptoms of malaise, headaches, flushing sensation, fatigue and a restriction of her ADLs. With no known modifying factors to her symptoms her SBP was elevated at home >160; she visited an urgent care center and was referred to the ED for further evaluation and care. 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 No change in that deficit. Neurology was consulted and they were comfortable with plan for admission with MRI. They are also okay with maintaining permissive hypertension. Work-up findings: Na 135; K 3.6; Cl 96; CO2 30; BUN 22; Cr 1.04; GFR 52 influenza A/B, RSV, COVID-19: Not detected CT Head: Focal hypodensity in the left medulla, may represent acute or chronic infarct versus artifact. Recommend MRI of the brain for further characterization. CXR: Aortic ectasia. Consider CTA of the chest there is concern for aortic aneurysm/dissection. Pt is seen and examined. she was somewhat dizzy but feels better now. denies chest pain, still some discomfort to her leg but no new symptoms. Review of Systems Review of Systems: All systems reviewed & are unremarkable except as noted in HPI and below Exam Const: General: comfortable HENMT: Ears: TM's normal bilaterally Face/Nose/Sinus: Normal nares present Eyes: General: appearance normal, both eyes and all related structures Pupils: Equal, round and reactive pupils present EOM: EOMs intact bilaterally Neck: Neck: supple Resp: Effort & Inspection: normal respiratory effort Auscultation: clear to auscultation bilaterally Cardio: Rate: regular rate Rhythm: regular rhythm Skin: General skin exam: normal color Neuro: General: gait normal Cranial nerves: Yes Equal, round and reactive pupils present Motor exam (neuro): 5/5 motor strength present throughout, Normal motor muscle tone present throughout and Abnormal motor strength present Extrem: General: normal to inspection Psych: Mental Status: mental status grossly normal Affect: normal affect and Anxious affect present Objective Data Vital Signs Vital Signs: Vital Signs - 24 hr 09/07/24 18:08 09/07/24 22:30 09/08/24 01:36 Temperature 98.1 F Pulse Rate 81 64 63 Respiratory Rate 16 20 16 Blood Pressure 178/110 H 165/91 H 131/91 H Pulse Oximetry 99 99 100 Oxygen Delivery 09/08/24 04:00 09/08/24 04:23 09/08/24 04:46 Temperature 97.9 F Pulse Rate 65 98 Respiratory Rate 18 Blood Pressure 142/77 H Pulse Oximetry 95 Oxygen Delivery Room Air 09/08/24 08:00 09/08/24 09:57 Temperature Pulse Rate 70 Respiratory Rate Blood Pressure Pulse Oximetry Oxygen Delivery Room Air Intake/Output Intake/Output: Intake & Output 09/05/24 09/06/24 09/07/24 09/08/24 23:59 23:59 23:59 23:59 Intake Total 0 Balance 0 Meds/Results Medications: Active Medications Generic Name Dose Route Start Last Admin Trade Name Freq PRN Reason Stop Dose Admin Acetaminophen 650 mg 09/07/24 23:47 Acetaminophen 325 Mg Tablet PO Q4H PRN Mild Pain (1-3) or Fever Albuterol/Ipratropium 3 ml 09/07/24 23:47 Ipratropium 0.5 Mg/Albuterol Sulfate 2.5 Mg Ampul.Neb 3 Ml INHALATION Q4HRT PRN shortness of breath/Wheezing Aspirin 81 mg 09/08/24 08:00 09/08/24 09:57 Aspirin 81 Mg Chewable Tablet PO 81 mg DAILY@0800 SUSY Administration Bisacodyl 5 mg 09/07/24 23:47 Bisacodyl 5 Mg Tablet Ec PO DAILY PRN Constipation Dextrose 12.5 gm 09/08/24 06:38 Dextrose 50% 25 Gm/50 Ml Syringe IV PUSH PRN PRN Hypoglycemia Protocol Glucagon 1 mg 09/08/24 06:38 Glucagon For Inj 1 Mg Vial IM PRN PRN Hypoglycemia Protocol Glucose 15 gm 09/08/24 06:38 Glucose Oral Gel 15 Gm Of Glucse In 37.5 Gm Tube PO PRN PRN Hypoglycemia Protocol Guaifenesin/Dextromethorphan 10 ml 09/07/24 23:47 Guaifenesin/Dextromethorphan 10 Ml Udc PO Q4H PRN Cough Heparin Sodium (Porcine) 5,000 units 09/08/24 09:00 09/08/24 11:42 Heparin Sodium 5,000 Units/Ml Vial SUB-Q Not Given Q12HR SUSY Sodium Chloride 1,000 mls @ 50 mls/hr 09/07/24 23:50 09/08/24 04:29 Normal Saline Iv IV CONT 50 mls/hr .Q20H SUSY Administration Dextrose 1,000 mls @ 100 mls/hr 09/08/24 06:38 Dextrose 5% 1,000 Ml IVPB PRN PRN Hypoglycemia Protocol Melatonin 5 mg 09/07/24 23:47 Melatonin 5 Mg Tablet PO HS PRN Insomnia Perflutren Lipid Microsphere 0 ml 09/07/24 23:46 Perflutren Lipid Microspheres 1.5 Ml Vial Diluted To 10 Ml Total Volume IV PUSH 09/10/24 23:46 ONCE PRN adequate visualization Protocol Prochlorperazine Edisylate 10 mg 09/07/24 23:47 Prochlorperazine Edisylate 10 Mg/2 Ml Vial IV PUSH Q6H PRN Nausea And Vomiting Radiology Results: ITS Impressions Head CT 09/07/24 18:46 IMPRESSION: Focal hypodensity in the left medulla, may represent acute or chronic infarct versus artifact. Recommend MRI of the brain for further characterization. Chest X-Ray 09/07/24 18:59 IMPRESSION: Aortic ectasia. Consider CTA of the chest there is concern for aortic aneurysm/dissection. Brain MRA 09/08/24 11:29 IMPRESSION: 1. Normal MRA. Labs Labs: Laboratory Results - last 24 hr 09/07/24 09/08/24 09/08/24 20:51 05:29 09:02 WBC 6.1 6.2 RBC 4.28 4.29 Hgb 13.4 13.2 Hct 40.5 40.8 MCV 94.6 95.1 MCH 31.3 30.8 MCHC 33.1 32.4 RDW 12.8 12.8 Plt Count 248 245 MPV 10.0 10.3 Immature Gran % (Auto) 0.2 0.3 Neut % (Auto) 49.8 47.4 Lymph % (Auto) 37.0 35.4 [place] % (Auto) 10.0 H 13.1 H Eos % (Auto) 2.3 3.2 Baso % (Auto) 0.7 0.6 Lymph # (Auto) 2.26 2.21 [place] # (Auto) 0.6 0.8 H Eos # (Auto) 0.1 0.2 Baso # (Auto) 0.0 0.0 Abs Immat Gran (auto) 0.01 0.02 Absolute Neuts (auto) 3.0 3.0 Absolute Nucleated RBC 0.000 0.000 Nucleated RBC % 0.0 0.0 Sodium 132 L 135 L Potassium 4.7 3.6 Chloride 92 L 96 L Carbon Dioxide 32 H 30 Anion Gap 8 9 BUN 22 H 22 H Creatinine 1.05 H 1.04 H Estim Creat Clear Calc 35 37 Estimated GFR 51 L 52 L Glucose 288 H 117 H POC Capillary Glucose 129 H Hemoglobin A1c 7.7 H Calcium 9.5 9.3 Total Bilirubin 1.1 0.9 AST 35 32 ALT 27 23 Alkaline Phosphatase 129 H 114 Troponin I < 0.012 Total Protein 7.0 7.0 Albumin 4.3 3.8 Triglycerides 113 Cholesterol 201 H LDL Cholesterol Direct 73 HDL Direct 102 Influenza A (RT-PCR) Negative Influenza B (RT-PCR) Negative RSV (RT-PCR) Negative SARS-CoV-2 RNA (RT-PCR) Negative Quality VTE Prophylaxis VTE prophylaxis: pharmacologic ordered
[2024-09-08 12:14] LABS: Glucose Point of Care 133 mg/dl (65-105)
--- NOTE | 2024-09-08 14:35 | P.CONNEU_ITS ---
Assessment and Plan Assessment and plan (1) Hypertension: Code(s): I10 - Essential (primary) hypertension Status: Acute (2) History of left nephrectomy: Code(s): Z90.5 - Acquired absence of kidney Status: Acute (3) Stroke-like symptoms: Code(s): R29.90 - Unspecified symptoms and signs involving the nervous system Status: Acute Plan 1. Hypertension 2. Dizziness along with mild headache 3. Question about the focal hypodensity in the left side of the metal raising the possibility of brainstem stroke although MRI of the brain is normal and there is no stroke Also her MRI of the brain is normal 3 Aortic ectasia on the chest x-ray need to be clarified further. 4. In the meantime no changes in her medications. Her dizziness could very well be related to the neuropathy secondary to underlying diabetes mellitus. Consult date: 09/08/24 HPI: Deidre Cuadra is a 73 year old female Admitted to the hospital through the emergency room for the complaints of hypertension prior to coming to the ER she was seen in the urgent care where it was told to her to go to the ER because the blood pressure was high she has not been feeling generally well she has been experiencing nausea and dizziness along with a mild headache and mild chest discomfort. She has known diabetic with the insulin pump but has multiple allergies as outlined in the past she has had acute cerebellar syndrome, chronic renal disease, obstructive sleep apnea and renal cell carcinoma. She is never a smoker but former alcohol intake or in the emergency room she was she was found to have no abnormal neurological findings, but her routine vital signs reveal blood pressure 178/110 which remained elevated, she was admitted to the hospital with the diagnosis of TIA versus CVA versus hypertension only. Her CBC was normal BMP with a blood sugar of 288 incomplete Gomez metabolic panel were normal she was also negative the routine viral infections. CT scan of the brain revealed a focal hypodensity in the left medulla and on chest x-ray she was found to have concern for the aortic aneurysm. Her medications included S study all 10mg 2 times a week insulin pump as well. MRI of the head has been done which documented changes of bilateral intra-ocular lens replacement and no patchy meningeal enhancement also no focal hypodensity in the left medulla which was suspected on the CT scan of the brain emission MRA of the brain is also normal. X-ray of the chest has revealed the possibility of aortic ectasia for the CTA of the chest has been recommended to rule out the possibility of aortic aneurysm. Echocardiogram has been done which revealed only left atrial chamber dimension mildly enlarged and mild tricuspid valve regurgitation but no other abnormalities. Review of Systems 2 Review of Systems: All systems reviewed & are unremarkable except as noted in HPI and below PMFSH Past Medical History Medical History Cerebellar midline syndrome Chronic kidney disease (CKD) Acute cerebellar syndrome Renal cell carcinoma Cerebellar stroke syndrome Ataxia Vomiting Heartburn Mononucleosis Mumps Measles Chicken pox Hx of migraines VONNIE (obstructive sleep apnea) Surgical History Surgical History History of tubal ligation Family History Family History Mother Hypertension Sibling Patient's sister is in good health Patient's brother is in good health Family history of lung cancer Father Cerebrovascular accident Social History Social History Smoking status: Never smoker Alcohol intake: current Substance use: never Substance use type: does not use Do You Feel Safe in your Home?: Yes Lack of Transportation: No Lack of Food: Never True Current Housing: I Have Housing Concerned About Future Housing: No Difficulty Paying Gas/Electric Bills: No Difficulty Paying for Meds: No Currently Unemployed: No Education: High School Diploma/GED Difficulty w/ Childcare or Family Care: No Living arrangements: alone Spiritual care concerns: No Meds Home Medications and Allergies Home Medications ?Medication ?Instructions ?Recorded ?Confirmed ?Type Mask refit #1 ea 11/06/22 09/08/24 Rx blood sugar diagnostic (OneTouch #200 ea 07/03/23 09/08/24 Rx Verio test strips) lancets 33 gauge (OneTouch Delica #200 ea 07/03/23 09/08/24 Rx Plus Lancet) pen needle, diabetic 32 gauge x #200 ea 07/03/23 09/08/24 Rx 5/32 (BD Priyanka 2nd Gen Pen Needle) subcutaneous insulin pump 03/01/24 09/08/24 History estradiol 10 mcg vaginal tablet 10 mcg vaginal .2xweek 07/01/24 09/08/24 History insulin lispro 100 unit/mL 1 sliding scale dose .Route 09/08/24 09/08/24 History subcutaneous solution .COMPLEX insulin pump cartridge,auto 09/08/24 09/08/24 History dose,BT,G6/G7 with controller subcutaneous (Omnipod 5 G6-G7 Intro Kit(Gen 5) subcutaneous cartridge and controller) Allergies Allergy/AdvReac Type Severity Reaction Status Date / Time insulin aspart (From Novolog Allergy Severe Rash Verified 09/07/24 16:59 U-100 Insulin aspart) adhesive Allergy Unknown Rash Verified 09/07/24 16:59 polymyxin B Allergy Unknown Rash Verified 09/07/24 16:59 Sulfa (Sulfonamide Allergy Unknown Hives Verified 09/07/24 16:59 Antibiotics) sulfanilamide Allergy Unknown Hives Verified 09/07/24 16:59 BANDAIDS Allergy Mild Rash Uncoded 09/07/24 16:59 NEOMYCIN SULFATE Allergy Mild Rash Uncoded 09/07/24 16:59 POLYMYXIN B SULFATE Allergy Mild Rash Uncoded 09/07/24 16:59 Vital Signs Vital Signs - 24 hr 09/07/24 18:08 09/07/24 22:30 09/08/24 01:36 Temperature 36.7 C Pulse Rate 81 64 63 Respiratory Rate 16 20 16 Blood Pressure 178/110 H 165/91 H 131/91 H Pulse Oximetry 99 99 100 Oxygen Delivery 09/08/24 04:00 09/08/24 04:23 09/08/24 04:46 Temperature 36.6 C Pulse Rate 65 98 Respiratory Rate 18 Blood Pressure 142/77 H Pulse Oximetry 95 Oxygen Delivery Room Air 09/08/24 08:00 09/08/24 09:57 09/08/24 12:00 Temperature Pulse Rate 70 73 Respiratory Rate Blood Pressure Pulse Oximetry Oxygen Delivery Room Air Exam 2 Narrative: Examination today revealed her to be awake alert cooperative in no obvious acute distress, head normocephalic with no cranial bruits, ear nose throat examination normal, neck supple with no cervical bruit no thyromegaly no lymphadenopathy, heart regular lungs clear to auscultation with no rhonchi or crepitations, abdomen is soft nontender, neurologically she is awake alert oriented x3, his speech not dysphasic not dysarthric not dysphonic, pupils round regular react to light equally, feels the vision full in all 4 quadrants, extraocular movements are full with no nystagmus, facial sensation intact, face symmetrical, tongue in the oral cavity with no fasciculation uvula in the midline and motor examination of the upper and lower extremities revealed normal strength and tone with no drift against gravity deep tendon reflexes symmetrical plantars are downgoing. Results Labs 09/08/24 05:29 09/08/24 05:29 Labs: Short CBC 09/07/24 09/08/24 Range/Units 20:51 05:29 WBC 6.1 6.2 (4.5-10.0) K/mm3 Hgb 13.4 13.2 (12.0-15.0) g/dL Hct 40.5 40.8 (37.0-47.0) % Plt Count 248 245 (150-375) k/mm3 BMP 09/07/24 09/08/24 20:51 05:29 Sodium 132 L 135 L Potassium 4.7 3.6 Chloride 92 L 96 L Carbon Dioxide 32 H 30 BUN 22 H 22 H Creatinine 1.05 H 1.04 H Glucose 288 H 117 H Calcium 9.5 9.3 Cardiac Enzymes 09/07/24 Range/Units 20:51 Troponin I < 0.012 (0.000-0.034) ng/mL Liver Function 09/07/24 09/08/24 Range/Units 20:51 05:29 Total Bilirubin 1.1 0.9 (0.2-1.3) mg/dL AST 35 32 (14-36) U/L ALT 27 23 (6-35) U/L Alkaline Phosphatase 129 H 114 (38-126) U/L Albumin 4.3 3.8 (3.5-5.1) g/dL
--- NOTE | 2024-09-08 14:55 | PC.NURSE ---
1455: RN spoke with Dr. Nevarez at the nurses station in regards to patients MRI, MRA, and chest x-ray. Dr. Nevarez recommended chest CTA based off of chest xray results. RN verbalized that she would let the hospitalist Geraldine know his recommendations. 1459: RN called bob Chandler and informed her of Dr. Nevarez's recommendations. Bob Chandler stated she would put in chest CTA orders for tomorrow 09/09/2024.
[2024-09-08 17:15] LABS: Glucose Point of Care 243 mg/dl (65-105)
[2024-09-08] MEDS: MELATONIN 5 MG TABLET PO (20:37)
[2024-09-08 23:11] LABS: Glucose Point of Care 116 mg/dl (65-105)
[2024-09-09] VITALS: PULSE 67
[2024-09-09 04:00] VITALS: PULSE 62
[2024-09-09 06:00] VITALS: BP 143/79; PULSE 67; RESP 14; TEMP 36.6; O2SAT 98
[2024-09-09 06:05] LABS: Basophils Percent Auto 0.6 % (0.2-1.2); Eosinophils Absolute Auto 0.2 K/mm3 (0-0.3); Eosinophils Percent Auto 3.2 % (0-4.4); Hematocrit 40.8 % (37.0-47.0); Hemoglobin 13.4 g/dL (12.0-15.0); Immature Granulocyte Absolute 0.03 K/mm3 (0.00-0.031); Immature Granulocyte Percent A 0.5 % (0-0.5); Lymphocytes Percent Auto 36.7 % (18.3-44.2); Mean Corpuscular HGB Conc 32.8 g/dl (32-36); Mean Corpuscular Hemoglobin 30.9 pg (26-34); Mean Corpuscular Volume 94.2 fl (80-100); Monocytes Absolute Auto 0.7 K/mm3 (0.1-0.6); Monocytes Percent Auto 11.7 % (2.6-8.5); Neutrophils Percent Auto 47.3 % (45.5-73.1); Platelet Count Result 250 k/mm3 (150-375); Red Blood Count 4.33 M/mm3 (4.2-5.4); Red Cell Distribution Width 12.6 % (11.5-14.5); White Blood Count 6.3 K/mm3 (4.5-10.0)
[2024-09-09 06:18] LABS: Alanine Aminotransferase 21 U/L (6-35); Albumin Level 3.9 g/dL (3.5-5.1); Alkaline Phosphatase 104 U/L (38-126); Anion Gap 7 mmol/L (4-12); Aspartate Amino Transferase 31 U/L (14-36); Bilirubin,Total 0.9 mg/dL (0.2-1.3); Blood Urea Nitrogen 19 mg/dL (7-17); Calcium 9.2 mg/dL (8.4-10.2); Carbon Dioxide 29 mmol/L (22-30); Chloride 98 mmol/L (98-107); Estimated CRCL calculation 36 ml/min; Estimated Glomerular Filt Rate 51; Glucose 102 mg/dL (65-110); Potassium 4.1 mmol/L (3.4-5.0); Sodium 134 mmol/L (137-145)
[2024-09-09 06:27] LABS: NT Pro B Type Natriuretic Pept 210 pg/mL (19.9-100)
[2024-09-09 08:00] VITALS: PULSE 62
[2024-09-09 08:39] LABS: Glucose Point of Care 107 mg/dl (65-105)
[2024-09-09] MEDS: LOSARTAN POTASSIUM 12.5 MG TABLET PO (09:50)
[2024-09-09] MEDS: ASPIRIN 81 MG CHEWABLE TABLET PO (09:50)
[2024-09-09 12:00] VITALS: PULSE 69
[2024-09-09 12:34] LABS: Glucose Point of Care 320 mg/dl (65-105)
--- NOTE | 2024-09-09 13:03 | PCOTNOTE ---
Per nursing, pt. independent in room. No acute changes in condition. D/Cing today
--- NOTE | 2024-09-09 13:03 | PCPTNOTE ---
Per RN, pt is IND in her room without mobility concerns. Does not require physical therapy evaluation.
--- NOTE | 2024-09-09 13:48 | PM.DS ---
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 She presents to the ED after experiencing symptoms of malaise, headaches, flushing sensation, fatigue and a restriction of her ADLs. With no known modifying factors to her symptoms her SBP was elevated at home >160; she visited an urgent care center and was referred to the ED for further evaluation and care. 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 No change in that deficit. Neurology was consulted and they were comfortable with plan for admission with MRI. They are also okay with maintaining permissive hypertension. CT Head: Focal hypodensity in the left medulla, may represent acute or chronic infarct versus artifact. Recommend MRI of the brain for further characterization. CXR: Aortic ectasia. Consider CTA of the chest there is concern for aortic aneurysm/dissection. Neurology was consulted. Plan reviewed: Question about the focal hypodensity in the left side of the metal raising the possibility of brainstem stroke although MRI of the brain is normal and there is no stroke Also her MRI of the brain is normal 3 Aortic ectasia on the chest x-ray need to be clarified further. 4. In the meantime no changes in her medications. 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 Discussed with pt at great details with daughter, Lesli, present (over the phone). Recommended test here is CTA which require contrast. Pt doesn't want to undergo any more imaging with contrast as she has one kidney. She has a routine CT scan coming up with her kidney specialist soon and she would have her PCP write her an order to do CTA as well then to complete all image testing at the same time. She will need to have her BP under 140/90- discussed to continue losartan and keep BP log. Status at Discharge Functional status at discharge: independent ambulation Overall status at discharge: patient is progressing back to baseline Time Spent with Patient Time attestation: Total time spent providing and/or coordinating discharge services: Time spent: Greater than 30 minutes Exam Const: General: comfortable HENMT: Ears: TM's normal bilaterally Face/Nose/Sinus: Normal nares present Eyes: General: appearance normal, both eyes and all related structures Pupils: Equal, round and reactive pupils present EOM: EOMs intact bilaterally Neck: Neck: supple Resp: Effort & Inspection: normal respiratory effort Auscultation: clear to auscultation bilaterally Cardio: Rate: regular rate Rhythm: regular rhythm Skin: General skin exam: normal color Neuro: General: gait normal Cranial nerves: Yes Equal, round and reactive pupils present Motor exam (neuro): 5/5 motor strength present throughout, Normal motor muscle tone present throughout and Abnormal motor strength present Extrem: General: normal to inspection Psych: Mental Status: mental status grossly normal Affect: normal affect and Anxious affect present DS: Data Data Completed and Pending Labs on day of discharge: Labs from last 24 hours 09/09/24 09/09/24 09/09/24 12:28 08:33 05:40 WBC 6.3 RBC 4.33 Hgb 13.4 Hct 40.8 MCV 94.2 MCH 30.9 MCHC 32.8 RDW 12.6 Plt Count 250 MPV 10.0 Immature Gran % (Auto) 0.5 Neut % (Auto) 47.3 Lymph % (Auto) 36.7 [place] % (Auto) 11.7 H Eos % (Auto) 3.2 Baso % (Auto) 0.6 Lymph # (Auto) 2.30 [place] # (Auto) 0.7 H Eos # (Auto) 0.2 Baso # (Auto) 0.0 Abs Immat Gran (auto) 0.03 Absolute Neuts (auto) 3.0 Absolute Nucleated RBC 0.000 Nucleated RBC % 0.0 Sodium 134 L Potassium 4.1 Chloride 98 Carbon Dioxide 29 Anion Gap 7 BUN 19 H Creatinine 1.06 H Estim Creat Clear Calc 36 Estimated GFR 51 L Glucose 102 POC Capillary Glucose 320 H 107 H Calcium 9.2 Total Bilirubin 0.9 AST 31 ALT 21 Alkaline Phosphatase 104 NT-Pro-B Natriuret Pep 210 H Total Protein 7.0 Albumin 3.9 09/08/24 09/08/24 20:49 17:09 WBC RBC Hgb Hct MCV MCH MCHC RDW Plt Count MPV Immature Gran % (Auto) Neut % (Auto) Lymph % (Auto) [place] % (Auto) Eos % (Auto) Baso % (Auto) Lymph # (Auto) [place] # (Auto) Eos # (Auto) Baso # (Auto) Abs Immat Gran (auto) Absolute Neuts (auto) Absolute Nucleated RBC Nucleated RBC % Sodium Potassium Chloride Carbon Dioxide Anion Gap BUN Creatinine Estim Creat Clear Calc Estimated GFR Glucose POC Capillary Glucose 116 H 243 H Calcium Total Bilirubin AST ALT Alkaline Phosphatase NT-Pro-B Natriuret Pep Total Protein Albumin Discharge Plan Discharge Attending physician on discharge: Álvaro Souza Consulting providers: eJns Nevarez Discharging Clinician: Geraldine Troncoso Patient Disposition: Home, Self-Care Activity: may shower Diet: as tolerated and diabetic Discharge Instructions: you were admitted for fatigue/hypertension. We started losartan 12.5 mg daily. As we discussed please take it daily. Change position slowly- as any BP meds can cause fluctuation in bp and make you feel dizzy and light headed. Keep BP log- check it first thing in am and keep log for your PCP to review and adjust if needed. Goal for BP is under 140/90. WE asked neurology, DR Nevarez to see and evaluate you. Neurology was consulted. Plan reviewed: Question about the focal hypodensity in the left side of the metal raising the possibility of brainstem stroke although MRI of the brain is normal and there is no stroke Also her MRI of the brain is normal 3 Aortic ectasia on the chest x-ray need to be clarified further. 4. In the meantime no changes in her medications. 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 Consider CTA of the chest there is concern for aortic aneurysm/dissection. we discussed, chest xray in not a diagnostic tool for aneurism- you will need CTA (cat scan). Discussed CTA scan requires contrast. With a routine CT scan coming up with your kidney specialist, please discuss with your pcp to see if PCP can write you an order to do CTA as well then to complete all image testing at the same time. If you have any sudden chest pain, sharp chest pain, any sob or any new symptoms- report to ED right away. Patient Instructions: Antibiotic Form Patient Language: Lithuanian Stand Alone Forms: General Discharge Information Follow-up/Referrals: Jens Nevarez MD [Physician] - 2 Weeks Giovanny Farias, [Primary Care Provider] - 1 Week Discharge Medications: New aspirin [Children's Aspirin] 81 mg Tablet,Chewable 81 mg PO DAILY@0800 Qty: 90 0RF losartan 25 mg tablet 12.5 mg PO DAILY Qty: 90 0RF Continued estradiol 10 mcg tablet 10 mcg vaginal .2xweek Rx Instructions: friday and (DME) subcutaneous insulin pump Misc See Rx Instructions .Route Rx Instructions: As directed insulin lispro 100 unit/mL solution 1 sliding scale dose .ROUTE .COMPLEX Patient Comments: pt uses insulin pump Rx Instructions: 1 sliding scale dose uses own insulin pump; (DME) Omnipod 5 G6-G7 Intro Kt(Gen5) Cartridge SUBCUT (DME) Mask refit See Rx Instructions .Route .MEDSUPPLY Qty: 1 0RF Rx Instructions: As directed (DME) OneTouch Verio test strips Strip See Rx Instructions .ROUTE .MEDSUPPLY Qty: 200 5RF Rx Instructions: Use to check BS 4 times a day (DME) lancets [OneTouch Delica Plus Lancet] 33 gauge misc See Rx Instructions .ROUTE .MEDSUPPLY Qty: 200 5RF Rx Instructions: Use to check BS 4 times daily (DME) pen needle, diabetic [BD Priyanka 2nd Gen Pen Needle] 32 gauge x 5/32 needle See Rx Instructions .ROUTE .MEDSUPPLY Qty: 200 5RF Rx Instructions: Use with insulin 4 times daily. Date of admission: 09/07/24 22:32 Primary Care Provider: Giovanny Farias Admitting Provider: Vinicio Dolan Attending physician on admission: Vinicio Dolan Condition: Stable Quality VTE Prophylaxis VTE prophylaxis: pharmacologic ordered Hospitalist MIPS Heart Failure (Exclusion) Patient has history of Heart Transplant or Left Ventricular Assistive Device?: No IF YES, STOP HERE Heart Failure (Qualifier) Patient has current or prior documentation of LVEF less than or equal to 40%, or mod/servere depressed LVSF?: No IF NO, STOP HERE
[2024-09-09 14:00] VITALS: BP 154/83; PULSE 71; RESP 16; TEMP 37.3; O2SAT 98
== END 2024-09-09 15:40 | disposition home or self-care (01) ==
LOC: ANHED 21:53 → ANH3MED 09-08 05:47 → ANH3MEDSUR 09-10 07:36
PROVIDERS: Physician Assistant; Admitting Provider Internal Medicine; Emergency Provider Emergency Medicine; PCP Internal Medicine; Visit Provider Internal Medicine
DX: R29.90 Unspecified symptoms and signs involving the nervous system (principal); R53.81 Other malaise; R51.9 Headache, unspecified; R42 Dizziness and giddiness; I77.819 Aortic ectasia, unspecified site; E11.22 Type 2 diabetes mellitus with diabetic chronic kidney disease; I12.9 Hypertensive chronic kidney disease with stage 1 through stage 4 chronic kidney disease, or unspecified chronic kidney disease; N18.9 Chronic kidney disease, unspecified; G47.33 Obstructive sleep apnea (adult) (pediatric); Z85.528 Personal history of other malignant neoplasm of kidney; Z90.5 Acquired absence of kidney; Z96.41 Presence of insulin pump (external) (internal); Z79.4 Long term (current) use of insulin; Z79.890 Hormone replacement therapy; Z20.822 Contact with and (suspected) exposure to COVID-19; Z86.19 Personal history of other infectious and parasitic diseases; Z88.2 Allergy status to sulfonamides; Z88.8 Allergy status to other drugs, medicaments and biological substances
CPT/HCPCS: 36415; 70450; 70544; 70553; 71045; 80053; 80061; 82948; 83036; 83880; 84484; 85025; 87637; 92610; 93005; 93306; 96361; 96374; 96375; 99285; A9270; A9577; G0378; J7030

== ENCOUNTER 2024-09-20 09:00 | Outpatient (CLI) | payer MEDICARE, SELFPAY ==
[2024-09-20 14:47] LABS: Anion Gap 6 mmol/L (4-12); Blood Urea Nitrogen 28 mg/dL (7-17); Calcium 9.5 mg/dL (8.4-10.2); Carbon Dioxide 35 mmol/L (22-30); Chloride 94 mmol/L (98-107); Estimated Glomerular Filt Rate 45; Glucose 198 mg/dL (65-110); Potassium 4.5 mmol/L (3.4-5.0); Sodium 135 mmol/L (137-145)
[2024-09-20 14:55] LABS: Creatinine Urine 102.9 mg/dL
[2024-09-20 15:01] LABS: MALB Creatinine Ratio 8.8 mg/g (0-30); Microalbumin Urine Random 9.1 mg/L (0-16.7)
[2024-09-20 15:41] LABS: Free T3 6.37 pg/mL (2.45-5.93); Free T4 Free Thyroxine 1.69 ng/dL (0.78-2.19)
[2024-10-15 08:33] LABS: Reference Lab Test Name Paraneoplastic Ab
== END 2024-09-20 09:01 | disposition home or self-care (01) ==
PROVIDERS: PCP Internal Medicine; Visit Provider Internal Medicine
DX: I12.9 Hypertensive chronic kidney disease with stage 1 through stage 4 chronic kidney disease, or unspecified chronic kidney disease (principal); N18.9 Chronic kidney disease, unspecified; C64.9 Malignant neoplasm of unspecified kidney, except renal pelvis; R27.0 Ataxia, unspecified; G46.4 Cerebellar stroke syndrome
CPT/HCPCS: 36415; 80048; 82043; 83519; 84439; 84481; 86052; 86255; 86341; 86596

== ENCOUNTER 2024-09-30 09:10 | Outpatient (CLI) | payer MEDICARE, SELFPAY ==
--- NOTE | ~2024-09-30 | US_ITS ---
EXAMINATION: US retroperitoneal duplex ltd DATE: 09/30/2024 09:55 INDICATION: hypertension TECHNIQUE: Multiple grayscale, color Doppler, and pulsed Doppler images of the kidneys and renal oscar emiliano were obtained. COMPARISON: None. FINDINGS: Right kidney demonstrates normal renal contour and echogenicity and measures 11.0 x 4.5 x 6.3 cm. Lef t nephrectomy was reportedly resected in 2022. There are couple anechoic right renal cysts measuring 2.2 cm and 1.8 cm. There is no hydronephrosis. Normal right renal artery resistive indices of 0.53-0. 68. The aorta peak systolic velocity is 87 cm/s. The right renal artery peak systolic velocity is 138 cm/ s in the proximal segment, 197 cm/s in the mid segment, and 91 cm/s in the distal segment. The left r enal artery peak systolic velocity is cm/s in the proximal segment, cm/s in the mid segment, and cm/s in the distal segment. IMPRESSION: 1. Right renal artery peak systolic velocity in the mid segment at borderline criteria for >50-60% s tenosis. Reviewed, dictated and finalized at location A. IMPRESSION: 1. Right renal artery peak systolic velocity in the mid segment at borderline criteria for >50-60% stenosis.
--- OUTSIDE RECORDS SUMMARY | 2024-09-30 09:30 | XMS_ITS | Referral Summary ---
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 Gender Identity Not on file Sexual Orientation Not on file Last Filed Vital Signs Vital Sign Reading Time Taken Comments Blood Pressure 114/66 10/24/2023 9:52 AM CDT Pulse 96 10/24/2023 9:52 AM CDT Temperature 36.9 C (98.4 F) 06/09/2023 6:20 PM FREEZER WORKER Respiratory Rate 19 06/10/2023 9:00 AM FREEZER WORKER Oxygen Saturation 100% 10/24/2023 9:52 AM CDT Inhaled Oxygen Concentration - - Weight 53.5 kg (118 lb) 10/24/2023 9:52 AM CDT Height 170.2 cm (5' 7 ) 06/09/2023 6:20 PM FREEZER WORKER Body Mass Index 18.48 06/09/2023 6:20 PM FREEZER WORKER Plan of Treatment Not on file Insurance AETNA MEDICARE AETNA MEDICARE Care Teams Boat Fueler Relationship Specialty Start Date End Date Giovanny Farias DO PCP - General Internal Medicine 07/17/22
--- OUTSIDE RECORDS SUMMARY | 2024-09-30 09:30 | XMS_ITS | Clinical Summary ---
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 Gender Identity Not on file Sexual Orientation Not on file Obstetrics History Last Filed Vital Signs Vital Sign Reading Time Taken Comments Blood Pressure 114/66 10/24/2023 9:52 AM CDT Pulse 96 10/24/2023 9:52 AM CDT Temperature 36.9 C (98.4 F) 06/09/2023 6:20 PM GILL BOX OPERATOR Respiratory Rate 19 06/10/2023 9:00 AM GILL BOX OPERATOR Oxygen Saturation 100% 10/24/2023 9:52 AM CDT Inhaled Oxygen Concentration - - Weight 53.5 kg (118 lb) 10/24/2023 9:52 AM CDT Height 170.2 cm (5' 7 ) 06/09/2023 6:20 PM GILL BOX OPERATOR Body Mass Index 18.48 06/09/2023 6:20 PM GILL BOX OPERATOR Plan of Treatment Health Maintenance Due Date [...] (#1) 2024 05/02/2016, 2012 Insurance AETNA MEDICARE AETNA MEDICARE Care Teams Tile Shader Relationship Specialty Start Date End Date Giovanny Farias DO PCP - General Internal Medicine 07/17/22
--- OUTSIDE RECORDS SUMMARY | 2024-09-30 09:30 | XMS_ITS | Clinical Summary ---
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 Gender Identity Not on file Sexual Orientation Not on file Plan of Treatment Health Maintenance Due Date Last Done Comments Hepatitis C Virus (HCV) Screening 1950 TdaP Immunization 1950 Colonoscopy 1994 Colorectal Cancer Screening 1994 Cologuard 10/05/1999 Immunochemical Fecal Occult Blood 10/05/1999 Pneumococcal Immunization (5 0+ years) (1 of 1 - PCV) 10/05/1999 Zoster Immunization (1 of 2) 10/05/1999 Influenza Immunization (#1) 03/14/202404/14, 04/15/2013 SARS-COV-2 Immunization ( - season) 2024 Respiratory Syncytial Virus (RSV) Immunization (Adult) (1 - 1-dose 75+ series) 2024 Hepatitis B Immunization Aged Out No longer eligible based on patient's age to complete this topic Meningococcal Immunization (ACWY) Aged Out No longer eligible b ased on patient's age to complete this topic Rotavirus Immunization Aged Out No lo nger eligible based on patient's age to complete this topic
--- OUTSIDE RECORDS SUMMARY | 2024-09-30 09:30 | XMS_ITS | Continuity of Care Document ---
Author Organization [facility]. If a dditional information is needed, contact Health Information Management at [phone] Address [address] [place] [address] Phone Care Team Providers Care Sprinkler Helper Name Role Phone Unavailable Unavailable Unavailable Unavailable [...]
--- OUTSIDE RECORDS SUMMARY | 2024-09-30 09:30 | XMS_ITS | Clinical Summary ---
Author Organization [facility] Address [address] [place] [address] Care Team Providers Care Children'S Service Worker Name Role Phone Provider, No Pcp Primary Care Provider Unavailab le Source Comments [facility],non-owned Affiliates and Associated Physician Practices is amultiple site organization consisting of ambulatory clinics and hospital sitesin [place], [place], [place] and [place]. This disclosure is being madepursuant to the Care Everywhere program and may not contain all information available regarding this patient. Last updated 18.[facility] Allergies Active Allergy Reactions Criticality Noted Date Comments Adhesive Sensitivity Unknown 03/31/2020 Insulin Aspart Nausea and/or Vomiting Low 4 Seqgp-Lcwld-Zmxlhlo-Pramoxine Rash Medium 2022 Sulfa Drugs Unknown 03/31/2020 [...] daily Active Cholecalciferol (vitamin D3) 1.25 MG (26982 UT) capsule Take 1 (one) capsule by mouth once daily Active Lancets (ONETOUCH DELICA PLUS 33G EXTRA FINE LANCET) USE TO CHECK BLOOD SUGAR 4 TIMES DAILY 09/24/2023 Active OneTouch Verio test strip USE TO TEST BLOOD SUGAR 4 TIMES A DAY 09/24/2023 Active fluticasone propionate (Flonase) 50 MCG/ACT nasal spray [place] 2 (two) sprays into each nostril once [...] 02/17/2024 Active Insulin Disposable Pump (Omnipod 5 [id number] Pods Gen 5) MISCIndications:Typ e 1 diabetes mellitus without complication (HCC) CHANGE pod every TWO DAYS as directed. 15 Each 3 07/22/2024 Active Active Problems No known active problems Encounters Date Type Department Care Team Description 07/22/2024 Refill [facility] - Endocrinology [address] [place] [address] Arcelia Gambino, Refill Request from Last 3 Months Social History Tobacco [...] Physician Group - Endocrinology [address] [place] [address] Arcelia Gambino, DO [address] [address] [place] [id number] Health Maintenance Due Date Last Done Comments BONE DENSITY TESTING 1950 COLOGUARD (AGES 45-75) - COLON CA SCREENING 1950 COLON MONITORING 1950 COLONOSCOPY [...] VACCINE (1 of 2) 10/05/1999 COVID-19 VACCINE (1 - 2023- season) 2024 INFLUENZA VACCINE (#1) 2024 DEPRESSION SCREENING 07/14/2024 MEDICARE AWV CALENDAR YEAR 2024 Respiratory Syncytial Virus (RSV) Vaccine Pt: or over 60 yrs (1 - 1-dose 75+ series) 2024 LIPID TESTING 09/15/2028 09/16/2023, 08/14, 08/29/2023, Additional history exists HEPATITIS B VACCINE Aged Out No longe r eligible based on patient's age to complete this topic HIB VACCINE Aged Out No longer eligi ble based on patient's age to complete this topic HPV VACCINE Aged Out No longer eligi ble based on patient's age to complete this topic MENINGOCOCCAL (Group B) VACCINE SHARED DECISION-MAKING Aged Out No longer eligible based on patient's age to complete this topic MENINGOCOCCAL GROUPS A/C/Y/W VACCINE Aged Out No longer eligible based on patient's age to complete this topic Procedures Procedure Name Priority Date/Time Associated Diagnosis Comments LIPID PROFILE Routine 09/16/2023 9:33 AM PROTECTION ANALYST Type 1 diabetes mellitus without complication from Last 3 Months or Most Recently Relevant to Health Maintenance Results * (ABNORMAL) LIPID PROFILE (09/16/2023 9:33 AM PROTECTION ANALYST) Cholesterol 211(H) <200 mg/dL [facility] HDL Cholesterol 80 > OR = 50 mg/dL [facility] Triglycerides 129 <150 mg/dL [facility] LDL Calculated 107(H) mg/dL (calc) [facility] Comment: Reference range: <100 Desirable range <100 mg/dL for primary prevention; <70 mg/dL for patients with CHD or diabetic patients with > or = 2 CHD risk factors. LDL-C is now calculated using the Luis-Chavez calculation, which is a validated novel method providing better accuracy than the Friedewald equation in the estimation of LDL-C. Luis SS et al. KRISTAN. 2013;310(19): 8723-4990 (http://education.[employer]o/faq/ZYI270) CHOL/HDLC RATIO 2.6 <5.0 (calc) [facility] Non HDL Cholesterol 131(H) <130 mg/dL (calc) [facility] Comment: For patients with diabetes plus 1 major ASCVD risk factor, treating to a non-HDL-C goal of <100 mg/dL (LDL-C of <70 mg/dL) is considered a therapeutic option. Test Performed at: [facility] [id number] [place] [id number] ABIMAEL WU MD Blood BLOOD SPECIMEN / Unknown 09/16/2023 9:33 AM PROTECTION ANALYST 09/16/2023 9:35 AM PROTECTION ANALYST Arcelia Gambino DO LAB - CHEMISTRY [facility] [address] [place] [address] from Last 3 Months or Most Recently Relevant to Health Maintenance Care Teams Children'S Service Worker Relationship Specialty Start Date End Date Provider, No Pcp PCP - General 04/26/24
--- OUTSIDE RECORDS SUMMARY | 2024-09-30 09:30 | XMS_ITS | Clinical Summary ---
Author Organization [employer] [facility] Address [address] [place] [address] Phone Care Team Providers Care Switchboard Inspector Name Role Phone ShaniajonathanGiovanny king Garland Primary Care Provider Allergies Active Allergy Reactions Criticality Noted Date Comments Adhesive Tape-Silicones Unknown 03/31/2020 Insulin Aspart Nausea and Vomiting Low 08/28/2023 Lmbeo-Rhyur-Ggphyqz-Pramoxine Rash Low 2022 Neomycin Rash Low 02/20/2023 Oevpavcq-Bwaqatcqvt-Dibrqjxdr Rash Medium 2023 Penicillin Unknown 10/24/2023 Polymyxin [...] (ELDERBERRY ORAL) Take by mouth. Activ e A68-FIESWIOMMES HYDROFOLATE-B6 ORAL Take by mouth. Activ e blood sugar diagnostic (OneTouch Verio test strips) Strip Use to test blood glucose 3 times daily as directed. 100 Each 05/19/2023 3:06 PM BRIDGE GAME DIRECTOR 3 Active Blood-Glucose Meter (OneTouch Verio Flex meter) Use as directed 1 Each 05/28/2023 11:33 AM BRIDGE GAME DIRECTOR 3 Active prochlorperazin e maleate (Compazine) 10 [...] Department Care Team Description 08/06/2024 Results Follow-Up [facility] SWITCHMAN [facility] [address] [facility] [address] [place] [address] Hadley Truong MD CERV/VAG CYTO SCREEN PAP RLFX HPV 08/04/2024 12:40 PM BRIDGE GAME DIRECTOR Office Visit [facility] SWITCHMAN [facility] [address] [facility] [address] [place] [address] Hadley Truong MD Encounter for gynecological examination with abnormal finding (Primary Dx); Declined influenza vaccine; Encounter for osteoporosis screening in asymptomatic postmenopausal patient; Vaginal dryness, menopausal; Dyspareunia in female; History of kidney cancer; Screening mammogram, encounter for; Screening for cervical cancer 07/27/2024 External Device Data STL ABSTRACTION Provider, Abstract 07/12/2024 Abstract [facility] SWITCHMAN [facility] [address] [facility] [address] [place] [address] Hadley Truong MD from Last 3 Months [...] PM CDT Legal Sex Female 6:06 AM BRIDGE GAME DIRECTOR Gender Identity Female 02/16/2023 9:31 PM CDT Sexual Orientation Not on file Last Filed Vital Signs Vital Sign Reading Time Taken Comments Blood Pressure 114/68 08/04/2024 12:43 PM BRIDGE GAME DIRECTOR Pulse 104 04/29/2024 10:46 AM CDT Temperature 36.3 C (97.4 F) 04/29/2024 10:46 AM CDT Respiratory Rate 18 04/29/2024 10:46 AM CDT Oxygen Saturation 98% 04/29/2024 10:46 AM CDT Inhaled Oxygen Concentration - - Weight 55.3 kg (122 lb) 08/04/2024 12:43 PM BRIDGE GAME DIRECTOR Height 170.2 cm (5' 7 ) 08/04/2024 12:43 PM BRIDGE GAME DIRECTOR Body Mass Index 19.11 08/04/2024 12:43 PM BRIDGE GAME DIRECTOR Plan of Treatment Upcoming Encounters Date Type Department Care Team (Late st Contact Info) Description 10/21/2024 9:15 AM CDT Office Visit [facility] [address] [place] [address] Johan Ledesma MD [id number] [place] [address] 11/02/2024 10:30 AM CDT Office Visit [facility]OLOGY - [place] [address] [place] [address] Marvin Holman MD [address] [facility] [address] [place] [address] Health Maintenance Due Date Last Done Comments DIABETES ANNUAL FOOT EXAM 10/05/1967 DIABETES ANNUAL RETINAL EXAM 10/05/1967 DIABETES MICROALBUMIN ANNUAL SCREEN 10/05/1967 LDL CHOLESTEROL ANNUAL 10/05/1967 DTAP/TDAP/TD VACCINES (1 - Tdap) 1968 PNEUMOCOCCAL VACCINE 50+ YEA RS (1 of 2 - PCV) [...] Completed 08/04/2024 Medical Devices Implanted Type Area Management Lead Device Identifier Shelf Expiration Date Model / Serial / Lot Glucose Monitor Continuous Glucose Monitor Description:Must be removed prior to MRI -yasmeen 08/29/23 Hemostat Surg 2x4in 2081 - [id number] Implanted:Qt y: 1 on 03/14/2023 by Marvin Holman MD at [facility] Hemostatic Left: Abdomen J[employer]J- [employer] [id number] 2081 / / Hemostat Surg Snow 2x4in 2081 - [id number] Implanted:Qt y: 1 on 03/14/2023 by Marvin Holman MD at [facility] Hemostatic Left: Abdomen J[employer]- [employer] [id number] 09/10/2024 2082 / / [id number] Tmj Implants Procedures Procedure Name Priority Date/Time Associated Diagnosis Comments CERV/VAG CYTO SCREEN PAP RLFX HPV Routine 08/04/2024 3:14 PM BRIDGE GAME DIRECTOR Encounter for gynecological examination with abnormal finding Screening for cervical cancer COLONOSCOPY REPORT 08/30/2023 9: 48 AM BRIDGE GAME DIRECTOR HEMOGLOBIN A1C Routine 08/28/2023 10:50 PM BRIDGE GAME DIRECTOR from Last 3 Months or Most Recently Relevant to Health Maintenance Results * CERV/VAG CYTO SCREEN PAP RLFX HPV (08/04/2024 3:14 PM BRIDGE GAME DIRECTOR) CLINICAL INFORMATION Kim Valdez Comment:Routine exam LAST [...] has been evaluated with computer assisted technology. DELINQUENT TAX COLLECTOR: Yen Valdez Comment: BKA, CT(ASCP) CT screening location: [place] [address] [address] Nathan [address] Lorelei Valdez Comment: [...] and current clinical information. Test Performed at: [place] [address] [address] [place] Rivera [address] Ira Silva Genital SWAB OF ENDOCERVIX / Unknown 08/04/2024 3:14 PM BRIDGE GAME DIRECTOR 08/05/2024 2:38 AM BRIDGE GAME DIRECTOR us Hadley Truong MD PATHOLOGY/CYTOLOGY ORDERABLES Fi nal Result [facility] [phone] [facility] [address] [place] [address] * COLONOSCOPY REPORT (08/30/2023 9:48 AM BRIDGE GAME DIRECTOR) Narrative Procedure Note Johan Ledesma MD - 08/30/2023 9:47 AM CST [facility] Endoscopy Patient Name: Deidre Cuadra Procedure Date: [...] Addenda: [address]; [place] [address] Johan Ledesma MD GI PROCEDURE ORDERABLES Final Re sult * (ABNORMAL) HEMOGLOBIN A1C (08/28/2023 10:50 PM BRIDGE GAME DIRECTOR) HEMOGLOBIN A1C 7.5(H) <5.7 % 08/28/2023 11:09 PM BRIDGE GAME DIRECTOR [employer] [facility] EST. AVG GLUCOSE, A1C 169 mg/dL 08/28/2023 11:09 PM BRIDGE GAME DIRECTOR [employer] LABORATORY [facility] Blood Venipuncture / Unknown 08/28/2023 10:50 PM BRIDGE GAME DIRECTOR 08/28/2023 10:50 PM BRIDGE GAME DIRECTOR Narrative [employer] [facility]ORATORY SERVICES - [facility] - 08/28/2023 11:09 PM BRIDGE GAME DIRECTOR HGB A1C INTERPRETATION NORMAL: <5.7% PRE-DIABETES: 5.7 - 6.4% DIABETES: 6.5% OR GREATER Mesha Tello MD CHEMISTRY ORDERABLES Final Result [facility] [id number] [address] [place] [address] from Last 3 Months or Most Recently Relevant to Health Maintenance Insurance AETNA [facility] RX AETNA Medicare Part D RX [employer] (INTERNAL) [facility] RX OP HEALTH Commercial RX [employer] (INTERNAL) [facility] Advance Directives For more information, please contact: [phone] * Full Code (Latest Code Status on [...] 11:34 AM 03/14/2023 8:43 PM Care Teams Switchboard Inspector Relationship Specialty Start Date End Date Giovanny Farias DO [address] [address] PCP - General Internal Medicine 03/13/23
--- OUTSIDE RECORDS SUMMARY | 2024-09-30 09:30 | XMS_ITS | Continuity of Care Document ---
Author Organization [facility] Address [address] [place] [address] [address] [place] [address] Phone Care Team Providers Care Marine Erector Name Role Phone Wade OD, Troy Unavailable Unavailable Procedures Procedure Date Contact Lens Check Eye Exam & Treatment Refraction Contact Lens Hydrophilic, Spherical Medical Tax Contact Lens Hydrophilic, Spherical Saperion - Medical Eye Exam & Treatment Refraction No Charge Contact Lens Check CL Replacement - [employer] Other 008 Tax - Medical No Charge Contact Lens Check Eye Exam, New Patient Refraction Advance Directives Directive Yes / No Effective Date File Name No Information Encounters Encounter Description Practice Location Reason(s) For Visit Diagnoses Date Provider Providers Copied on Encounter [facility], [address] [place] [address] [address], [place], [place], [id number], [place] tel:[phone] SEC [facility] No Information Sep-3 0-201 0 Wade OD Troy. [address] , [address], [place], [address], [place]. tel:[phone] [facility], [address] [place] [address] [address], [place], [place], [id number], [place] tel:[phone] [facility] No Information Sep-2 3-201 0 Wade OD [place]. [address] , [address], [place], [place], [facility], [place]. tel:[phone] [facility], [address], [place], [place], [id number], [place] tel:[phone] [facility] No Information Aug-1 7-201 0 Wade OD [place]. [address], [place], [place], [facility], [place]. tel:[phone] [facility], [address] [place] [address] [address], [place], [place], [address], [place] tel:[phone] [facility] No Information Sep-1 6-201 0 Wade OD [place]. [address] , [address], [place], [facility], [place]. tel:[phone] [facility], [address] [place] [address] [address], [place], [place], [address], [place] tel:[phone] [facility] No Information Sep-1 7-200 9 Wade OD [place]. [address], [place], [facility], [place]. tel:[phone] [facility], [address] [place] [address] [address], [place], [place], [address], [place] tel:[phone] SEC [facility] No Information Filippo-1 7-200 8 Wade OD [place]. [address], [place], [facility], [place]. tel:[phone] [facility], [address] [place] [address] [address], [place], [place], [address], [place] tel:[phone] [facility] No Information Filippo-0 3-200 8 Wade OD [place]. [address], [place], [facility], [place]. tel:[phone] [facility], [address], [place], [place], [address], [place] tel:[phone] [facility] No Information 7-200 8 Wade OD [place]. [address], [place], [address], [place]. tel:[phone] Family History Family Member Type Diagnosis Age At Onset No Information Payers Payer name Insurance type Covered democrat ID Authoriza tion(s) No Information Social History Type Description Quantity Date Captured Comments Sex Female Smoking Status No Information Chief Complaint And Reason For Visit No Information Reason For Referral Reason For Referral No Information History Of Present Illness Encounter Date Complaint History Of Prese nt Illness No Information Functional Status Date Functional Assessmen t No Information Instructions Date Instruction Additional Infor mation No Information Assessments Type Assessment Date No Information Patient Care Teams Name Effective Dates (start - stop) Status Members No Information
--- OUTSIDE RECORDS SUMMARY | 2024-09-30 09:30 | XMS_ITS | Encounter Summary ---
Author Organization [facility] Address [address] [place] [address] Care Team Providers Care Statistical Financial Analyst Name Role Phone Giovanny Farias Primary Care Provider Encounter Details Date Type Department Care Team (Late st Contact Info) Description 08/06/2024 Results Follow-Up [facility] [place] [address] [facility] [address] [place] [address] Hadley Truong MD [address] [facility] [address] [place] [address] CERV/VAG CYTO SCREEN PAP RLFX [...] PM CDT Legal Sex Female 6:06 AM SECURITY ADMINISTRATOR Gender Identity Female 02/16/2023 9:31 PM CDT Sexual Orientation Not on file documented as of this encounter Plan of Treatment Upcoming Encounters Date Type Department Care Team (Late st Contact Info) Description 10/21/2024 9:15 AM CDT Office Visit [facility] [address] [facility] [address] [place] [address] Johan Ledesma MD [address] [facility] [id number] [place] [address] 11/02/2024 10:30 AM CDT Office Visit [facility] - [facility] [address] [facility] [address] [place] [address] Marvin Holman MD [address] [facility] [address] [place] [address] documented as of this encounter Visit Diagnoses Not on filedocumented in this encounter Care Teams Statistical Financial Analyst Relationship Specialty Start Date End Date Giovanny Farias DO [address] [address] PCP - General Internal Medicine 03/13/23 documented as of this encounter
--- OUTSIDE RECORDS SUMMARY | 2024-09-30 09:30 | XMS_ITS | Encounter Summary ---
Author Organization [facility] Address [address] [facility] [place] [address] Care Team Providers Care Traffic Routing Engineer Name Role Phone Lonnyjunito Giovanny Mario Alberto DO Primary Care Provider [phone] Provider, No Pcp Primary Care Provider Unavailab le Encounter Details Date Type Department Care Team (Late Contact Info) Description 08/27/2018 [facility] [address] [facility], [place] [address] Vishnu Aggarwal MD [address] [place] [address] Social History Tobacco Use Types Packs/Day Years [...] Physician Group - Endocrinology [address] [place] [phone] Arcelia Gambino DO [address] [facility] 2 [place] [address] documented as of this encounter Procedures Procedure Name Priority Date/Time Associated Diagnosis Comments DERMATOPATHOLOGY Routine 08/26/2018 12:0 0 AM 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 documented in this encounter Results * DERMATOPATHOLOGY (08/26/2018 12:00 AM 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 SKIN, left upper quadrant abdomen: SOLAR LENTIGO, INFLAMED (L81.4) Specimen B. 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 B: R/O Jordan's. Check margins. 12:44 PM [facility] DERMATOPATHOLOGY LABORATORY Gross Description Specimen A: Received is one formalin filled container labeled with the patient's name and designated left upper quadrant abdomen. The specimen consists of a shave biopsy measuring [id number]. Jar 0. Specimen B: Received is one formalin filled container labeled with the patient's name and designated left lateral upper arm.The specimen consists of a punch excision measuring [id number] and is oriented with the notch at [...] in cassettes 3-4. Jar 0. 12:44 PM [facility] DERMATOPATHOLOGY LABORATORY Microscopic Description Specimen [...] the base of the specimen. 12:44 PM [facility] DERMATOPATHOLOGY LABORATORY Disclaimer An external and internal positive and negative controls are appropriate for the histochemical, immunohistochemical and immunofluorescence stain(s) in this case (if any), except where stated explicitly. The performance characteristics of the stain(s) cited in this report were developed and its performance characteristic determined by the Dermatopathology Laboratory at [facility], directed by Dr. Hong Mohr. These tests need not be, and therefore are not, approved by the [place] Food and Drug Administration. The tests are used for clinical purposes. 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 Vishnu Aggarwal MD LAB - PATHOLOGY/CYTO LOGY ORDERABLES DERMATOPATHOLOGY LABORATORY [facility] - Department of Dermatology [facility], [address]th [place] [address], [facility] [phone] documented in this encounter Visit Diagnoses Not on filedocumented in this encounter Care Teams Traffic Routing Engineer Relationship Specialty Start Date End Date Giovanny Farias, PCP - General Internal Medicine 06/10/23 04/25/24 Provider, No Pcp PCP - General 04/26/24 documented as of this encounter
--- OUTSIDE RECORDS SUMMARY | 2024-09-30 09:30 | XMS_ITS ---
Author Organization [id number] [facility] Address [address] [place] [address] Phone Care Team Providers Care Water Treatment Plant Operator Name Role Phone Giovanny Farias DO [...] 05/19/2023 Leukemoid reaction 03/08/2023 3 Hyperglycemia 03/08/2023 05/19/2023"
== END 2024-09-30 09:11 | disposition home or self-care (01) ==
PROVIDERS: PCP Internal Medicine; Visit Provider Internal Medicine
DX: I10 Essential (primary) hypertension (principal); Z90.5 Acquired absence of kidney
CPT/HCPCS: 93976

== ENCOUNTER 2024-10-15 09:33 | Outpatient (CLI) | payer MEDICARE, SELFPAY ==
--- OUTSIDE RECORDS SUMMARY | 2024-10-15 09:44 | XMS_ITS | Clinical Summary ---
Author Organization [facility] Address [address] [place] [address] Phone Care Team Providers Care Criminal Attorney Name Role Phone ShaniajonathanGiovanny king Garland Primary Care Provider Allergies Active Allergy Reactions Criticality Noted Date Comments Adhesive Tape-Silicones Unknown 03/31/2020 Insulin Aspart Nausea and Vomiting Low 08/28/2023 Zzxtt-Mhzsv-Eeokwsq-Pramoxine Rash Low 2022 Neomycin Rash Low 02/20/2023 Aqenjryr-Ouetmhojfz-Tripcswjd Rash Medium 2023 Penicillin Unknown 10/24/2023 Polymyxin [...] (ELDERBERRY ORAL) Take by mouth. Activ e [id number] HYDROFOLATE-B6 ORAL Take by mouth. Activ e blood sugar diagnostic (OneTouch Verio test strips) Strip Use to test blood glucose 3 times daily as directed. 100 Each 05/19/2023 3:06 PM MENTAL HEALTH UNIT LEAD PSYCHOLOGIST 3 Active Blood-Glucose Meter (OneTouch Verio Flex meter) Use as directed 1 Each 05/28/2023 11:33 AM MENTAL HEALTH UNIT LEAD PSYCHOLOGIST 3 Active prochlorperazin e maleate (Compazine) 10 [...] Department Care Team Description 08/06/2024 Results Follow-Up [facility] [place] RECLAMATION SUPERVISOR [facility] [address] [address] [place] [address] Hadley Truong MD CERV/VAG CYTO SCREEN PAP RLFX HPV 08/04/2024 12:40 PM MENTAL HEALTH UNIT LEAD PSYCHOLOGIST Office Visit [facility] [place] RECLAMATION SUPERVISOR [facility] [address] [facility] [address] [place] [address] Hadley Truong MD Encounter for gynecological examination with abnormal finding (Primary Dx); Declined influenza vaccine; Encounter for osteoporosis screening in asymptomatic postmenopausal patient; Vaginal dryness, menopausal; Dyspareunia in female; History of kidney cancer; Screening mammogram, encounter for; Screening for cervical cancer 07/27/2024 External Device Data STL ABSTRACTION Provider, Abstract from Last 3 Months Family History Medical [...] Lanier Relation Name Status Comments Father Edward Juradouba Alive Mother Cynthia Delaney Alive Sister 1 Sister 2 Mariluz Thomas Alive Sister 3 Veronica Lanier Alive Social [...] PM CDT Legal Sex Female 6:06 AM MENTAL HEALTH UNIT LEAD PSYCHOLOGIST Gender Identity Female 02/16/2023 9:31 PM CDT Sexual Orientation Not on file Last Filed Vital Signs Vital Sign Reading Time Taken Comments Blood Pressure 114/68 08/04/2024 12:43 PM MENTAL HEALTH UNIT LEAD PSYCHOLOGIST Pulse 104 04/29/2024 10:46 AM CDT Temperature 36.3 C (97.4 F) 04/29/2024 10:46 AM CDT Respiratory Rate 18 04/29/2024 10:46 AM CDT Oxygen Saturation 98% 04/29/2024 10:46 AM CDT Inhaled Oxygen Concentration - - Weight 55.3 kg (122 lb) 08/04/2024 12:43 PM MENTAL HEALTH UNIT LEAD PSYCHOLOGIST Height 170.2 cm (5' 7 ) 08/04/2024 12:43 PM MENTAL HEALTH UNIT LEAD PSYCHOLOGIST Body Mass Index 19.11 08/04/2024 12:43 PM MENTAL HEALTH UNIT LEAD PSYCHOLOGIST Plan of Treatment Upcoming Encounters Date Type Department Care Team (Late st Contact Info) Description 10/21/2024 9:15 AM CDT Office Visit [facility] [address] [place] [address] Johan Ledesma MD [address]FT[address] [place] [address] 10/28/2024 9:00 AM CDT Appointment [facility] [address] [place] [address] Hadley Truong MD [address] [place] [address] 10/28/2024 9:45 AM CDT Appointment [facility] CT Scan [place] [address] [facility] [address] [place] [address] Rosemary Mayen PA-C [address] [facility] [address] [place] [address] 10/28/2024 10:30 AM CDT Appointment [facility] MRI [place] [address] [facility] [address] [place] [address] Rosemary Mayen PA-C [address] [place] [address] 11/02/2024 10:30 AM CDT Office Visit [facility] - [place] [address] [facility] [address] [place] [address] Marvin Holman MD [address] [facility] [address] [place] [address] Health Maintenance Due Date Last Done Comments DIABETES ANNUAL FOOT EXAM 10/05/1967 DIABETES ANNUAL RETINAL EXAM 10/05/1967 DIABETES MICROALBUMIN ANNUAL SCREEN 10/05/1967 LDL CHOLESTEROL ANNUAL 10/05/1967 DTAP/TDAP/TD VACCINES (1 - Tdap) 1968 PNEUMOCOCCAL VACCINE 50+ YEA RS (1 of 2 - PCV) 1968 FIT-DNA Q 3 years 1994 FIT/FOBT Q 1 year 1994 Flex Sig/CT Colonography Q 5 years 1994 ZOSTER VACCINE (1 of 2) 10/05/1999 OSTEOPOROSIS SCREENING 2014 RSV VACCINE (60+ or ) (1 - 1-dose 75+ series) 2024 DIABETES HBA1C Q 6 MONTHS 10/25/20242023, 01/12/2024, 09/15/2023, Additional history exists COLORECTAL SCREENING 08/30/2033 08/30/2023, 08/30/19 Colorectal Cancer Screening 08/30/2033 INFLUENZA VACCINE Completed 08/04/2024 Medical Devices Implanted Type Area [employer] Worker Device Identifier Shelf Expiration Date Model / Serial / Lot Glucose Monitor Continuous Glucose Monitor Description:Must be removed prior to MRI -yasmeen 08/29/23 Hemostat Surg Snow 2x4in 2081 - [id number] Implanted:Qt y: 1 on 03/14/2023 by Marvin Holman MD at [facility] Hemostatic Left: Abdomen [employer]- [employer] [id number] 2081 / / Hemostat Surg Snow 2x4in 2081 - [id number] Implanted:Qt y: 1 on 03/14/2023 by Marvin Holman MD at [facility] Hemostatic Left: Abdomen J[employer]- [employer] [id number] 09/10/20242081 / / [id number] Tmj Implants Procedures Procedure Name Priority Date/Time Associated Diagnosis Comments CERV/VAG CYTO SCREEN PAP RLFX HPV Routine 08/04/2024 3:14 PM MENTAL HEALTH UNIT LEAD PSYCHOLOGIST Encounter for gynecological examination with abnormal finding Screening for cervical cancer COLONOSCOPY REPORT 08/30/2023 9: 48 AM MENTAL HEALTH UNIT LEAD PSYCHOLOGIST HEMOGLOBIN A1C Routine 08/28/2023 10:50 PM MENTAL HEALTH UNIT LEAD PSYCHOLOGIST from Last 3 Months or Most Recently Relevant to Health Maintenance Results * CERV/VAG CYTO SCREEN PAP RLFX HPV (08/04/2024 3:14 PM MENTAL HEALTH UNIT LEAD PSYCHOLOGIST) CLINICAL INFORMATION Tennille Valdez Comment:Routine exam LAST [...] has been evaluated with computer assisted technology. SENIOR BENEFITS ANALYST: Yen Valdez Comment: SANJAY CT(ASCP) CT screening location: [place] [address] [address] [address] EXPLANATORY NOTE [facility] Lorelei Valdez Comment: EXPLANATORY NOTE: The Pap [...] and current clinical information. Test Performed at: [place] [address] [address] [place] [address] Ira Silva Genital SWAB OF ENDOCERVIX / Unknown 08/04/2024 3:14 PM MENTAL HEALTH UNIT LEAD PSYCHOLOGIST 08/05/2024 2:38 AM MENTAL HEALTH UNIT LEAD PSYCHOLOGIST us Hadley Truong MD PATHOLOGY/CYTOLOGY ORDERABLES Fi nal Result [facility] [phone] [place] [address] [address] [place] [address] * COLONOSCOPY REPORT (08/30/2023 9:48 AM MENTAL HEALTH UNIT LEAD PSYCHOLOGIST) Narrative Procedure Note Johan Ledesma MD - 08/30/2023 9:47 AM CST [facility] Endoscopy Patient Name: Deidre Cuadra Procedure [...] electronically. Number of Addenda: [address]; [place] [address] Johan Ledesma MD GI PROCEDURE ORDERABLES Final Re sult * (ABNORMAL) HEMOGLOBIN A1C (08/28/2023 10:50 PM MENTAL HEALTH UNIT LEAD PSYCHOLOGIST) HEMOGLOBIN A1C 7.5(H) <5.7 % 08/28/2023 11:09 PM MENTAL HEALTH UNIT LEAD PSYCHOLOGIST [facility] EST. AVG GLUCOSE, A1C 169 mg/dL 08/28/2023 11:09 PM MENTAL HEALTH UNIT LEAD PSYCHOLOGIST [facility] [employer] [facility] Blood Venipuncture / Unknown 08/28/2023 10:50 PM MENTAL HEALTH UNIT LEAD PSYCHOLOGIST 08/28/2023 10:50 PM MENTAL HEALTH UNIT LEAD PSYCHOLOGIST Narrative [facility] - 08/28/2023 11:09 PM MENTAL HEALTH UNIT LEAD PSYCHOLOGIST HGB A1C INTERPRETATION NORMAL: <5.7% PRE-DIABETES: 5.7 - 6.4% DIABETES: 6.5% OR GREATER Mesha Tello MD CHEMISTRY ORDERABLES Final Result [facility]# [id number] [address] [place] [address] from Last 3 Months or Most Recently Relevant to Health Maintenance Insurance AETNA PPO MCR RX AETNA Medicare Part D RX [employer] PLANS (INTERNAL) [facility] RX [facility] [facility] Commercial RX [employer] PLANS (INTERNAL) [facility] Advance Directives For more information, please contact: [phone] * Full Code (Latest Code Status on [...] 11:34 AM 03/14/2023 8:43 PM Care Teams Criminal Attorney Relationship Specialty Start Date End Date Giovanny Farias DO [address] [address] PCP - General Internal Medicine 03/13/23
--- OUTSIDE RECORDS SUMMARY | 2024-10-15 09:44 | XMS_ITS | Continuity of Care Document ---
Author Organization [facility] Address [address] [place] [address] [address] [place] [address] Phone Care Team Providers Care Pulp Mixer Name Role Phone Wade OD, Troy Unavailable Unavailable Procedures Procedure Date Contact Lens Check Eye Exam & Treatment Refraction Contact Lens Hydrophilic, Spherical Medical Tax Contact Lens Hydrophilic, Spherical [employer] - Medical Eye Exam & Treatment Refraction No Charge Contact Lens Check CL Replacement - [employer] Other 008 Tax - Medical No Charge Contact Lens Check Eye Exam, New Patient Refraction Advance Directives Directive Yes / No Effective Date File Name No Information Encounters Encounter Description Practice Location Reason(s) For Visit Diagnoses Date Provider Providers Copied on Encounter [facility], [address] [place] [address] [address], [place], [place], [id number], [place] tel:[phone] SEC [facility] No Information Sep-3 0-201 0 Wade OD Troy. [address] , [address], [place], [address], [place]. tel:[phone] [facility], [address] [place] [address] [address], [place], [place], [id number], [place] tel:[phone] [facility] No Information Sep-2 3-201 0 Wade OD [place]. [address] , [address], [place], [place], [facility], [place]. tel:[phone] [facility], [address], [place], [place], [id number], [place] tel:[phone] [facility] No Information Aug-1 7-201 0 Wade OD [place]. [address] , [address], [place], [place], [facility], [place]. tel:[phone] [facility], [address] [place] [address] [address], [place], [place], [address], [place] tel:[phone] [facility] No Information Sep-1 6-201 0 Wade OD [place]. [address], [place], [place], [facility], [place]. tel:[phone] [facility], [address] [place] [address] [address], [place], [place], [address], [place] tel:[phone] [facility] No Information Sep-1 7-200 9 Wade OD [place]. [address], [place], [place], [facility], [place]. tel:[phone] [facility], [address] [place] [address] [address], [place], [place], [address], [place] tel:[phone] [facility] No Information Filippo-1 7-200 8 Wade OD [place]. [address], [place], [facility], [place]. tel:[phone] [facility], [address] [place] [address] [address], [place], [place], [address], [place] tel:[phone] [facility] No Information Filippo-0 3-200 8 Wade OD [place]. [address], [place], [place], [facility], [place]. tel:[phone] [facility], [address], [place], [place], [address], [place] tel:[phone] [facility] No Information 7-200 8 Wade OD Troy. [address] , [address], [place], [address], [place]. tel:[phone] Family History Family Member Type Diagnosis Age At Onset No Information Payers Payer name Insurance type Covered republican ID Authoriza tion(s) No Information Social History [...]
--- OUTSIDE RECORDS SUMMARY | 2024-10-15 09:44 | XMS_ITS | Clinical Summary ---
Author Organization [facility] Address [address] [place] [address] Care Team Providers Care Station Helper Name Role Phone Provider, No Pcp Primary Care Provider Unavailab le Source Comments [facility],non-owned Affiliates and Associated Physician Practices is amultiple site organization consisting of ambulatory clinics and hospital sitesin [place], [place], [place] and [place]. This disclosure is being madepursuant to the Care Everywhere program and may not contain all information available regarding this patient. Last updated 18.[facility] Allergies Active Allergy Reactions Criticality Noted Date Comments Adhesive Sensitivity Unknown 03/31/2020 Insulin Aspart Nausea and/or Vomiting Low 4 Fhhbn-Usfra-Zhjdfgi-Pramoxine Rash Medium 2022 Sulfa Drugs Unknown 03/31/2020 [...] daily Active Cholecalciferol (vitamin D3) 1.25 MG (86834 UT) capsule Take 1 (one) capsule by mouth once daily Active Lancets (ONETOUCH DELICA PLUS 33G EXTRA FINE LANCET) USE TO CHECK BLOOD SUGAR 4 TIMES DAILY 09/24/2023 Active OneTouch Verio test strip USE TO TEST BLOOD SUGAR 4 TIMES A DAY 09/24/2023 Active fluticasone propionate (Flonase) 50 MCG/ACT nasal spray Allison 2 (two) sprays into each nostril once [...] 02/17/2024 Active Insulin Disposable Pump (Omnipod 5 [id number] Pods Gen 5) MISCIndications:Typ e 1 diabetes mellitus without complication (HCC) CHANGE pod every TWO DAYS as directed. 15 Each 3 07/22/2024 Active Active Problems No known active problems Encounters Date Type Department Care Team Description 2024 Travel 07/22/2024 Refill [facility] - Endocrinology [address] [place] [address] Arcelia Gambino, DO Refill Request from Last 3 Months Social [...] Care Team (Late st Contact Info) Description 02/03/2025 2:40 PM CDT Office Visit [facility] [address] [place] [address] Arcelia Gambino, DO [address] [facility] [address] [place] [address] Health Maintenance Due Date Last Done Comments [...] of 2) 10/05/1999 COVID-19 VACCINE (1 - season) 2024 DEPRESSION SCREENING 07/14/2024 MEDICARE AWV CALENDAR YEAR 2024 Respiratory Syncytial Virus (RSV) Vaccine Pt: or over 60 yrs (1 - 1-dose 75+ series) 2024 INFLUENZA VACCINE (Season Ended) 2025 LIPID TESTING 09/15/2028 09/16/2023, 08/14, 08/29/2023, Additional [...] Comments LIPID PROFILE Routine 09/16/2023 9:33 AM WELDING MACHINE OPERATOR HELPER ARC Type 1 diabetes mellitus without complication from Last 3 Months or Most Recently Relevant to Health Maintenance Results * (ABNORMAL) LIPID PROFILE (09/16/2023 9:33 AM WELDING MACHINE OPERATOR HELPER ARC) Cholesterol 211(H) <200 mg/dL [facility] HDL Cholesterol [...] LDL-C. Luis SS et al. KRISTAN. 2013;310(19): 0202-1015 (http://education.[employer]Docphin/faq/HRX924) CHOL/HDLC RATIO 2.6 <5.0 (calc) [facility] Non HDL Cholesterol 131(H) <130 mg/dL (calc) [facility] Comment: For patients with diabetes plus 1 major ASCVD risk factor, treating to a non-HDL-C goal of <100 mg/dL (LDL-C of <70 mg/dL) is considered a therapeutic option. Test Performed at: [facility] [address] [place] [address] ABIMAEL WU MD Blood BLOOD SPECIMEN / Unknown 09/16/2023 9:33 AM WELDING MACHINE OPERATOR HELPER ARC 09/16/2023 9:35 AM WELDING MACHINE OPERATOR HELPER ARC Arcelia Gambino DO LAB - CHEMISTRY [facility] [address] [place] [address] from Last 3 Months or Most Recently Relevant to Health Maintenance Care Teams Station Helper Relationship Specialty Start Date End Date Provider, No Pcp PCP - General 04/26/24
--- OUTSIDE RECORDS SUMMARY | 2024-10-15 09:44 | XMS_ITS | Continuity of Care Document ---
Author Organization [facility]. If a dditional information is needed, contact Health Information Management at [phone] [place] [address] Phone Care Team Providers Care Emergency Registrar Name Role Phone Unavailable Unavailable Unavailable Unavailable [...]
--- OUTSIDE RECORDS SUMMARY | 2024-10-15 09:44 | XMS_ITS ---
Author Organization [facility] Address [address] [place] [address] Phone Care Team Providers Care Summer Intern Name Role Phone Giovanny Farias DO Primary [...]
--- OUTSIDE RECORDS SUMMARY | 2024-10-15 09:44 | XMS_ITS | Encounter Summary ---
Author Organization [facility] Address [address] [place] [address] Care Team Providers Care Taker Off Name Role Phone Lonnyjunito Giovanny Mario Alberto DO Primary Care Provider [phone] Provider, No Pcp Primary Care Provider Unavailab le Encounter Details Date Type Department Care Team (Late Contact Info) Description 08/27/2018 Lab Requisition [facility] Care DermPath Lab [address] [facility] [place] [address] Vishnu Aggarwal MD [address] [place] [address] Social History Tobacco Use Types Packs/Day Years Used Date Smoking Tobacco: Never Assessed Sex and Gender Information Value Date Recorded Sex Assigned at Not on file Gender Identity Not on file Sexual Orientation Not on file documented as of this encounter Plan of Treatment Upcoming Encounters Date Type Department Care Team (Late Contact Info) Description 02/03/2025 2:40 PM CDT Office Visit [facility] - Endocrinology [address] [place] [address] Arcelia Gambino DO [address] [facility] [address] [place] [address] documented as of this encounter Procedures Procedure Name Priority Date/Time Associated Diagnosis Comments DERMATOPATHOLOGY Routine 08/26/2018 12:0 0 AM SWITCHBOX ASSEMBLER documented in this encounter Results * DERMATOPATHOLOGY (08/26/2018 12:00 AM SWITCHBOX ASSEMBLER) Case Report Dermatopathology Report Case: [id number] Authorizing Provider: Vishnu Aggarwal MD Collected: 08/26/2018 12:00 AM Pathologist: Barbie Fitzgerald MD Received: 08/27/2018 11:34 AM Specimens: A) - Skin, left upper quadrant abdomen B) - Skin, left lateral upper arm 12:44 PM [facility] DERMATOPATH[facility]Y [facility]ORAT[facility] Amended Report Addition of in situ to diagnosis and microscopic description to read 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 SKIN, left upper quadrant abdomen: SOLAR LENTIGO, INFLAMED (L81.4) Specimen B. 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 B: R/O Jordan's. Check margins. 12:44 PM [facility] DERMATOPATHOLOGY [facility]OR[facility] Gross Description Specimen A: Received is one formalin filled container labeled with the patient's name and designated left upper quadrant abdomen. The specimen consists of a shave biopsy measuring [id number]. Jar 0. Specimen B: Received is one formalin filled container labeled with the patient's name and designated left lateral upper arm.The specimen consists of a punch excision measuring [id number] and is oriented with the notch at [...] in cassettes 3-4. Jar 0. 12:44 PM [facility] DERMATOPATH[facility]Y [facility]OR[facility]ORY Microscopic Description [...] the base of the specimen. 12:44 PM [facility]ERMAT[facility]ATH[facility]ORY Disclaimer An external and internal positive and negative controls are appropriate for the histochemical, immunohistochemical and immunofluorescence stain(s) in this case (if any), except where stated explicitly. The performance characteristics of the stain(s) cited in this report were developed and its performance characteristic determined by the Dermatopathology Laboratory at [facility], directed by Dr. Hong Mohr. These tests need not be, and therefore are not, approved by the [place] Food and Drug Administration. The tests are used for clinical purposes. Billing Codes Specimen Charges Stain Charges 16846 48093 1 1 12:44 PM [facility] DERMATOPATH[facility]Y [facility]ORATORY Embedded Images 12:44 PM [facility] DERMAT[facility] Pathology/Cytology TISSUE SPECIMEN FROM SKIN / Unknown 08/26/2018 08/27/2018 11:34 AM SWITCHBOX ASSEMBLER Miscellaneous samples (specimen) TISSUE SPECIMEN FROM SKIN / Unknown 08/26/2018 08/27/2018 11:34 AM SWITCHBOX ASSEMBLER Vishnu Aggarwal MD LAB - PATHOLOGY/CYTO LOGY ORDERABLES DERMATOPATHOLOGY LABORATORY [facility] - Department of Dermatology [facility] [facility] [place] [address], [facility] [phone] documented in this encounter Visit Diagnoses Not on filedocumented in this encounter Care Teams Taker Off Relationship Specialty Start Date End Date Giovanny Farias, PCP - General Internal Medicine 06/10/23 04/25/24 Provider, No Pcp PCP - General 04/26/24 documented as of this encounter
--- OUTSIDE RECORDS SUMMARY | 2024-10-15 09:45 | XMS_ITS | Clinical Summary ---
Author Organization [facility] Care Team Providers Care Technical Editor Name Role Phone Unavailable Primary Care Provider Unavailabl e Social History Tobacco Use Types Packs/Day Years Used Date Smoking Tobacco: Never Assessed Comments Unknown Sex and Gender Information Value Date Recorded Sex Assigned at Not on file Legal Sex Female 8:41 AM CLEAN IN PLACES OPERATOR Gender Identity Not on file Sexual [...]
--- OUTSIDE RECORDS SUMMARY | 2024-10-15 09:45 | XMS_ITS | Clinical Summary ---
Author Organization [facility] [employer] Address [address] [place] [address] Care Team Providers Care Network Analyst Name Role Phone Giovanny Farias DO Primary Care Provider [phone]- [phone] Allergies Active Allergy Reactions Criticality Noted Date Comments Adhesive Rash Medium 03/31/2020 Adhesive Tape-Silicones Unknown 03/31/2020 Insulin Aspart Nausea And Vomiting Low 08/28/2023 Fdshcvvh-Nmbpusvfga-Llxzshyxa Rash Medium 2023 Penicillin Unknown 10/24/2023 Sulfa [...] on file Legal Sex Female 7:58 AM DUCT MAKER Gender Identity Not on file Sexual Orientation Not on file Obstetrics History Last Filed Vital Signs Vital Sign Reading Time Taken Comments Blood Pressure 114/66 10/24/2023 9:52 AM CDT Pulse 96 10/24/2023 9:52 AM CDT Temperature 36.9 C (98.4 F) 06/09/2023 6:20 PM DUCT MAKER Respiratory Rate 19 06/10/2023 9:00 AM DUCT MAKER Oxygen Saturation 100% 10/24/2023 9:52 AM CDT Inhaled Oxygen Concentration - - Weight 53.5 kg (118 lb) 10/24/2023 9:52 AM CDT Height 170.2 cm (5' 7 ) 06/09/2023 6:20 PM DUCT MAKER Body Mass Index 18.48 06/09/2023 6:20 PM DUCT MAKER Plan of Treatment Health Maintenance Due Date Last Done Comments Albumin Creatinine Ratio, Urine 1950 Colon Cancer Screening-Colonoscopy 1949 Depression Screening 1949 Fall Risk Assessment 1950 Foot Exam 1949 Hepatitis C Screening 1949 Osteoporosis Screening-Bone Density Scan 1949 Dilated Eye Exam 10/05/1959 DTaP/Tdap/Td Vaccine (1 - Tdap) 1960 Hepatitis B Screening 10/05/1967 Pneumococcal vaccine 65+ (1 of 2 - PCV) 1968 Zoster Vaccine (1 of 2) 10/05/1999 Well Visit 65+ 2014 Hemoglobin A1C 02/26/2024 08/28/2023, 11/0 10/2022, 03/08/2023 eGFR 06/10/2024 06/10/2023, 06/09/2023 Lipid Panel 09/15/2024 09/16/2023 TSH Level 09/15/2024 09/16/2023, 0211/2023, 06/09/2023, Additional history exists Influenza Vaccine (Season Ended) 2025 05/02/20 16, 04/15/2013 Procedures Procedure Name Priority Date/Time Associated Diagnosis Comments EGFR STAT 06/10/2023 6:24 AM DUCT MAKER THYROID FUNCTION CASCADE STAT 06/09/2023 6:29 PM DUCT MAKER from Last 3 Months or Most Recently Relevant to Health Maintenance Results * eGFR (06/10/2023 6:24 AM DUCT MAKER) eGFR 59 mL/min/1. 73 m2 [facility] Comment: Interpretive Data Reference Interval Normal >/= 90 mL/min/1.73m2 Mildly decreased* 60 - 89 mL/min/1.73m2 Mildly to moderately decreased 45 - 59 mL/min/1.73m2 Moderately to severely decreased 30 - 44 mL/min/1.73m2 Severely decreased 15 - 29 mL/min/1.73m2 Kidney Failure < 15 mL/min/1.73m2 *Relative to young adult level Estimated glomerular filtration rate is determined by the 2020 CKD-EPI equation recommended by the National Kidney Foundation (A Unifying Approach to GFR Estimation: Recommendations of the NKF-ASK Task Force on Reassessing the Inclusion of Race in Diagnosing Kidney Disease, JASN 2020). The CKD-EPI equation should not be used for patients with unstable renal function and has not been validated in children and those over 70. Current interpretive data was last reviewed 2021. Testing performed by: [address] [address] Blood 06/10/2023 6:24 AM DUCT MAKER 06/10/2023 6:49 AM DUCT MAKER us Braxton Gaines MD LAB BLOOD ORDERABLES Elina l Result [facility] [address] [facility] Department [place] [address] * TSH reflex to free T4 (06/09/2023 6:29 PM DUCT MAKER) TSH 3.03 0.30 - 4.20 mcIUnit/mL [facility] Comment:Testing performed by : [address], [place]., [address] Blood 06/09/2023 6:29 PM DUCT MAKER 06/09/2023 6:39 PM DUCT MAKER us Chelo Simmons MD LAB BLOOD ORDERABLES F inal Result [facility] [address] [facility] Department [place] [address] from Last 3 Months or Most Recently Relevant to Health Maintenance Insurance [id number] [place] [address] [id number] AETNA MEDICARE Care Teams Network Analyst Relationship Specialty Start Date End Date Giovanny Farias DO PCP - General Internal Medicine 07/17/22
--- OUTSIDE RECORDS SUMMARY | 2024-10-15 09:45 | XMS_ITS | Referral Summary ---
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 Gender Identity Not on file Sexual Orientation Not on file Last Filed Vital Signs Vital Sign Reading Time Taken Comments Blood Pressure 114/66 10/24/2023 9:52 AM CDT Pulse 96 10/24/2023 9:52 AM CDT Temperature 36.9 C (98.4 F) 06/09/2023 6:20 PM ASSOCIATE PROFESSOR OF GEOLOGY Respiratory Rate 19 06/10/2023 9:00 AM ASSOCIATE PROFESSOR OF GEOLOGY Oxygen Saturation 100% 10/24/2023 9:52 AM CDT Inhaled Oxygen Concentration - - Weight 53.5 kg (118 lb) 10/24/2023 9:52 AM CDT Height 170.2 cm (5' 7 ) 06/09/2023 6:20 PM ASSOCIATE PROFESSOR OF GEOLOGY Body Mass Index 18.48 06/09/2023 6:20 PM ASSOCIATE PROFESSOR OF GEOLOGY Plan of Treatment Not on file Procedures Procedure Name Priority Date/Time Associated Diagnosis Comments EGFR STAT 06/10/2023 6:24 AM ASSOCIATE PROFESSOR OF GEOLOGY THYROID FUNCTION CASCADE STAT 06/09/2023 6:29 PM ASSOCIATE PROFESSOR OF GEOLOGY from Last 3 Months or Most Recently Relevant to Health Maintenance Results * eGFR (06/10/2023 6:24 AM ASSOCIATE PROFESSOR OF GEOLOGY) eGFR 59 mL/min/1. 73 m2 [facility] Comment: Interpretive Data Reference Interval Normal >/= [...] was last reviewed 2021. Testing performed by: [facility], [address] [place] [address], [place]., [address] Blood 06/10/2023 6:24 AM ASSOCIATE PROFESSOR OF GEOLOGY 06/10/2023 6:49 AM ASSOCIATE PROFESSOR OF GEOLOGY us Braxton Gaines MD LAB BLOOD ORDERABLES Elina l Result Performing Organization Address [facility] Co de Phone Number [facility] [address] [place] [address] * TSH reflex to free T4 (06/09/2023 6:29 PM ASSOCIATE PROFESSOR OF GEOLOGY) TSH 3.03 0.30 - 4.20 mcIUnit/mL [facility] Comment:Testing performed by : [facility], [address] [place] [address]., [address] Blood 06/09/2023 6:29 PM ASSOCIATE PROFESSOR OF GEOLOGY 06/09/2023 6:39 PM ASSOCIATE PROFESSOR OF GEOLOGY us Chelo Simmons MD LAB BLOOD ORDERABLES F inal Result Performing Organization Address [facility] Co de Phone Number [address] [place] [address] from Last 3 Months or Most Recently Relevant to Health Maintenance Insurance T MEDICARE AETNA MEDICARE [address] [id number] Care Teams Logging Equipment Operator Relationship Specialty Start Date End Date Giovanny Farias DO PCP - General Internal Medicine 07/17/22
--- OUTSIDE RECORDS SUMMARY | 2024-10-15 09:45 | XMS_ITS | Encounter Summary ---
Author Organization [facility] Address [address] [place] [address] Care Team Providers Care Reo Asset Manager Name Role Phone Giovanny Farias Primary Care Provider Encounter Details Date Type Department Care Team (Late st Contact Info) Description 08/06/2024 Results Follow-Up [facility] TEST DIRECTOR [facility] [place] [address] [facility] [address] [place] [address] Hadley Truong MD [address] [facility] [address] [place] [address] CERV/VAG CYTO SCREEN PAP RLFX [...] PM CDT Legal Sex Female 6:06 AM CHIEF DIGITAL MEDIA OFFICER Gender Identity Female 02/16/2023 9:31 PM CDT Sexual Orientation Not on file documented as of this encounter Plan of Treatment Upcoming Encounters Date Type Department Care Team (Late st Contact Info) Description 10/21/2024 9:15 AM CDT Office Visit [facility] G[facility]ology [address] [address] [place] [phone] Johan Ledesma MD [address] [facility] [address] [place], [place] [id number] 10/28/2024 9:00 AM CDT Appointment [facility] Bone Density [place] [address] [facility] [address] [place] [address] Hadley Truong MD [address] [facility] [address] [place] [address] 10/28/2024 9:45 AM CDT Appointment Ronit CT Scan [place] [address] [facility] [address] [place] [address] Rosemary Mayen PA-C [address] [facility] [address] [place] [address] 10/28/2024 10:30 AM CDT [facility] [place] [address] [facility] [address] [place] [address] Rosemary Mayen PA-C [address] [facility] [address] [place] [address] 11/02/2024 10:30 AM CDT Office Visit [facility] UROLOGY - [place] [address] [facility] [address] [place] [address] Marvin Holman MD [address] [facility] [address] [place] [address] documented as of this encounter Visit Diagnoses Not on filedocumented in this encounter Care Teams Reo Asset Manager Relationship Specialty Start Date End Date Giovanny Farias DO [address] [address] PCP - General Internal Medicine 03/13/23 documented as of this encounter
[2024-10-15 14:42] LABS: Anion Gap 6 mmol/L (4-12); Blood Urea Nitrogen 25 mg/dL (7-17); Calcium 9.3 mg/dL (8.4-10.2); Carbon Dioxide 35 mmol/L (22-30); Chloride 95 mmol/L (98-107); Estimated Glomerular Filt Rate 52; Glucose 138 mg/dL (65-110); Potassium 4.8 mmol/L (3.4-5.0); Sodium 136 mmol/L (137-145)
[2024-10-15 15:57] LABS: Free T3 5.15 pg/mL (2.45-5.93)
== END 2024-10-15 09:34 | disposition home or self-care (01) ==
LOC: ANHGOSHLAB 09:34
PROVIDERS: PCP Internal Medicine; Visit Provider Internal Medicine
DX: N18.32 Chronic kidney disease, stage 3b (principal)
CPT/HCPCS: 36415; 80048; 84481

== ENCOUNTER 2024-10-22 13:57 | Outpatient (CLI) | payer MEDICARE, SELFPAY ==
--- NOTE | ~2024-10-22 | MR_ITS ---
MRI of the lumbar spine Clinical History: Back pain Technique: Axial T2-weighted images, and sagittal T1-weighted, T2-weighted, and T2 fat-sat images wer e acquired. Findings: There is no acute fracture in the lumbar spine. There are minimal grade 1 retrolisthesis of L1 over L2, and L2 over L3. No suspicious bone marrow signal abnormality seen. There are reactive ma rrow signal changes due to underlying areas of degenerative disc change. Probable intraosseous heena ioma in the L2 vertebral body. At L1-L2, there is no significant disc bulge or herniation. There is minimal facet arthropathy. No ce ntral canal stenosis. Probable moderate bilateral neural foraminal narrowing. At L2-L3, there is minimal disc bulge and moderate to advanced facet arthropathy. No central canal st enosis. There is moderate left neural foraminal narrowing. Right neural foramen may be minimally narr owed. L3-L4, there is degenerative disc narrowing with minimal disc bulge and moderate to advanced facet ar thropathy. No central canal stenosis or definite neural foraminal narrowing. At L4-L5, there is mild degenerative disc narrowing. There is minimal disc bulge with severe facet ar thropathy. No central canal stenosis or definite neural foraminal narrowing. At L5-S1, there is advanced degenerative distended. There is mild disc bulge and severe facet arthrop athy. No central canal stenosis. There is moderate bilateral neural foraminal narrowing. Paravertebral soft tissues are unremarkable. Impression: Moderate degenerative spondylosis overall, as detailed above. Reviewed, dictated and finalized at [facility]. Impression: Moderate degenerative spondylosis overall, as detailed above.
--- OUTSIDE RECORDS SUMMARY | 2024-10-22 14:04 | XMS_ITS | Clinical Summary ---
Author Organization [facility] Care Team Providers Care Song Lyricist Name Role Phone Unavailable Primary Care Provider Unavailabl e Social History Tobacco Use Types Packs/Day Years Used Date Smoking Tobacco: Never Assessed Comments Unknown Sex and Gender Information Value Date Recorded Sex Assigned at Not on file Legal Sex Female 8:41 AM FOOD AIDE Gender Identity Not on file Sexual Orientation Not on file Plan of Treatment Health Maintenance Due Date Last Done Comments Hepatitis C Virus (HCV) Screening 1950 TdaP Immunization 1950 Colonoscopy 1994 Colorectal Cancer Screening 1994 Cologuard 10/05/1999 Immunochemical Fecal Occult Blood 10/05/1999 Pneumococcal Immunization (5 0+ years) (1 of 1 - PCV) 10/05/1999 Zoster Immunization (1 of 2) 10/05/1999 SARS-COV-2 Immunization (1 - 2023- season) 2024 Respiratory Syncytial Virus (RSV) Immunization (Adult) (1 - 1-dose 75+ series) 2024 Influenza Immunization (Seas on Ended) 2025 05/02/2016, 04/15/2013 Hepatitis B Immunization Aged Out No longer eligible based on patient's age to complete this topic Meningococcal Immunization (ACWY) Aged Out No longer eligible b ased on patient's age to complete this topic Rotavirus Immunization Aged Out No lo nger eligible based on patient's age to complete this topic
--- OUTSIDE RECORDS SUMMARY | 2024-10-22 14:04 | XMS_ITS | Continuity of Care Document ---
Author Organization [facility] Address [address] [place] [address] utive [address] [place] [address] Phone Care Team Providers Care Supervisor Fitting Name Role Phone Wade OD, [place] Unavailable Unavailable Procedures Procedure Date Contact Lens Check Eye Exam & Treatment Refraction Contact Lens Hydrophilic, Spherical Medical Tax Contact Lens Hydrophilic, Spherical Enconcert - Medical Eye Exam & Treatment Refraction No Charge Contact Lens Check CL Replacement - Vistakon Other 008 Tax - Medical No Charge Contact Lens Check Eye Exam, New Patient Refraction Advance Directives Directive Yes / No Effective Date File Name No Information Encounters Encounter Description Practice Location Reason(s) For Visit Diagnoses Date Provider Providers Copied on Encounter [facility], [address] [place] [address] [address], [place], [place], [id number], [place] tel:[phone] [facility] No Information Sep-3 0-201 0 Wade OD [place]. [address] , [address], [place], [address], [place]. tel:[phone] [facility], [address] [place] [address] [address], [place], [place], [id number], [place] tel:[phone] [facility] No Information Sep-2 3-201 0 Wade OD [place]. [address], [place], [place], [facility], [place]. tel:[phone] [facility], [address], [place], [place], [id number], [place] tel:[phone] [facility] No Information Aug-1 7-201 0 Wade OD [place]. [address], [place], [place], [facility], [place]. tel:[phone] [facility], [address] [place] [address] [address], [place], [place], [id number], [place] tel:[phone] [facility] No Information Sep-1 6-201 0 Wade OD [place]. [address], [place], [place], [facility], [place]. tel:[phone] [facility], [address] [place] [address] [address], [place], [place], [id number], [place] tel:[phone] [facility] No Information Sep-1 7-200 9 Wade OD [place]. [address], [place], [place], [facility], [place]. tel:[phone] [facility], [address] [place] [address] [address], [place], [place], [id number], [place] tel:[phone] [facility] No Information Filippo-1 7-200 8 Wade OD [place]. [address], [place], [place], [facility], [place]. tel:[phone] [facility], [address] [place] [address] [address], [place], [place], [id number], [place] tel:[phone] [facility] No Information Filippo-0 3-200 8 Wade OD [place]. [address] , [address], [place], [place], [facility], [place]. tel:[phone] [facility], [address], [place], [place], [id number], [place] tel:[phone] [facility] No Information 7-200 8 Wade OD [place]. [address] , [address], [place], [address], [place]. tel:[phone] Family History Family Member Type Diagnosis Age At Onset No Information Payers Payer name Insurance type Covered alliance party ID Authoriza tion(s) No Information Social History [...]
--- OUTSIDE RECORDS SUMMARY | 2024-10-22 14:04 | XMS_ITS | Encounter Summary ---
Author Organization [facility] Address [address] [place] [address] Care Team Providers Care Cut Out Machine Operator Name Role Phone Giovanny Farias DO Primary Care Provider Reason for Referral * Radiology Services (Routine) - Open Specialty Diagnoses / Procedures Referred By Tiera ruiz Referred To Contact Diagnoses Esophageal dysphagia Procedures XR ESOPHAGUS BARIUM SWALLOW Johan Ledesma MD [address] [facility] [place] [address] Phone: tel: fax: Referral ID Status Reason Start Date Expiration Date Visits Re quested Visits Authorized [id number] Open 10/21/2024 11/21/2025 1 1 Reason for Visit * Reason Comments Chronic diarrhea Encounter Details Date Type Department Care Team (Latest Contact Info) Description 10/21/2024 9:15 AM CDT Office Visit 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 Gender Identity Female 02/16/2023 9:31 PM CDT Sexual Orientation Not on file documented as of this encounter Last Filed Vital Signs Vital Sign Reading Time Taken Comments Blood Pressure 128/80 10/21/2024 9:49 AM CDT Pulse 80 10/21/2024 9:49 AM CDT Temperature - - Respiratory Rate - - Oxygen Saturation - - Inhaled Oxygen Concentration - - Weight 57.6 kg (127 lb) 10/21/2024 9:49 AM CDT Height 170.2 cm (5' 7 ) 10/21/2024 9:49 AM CDT Body Mass Index 19.89 10/21/2024 9:49 AM CDT documented in this encounter Miscellaneous Notes * Patient Instructions - Johan Ledesma MD - 10/21/2024 10:17 AM CDT Barium swallow Esophageal manometry? Upper endoscopy? Esophageal motility disorder such as Achalasia vs esophageal spasm? documented in this encounter Plan of Treatment Upcoming Encounters Date Type Department Care Team (Late st Contact Info) Description 10/28/2024 9:00 AM CDT Appointment [facility] [place] [address] [place] [address] Hadley Truong MD [address] [place] [address] 10/28/2024 9:45 AM CDT Appointment Ronit CT Scan Dev [address] [place] [address] Rosemary Mayen PA-C [address] [facility] [address] [place] [address] 11/02/2024 8:[address] [facility] CT Scan [place] [address] [place] [address] Nereida Palma NP [address] [place] [address] 11/02/2024 9:[address] [facility] MRI [place] [address] [place] [address] Rosemary Mayen PA-C [address] [facility] [address] [place] [address] 11/04/2024 11:10 AM CDT Office Visit [facility] UROLOGY - [place] [address] [facility] [address] [place] [address] Marvin Holman MD [address] [facility] [address] [place] [address] Scheduled Orders Name Type Priority Associated Diagnoses Orde r Schedule XR ESOPHAGUS BARIUM SWALLOW Imaging Routine Esophageal dysphagia 1 Occurrences starting 10/21/2024 until 10/21/2025 documented as of this encounter Visit Diagnoses Diagnosis Esophageal dysphagia- Primary Dysphagia, pharyngoesophageal phase documented in this encounter Care Teams Cut Out Machine Operator Relationship Specialty Start Date End Date Giovanny Farias DO [address] [phone] PCP - General Internal Medicine 03/13/23 documented as of this encounter
--- OUTSIDE RECORDS SUMMARY | 2024-10-22 14:04 | XMS_ITS | Referral Summary ---
Author Organization [facility] [address] Address [address] [place] [address] Care Team Providers Care Quality Assurance Practice Manager Name Role Phone Giovanny Farias DO Primary Care Provider [phone]- [phone] Encounters Date Type Department Care Team Description 10/19/2024 2:24 PM CDT - 10/19/2024 11:59 PM CDT Hospital Encounter [address] [address] Type 1 diabetes mellitus without complication (HCC); Hypertension, unspecified type Discharge Disposition: Discharge to home or self care 10/19/2024 2:20 PM CDT Lab [facility] Endocrinology Metabolism and Lipid [address] [place] [id number] Type 1 diabetes mellitus without complication (HCC); Hypertension, unspecified type 10/19/2024 1:00 PM CDT Office Visit [facility] Endocrinology Metabolism and Lipid [address] [place] [address] Aba Pagan MD Hypertension, unspecified type (Primary Dx); Type 1 diabetes mellitus without complication (HCC) from Last 3 Months Allergies Active Allergy Reactions Criticality Noted Date Comments Adhesive Rash Medium 03/31/2020 Adhesive Tape-Silicones Unknown 03/31/2020 Insulin Aspart Nausea And Vomiting Low 08/28/2023 Neomycin Rash Medium 02/20/2023 Efbxyeta-Kbunxonnmn-Vusxtkfmi Rash Medium 2023 Penicillin Unknown 10/24/2023 Sulfa (Sulfonamide Antibiotics) Unknown 03/14 Medications estradioL (VAGIFEM) 10 mcg tablet 07/18/19 23 Active elderberry fruit 50 mg/5 mL syrup [...] skin 3 (three) times a day Active cholecalcifero l (VITAMIN D-3) 50,000 unit capsule Take 1 capsule (50,000 Units total) by mouth daily Active PANTOTHENIC ACID, VIT B5, ORAL Take 500 mg by mouth daily Active ascorbic acid 500 mg tablet,chewabl e Take 1 tablet/chew tab (500 mg total) by mouth daily Active cyanocobalamin (Vitamin B-12) 500 mcg tablet Take 1 tablet (500 mcg total) by mouth daily Active aspirin 81 mg chewable tablet CHEW AND SWALLOW 1 TABLET BY MOUTH DAILY AT 8 AM 09/09/19 25 Active blood-glucose sensor (Dexcom G7 Sensor) device Discreetly worn under clothing to measure glucose levels just underneath the skin. Must change sensor every 10.5 days. 06/02/20 23 Active Omnipod 5 G6-G7 Pods, Gen 5, cartridge CHANGE pod every TWO DAYS as directed. 08/02/19 25 Active losartan (COZAAR) 50 mg tablet Take 1 tablet (50 mg total) by mouth daily 09/24/19 25 Active scopolamine 1 mg over 3 days patch 3 day APPLY 1 PATCH TOPICALLY TO THE SKIN EVERY 72 HOURS 09/25/19 25 Active vitamin E 400 unit capsule Take 1 capsule (400 Units total) by mouth Active insulin glargine 100 unit/mL (3 mL) pen for injection INJECT 8 UNITS UNDER THE SKIN EVERY EVENING 025 Discontinued Active Problems Problem Noted Date Diagnosed Date Type 1 diabetes mellitus without complication Primary hypertension 10/19/2024 Positive KERVIN (antinuclear antibody) 10/24/2023 Overview (10/30/2023): [...] on file Legal Sex Female 7:58 AM FLARE MAN Gender Identity Not on file Sexual Orientation Not on file Last Filed Vital Signs Vital Sign Reading Time Taken Comments Blood Pressure 129/85 10/19/2024 12:59 PM CDT Pulse 76 10/19/2024 12:59 PM CDT Temperature 36.4 C (97.5 F) 10/19/2024 12:59 PM CDT Respiratory Rate 19 06/10/2023 9:00 AM FLARE MAN Oxygen Saturation 100% 10/24/2023 9:52 AM CDT Inhaled Oxygen Concentration - - Weight 57.9 kg (127 lb 9.6 oz) 10/19/2024 12:59 PM CDT Height 170.2 cm (5' 7 ) 10/19/2024 12:59 PM CDT Body Mass Index 19.98 10/19/2024 12:59 PM CDT Plan of Treatment Not on file Procedures Procedure Name Priority Date/Time Associated Diagnosis Comments METANEPHRINES, FRACTIONATED FREE, BLOOD Routine 10/19/2024 2:24 PM CDT Type 1 diabetes mellitus without complication (HCC) Hypertension, unspecified type RENIN ACTIVITY Routine 10/19/2024 2:24 PM CDT Type 1 diabetes mellitus without complication (HCC) Hypertension, unspecified type C-PEPTIDE Routine 10/19/2024 2:24 PM CDT Type 1 diabetes mellitus without complication (HCC) Hypertension, unspecified type COMPREHENSIVE METABOLIC PANEL Routine 10/19/2024 2:24 PM CDT Type 1 diabetes mellitus without complication (HCC) Hypertension, unspecified type POCT HEMOGLOBIN A1C Routine 10/19/2024 1 :12 PM CDT Type 1 diabetes mellitus without complication (HCC) THYROID FUNCTION CASCADE STAT 06/09/2023 6:29 PM FLARE MAN from Last 3 Months or Most Recently Relevant to Health Maintenance Results * Metanephrines, fractionated free, blood (10/19/2024 2:24 PM CDT) Metanephrines <0.20 <0.50 nmol/L [place] ref Lab Comment: ADDITIONAL INFORMATION This test was developed and its performance characteristics determined by [facility] in a manner consistent with CLIA requirements. This test has not been cleared or approved by the U.S. Food and Drug Administration. Test Performed by: [facility] [address] [id number] In Class Special Education Teacher: Nohemi Mace Ph.D.; CLIA# [id number] Normetanephrines 0.81 <0.90 nmol/L ABRAMVALERIE CYNTHIA Blood 10/19/2024 2:24 PM CDT 10/19/2024 2:55 PM CDT Aba Pagan MD LAB BLOOD ORDERABLES Fin al Result Performing Organization Address [facility] de Phone Number CRISTÓBAL MARIE [facility] Department [place] [address] [facility] ref [facility] * Renin activity (10/19/2024 2:24 PM CDT) Renin <0.6 ng/mL/H [facility] ref [facility] Comment: REFERENCE VALUE (Peripheral vein specimen) Na-deplete, upright: Mean: 5.9 Range: 2.9-10.8 Na-replete, upright: Mean: 1.0 Range: < or =0.6-3.0 ADDITIONAL INFORMATION Testing performed by Liquid Chromatography-Tandem Mass Spectrometry (LC-MS/MS). This test was developed and its performance characteristics determined by [facility] in a manner consistent with CLIA requirements. This test has not been cleared or approved by the U.S. Food and Drug Administration. Test Performed by: [facility] [address] [place] [address] In Class Special Education Teacher: Nohemi Mace Ph.D.; CLIA# [id number] Blood 10/19/2024 2:24 PM CDT 10/19/2024 2:55 PM CDT Aba Pagan MD LAB BLOOD ORDERABLES Fin al Result CRISTÓBAL TILLEY [facility] Department [place] [address] [place] ref Lab * (ABNORMAL) C-peptide (10/19/2024 2:24 PM CDT) C-Peptide <0.01(L) 1.10 - 4.40 ng/mL [facility] Comment:Repeated and Verifie d Blood 10/19/2024 2:24 PM CDT 10/19/2024 3:24 PM CDT us Aba Pagan MD LAB BLOOD ORDERABLES Fin al Result [facility] CORE [facility] * (ABNORMAL) Comprehensive metabolic panel (10/19/2024 2:24 PM CDT) Total Protein 7.4 6.1 - 8.4 g/dL [facility] Albumin 4.4 3.5 - 5.2 g/dL [facility] Calcium 10.2 8.6 - 10.3 mg/dL [facility] BUN 27(H) 7 - 23 mg/dL [facility] Total Bilirubin 0.36 0.20 - 1.40 mg/dL [facility] Alk Phos, Total 138(H) 35 - 129 IU/L [facility] AST (SGOT) 24 11 - 47 IU/L [facility] ALT (SGPT) 19 6 - 53 IU/L [facility] Creatinine 1.21(H) 0.60 - 1.10 mg/dL [facility] Sodium 139 135 - 145 mmol/L [facility] Potassium 4.6 3.3 - 5.1 mmol/L [facility] Chloride 98 95 - 107 mmol/L [facility] CO2 Content 29 21 - 29 mmol/L [facility] Glucose 209(H) 64 - 99 mg/dL [facility] Comment: NONFASTING GLUCOSE RANGE = 64-199 mg/dL FASTING GLUCOSE 64 - 99 = NORMAL FASTING GLUCOSE 100 - 125 = IMPAIRED FASTING GLUCOSE FASTING GLUCOSE >=126 = PROVISIONAL DIAGNOSIS OF DIABETES eGFR 46.7(L) >60.0 mL/min/1.7 3 m2 [facility] Blood 10/19/2024 2:24 PM CDT 10/19/2024 3:24 PM CDT Aba Pagan MD LAB BLOOD ORDERABLES Fin al Result [facility] * POCT hemoglobin A1c (10/19/2024 1:12 PM CDT) Hemoglobin A1C, POC 8.0 4.0 - 5.6 % Capillary blood 10/19/2024 1 :12 PM CDT us Aba Pagan MD POINT OF CARE TEST ORDER RON Final Result * TSH reflex to free T4 (06/09/2023 6:29 PM FLARE MAN) TSH 3.03 0.30 - 4.20 mcIUnit/mL CRISTÓBAL Comment:Testing performed by : [facility], [address] [place] [address]., [id number] Blood 06/09/2023 6:29 PM FLARE MAN 06/09/2023 6:39 PM FLARE MAN Chelo Simmons MD LAB BLOOD ORDERABLES F inal Result Performing Organization Address City/[facility]/ZIP Co de Phone Number [facility] [address] [facility] Department [place] [address] from Last 3 Months or Most Recently Relevant to Health Maintenance Insurance AETNA MEDICARE Care Teams Quality Assurance Practice Manager Relationship Specialty Start Date End Date Giovanny Farias DO PCP - General Internal Medicine 07/17/22
--- OUTSIDE RECORDS SUMMARY | 2024-10-22 14:04 | XMS_ITS ---
Author Organization [employer] [facility] Address [address] [place] [address] Phone Care Team Providers Care Data Warehousing Architect Name Role Phone Giovanny Farias DO Primary [...]
--- OUTSIDE RECORDS SUMMARY | 2024-10-22 14:04 | XMS_ITS | Clinical Summary ---
Author Organization [employer] [facility] Address [address] [place] [address] Phone Care Team Providers Care Statue Carver Name Role Phone ShaniajonathanGiovanny king Garland Primary Care Provider Allergies Active Allergy Reactions Criticality Noted Date Comments Adhesive Tape-Silicones Unknown 03/31/2020 Insulin Aspart Nausea and Vomiting Low 08/28/2023 Pwfsq-Zmudh-Bzfnpvs-Pramoxine Rash Low 2022 Neomycin Rash Low 02/20/2023 Mawgalyw-Emtaijtmki-Aoeeiybtq Rash Medium 2023 Penicillin Unknown 10/24/2023 Polymyxin [...] (ELDERBERRY ORAL) Take by mouth. Activ e O96-KITOPMDYAHU HYDROFOLATE-B6 ORAL Take by mouth. Activ e blood sugar diagnostic (OneTouch Verio test strips) Strip Use to test blood glucose 3 times daily as directed. 100 Each 05/19/2023 3:06 PM BLOW MOLD TECHNICIAN 3 Active Blood-Glucose Meter (Corimmunuch Verio Flex meter) Use as directed 1 Each 05/28/2023 11:33 AM BLOW MOLD TECHNICIAN 3 Active prochlorperazin e maleate (Compazine) 10 [...] twice weekly. 24 Tablet 4 5 Active losartan (COZAAR) 50 mg tablet Take 50 mg by mouth daily. Active aspirin (CHASE CHEWABLE) 81 mg Tablet, Chewable Take 81 mg by mouth daily. Active Active Problems Problem Noted Date Diagnosed [...] Encounters Date Type Department Care Team Description 10/21/2024 9:15 AM CDT Office Visit [facility] Gastroenterology [address] [place] [address] Johan Ledesma MD Esophageal dysphagia (Primary Dx) 08/06/2024 Results Follow-Up [facility] TOW MOTOR OPERATOR [facility] [address] [place] [address] Hadley Truong MD CERV/VAG CYTO SCREEN PAP RLFX HPV 08/04/2024 12:40 PM BLOW MOLD TECHNICIAN Office Visit [facility] TOW MOTOR OPERATOR [facility] [address] [place] [address] Hadley Truong MD Encounter for gynecological examination [...] PM CDT Legal Sex Female 6:06 AM BLOW MOLD TECHNICIAN Gender Identity Female 02/16/2023 9:31 PM CDT Sexual Orientation Not on file Last Filed Vital Signs Vital Sign Reading Time Taken Comments Blood Pressure 128/80 10/21/2024 9:49 AM CDT Pulse 80 10/21/2024 9:49 AM CDT Temperature 36.3 C (97.4 F) 04/29/2024 10:46 AM CDT Respiratory Rate 18 04/29/2024 10:46 AM CDT Oxygen Saturation 98% 04/29/2024 10:46 AM CDT Inhaled Oxygen Concentration - - Weight 57.6 kg (127 lb) 10/21/2024 9:49 AM CDT Height 170.2 cm (5' 7 ) 10/21/2024 9:49 AM CDT Body Mass Index 19.89 10/21/2024 9:49 AM CDT Plan of Treatment Upcoming Encounters Date Type Department Care Team (Late st Contact Info) Description 10/28/2024 9:00 AM CDT Appointment [facility] [place] [address] [facility] [address] [place] [address] Hadley Truong MD [address] [facility] [address] [place] [address] 10/28/2024 9:45 AM CDT [facility] [place] [address] [facility] [address] [place] [address] Rosemary Mayen PA-C [address] [place] [address] 11/02/2024 8:15 AM CDT [facility] [place] [address] [facility] [address] [place] [address] Nereida Palma, QUYEN [address] [place] [address] 11/02/2024 9:30 AM CDT [facility] [place] [address] [facility] [address] [place] [address] Rosemary Mayen PA-C [address] [place] [address] 11/04/2024 11:10 AM CDT Office Visit [facility] [place] [address] [facility] [address] [place] [address] Marvin Holman MD [address] [facility] [address] [place] [address] Health Maintenance Due Date Last [...] series) 2024 DIABETES HBA1C Q 6 MONTHS 04/20/20252024, 04/26/2024, 01/12/2024, Additional history exists COLORECTAL SCREENING 08/30/2033 08/30/2023, 08/30/19 Colorectal Cancer Screening 08/30/2033 INFLUENZA VACCINE Completed 08/04/2024 Medical Devices Implanted Type Area Weight Analyst Device Identifier Shelf Expiration Date Model / Serial / Lot Glucose Monitor Continuous Glucose Monitor Description:Must be removed prior to MRI -yasmeen 08/29/23 Hemostat Surg Snow 2x4in 2081 - [id number] Implanted:Qt y: 1 on 03/14/2023 by Marvin Holman MD at [facility] Hemostatic Left: Abdomen J[employer]J- [employer] [id number] / / Hemostat Surg Snow 2x4in 2081 - [id number] Implanted:Qt y: 1 on 03/14/2023 by Marvin Holman MD at [facility] Hemostatic Left: Abdomen J[employer]- [employer] [id number] 09/10/2024 2082 / / [id number] Tmj Implants Procedures Procedure Name Priority Date/Time Associated Diagnosis Comments CERV/VAG CYTO SCREEN PAP RLFX HPV Routine 08/04/2024 3:14 PM BLOW MOLD TECHNICIAN Encounter for gynecological examination with abnormal finding Screening for cervical cancer COLONOSCOPY REPORT 08/30/2023 9: 48 AM BLOW MOLD TECHNICIAN HEMOGLOBIN A1C Routine 08/28/2023 10:50 PM BLOW MOLD TECHNICIAN from Last 3 Months or Most Recently Relevant to Health Maintenance Results * CERV/VAG CYTO SCREEN PAP RLFX HPV (08/04/2024 3:14 PM BLOW MOLD TECHNICIAN) CLINICAL INFORMATION Tennille Valdez Comment:Routine exam LAST [...] has been evaluated with computer assisted technology. ENGRAVING PATTERNMAKER: Yen Valdez Comment: BKA, CT(ASCP) CT screening location: [address] [address] [address] MELVIN Nathan [address] Lorelei Valdez Comment: [...] and current clinical information. Test Performed at: [address] [address] [address] [place] [address] Ira Silva Genital SWAB OF ENDOCERVIX / Unknown 08/04/2024 3:14 PM BLOW MOLD TECHNICIAN 08/05/2024 2:38 AM BLOW MOLD TECHNICIAN Hadley Truong MD PATHOLOGY/CYTOLOGY ORDERABLES nal Result [facility] [phone] [address] [address] [address] [place] [address] * COLONOSCOPY REPORT (08/30/2023 9:48 AM BLOW MOLD TECHNICIAN) Narrative Procedure Note Johan Ledesma MD - [...] of Addenda: [address]; [place] [address] Johan Ledesma MD GI PROCEDURE ORDERABLES Final Re sult * (ABNORMAL) HEMOGLOBIN A1C (08/28/2023 10:50 PM BLOW MOLD TECHNICIAN) HEMOGLOBIN A1C 7.5(H) <5.7 % 08/28/2023 11:09 PM BLOW MOLD TECHNICIAN [facility] EST. AVG GLUCOSE, A1C 169 mg/dL 08/28/2023 11:09 PM BLOW MOLD TECHNICIAN [facility] Blood Venipuncture / Unknown 08/28/2023 10:50 PM BLOW MOLD TECHNICIAN 08/28/2023 10:50 PM BLOW MOLD TECHNICIAN Narrative [facility] - 08/28/2023 11:09 PM BLOW MOLD TECHNICIAN HGB A1C INTERPRETATION NORMAL: <5.7% PRE-DIABETES: 5.7 - 6.4% DIABETES: 6.5% OR GREATER Mesha Tello MD CHEMISTRY ORDERABLES Final Result [facility] CLIA# [id number] [address] [place] [address] from Last 3 Months or Most Recently Relevant to Health Maintenance Insurance AETNA PPO [facility] RX AETNA Medicare Part D RX [employer] (INTERNAL) [facility] RX [facility] Commercial RX [employer] (INTERNAL) [facility] Advance Directives For more information, please contact: [phone] * Full Code (Latest Code Status on [...] 11:34 AM 03/14/2023 8:43 PM Care Teams Statue Carver Relationship Specialty Start Date End Date Giovanny Farias DO [address] [address] PCP - General Internal Medicine 03/13/23
--- OUTSIDE RECORDS SUMMARY | 2024-10-22 14:04 | XMS_ITS | Encounter Summary ---
Author Organization [facility] Address [address] [place] [address] Care Team Providers Care Service Person Name Role Phone Giovanny Farias Primary Care Provider Encounter Details Date Type Department Care Team (Late st Contact Info) Description 08/06/2024 Results Follow-Up [facility] WOOL HANDLER Medical [place] [address] [facility] [address] [place] [address] Hadley Truong MD [address] [facility] [address] [place] [address] CERV/VAG CYTO SCREEN PAP RLFX [...] PM CDT Legal Sex Female 6:06 AM CNA GNA Gender Identity Female 02/16/2023 9:31 PM CDT Sexual Orientation Not on file documented as of this encounter Plan of Treatment Upcoming Encounters Date Type Department Care Team (Late st Contact Info) Description 10/28/2024 9:00 AM CDT Appointment [facility] [place] [address] [facility] [address] [place] [address] Hadley Truong MD [address] [facility] [address] [place] [address] 10/28/2024 9:45 AM CDT Appointment [facility] [place] [address] [facility] [address] [place] [address] Rosemary Mayen PA-C [address] [place] [address] 11/02/2024 8:15 AM CDT Appointment [facility] Scan [place] [address] [facility] [address] [place] [address] Nereida Palma NP [address] [place] [address] 11/02/2024 9:30 AM CDT Appointment [facility] [place] [address] [facility] [address] [place] [address] Rosemary Mayen PA-C [address] [address] 11/04/2024 11:10 AM CDT Office Visit [facility] [place] [address] [facility] [address] [place] [address] Marvin Holman MD [address] [place] [address] documented as of this encounter Visit Diagnoses Not on filedocumented in this encounter Care Teams Service Person Relationship Specialty Start Date End Date Giovanny Farias DO [address] [address] PCP - General Internal Medicine 03/13/23 documented as of this encounter
--- OUTSIDE RECORDS SUMMARY | 2024-10-22 14:04 | XMS_ITS | Encounter Summary ---
Author Organization [facility] Address [address] [facility] [place] [address] Care Team Providers Care Drawer Fitter Name Role Phone ShaniaGiovanny kingston Mario Alberto DO Primary Care Provider Provider, No Pcp Primary Care Provider Unavailab le Encounter Details Date Type Department Care Team (Late st Contact Info) Description 08/27/2018 Lab Requisition [facility] [address] [facility] [place] [address] Vishnu Aggarwal MD [address] [place] [address] Social History Tobacco Use Types Packs/Day Years Used Date Smoking Tobacco: Never Assessed Sex and Gender Information Value Date Recorded Sex Assigned at Not on file Gender Identity Not on file Sexual Orientation Not on file documented as of this encounter Plan of Treatment Not on file documented as of this encounter Procedures Procedure Name Priority Date/Time Associated Diagnosis Comments DERMATOPATHOLOGY Routine 08/26/2018 12:0 0 AM OPTICAL INSTRUMENT SPECIALIST documented in this encounter Results * DERMATOPATHOLOGY (08/26/2018 12:00 AM OPTICAL INSTRUMENT SPECIALIST) Case Report Dermatopathology Report Case: [id number] Authorizing Provider: Vishnu Aggarwal MD Collected: 08/26/2018 12:00 AM Pathologist: Barbie Fitzgerald MD Received: 08/27/2018 11:34 AM Specimens: A) - Skin, left upper quadrant abdomen B) - Skin, left lateral upper arm 9 12:44 PM OPTICAL INSTRUMENT SPECIALIST DERMATOPATHOLOGY LABORATORY Amended Report Addition of in situ to diagnosis and microscopic description to read 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 SKIN, left upper quadrant abdomen: SOLAR LENTIGO, INFLAMED (L81.4) Specimen B. 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 B: R/O Jordan's. Check margins. 12:44 PM [facility] DERMATOPATHOLOGY LABORATORY Gross Description Specimen A: Received is one formalin filled container labeled with the patient's name and designated left upper quadrant abdomen. The specimen consists of a shave biopsy measuring [id number]. Jar 0. Specimen B: Received is one formalin filled container labeled with the patient's name and designated left lateral upper arm.The specimen consists of a punch excision measuring [id number] and is oriented with the notch at [...] in cassettes 3-4. Jar 0. 12:44 PM [facility] DERMATOPATHOLOGY LABORATORY Microscopic Description [...] base of the specimen. 9 12:44 PM [facility] DERMATOPATHOLOGY LABORATORY Disclaimer An external and internal positive and negative controls are appropriate for the histochemical, immunohistochemical and immunofluorescence stain(s) in this case (if any), except where stated explicitly. The performance characteristics of the stain(s) cited in this report were developed and its performance characteristic determined by the Dermatopathology Laboratory at [facility], directed by Dr. Hong Mohr. These tests need not be, and therefore are not, approved by the [place] Food and Drug Administration. The tests are used for clinical purposes. Billing Codes Specimen Charges Stain Charges 36602 33015 1 1 9 12:44 PM OPTICAL INSTRUMENT SPECIALIST DERMATOPATHOLOGY LABORATORY Embedded Images 9 12:44 PM OPTICAL INSTRUMENT SPECIALIST DERMATOPATHOLOGY LABORATORY Pathology/Cytology TISSUE SPECIMEN FROM SKIN / Unknown 08/26/2018 08/27/2018 11:34 AM OPTICAL INSTRUMENT SPECIALIST Miscellaneous samples (specimen) TISSUE SPECIMEN FROM SKIN / Unknown 08/26/2018 08/27/2018 11:34 AM OPTICAL INSTRUMENT SPECIALIST Vishnu Aggarwal MD LAB - PATHOLOGY/CYTO LOGY ORDERABLES DERMATOPATHOLOGY LABORATORY [facility] - Department of Dermatology [address] [place] [address] [address] Lab [address] [phone] documented in this encounter Visit Diagnoses Not on filedocumented in this encounter Care Teams Drawer Fitter Relationship Specialty Start Date End Date Giovanny Farias DO PCP - General Internal Medicine 06/10/23 04/25/24 Provider, No Pcp PCP - General 04/26/24 documented as of this encounter
--- OUTSIDE RECORDS SUMMARY | 2024-10-22 14:04 | XMS_ITS | Continuity of Care Document ---
Author Organization [facility]. If a dditional information is needed, contact Health Information Management at [phone] Address [address] [place] [address] Phone Care Team Providers Care Treater Name Role Phone Unavailable Unavailable Unavailable Unavailable [...]
--- OUTSIDE RECORDS SUMMARY | 2024-10-22 14:04 | XMS_ITS | Encounter Summary ---
Author Organization [facility] Address [address] [facility] [place] [address] Care Team Providers Care Machinist Linotype Name Role Phone Provider, No Pcp Primary Care Provider Unavailab le Reason for Visit * Reason Comments Refill Request Encounter Details Date Type Department Care Team (Late st Contact Info) Description 10/21/2024 Refill [facility] - Endocrinology [address] [place] [phone] Arcelia Gambino, DO [address] [facility] [address] [place] [id number] Refill Request Social History Tobacco Use Types Packs/Day Years Used Date Smoking Tobacco: Never Smokeless Tobacco: Never Alcohol Use Standard Drinks/Week Comments Not Currently 0 (1 standard drink = 0.6 oz pur e alcohol) Sex and Gender Information Value Date Recorded Sex Assigned at Not on file Gender Identity Not on file Sexual Orientation Not on file documented as of this encounter Plan of Treatment Not on file documented as of this encounter Visit Diagnoses Diagnosis Type 1 diabetes mellitus without complication (HCC) Type I (juvenile type) diabetes mellitus without mention of complication, not stated as uncontrolled documented in this encounter Care Teams Machinist Linotype Relationship Specialty Start Date End Date Provider, No Pcp PCP - General 04/26/24 documented as of this encounter
--- OUTSIDE RECORDS SUMMARY | 2024-10-22 14:04 | XMS_ITS | Clinical Summary ---
Author Organization [facility] [address] Address [address] [place] [address] Care Team Providers Care Resolution Agent Name Role Phone Giovanny Farias DO Primary Care Provider [phone]- [phone] Allergies Active Allergy Reactions Criticality Noted Date Comments Adhesive Rash Medium 03/31/2020 Adhesive Tape-Silicones Unknown 03/31/2020 Insulin Aspart Nausea And Vomiting Low 08/28/2023 Neomycin Rash Medium 02/20/2023 Aroptjdn-Uwspknfuvf-Jzrqlzrjm Rash Medium 2023 Penicillin Unknown 10/24/2023 Sulfa [...] nasal turbinates Nasal obstruction 07/23/2022 Sialolithiasis 07/23/2022 Encounters Date Type Department Care Team Description 10/19/2024 2:24 PM CDT - 10/19/2024 11:59 PM CDT Hospital Encounter [facility] [address] [place] [address] Type 1 diabetes mellitus without complication (HCC); Hypertension, unspecified type Discharge Disposition: Discharge to home or self care 10/19/2024 2:20 PM CDT Lab [facility] Endocrinology Metabolism and Lipid [address] [facility] [address]th [place] [address] [place] [address] Type 1 diabetes mellitus without complication (HCC); Hypertension, unspecified type 10/19/2024 1:00 PM CDT Office Visit [facility] Endocrinology Metabolism and Lipid [address] [facility] 5th [place] [address] [place] [address] Aba Pagan MD Hypertension, unspecified type (Primary Dx); Type 1 diabetes mellitus without complication (HCC) from Last 3 Months Surgical History Surgery Date Site/Laterality Comments TUBAL [...] on file Legal Sex Female 7:58 AM VP OUTCOMES Gender Identity Not on file Sexual Orientation Not on file Obstetrics History Last Filed Vital Signs Vital Sign Reading Time Taken Comments Blood Pressure 129/85 10/19/2024 12:59 PM CDT Pulse 76 10/19/2024 12:59 PM CDT Temperature 36.4 C (97.5 F) 10/19/2024 12:59 PM CDT Respiratory Rate 19 06/10/2023 9:00 AM VP OUTCOMES Oxygen Saturation 100% 10/24/2023 9:52 AM CDT Inhaled Oxygen Concentration - - Weight 57.9 kg (127 lb 9.6 oz) 10/19/2024 12:59 PM CDT Height 170.2 cm (5' 7 ) 10/19/2024 12:59 PM CDT Body Mass Index 19.98 10/19/2024 12:59 PM CDT Plan of Treatment Health Maintenance Due Date [...] of 2) 10/05/1999 Well Visit 65+ 2014 Lipid Panel 09/15/2024 09/16/2023 TSH Level 09/15/2024 09/16/2023, 08/14, 06/09/2023, Additional history exists Influenza Vaccine (Season Ended) 2025 05/02/20 16, 04/15/2013 Hemoglobin A1C 04/20/2025 10/19/2024, 08/14, 05/17/2023, Additional history exists eGFR 10/19/2025 10/19/2024, 05/15, 06/09/2023 Procedures Procedure Name Priority Date/Time Associated Diagnosis [...] THYROID FUNCTION CASCADE STAT 06/09/2023 6:29 PM VP OUTCOMES from Last 3 Months or Most Recently Relevant to Health Maintenance Results * Metanephrines, fractionated free, blood (10/19/2024 2:24 PM CDT) Metanephrines <0.20 <0.50 nmol/L [facility] Comment: ADDITIONAL INFORMATION This test was developed and its performance characteristics determined by [facility] in a manner consistent with CLIA requirements. This test has not been cleared or approved by the U.S. Food and Drug Administration. Test Performed by: [facility] - [address] [address] Lithographic Proofer: Nohemi Mace Ph.D.; CLIA# [id number] Normetanephrines 0.81 <0.90 nmol/L [facility] Blood 10/19/2024 2:24 PM CDT 10/19/2024 2:55 PM CDT us Aba Pagan MD LAB BLOOD ORDERABLES Fin al Result [facility] [address] [facility] Department [place] [address] [place] ref Lab * Renin activity (10/19/2024 2:24 PM CDT) Pathologist [facility] Renin <0.6 ng/mL/H [place] ref Lab Comment: REFERENCE VALUE (Peripheral vein specimen) Na-deplete, upright: Mean: 5.9 Range: 2.9-10.8 Na-replete, upright: Mean: 1.0 Range: < or =0.6-3.0 ADDITIONAL INFORMATION Testing performed by Liquid Chromatography-Tandem Mass Spectrometry (LC-MS/MS). This test was developed and its performance characteristics determined by [facility] in a manner consistent with CLIA requirements. This test has not been cleared or approved by the U.S. Food and Drug Administration. Test Performed by: [facility] [place] [address] Lithographic Proofer: Nohemi Mace Ph.D.; CLIA# [id number] Blood 10/19/2024 2:24 PM CDT 10/19/2024 2:55 PM CDT us Aba Pagan MD LAB BLOOD ORDERABLES Fin al Result [facility] Department [place] [address] [place] ref Lab * (ABNORMAL) C-peptide (10/19/2024 2:24 PM CDT) Pathologist [facility] C-Peptide <0.01(L) 1.10 - 4.40 ng/mL [facility] Comment:Repeated and Verifie d Blood 10/19/2024 2:24 PM CDT 10/19/2024 3:24 PM CDT Aba Pagan MD LAB BLOOD ORDERABLES Fin al Result Performing Organization Address City/[facility] Co de Phone Number [facility] * (ABNORMAL) [...] ORDERABLES Fin al Result Performing Organization Address City/[facility]/ZIP Co de Phone Number [facility] * POCT hemoglobin A1c (10/19/2024 1:12 PM CDT) Hemoglobin A1C, POC 8.0 4.0 - 5.6 % Capillary blood 10/19/2024 1 :12 PM CDT us Aba Pagan MD POINT OF CARE TEST ORDER RON Final Result * TSH reflex to free T4 (06/09/2023 6:29 PM VP OUTCOMES) TSH 3.03 0.30 - 4.20 mcIUnit/mL [facility] Comment:Testing performed by : [facility], [address] [place] [address]., [address] Blood 06/09/2023 6:29 PM VP OUTCOMES 06/09/2023 6:39 PM VP OUTCOMES us Cehlo Simmons MD LAB BLOOD ORDERABLES F inal Result [facility] [address] [facility] Department [place] [address] from Last 3 Months or Most Recently Relevant to Health Maintenance Insurance T MEDICARE [address] [id number] Care Teams Resolution Agent Relationship Specialty Start Date End Date Giovanny Farias DO PCP - General Internal Medicine 07/17/22
--- OUTSIDE RECORDS SUMMARY | 2024-10-22 14:04 | XMS_ITS | Clinical Summary ---
Author Organization [facility] Address [address] [place] [address] Care Team Providers Care Financial Investment Manager Name Role Phone Provider, No Pcp Primary Care Provider Unavailab le Source Comments [facility],non-owned Affiliates and Associated Physician Practices is amultiple site organization consisting of ambulatory clinics and hospital sitesin [place], [place], [place] and [place]. This disclosure is being madepursuant to the Care Everywhere program and may not contain all information available regarding this patient. Last updated 18.[facility] Allergies Active Allergy Reactions Criticality Noted Date Comments Adhesive Sensitivity Unknown 03/31/2020 Insulin Aspart Nausea and/or Vomiting Low 4 Gveqt-Rrsff-Ybgxswc-Pramoxine Rash Medium 2022 Sulfa Drugs Unknown 03/31/2020 [...] daily Active Cholecalciferol (vitamin D3) 1.25 MG (12060 UT) capsule Take 1 (one) capsule by mouth once daily Active Lancets (ONETOUCH DELICA PLUS 33G EXTRA FINE LANCET) USE TO CHECK BLOOD SUGAR 4 TIMES DAILY 09/24/2023 Active OneTouch Verio test strip USE TO TEST BLOOD SUGAR 4 TIMES A DAY 09/24/2023 Active fluticasone propionate (Flonase) 50 MCG/ACT nasal spray Stockett 2 (two) sprays into each nostril once daily Active cetirizine (ZyrTEC) 10 MG tablet Take 1 (one) tablet by mouth once daily Active Insulin Disposable Pump (Omnipod 5 G7 Intro, Gen 5,) KITIndications:Ty pe 1 diabetes mellitus without complication (HCC) Use 1 Each continuous 1 kit 01/22/2024 Active insulin lispro (HumaLOG) 100 UNIT/ML vial Use for insulin pump, daily max 40 units 30 mL 3 02/11/2024 Active insulin glargine-yfgn (Semglee) penIndications:Ty pe 1 diabetes mellitus without complication (HCC) Inject 6 (six) Units subcutaneously at bedtime 15 mL 3 02/17/2024 Active Additional Information Patient not taking.Reported on 04/26/2024 insulin lispro (HumaLOG KwikPen) 100 UNIT/ML penIndications:Ty pe 1 diabetes mellitus without complication (HCC) Inject 3 (three) Units subcutaneously 3 times daily before meals 15 mL 3 02/17/2024 Active Insulin Disposable Pump (Omnipod 5 [id number] Pods Gen 5) MISCIndications:T ype 1 diabetes mellitus without complication (HCC) CHANGE pod every TWO DAYS as directed. 15 Each 3 10/21/2024 Active Insulin Disposable Pump (Omnipod 5 RttH8A2 Pods Gen 5) MISCIndications:T ype 1 diabetes mellitus without complication (HCC) CHANGE pod every TWO DAYS as directed. 15 Each 3 07/22/2024 10/22/19 25 Discontinued Active Problems No known active problems Encounters Date Type Department Care Team Description 10/21/2024 Refill [facility] - Endocrinology [address] [place] [address] Arcelia Gambino, DO Refill Request 2024 Travel from Last 3 Months Social History [...] 01/12/2024 10:31 AM CDT Plan of Treatment Health Maintenance Due [...] of 2) 10/05/1999 COVID-19 VACCINE ( - season) 2024 DEPRESSION SCREENING 07/14/2024 MEDICARE [...] Comments LIPID PROFILE Routine 09/16/2023 9:33 AM AD TAKER Type 1 diabetes mellitus without complication from Last 3 Months or Most Recently Relevant to Health Maintenance Results * (ABNORMAL) LIPID PROFILE (09/16/2023 9:33 AM AD TAKER) Cholesterol 211(H) <200 mg/dL [facility] HDL Cholesterol [...] LDL-C. Luis SS et al. KRISTAN. 2013;310(19): 3591-5822 (http://education.PlaySight.Page Foundry/faq/UEE579) CHOL/HDLC RATIO 2.6 <5.0 (calc) [facility] Non HDL Cholesterol 131(H) <130 mg/dL (calc) [facility] Comment: For patients with diabetes plus 1 major ASCVD risk factor, treating to a non-HDL-C goal of <100 mg/dL (LDL-C of <70 mg/dL) is considered a therapeutic option. Test Performed at: [facility] [address] [address] ABIMAEL WU MD Blood BLOOD SPECIMEN / Unknown 09/16/2023 9:33 AM AD TAKER 09/16/2023 9:35 AM AD TAKER Arcelia Gambino DO LAB - CHEMISTRY ORDE RABLES [facility] [address] [place] [address] from Last 3 Months or Most Recently Relevant to Health Maintenance Care Teams Financial Investment Manager Relationship Specialty Start Date End Date Provider, No Pcp PCP - General 04/26/24
== END 2024-10-22 13:58 | disposition home or self-care (01) ==
PROVIDERS: PCP Internal Medicine; Visit Provider Clinical Nurse Specialist
DX: M47.816 Spondylosis without myelopathy or radiculopathy, lumbar region (principal); M47.817 Spondylosis without myelopathy or radiculopathy, lumbosacral region
CPT/HCPCS: 72148

== ENCOUNTER 2024-11-22 07:41 | Outpatient (CLI) | payer MEDICARE, SELFPAY ==
--- NOTE | ~2024-11-22 | CT_ITS ---
EXAMINATION: CTA abdomen DATE: 11/22/2024 08:14 INDICATION: Atherosclerosis of renal artery TECHNIQUE: Computed tomographic angiography (CTA) of the abdomen was performed without and with 100 m L Omnipaque-350 intravenous contrast. Volume-rendered 3D-reconstructions of the aorta and large arter ies were constructed by the technologist on a separate workstation. Automated exposure control and it erative reconstruction technique were employed. The dose-length product was 267.51 mGy-cm. COMPARISON: None FINDINGS: Mild dependent atelectasis in the bilateral lower lobes. Heart size is normal. No pericardial or pleu ral effusion. 1.2 cm avidly enhancing lesion in the right hepatic lobe. Gallbladder, spleen and bilat eral adrenal glands are normal. There are couple cysts in the right kidney the larger measuring 2.7 c m. Left kidney surgically absent. 7 mm cystic lesion at the body the pancreas. Visualized portions of bowels are unremarkable. No pathologically enlarged abdominal lymphadenopathy. Small fat-containing umbilical hernia. Abdominal aorta is normal in caliber with no evident atherosclerotic plaque or diss ection. The celiac axis, superior mesenteric and inferior mesenteric arteries and the right renal art yeimi are all normal caliber with no hemodynamically significant stenosis. Mild lumbar levocurvature wi th moderate spondylosis. IMPRESSION: 1. No appreciable stenosis along the right renal artery. 2. Indeterminate 7 mm cystic lesion at the pancreas. Recommend pre or follow-up pre and postcontrast MRI. 3. 1.2 cm avidly enhancing lesion in the right hepatic lobe statistically most likely to represent a hemangioma. Consider further evaluation with pre and postcontrast MRI. Reviewed, dictated and finalized at location A. IMPRESSION: 1. No appreciable stenosis along the right renal artery. 2. Indeterminate 7 mm cystic lesion at the pancreas. Recommend pre or follow-up pre and postcontrast MRI. 3. 1.2 cm avidly enhancing lesion in the right hepatic lobe statistically most likely to represent a hemangioma. Consider further evaluation with pre and post contrast MRI.
--- OUTSIDE RECORDS SUMMARY | 2024-11-22 07:46 | XMS_ITS | Encounter Summary ---
Author Organization [facility] Address 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 Gender Identity Female 02/16/2023 9:31 PM CDT Sexual Orientation Not on file documented as of this encounter Plan of Treatment Upcoming Encounters Date Type Department Care Team (Late st Contact Info) Description 04/14/2025 11:10 AM CDT Office Visit [facility] UROLOGY - [place] [address] [facility] [address] [place] [address] Marvin Holman MD [address] [facility] [address] [place] [address] documented as of this encounter Visit Diagnoses Not on filedocumented in this encounter Care Teams Technology Intern Relationship Specialty Start Date End Date Giovanny Farias DO [address] [facility] [address] [place] [phone] PCP - General Internal Medicine 03/13/23 documented as of this encounter
--- OUTSIDE RECORDS SUMMARY | 2024-11-22 07:46 | XMS_ITS | Clinical Summary ---
Author Organization [facility] [address] Address [address] [place] [address] Care Team Providers Care Payment Analyst Name Role Phone Giovanny Farias DO Primary Care Provider +1- [phone] Allergies Active Allergy Reactions Criticality Noted Date Comments Adhesive Rash Medium 03/31/2020 Adhesive Tape-Silicones Unknown 03/31/2020 Insulin Aspart Nausea And Vomiting Low 08/28/2023 Neomycin Rash Medium 02/20/2023 Uctgilmo-Vgtfhdycam-Mgfloimlt Rash Medium 2023 Penicillin Unknown 10/24/2023 Sulfa (Sulfonamide Antibiotics) Unknown 03/14 Medications estradioL (VAGIFEM) 10 mcg tablet 3 Active elderberry fruit 50 mg/5 mL syrup [...] skin 3 (three) times a day Active cholecalciferol (VITAMIN D-3) 50,000 unit capsule [...] TABLET BY MOUTH DAILY AT 8 AM 5 Active blood-glucose sensor (Dexcom G7 Sensor) device Discreetly worn under clothing to measure glucose levels just underneath the skin. Must change sensor every 10.5 days. 3 Active Omnipod 5 G6-G7 Pods, Gen 5, cartridge CHANGE pod every TWO DAYS as directed. 5 Active losartan (COZAAR) 50 mg tablet Take 1 tablet (50 mg total) by mouth daily 5 Active scopolamine 1 mg over 3 days patch 3 day APPLY 1 PATCH TOPICALLY TO THE SKIN EVERY 72 HOURS 5 Active vitamin E 400 unit capsule Take 1 capsule (400 Units total) by mouth Active glucagon (Baqsimi) 3 mg/actuation spray,non-aeroso lIndications:Typ e 1 diabetes mellitus without complication (HCC) Administer 1 spray (3 mg total) into one nostril as needed (for use in case of emergency for hypoglycemia) 1 each 2 5 Active glucagon (Gvoke HypoPen 2-Pack) 1 mg/0.2 mL auto-injectorInd ications:Type 1 diabetes mellitus without complication (HCC) Inject 1 mg under the skin as needed (for use in case of emergency for hypoglycemia) For use in case of emergency for severe hypoglycemia 0.4 mL 2 5 Active insulin glargine (LANTUS) 100 unit/mL (3 mL) pen for injectionIndicat ions:Type 1 diabetes mellitus without complication (HCC) Inject 9 units. 1 times per day. TDD 9 units 15 mL 3 5 Active Active Problems Problem Noted Date [...] Encounters Date Type Department Care Team Description 11/03/2024 9:00 AM CDT Clinical Support [facility] Endocrinology Metabolism and Lipid [address] [facility] [address] [place] [address] [place] [address] Nicki Garcia, KRYSTAL Type 1 diabetes mellitus without complication (HCC) (Primary Dx) 10/19/2024 2:24 PM CDT - 10/19/2024 11:59 PM CDT Hospital Encounter [address] [address] Type 1 diabetes mellitus without complication (HCC); Hypertension, unspecified type Discharge Disposition: Discharge to home or self care 10/19/2024 2:20 PM CDT Lab [facility] Endocrinology Metabolism and Lipid [address] [facility] [address] [place] [address] [place] [address] Type 1 diabetes mellitus without complication (HCC); Hypertension, unspecified type 10/19/2024 1:00 PM CDT Office Visit 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 Oxygen Saturation 100% 10/24/2023 9:52 AM [...] Foot Exam 1950 Hepatitis C Screening 1950 Dilated Eye Exam 10/05/1959 DTaP/Tdap/Td Vaccine [...] history exists eGFR 10/19/2025 10/19/2024, 05/15, 06/09/2023 Osteoporosis Screening-Bone Density Scan 10/28/2026 10/28/2024, 10/28/2024 Procedures Procedure Name Priority Date/Time Associated Diagnosis Comments METANEPHRINES, FRACTIONATED FREE, BLOOD Routine 10/19/2024 2:24 PM CDT Type 1 diabetes mellitus without complication (HCC) Hypertension, unspecified type RENIN ACTIVITY Routine 10/19/2024 2:24 PM CDT Type 1 diabetes mellitus without complication (HCC) Hypertension, unspecified type ALDOSTERONE Routine 10/19/2024 2:24 PM CDT Type 1 [...] THYROID FUNCTION CASCADE STAT 06/09/2023 6:29 PM 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 This test has not been cleared or approved by the U.S. Food and Drug Administration. Test Performed by: [facility] [address] [place] [address] Recreation Facility Attendant: Nohemi Mace Ph.D.; CLIA# [id number] Normetanephrines 0.81 <0.90 nmol/L [facility] Blood 10/19/2024 2:24 PM CDT 10/19/2024 2:55 PM CDT us Aba Pagan MD LAB BLOOD ORDERABLES Fin al Result [facility] MAR[facility] [address] [facility] [place] [address] [facility] * Renin activity (10/19/2024 2:24 PM CDT) Pathologist [facility] Renin <0.6 ng/mL/H [facility] Comment: REFERENCE VALUE (Peripheral vein specimen) Na-deplete, upright: Mean: 5.9 Range: 2.9-10.8 Na-replete, upright: Mean: 1.0 Range: < or =0.6-3.0 ADDITIONAL INFORMATION Testing performed by Liquid Chromatography-Tandem Mass Spectrometry (LC-MS/MS). This test was developed and its performance characteristics determined by [facility] in a manner consistent with CLIA requirements. This test has not been cleared or approved by the U.S. Food and Drug Administration. Test Performed by: [facility] [place] [address] Recreation Facility Attendant: Nohemi Mace Ph.D.; CLIA# [id number] Blood 10/19/2024 2:24 PM CDT 10/19/2024 2:55 PM CDT Aba Pagan MD LAB BLOOD ORDERABLES Fin al Result Performing Organization Address [facility] Co de Phone Number [facility] [employer] [place] [address] [place] ref Lab * Aldosterone (10/19/2024 2:24 PM CDT) [facility] Aldosterone 7.0 <=21 ng/dL [facility] Comment: ADDITIONAL INFORMATION Reference range for patients 11 years and older is based on upright A.M. collection from subjects without sodium restrictions. This test was developed and its performance characteristics determined by [facility] in a manner consistent with CLIA requirements. This test has not been cleared or approved by the U.S. Food and Drug Administration. Test Performed by: [facility] [place] [address] Recreation Facility Attendant: Nohemi Mace Ph.D.; CLIA# [id number] Blood 10/19/2024 2:24 PM CDT 10/19/2024 3:28 PM CDT Aba Pagan MD LAB BLOOD ORDERABLES Fin al Result Performing Organization Address City/[facility]/ZIP Co de Phone Number 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) TSH 3.03 0.30 - 4.20 mcIUnit/mL [facility] Comment:Testing performed by : [facility], [address] [place] [address]., [address] Blood 06/09/2023 6:29 PM JEWELRY DRILLING MACHINE OPERATOR 06/09/2023 6:39 PM 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
--- OUTSIDE RECORDS SUMMARY | 2024-11-22 07:46 | XMS_ITS | Encounter Summary ---
Author Organization [facility] Address 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 Gender Identity Female 02/16/2023 9:31 PM CDT Sexual Orientation Not on file documented as of this encounter Plan of Treatment Upcoming Encounters Date Type Department Care Team (Late st Contact Info) Description 04/14/2025 11:10 AM CDT Office Visit [facility] [place] [address] [facility] [address] [place] [address] Marvin Holman MD [address] [facility] [address] [place] [id number] documented as of this encounter Visit Diagnoses Not on filedocumented in this encounter Care Teams Nurse Staff Relationship Specialty Start Date End Date Giovanny Farias DO [address] [address] PCP - General Internal Medicine 03/13/23 documented as of this encounter
--- OUTSIDE RECORDS SUMMARY | 2024-11-22 07:46 | XMS_ITS | Continuity of Care Document ---
Author Organization [facility] Address [address] [place] [address] [address] [place] [address] Phone Care Team Providers Care Director Digital Name Role Phone Wade OD, [place] Unavailable Unavailable Procedures Procedure Date Contact Lens Check Eye Exam & Treatment Refraction Contact Lens Hydrophilic, Spherical Medical Tax Contact Lens Hydrophilic, Spherical [employer] - Medical Eye Exam & Treatment Refraction No Charge Contact Lens Check CL Replacement - [employer] Other 008 Tax - Medical No Charge Contact Lens Check Eye Exam, New Patient Refraction Advance Directives Directive Yes / No Effective Date File Name No Information Encounters Encounter Description Practice Location Reason(s) For Visit Diagnoses Date Provider Providers Copied on Encounter [facility], [address] [place] [address] [address], [place], [place], [id number], [place] tel:[phone] [facility] No Information Sep-3 0-201 0 Wade OD [place]. [address], [place], [address], [place]. tel:[phone] [facility], [address] [place] [address] [address], [place], [place], [id number], [place] tel:[phone] [facility] No Information Sep-2 3-201 0 Wade OD [place]. [address] , [address], [place], [place], [facility], [place]. tel:[phone] [facility], [address], [place], [place], [id number], [place] tel:[phone] [facility] No Information Aug-1 7-201 0 Wade OD [place]. [address] , [address], [place], [place], [facility], [place]. tel:[phone] [facility], [address] [place] [address] [address], [place], [place], [id number], [place] tel:[phone] [facility] No Information Sep-1 6-201 0 Wade OD [place]. [address], [place], [place], [facility], [place]. tel:[phone] [facility], [address] [place] [address] [address], [place], [place], [id number], [place] tel:[phone] [facility] No Information Sep-1 7-200 9 Wade OD [place]. [address] , [address], [place], [facility], [place]. tel:[phone] [facility], [address] [place] [address] [address], [place], [place], [id number], [place] tel:[phone] [facility] No Information Filippo-1 7-200 8 Wade OD [place]. [address], [place], [place], [facility], [place]. tel:[phone] [facility], [address] [place] [address] [address], [place], [place], [address], [place] tel:[phone] [facility] No Information Filippo-0 3-200 8 Wade OD [place]. [address], [place], [facility], [place]. tel:[phone] [facility], [address], [place], [place], [id number], [place] tel:[phone] [facility] No Information 7-200 8 Wade OD [place]. [address] , [address], [place], [address], [place]. tel:[phone] Family History Family Member Type Diagnosis Age [...]
--- OUTSIDE RECORDS SUMMARY | 2024-11-22 07:46 | XMS_ITS | Clinical Summary ---
Author Organization [facility] Address [address] [place] [address] Phone Care Team Providers Care Injector Assembler Name Role Phone ShaniajonathanGiovanny king Garland Primary Care Provider Allergies Active Allergy Reactions Criticality Noted Date Comments Adhesive Tape-Silicones Unknown 03/31/2020 Insulin Aspart Nausea and Vomiting Low 08/28/2023 Cabfr-Rmqcr-Lemewpb-Pramoxine Rash Low 2022 Neomycin Rash Low 02/20/2023 Nxkpzmta-Jrbhgoakqa-Cahrfjvku Rash Medium 2023 Penicillin Unknown 10/24/2023 Polymyxin [...] (ELDERBERRY ORAL) Take by mouth. Activ e [id number] HYDROFOLATE-B6 ORAL Take by mouth. Activ e blood sugar diagnostic (OneTouch Verio test strips) Strip Use to test blood glucose 3 times daily as directed. 100 Each 05/19/2023 3:06 PM COOK CHEF 3 Active Blood-Glucose Meter (Snipshotuch Verio Flex meter) Use as directed 1 Each 05/28/2023 11:33 AM COOK CHEF 3 Active prochlorperazin e maleate (Compazine) 10 [...] Encounters Date Type Department Care Team Description 11/04/2024 11:10 AM CDT Office Visit [facility] [place] [address] [place] [address] Marvin Holman MD Renal cell carcinoma, unspecified laterality (CMS/HCC) (Primary Dx) 11/04/2024 9:44 AM CDT - 11/04/2024 11:59 PM CDT Hospital Encounter [facility]iology [address] [place] [address] Johan Ledesma MD Discharge Disposition: Home or Self Care 11/04/2024 Results Follow-Up [facility] Gastroenterology [address] [place] [address] Johan Ledesma MD XR ESOPHAGUS BARIUM SWALLOW 11/02/2024 9:03 AM CDT - 11/02/2024 11:59 PM CDT Hospital Encounter [facility] [address] [facility] [place] [address] Rosemary Mayen PA-C Discharge Disposition: Home or Self Care 10/28/2024 8:39 AM CDT - 10/28/2024 11:59 PM CDT Hospital Encounter [facility] CT Scan [place] [address] [facility] [address] [place] [address] Rosemary Mayen PA-C Discharge Disposition: Home or Self Care 10/28/2024 8:39 AM CDT - 10/28/2024 11:59 PM CDT Hospital Encounter [facility] Bone Density [place] [address] [facility] [address] [place] [address] Hadley Truong MD Discharge Disposition: Home or Self Care 10/28/2024 Results Follow-Up [facility] [address] [place] [address] [facility] [address] [place] [address] Hadley Truong MD XR DEXA BONE DENSITY AXIAL 1 OR MORE SITES, CALCIUM LEVEL, VITAMIN D 25 HYDROXY, Additional followed-up results: 2 10/21/2024 9:15 AM CDT Office Visit [facility] Gastroenterology [address] [place] [phone] Johan Ledesma MD Esophageal dysphagia (Primary Dx) from Last 3 Months Family History Medical [...] PM CDT Legal Sex Female 6:06 AM COOK CHEF Gender Identity Female 02/16/2023 9:31 PM CDT Sexual Orientation Not on file Last Filed Vital Signs Vital Sign Reading Time Taken Comments Blood Pressure 124/68 11/04/2024 10:56 AM CDT Pulse 87 11/04/2024 10:56 AM CDT Temperature 36.9 C (98.4 F) 11/04/2024 10:56 AM CDT Respiratory Rate 18 11/04/2024 10:56 AM CDT Oxygen Saturation 98% 11/04/2024 10:56 AM CDT Inhaled Oxygen Concentration - - Weight 57.9 kg (127 lb 9.6 oz) 11/04/2024 10:56 AM CDT Height 170.2 cm (5' 7 ) 11/04/2024 10:56 AM CDT Body Mass Index 19.98 11/04/2024 10:56 AM CDT Plan of Treatment Upcoming Encounters Date Type Department Care Team (Late st Contact Info) Description 04/14/2025 11:10 AM CDT Office Visit [facility] [place] [address] [facility] [address] [place] [address] Marvin Holman MD [address] [facility] [address] [place] [address] Health Maintenance Due Date Last [...] MONTHS 04/20/20252024, 04/26/2024, 01/12/2024, Additional history exists OSTEOPOROSIS SCREENING 10/28/2029 10/28/2024 COLORECTAL SCREENING 08/30/2033 08/30/2023, 08/30/19 Colorectal Cancer Screening 08/30/2033 INFLUENZA VACCINE Completed 08/04/2024 Medical Devices Implanted Type Area Paper Goods Machine Set Up Operator Device Identifier Shelf Expiration Date Model / Serial / Lot Glucose Monitor Continuous Glucose Monitor Description:Must be removed prior to MRI -yasmeen 08/29/23 Hemostat Surg Snow 2x4in 2081 - [id number] Implanted:Qt y: 1 on 03/14/2023 by Marvin Holman MD at [facility] Hemostatic Left: Abdomen [employer]- [employer] [id number] 2081 / / Hemostat Surg Snow 2x4in 2081 - [id number] Implanted:Qt y: 1 on 03/14/2023 by Marvin Holman MD at [facility] Hemostatic Left: Abdomen J[employer]- [employer] [id number] 09/10/2024 2082 / / [id number] Tmj Implants Procedures Procedure Name Priority Date/Time Associated Diagnosis Comments XR ESOPHAGUS BARIUM SWALLOW Routine 11/04/2024 10:18 AM CDT Esophageal dysphagia MRI ABDOMEN W WO CONTRAST Routine 11/02/2024 10:16 AM CDT Renal cell carcinoma, unspecified laterality (CMS/HCC) PTH INTACT Routine 11/01/2024 8:59 AM CDT Osteoporosis, unspecified osteoporosis type, unspecified pathological fracture presence ALKALINE PHOSPHATASE BONE SPECIFIC Routine 11/01/2024 8:59 AM CDT Osteoporosis, unspecified osteoporosis type, unspecified pathological fracture presence VITAMIN D 25 HYDROXY Routine 11/01/2024 8:59 AM CDT Osteoporosis, unspecified osteoporosis type, unspecified pathological fracture presence CALCIUM LEVEL Routine 11/01/2024 8:59 AM CDT Osteoporosis, unspecified osteoporosis type, unspecified pathological fracture presence COMPREHENSIVE METABOLIC PANEL Routine 11/01/2024 8:57 AM CDT Renal cell carcinoma, unspecified laterality (CMS/HCC) CBC WITH DIFFERENTIAL Routine 11/01/2024 8:57 AM CDT Renal cell carcinoma, unspecified laterality (CMS/HCC) XR DEXA BONE DENSITY AXIAL 1 OR MORE SITES Routine 10/28/2024 8:58 AM CDT Encounter for osteoporosis screening in asymptomatic postmenopausal patient CT CHEST WO CONTRAST Routine 10/28/2024 8:40 AM CDT Renal cell carcinoma, unspecified laterality (CMS/HCC) COLONOSCOPY REPORT 08/30/2023 9: 48 AM COOK CHEF HEMOGLOBIN A1C Routine 08/28/2023 10:50 PM COOK CHEF from Last 3 Months or Most Recently Relevant to Health Maintenance Results * XR ESOPHAGUS BARIUM SWALLOW (11/04/2024 10:18 AM CDT) Anatomical Region Laterality Modality Abdomen Computed Radiogr aphy 11/04/2024 10:2 2 AM CDT Impressions 11/04/2024 11:08 AM CDT IMPRESSION: 1. Tertiary contractions in the mid to distal esophagus, suggestive of dysmotility. No evidence of an esophageal stricture. 2. Moderate to severe gastroesophageal reflux with provocative maneuvers. 3. Small hiatal hernia. DICTATION LOCATION: Location 1 - [facility] 11/04/2024 11:08 AM CDT EXAMINATION: Double-contrast ESOPHAGRAM DATE: 11/04/2024 10:18 AM HISTORY: See Diagnosis COMPARISON: No prior study is available for comparison at the time of this dictation. FLUOROSCOPY TIME: 0.8 minutes REFERENCE AIR KERMA DOSE: 35.20 mGy NUMBER OF IMAGES: 105 TECHNIQUE: The patient was given effervescent crystals followed by thick and thin barium to swallow, and multiple fluoroscopic images were obtained in AP, lateral, and oblique views. FINDINGS: The patient's swallowing function was normal. The esophageal mucosa was normal without masses. Tertiary contractions were seen in the mid to distal esophagus. There was no evidence of an esophageal stricture. There was passage of contrast through a normal gastroesophageal junction.There was a small hiatal hernia. The visualized portions of the stomach were normal. There was moderate to severe gastroesophageal reflux into the proximal thoracic esophagus with provocative maneuvers. INCIDENTAL FINDINGS: None. Procedure Note Johan Huerta MD - 11/04/2024 EXAMINATION: Double-contrast ESOPHAGRAM DATE: 11/04/2024 10:18 AM HISTORY: See Diagnosis COMPARISON: No prior study is available for comparison at the time of this dictation. FLUOROSCOPY TIME: 0.8 minutes REFERENCE AIR KERMA DOSE: 35.20 mGy NUMBER OF IMAGES: 105 TECHNIQUE: The patient was given effervescent crystals followed by thick and thin barium to swallow, and multiple fluoroscopic images were obtained in AP, lateral, and oblique views. FINDINGS: The patient's swallowing function was normal. The esophageal mucosa was normal without masses. Tertiary contractions were seen in the mid to distal esophagus. There was no evidence of an esophageal stricture. There was passage of contrast through a normal gastroesophageal junction.There was a small hiatal hernia. The visualized portions of the stomach were normal. There was moderate to severe gastroesophageal reflux into the proximal thoracic esophagus with provocative maneuvers. INCIDENTAL FINDINGS: None. IMPRESSION: 1. Tertiary contractions in the mid to distal esophagus, suggestive of dysmotility. No evidence of an esophageal stricture. 2. Moderate to severe gastroesophageal reflux with provocative maneuvers. 3. Small hiatal hernia. DICTATION LOCATION: Location [address] [place] [address] Johan Ledesma MD DIAGNOSTIC IMAGING ORDERABLES Fi nal Result * MRI ABDOMEN W WO CONTRAST (11/02/2024 10:16 AM CDT) Anatomical Region Laterality Modality Abdomen Magnetic Resonan ce 11/02/2024 10:1 7 AM CDT Impressions 11/02/2024 11:14 AM CDT IMPRESSION: Changes of left nephrectomy. No evidence of residual or recurrent tumor DICTATION LOCATION: 4 Narrative 11/02/2024 11:14 AM CDT EXAMINATION: ABDOMINAL MRI WITHOUT AND WITH CONTRAST HISTORY: History of renal cell carcinoma TECHNIQUE: Multiplanar, multisequence images were obtained through the abdomen before and after the uneventful administration of 11 mL ProHance gadolinium contrast according to routine protocol. FINDINGS: Comparison is made to an abdomen and pelvis CT from 04/15/2024 and an abdominal MRI from 02/25/2023. Liver: Parenchyma: There is no steatosis or cirrhosis. Focal lesions: A focus of enhancement in segment 4B/5 likely represents shunting. Vasculature: There is classic hepatic arterial anatomy. The portal and hepatic veins are patent. 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 Spleen: Normal Adrenal glands: Normal Kidneys: There are changes of left nephrectomy. There are simple cysts in the right kidney. Other: There is no retroperitoneal lymphadenopathy. Procedure Note Luis Valiente MD - 11/02/2024 EXAMINATION: ABDOMINAL MRI WITHOUT AND WITH CONTRAST HISTORY: History of renal cell carcinoma TECHNIQUE: Multiplanar, multisequence images were obtained through the abdomen before and after the uneventful administration of 11 mL ProHance gadolinium contrast according to routine protocol. FINDINGS: Comparison is made to an abdomen and pelvis CT from 04/15/2024 and an abdominal MRI from 02/25/2023. Liver: Parenchyma: There is no steatosis or cirrhosis. Focal lesions: A focus of enhancement in segment 4B/5 likely represents shunting. Vasculature: There is classic hepatic arterial anatomy. The portal and hepatic veins are patent. 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 Spleen: Normal Adrenal glands: Normal Kidneys: There are changes of left nephrectomy. There are simple cysts in the right kidney. Other: There is no retroperitoneal lymphadenopathy. IMPRESSION: Changes of left nephrectomy. No evidence of residual or recurrent tumor DICTATION LOCATION: 4 us Rosemary Tiarra PA-C MR ORDERABLES Final Result * ALKALINE PHOSPHATASE BONE SPECIFIC (11/01/2024 8:59 AM CDT) ALKALINE PHOSPHATASE BONE 26.2 5.6 - 29.0 mcg/L [facility], Comment: FASTING:YES FASTING: YES Test Performed at: [facility], [address] [place] [address] Mai Centeno MD,PhD,BRODY Blood 11/01/2024 8:59 AM CDT 11/01/2024 9:00 AM CDT us Hadley Truong MD CHEMISTRY ORDERABLES Final Resul t [facility] [phone] [facility], [address] [place] [phone] * VITAMIN D 25 HYDROXY (11/01/2024 8:59 AM CDT) VITAMIN D, 25 OH, TOTAL 59 30 - 100 ng/mL [facility] Comment: Vitamin D Status 25-OH Vitamin D: Deficiency: <20 ng/mL Insufficiency: 20 - 29 ng/mL Optimal: > or = 30 ng/mL For 25-OH Vitamin D testing on patients on D2-supplementation and patients for whom quantitation of D2 and D3 fractions is required, the [facility](TM) 25-OH VIT D, (D2,D3), LC/MS/MS is recommended: order code 96577 (patients >2yrs). See Note 1 Note 1 For additional information, please refer to http://education.PowerPractical/faq/EKX245 (This link is being provided for informational/ educational purposes only.) FASTING:YES FASTING: YES Test Performed at: [facility] [address] [place] [address] Ira Silva MD Blood 11/01/2024 8:59 AM CDT 11/01/2024 9:00 AM CDT us Hadley Truong MD CHEMISTRY ORDERABLES Final Resul t Performing Organization Address City/[facility]/ZIP Co de Phone Number [facility] [phone] [facility] [address] [place] [address] * PTH INTACT (11/01/2024 8:59 AM CDT) PTH INTACT 49 16 - 77 pg/mL [facility] Comment: Interpretive Guide Intact PTH Calcium ------- Normal Parathyroid Normal Normal Hypoparathyroidism Low or Low Normal Low Hyperparathyroidism Primary Normal or High High Secondary High Normal or Low Tertiary High High Non-Parathyroid Hypercalcemia Low or Low Normal High FASTING:YES FASTING: YES Test Performed at: [facility] [address] [place] [address] Ira Silva MD Blood 11/01/2024 8:59 AM CDT 11/01/2024 9:00 AM CDT us Hadley Truong MD CHEMISTRY ORDERABLES Final Resul t Performing Organization Address [facility] [[email or web address]] Co de Phone Number [facility] [phone] [facility] [address] [place] [address] * CALCIUM LEVEL (11/01/2024 8:59 AM CDT) CALCIUM 9.5 8.6 - 10.4 mg/dL [facility] Comment: FASTING:YES FASTING: YES Test Performed at: [facility] [address] [facility] [place] [address] Ira Silva MD Blood 11/01/2024 8:59 AM CDT 11/01/2024 9:00 AM CDT us Hadley Truong MD CHEMISTRY ORDERABLES Final Resul t [facility] [phone] [facility] [address] [facility] [place] [address] * CBC WITH DIFFERENTIAL (11/01/2024 8:57 AM CDT) WBC 7.6 3.8 - 10.8 Thousand/u L [facility] RBC 4.22 3.80 - 5.10 Million/uL [facility] HEMOGLOBIN 13.1 11.7 - 15.5 g/dL [facility] HEMATOCRIT 39.7 35.0 - 45.0 % [facility] MCV 94.1 80.0 - 100.0 fL [facility] MCH 31.0 27.0 - 33.0 pg [facility] MCHC 33.0 32.0 - 36.0 g/dL [facility] Comment: For adults, a slight decrease in the calculated MCHC value (in the range of 30 to 32 g/dL) is most likely not clinically significant; however, it should be interpreted with caution in correlation with other red cell parameters and the patient's clinical condition. RDW 11.6 11.0 - 15.0 % [facility] PLATELETS 266 140 - 400 Thousand/u L [facility] MPV 10.9 7.5 - 12.5 fL [facility] NEUTROPHIL ABSOLUTE 4,476 1,500 - 7,800 cells/uL [facility] LYMPHOCYTE ABSOLUTE 2,212 850 - 3,900 cells/uL [facility] MONOCYTE ABSOLUTE 692 200 - 950 cells/uL [facility] EOSINOPHIL ABSOLUTE 152 15 - 500 cells/uL [facility] BASOPHILS ABSOLUTE 68 0 - 200 cells/uL [facility] NEUTROPHIL 58.9 % [facility] LYMPHOCYTES 29.1 % [facility] MONOCYTE 9.1 % [facility] EOSINOPHILS 2.0 % [facility] BASOPHILS 0.9 % [facility] Comment: FASTING:YES FASTING: YES Test Performed at: [facility] [address] [facility] [place] [address] Ira Silva MD Blood 11/01/2024 8:57 AM CDT 11/01/2024 8:57 AM CDT us Rosemary Mayen PA-C HEMATOLOGY ORDERABLES Final R esult [facility] [phone] [facility] [address] [facility] [place] [address] * (ABNORMAL) COMPREHENSIVE METABOLIC PANEL (11/01/2024 8:57 AM CDT) GLUCOSE 152(H) 65 - 99 mg/dL [facility] Comment: Fasting reference interval For someone without known diabetes, a glucose value >125 mg/dL indicates that they may have diabetes and this should be confirmed with a follow-up test. BUN 24 7 - 25 mg/dL [facility] CREATININE 1.08(H) 0.60 - 1.00 mg/dL [facility] EGFR 54(L) > OR = 60 mL/min/1.7 3m2 [facility] BUN/CREAT RATIO 22 6 - 22 (calc) [facility] SODIUM 138 135 - 146 mmol/L [facility] POTASSIUM 4.6 3.5 - 5.3 mmol/L [facility] CHLORIDE 97(L) 98 - 110 mmol/L [facility] CO2 34(H) 20 - 32 mmol/L [facility] CALCIUM 9.6 8.6 - 10.4 mg/dL [facility] TOTAL PROTEIN 7.0 6.1 - 8.1 g/dL [facility] ALBUMIN 4.2 3.6 - 5.1 g/dL [facility] GLOBULIN 2.8 1.9 - 3.7 g/dL (calc) [facility] ALBUMIN/GLOBULIN RATIO 1.5 1.0 - 2.5 (calc) [facility] BILIRUBIN TOTAL 0.6 0.2 - 1.2 mg/dL [facility] ALKALINE PHOSPHATASE 131 37 - 153 U/L [facility] AST 18 10 - 35 U/L [facility] ALT 15 6 - 29 U/L [facility] Comment: FASTING:YES FASTING: YES Test Performed at: [facility] [address] [place] [address] Ira Silva MD Blood 11/01/2024 8:57 AM CDT 11/01/2024 8:57 AM CDT us Rosemary Mayen PA-C CHEMISTRY ORDERABLES Final Re sult [facility] [phone] [facility] [address] [place] [address] * XR DEXA BONE DENSITY AXIAL 1 OR MORE SITES (10/28/2024 8:58 AM CDT) Anatomical Region Laterality Modality Digital Radiogra phy 10/28/2024 8:58 AM CDT Impressions 10/28/2024 9:24 AM CDT IMPRESSION: Osteoporosis. Lumbar Spine: T-score: -2.8 Left Femoral Neck: T-score: -1.9 Left Total Femur: T-score: -2.0 Right Femoral Neck: T-score: -1.7 Right Total Femur: T-score: -2.4 FRAX FRACTURE RISK ASSESSMENT: 10-Year probability of fracture Major osteoporotic fracture: 10.9 % Defined as fracture of the spine, hip or shoulder. Hip fracture: 2.9 % This is a summary page. Please refer to the complete detailed report found in: Imaging Section of the [facility] EMR. Definitions: Normal: T-score above -1.0 Osteopenia T-score less than -1.0 and above -2.5 Osteoporosis: T-score <= -2.5 Note: Clinical Osteoporosis may be based on other factors besides DXA calculated BMD. Other factors include and are not limited to fragility fractures, subclinical compression fractures,osteopenia and elevated FRAX Scores. A major osteoporotic fracture is defined as a fracture of the spine, forearm, hip or shoulder. Dictated by Dr. Troy Camacho MD DICTATION LOCATION: 10/28/2024 9:24 AM CDT EXAMINATION: BONE DENSITY STUDY (DXA) DATE: 10/28/2024 8:58 AM HISTORY: 74 years Female. Postmenopausal. Screening for osteoporosis. PROCEDURE: Planar images of the lumbar spine and hip(s). [employer] DEXA scanner for bone mineral density determination (BMD). FINDINGS: Lumbar Spine (L1-L4): T-score: -2.8 Left Femoral Neck: T-score: -1.9 Left Total Femur: T-score: -2.0 Right Femoral Neck: T-score: -1.7 Right Total Femur: T-score: -2.4 TECHNICAL ISSUES: None. Procedure Note Troy Camacho MD - 10/28/2024 EXAMINATION: BONE DENSITY STUDY (DXA) DATE: 10/28/2024 8:58 AM HISTORY: 74 years Female. Postmenopausal. Screening for osteoporosis. PROCEDURE: Planar images of the lumbar spine and hip(s). [employer] DEXA scanner for bone mineral density determination (BMD). FINDINGS: Lumbar Spine (L1-L4): T-score: -2.8 Left Femoral Neck: T-score: -1.9 Left Total Femur: T-score: -2.0 Right Femoral Neck: T-score: -1.7 Right Total Femur: T-score: -2.4 TECHNICAL ISSUES: None. IMPRESSION: Osteoporosis. Lumbar Spine: T-score: -2.8 Left Femoral Neck: T-score: -1.9 Left Total Femur: T-score: -2.0 Right Femoral Neck: T-score: -1.7 Right Total Femur: T-score: -2.4 FRAX FRACTURE RISK ASSESSMENT: 10-Year probability of fracture Major osteoporotic fracture: 10.9 % Defined as fracture of the spine, hip or shoulder. Hip fracture: 2.9 % This is a summary page. Please refer to the complete detailed report found in: Imaging Section of the [facility] EMR. Definitions: Normal: T-score above -1.0 Osteopenia T-score less than -1.0 and above -2.5 Osteoporosis: T-score <= -2.5 Note: Clinical Osteoporosis may be based on other factors besides DXA calculated BMD. Other factors include and are not limited to fragility fractures, subclinical compression fractures,osteopenia and elevated FRAX Scores. A major osteoporotic fracture is defined as a fracture of the spine, forearm, hip or shoulder. Dictated by Dr. Troy Camacho MD DICTATION LOCATION: 1 Hadley Truong MD DIAGNOSTIC IMAGING ORDERABLES Fi nal Result * CT CHEST WO CONTRAST (10/28/2024 8:40 AM CDT) Anatomical Region Laterality Modality Chest Computed Tomogra phy 10/28/2024 9:46 AM CDT Impressions 10/28/2024 12:26 PM CDT IMPRESSION: 1. Stable examination. No evidence for metastatic disease. DICTATION LOCATION: Location 1 - [facility] 10/28/2024 12:26 PM CDT EXAMINATION: CT CHEST WO CONTRAST DATE: 10/28/2024 8:40 AM HISTORY: hx of renal cell carcinoma Renal cell carcinoma, unspecified laterality (CMS/HCC) TECHNIQUE: Computed tomography of the chest was performed without contrast according to standard protocol. The examination was performed with the adjustment of mA according to the patient size and/or the use of Iterative Reconstruction Technique. CT Dose Length Product (DLP): 449.38 mGy*cm FINDINGS: Comparison made with a CT from 04/15/2024. Lines/tubes: None. Heart and mediastinum: The heart is normal in size without pericardial effusion. No significant coronary atherosclerotic calcifications are seen. The ascending aorta and main pulmonary artery are nondilated. No enlarged mediastinal or hilar lymph nodes are seen. Lungs and Airways: The central airways are patent. There is diffuse bronchial wall thickening with scattered foci of endobronchial mucous. Mild biapical pleural-parenchymal scarring is unchanged. Previously referenced 5 mm noncalcified juxtapleural nodule in the apical left upper lobe is stable and attributed to pleural parenchymal scarring. Lungs are hypoinflated with dependent atelectasis bilaterally. No focal pneumonia or significant pulmonary edema. Stable benign ovoid juxta fissural nodule along the left major fissure. No dominant or enlarging pulmonary nodule suspicious for metastatic disease. Pleura: No effusion, abnormal pleural thickening, or pneumothorax. Lower neck and soft tissues: The imaged thyroid gland appears normal. No axillary or subpectoral lymphadenopathy is identified. Abdomen: Left nephrectomy changes are incompletely imaged. Bones: No suspicious lytic or blastic lesions are seen. INCIDENTAL FINDINGS: None. Procedure Note Kole Conner DO - 10/28/2024 EXAMINATION: CT CHEST WO CONTRAST DATE: 10/28/2024 8:40 AM HISTORY: hx of renal cell carcinoma Renal cell carcinoma, unspecified laterality (CMS/HCC) TECHNIQUE: Computed tomography of the chest was performed without contrast according to standard protocol. The examination was performed with the adjustment of mA according to the patient size and/or the use of Iterative Reconstruction Technique. CT Dose Length Product (DLP): 449.38 mGy*cm FINDINGS: Comparison made with a CT from 04/15/2024. Lines/tubes: None. Heart and mediastinum: The heart is normal in size without pericardial effusion. No significant coronary atherosclerotic calcifications are seen. The ascending aorta and main pulmonary artery are nondilated. No enlarged mediastinal or hilar lymph nodes are seen. Lungs and Airways: The central airways are patent. There is diffuse bronchial wall thickening with scattered foci of endobronchial mucous. Mild biapical pleural-parenchymal scarring is unchanged. Previously referenced 5 mm noncalcified juxtapleural nodule in the apical left upper lobe is stable and attributed to pleural parenchymal scarring. Lungs are hypoinflated with dependent atelectasis bilaterally. No focal pneumonia or significant pulmonary edema. Stable benign ovoid juxta fissural nodule along the left major fissure. No dominant or enlarging pulmonary nodule suspicious for metastatic disease. Pleura: No effusion, abnormal pleural thickening, or pneumothorax. Lower neck and soft tissues: The imaged thyroid gland appears normal. No axillary or subpectoral lymphadenopathy is identified. Abdomen: Left nephrectomy changes are incompletely imaged. Bones: No suspicious lytic or blastic lesions are seen. INCIDENTAL FINDINGS: None. IMPRESSION: 1. Stable examination. No evidence for metastatic disease. DICTATION LOCATION: Location - [facility] Rosemary Mayen PA-C CT ORDERABLES Final Result * COLONOSCOPY REPORT (08/30/2023 9:48 AM COOK CHEF) Narrative Procedure Note Johan Ledesma MD - 08/30/2023 9:47 AM CST [facility] Endoscopy Patient Name: Deidre Cuadra Procedure Date: [...] of Addenda: [address]; [place] [address] us Johan Ledesma MD GI PROCEDURE ORDERABLES Final Re sult * (ABNORMAL) HEMOGLOBIN A1C (08/28/2023 10:50 PM COOK CHEF) HEMOGLOBIN A1C 7.5(H) <5.7 % 08/28/2023 11:09 PM COOK CHEF [facility] EST. AVG GLUCOSE, A1C 169 mg/dL 08/28/2023 11:09 PM [facility] Blood Venipuncture / Unknown 08/28/2023 10:50 PM COOK CHEF 08/28/2023 10:50 PM COOK CHEF Narrative [facility] - 08/28/2023 11:09 PM COOK CHEF HGB A1C INTERPRETATION NORMAL: <5.7% PRE-DIABETES: 5.7 - 6.4% DIABETES: 6.5% OR GREATER us Mesha Tello MD CHEMISTRY ORDERABLES Final Result [facility] CLKAILEE# [id number] [address] [place] [address] from Last 3 Months or Most Recently Relevant to Health Maintenance Insurance AETNA PPO [facility] RX AETNA Medicare Part D RX [employer] (INTERNAL) [facility] RX [facility] Commercial RX [employer] (INTERNAL) [facility] Advance Directives For more information, please contact: [phone] * Full Code (Latest Code Status on [...] 11:34 AM 03/14/2023 8:43 PM Care Teams Injector Assembler Relationship Specialty Start Date End Date Giovanny Farias DO [address] [phone] PCP - General Internal Medicine 03/13/23
--- OUTSIDE RECORDS SUMMARY | 2024-11-22 07:46 | XMS_ITS | Encounter Summary ---
Author Organization [facility] Address [address] [facility] [place] [address] Care Team Providers Care Rn Wellness Name Role Phone ShaniaGiovanny kingston DO Primary Care Provider Provider, No Pcp Primary Care Provider Unavailab le Encounter Details Date Type Department Care Team (Late st Contact Info) Description 08/27/2018 Lab Requisition [facility] DermPath Lab [address] [facility] [place] [address] Vishnu Aggarwal MD [address] [place] [address] Social History Tobacco Use Types Packs/Day Years Used Date Smoking Tobacco: Never Assessed Comments Unknown Sex and Gender Information Value Date Recorded Sex Assigned at Not on file Legal Sex Female 5:42 PM FORMULA CLERK Gender Identity Not on file Sexual Orientation Not on file documented as of this encounter Plan of Treatment Not on file documented as of this encounter Procedures Procedure Name Priority Date/Time Associated Diagnosis Comments DERMATOPATHOLOGY Routine 08/26/2018 12:0 0 AM FORMULA CLERK documented in this encounter Results * DERMATOPATHOLOGY (08/26/2018 12:00 AM FORMULA CLERK) Case Report Dermatopathology Report Case: [id number] Authorizing Provider: Vishnu Aggarwal MD Collected: 08/26/2018 [...] specimen consists of a shave biopsy measuring [id number]. Jar 0. Specimen B: Received is one formalin filled container labeled with the patient's name and designated left lateral upper arm.The specimen consists of a punch excision measuring [id number] and is oriented with the notch at [...] base of the specimen. 9 12:44 PM [facility] DERMATOPATHOLOGY LABORATORY Disclaimer An external and internal positive and negative controls are appropriate for the histochemical, immunohistochemical and immunofluorescence stain(s) in this case (if any), except where stated explicitly. The performance characteristics of the stain(s) cited in this report were developed and its performance characteristic determined by the Dermatopathology Laboratory at [facility], directed by Dr. Hong Mohr. These tests need not be, and therefore are not, approved by the [place] Food and Drug Administration. The tests are used for clinical purposes. Billing Codes Specimen Charges Stain Charges 72603 80055 1 1 9 12:44 PM FORMULA CLERK DERMATOPATHOLOGY LABORATORY Embedded Images 9 12:44 PM [facility] DERMATOPATHOLOGY LABORATORY Pathology/Cytology TISSUE SPECIMEN FROM SKIN / Unknown 08/26/2018 08/27/2018 11:34 AM FORMULA CLERK Miscellaneous samples (specimen) TISSUE SPECIMEN FROM SKIN / Unknown 08/26/2018 08/27/2018 11:34 AM FORMULA CLERK Vishnu Aggarwal MD LAB - PATHOLOGY/CYTOLOGY ORD ERABLES Edited Result - Final DERMATOPATHOLOGY LABORATORY [facility] - Department of Dermatology [address] [place] [address], 5th Floor Lab [address] [phone] documented in this encounter Visit Diagnoses Not on filedocumented in this encounter Care Teams Rn Wellness Relationship Specialty Start Date End Date Giovanny Farias DO PCP - General Internal Medicine 06/10/23 04/25/24 Provider, No Pcp PCP - General 04/26/24 documented as of this encounter
--- OUTSIDE RECORDS SUMMARY | 2024-11-22 07:46 | XMS_ITS | Referral Summary ---
Author Organization [facility] [address] Address [address] [place] [address] Care Team Providers Care Tap Builder Name Role Phone Giovanny Farias DO Primary Care Provider [phone]- [phone] Encounters Date Type Department Care Team Description 11/03/2024 9:00 AM CDT Clinical Support [facility] Endocrinology Metabolism and Lipid [address] [facility] 13th [place] [address] [place] [phone] Nicki Garcia RN Type 1 diabetes mellitus without complication (HCC) (Primary Dx) 10/19/2024 2:24 PM CDT - 10/19/2024 11:59 PM CDT Hospital Encounter [address] [address] Type 1 diabetes mellitus without complication (HCC); Hypertension, unspecified type Discharge Disposition: Discharge to home or self care 10/19/2024 2:20 PM CDT Lab [facility] Endocrinology Metabolism and Lipid [address] [facility] 5th [place] [address] [place] [phone] Type 1 diabetes mellitus without complication (HCC); Hypertension, unspecified type 10/19/2024 1:00 PM CDT Office Visit [facility] Endocrinology Metabolism and Lipid [address] [facility] 5th [place] [address] [place] [phone] Aba Pagan MD Hypertension, unspecified type (Primary Dx); Type 1 diabetes mellitus without complication (HCC) from Last 3 Months Allergies Active Allergy Reactions Criticality Noted Date Comments Adhesive Rash Medium 03/31/2020 Adhesive Tape-Silicones Unknown 03/31/2020 Insulin Aspart Nausea And Vomiting Low 08/28/2023 Neomycin Rash Medium 02/20/2023 Ftuzsxku-Rlpodktxjz-Cwiiitfoc Rash Medium 2023 Penicillin Unknown 10/24/2023 Sulfa [...] file Legal Sex Female 7:58 AM FREEZER OPERATOR Gender Identity Not on file Sexual Orientation Not on file Last Filed Vital Signs Vital Sign Reading Time Taken Comments Blood Pressure 129/85 10/19/2024 12:59 PM CDT Pulse 76 10/19/2024 12:59 PM CDT Temperature 36.4 C (97.5 F) 10/19/2024 12:59 PM CDT Respiratory Rate 19 06/10/2023 9:00 AM FREEZER OPERATOR Oxygen Saturation 100% 10/24/2023 9:52 AM [...] THYROID FUNCTION CASCADE STAT 06/09/2023 6:29 PM FREEZER OPERATOR from Last 3 Months or Most Recently Relevant to Health Maintenance Results * Metanephrines, fractionated free, blood (10/19/2024 2:24 PM CDT) Metanephrines <0.20 <0.50 nmol/L [facility] Comment: ADDITIONAL INFORMATION This test was developed and its performance characteristics determined by [facility] in a manner consistent with CLIA requirements. This test has not been cleared or approved by the U.S. Food and Drug Administration. Test Performed by: [facility] [address] [place] [address] Salvager: Nohemi Mace Ph.D.; CLIA# [id number] Normetanephrines 0.81 <0.90 nmol/L [facility] Blood 10/19/2024 2:24 PM CDT 10/19/2024 2:55 PM CDT Aba Pagan MD LAB BLOOD ORDERABLES Fin al Result [facility] Department of Laboratories [place], [place] [id number] [facility] * Renin activity (10/19/2024 2:24 PM CDT) Renin <0.6 ng/mL/H [facility] Comment: REFERENCE VALUE (Peripheral vein specimen) Na-deplete, upright: Mean: 5.9 Range: 2.9-10.8 Na-replete, upright: Mean: 1.0 Range: < or =0.6-3.0 ADDITIONAL INFORMATION Testing performed by Liquid Chromatography-Tandem Mass Spectrometry (LC-MS/MS). This test was developed and its performance characteristics determined by [facility] in a manner consistent with CLIA requirements. This test has not been cleared or approved by the U.S. Food and Drug Administration. Test Performed by: [facility] [place] [address] Salvager: Nohemi Mace Ph.D.; CLIA# [id number] Blood 10/19/2024 2:24 PM CDT 10/19/2024 2:55 PM CDT us Aba Pagan MD LAB BLOOD ORDERABLES Fin al Result [facility] Department [place] [address] [facility] * Aldosterone (10/19/2024 2:24 PM CDT) [facility] Signature Aldosterone 7.0 <=21 ng/dL [facility] Comment: ADDITIONAL INFORMATION Reference range for patients 11 years and older is based on upright A.M. collection from subjects without sodium restrictions. This test was developed and its performance characteristics determined by [facility] in a manner consistent with CLIA requirements. This test has not been cleared or approved by the U.S. Food and Drug Administration. Test Performed by: [facility] [place] [address] Salvager: Nohemi Mace Ph.D.; CLIA# [id number] Blood 10/19/2024 2:24 PM CDT 10/19/2024 3:28 PM CDT Aba Pagan MD LAB BLOOD ORDERABLES Fin al Result [facility] Department [place] [address] [facility] * (ABNORMAL) C-peptide (10/19/2024 2:24 PM CDT) C-Peptide <0.01(L) 1.10 - 4.40 ng/mL [facility] Comment:Repeated and Verifie d Blood 10/19/2024 2:24 PM CDT 10/19/2024 3:24 PM CDT Aba Pagan MD LAB BLOOD ORDERABLES Fin al Result [facility] * (ABNORMAL) [...] MD LAB BLOOD ORDERABLES Fin al Result [facility] * POCT hemoglobin A1c (10/19/2024 1:12 PM CDT) Hemoglobin A1C, POC 8.0 4.0 - 5.6 % Capillary blood 10/19/2024 1 :12 PM CDT us Aba Pagan MD POINT OF CARE TEST ORDER RON Final Result * TSH reflex to free T4 (06/09/2023 6:29 PM FREEZER OPERATOR) TSH 3.03 0.30 - 4.20 mcIUnit/mL [facility] Comment:Testing performed by : [facility], [address] [place] [address]., [id number] Blood 06/09/2023 6:29 PM FREEZER OPERATOR 06/09/2023 6:39 PM FREEZER OPERATOR Chelo Simmons MD LAB BLOOD ORDERABLES F inal Result [facility] [address] [facility] [place] [address] from Last 3 Months or Most Recently Relevant to Health Maintenance Insurance AETNA MEDICARE AETNA MEDICARE AETNA MEDICARE Care Teams Tap Builder Relationship Specialty Start Date End Date Giovanny Farias DO PCP - General Internal Medicine 07/17/22
--- OUTSIDE RECORDS SUMMARY | 2024-11-22 07:46 | XMS_ITS ---
Author Organization [facility] Address [address] [place] [address] Phone Care Team Providers Care Neonatal Nurse Name Role Phone Giovanny Farias DO Primary [...]
--- OUTSIDE RECORDS SUMMARY | 2024-11-22 07:46 | XMS_ITS | Clinical Summary ---
Author Organization [facility] [employer] Address [address] [place] [address] Care Team Providers Care Public Health Director Name Role Phone Provider, No Pcp Primary Care Provider Unavailab le Source Comments [facility] [employer],non-owned Affiliates and Associated Physician Practices is amultiple site organization consisting of ambulatory clinics and hospital sitesin [place], [place] and [place]. This disclosure is being madepursuant to the Care Everywhere program and may not contain all information available regarding this patient. Last updated 18.[facility] [employer] Allergies Active Allergy Reactions Criticality Noted Date Comments Adhesive Sensitivity Unknown 03/31/2020 Insulin Aspart Nausea and/or Vomiting Low 4 Qagou-Kbibd-Focpoiq-Pramoxine Rash Medium 2022 Sulfa Drugs Unknown 03/31/2020 Medications * Be aware that medications may not be up to date on this document. Alwaysverify current medications with the patient. estradiol (Vagifem) 10 MCG vaginal tablet Insert 1 (one) tablet into the vagina Two times a week 07/26/19 24 Active ascorbic acid (VITAMIN C) 500 MG [...] daily Active Cholecalciferol (vitamin D3) 1.25 MG (11788 UT) capsule Take 1 (one) capsule by mouth once daily Active Lancets (ONETOUCH DELICA PLUS 33G EXTRA FINE LANCET) USE TO CHECK BLOOD SUGAR 4 TIMES DAILY 09/24/19 24 Active OneTouch Verio test strip USE TO TEST BLOOD SUGAR 4 TIMES A DAY 09/24/19 24 Active fluticasone propionate (Flonase) 50 MCG/ACT nasal spray Horton 2 (two) sprays into each nostril once daily Active cetirizine (ZyrTEC) 10 MG tablet Take 1 (one) tablet by mouth once daily Active Insulin Disposable Pump (Omnipod 5 G7 Intro, Gen 5,) KITIndications:T ype 1 diabetes mellitus without complication (HCC) Use 1 Each continuous 1 kit 01/22/20 24 Active insulin glargine-yfgn (Semglee) penIndications:T ype 1 diabetes mellitus without complication (HCC) Inject 6 (six) Units subcutaneously at bedtime 15 mL 3 02/17/20 24 Active Additional Information Patient not taking.Reported on 04/26/2024 insulin lispro (HumaLOG KwikPen) 100 UNIT/ML penIndications:T ype 1 diabetes mellitus without complication (HCC) Inject 3 (three) Units subcutaneously 3 times daily before meals 15 mL 3 02/17/20 24 Active Insulin Disposable Pump (Omnipod 5 [id number] Pods Gen 5) MISCIndications: Type 1 diabetes mellitus without complication (HCC) CHANGE pod every TWO DAYS as directed. 15 Each 3 10/22/19 25 Active insulin lispro (HumaLOG) 100 UNIT/ML vial Use for insulin pump, daily max 40 units 30 mL 1 10/29/19 25 Active insulin lispro (HumaLOG) 100 UNIT/ML vial Use for insulin pump, daily max 40 units 30 mL 3 02/11/20 24 025 Discontin ued(Reord er) Active Problems No known active problems Encounters Date Type Department Care Team Description 10/28/2024 Refill [facility] - Endocrinology [address] [facility] [place] [phone] Arcelia Gambino, DO MEDICATION REFILL 10/21/2024 Refill [facility] - Endocrinology [address] [place] [address] Areclia Gambino DO Refill Request 2024 Travel from Last 3 Months Social History Tobacco Use Types Packs/Day Years Used Date Smoking Tobacco: Never Smokeless Tobacco: Never Tobacco Cessation:Counseling Given: Not Answered Alcohol Use Standard Drinks/Week Comments Not Currently 0 (1 standard drink = 0.6 oz pur e alcohol) Comments Unknown Sex and Gender Information Value Date Recorded Sex Assigned at Not on file Legal Sex Female 5:42 PM HANDS HANGER Gender Identity Not on file Sexual Orientation [...] Comments LIPID PROFILE Routine 09/16/2023 9:33 AM HANDS HANGER Type 1 diabetes mellitus without complication from Last 3 Months or Most Recently Relevant to Health Maintenance Results * (ABNORMAL) LIPID PROFILE (09/16/2023 9:33 AM HANDS HANGER) Cholesterol 211(H) <200 mg/dL [facility] HDL Cholesterol [...] LDL-C. Luis SS et al. KRISTAN. 2013;310(19): 1841-5661 (http://education.Biom'Up.ThromboVision/faq/GXX377) CHOL/HDLC RATIO 2.6 <5.0 (calc) [facility] Non HDL Cholesterol 131(H) <130 mg/dL (calc) [facility] Comment: For patients with diabetes plus 1 major ASCVD risk factor, treating to a non-HDL-C goal of <100 mg/dL (LDL-C of <70 mg/dL) is considered a therapeutic option. Test Performed at: [facility] [id number] [address] ABIMAEL WU MD Blood BLOOD SPECIMEN / Unknown 09/16/2023 9:33 AM HANDS HANGER 09/16/2023 9:35 AM HANDS HANGER Arcelia Gambino DO LAB - CHEMISTRY ORDERABLES Final Result [facility] [id number] [place] [address] from Last 3 Months or Most Recently Relevant to Health Maintenance Insurance AETNA MEDICARE ADV Care Teams Public Health Director Relationship Specialty Start Date End Date Provider, No Pcp PCP - General 04/26/24
[2024-11-22 08:05] LABS: Estimated Glomerular Filt Rate 37
== END 2024-11-22 07:42 | disposition home or self-care (01) ==
PROVIDERS: PCP Internal Medicine; Visit Provider Nurse Practitioner
DX: I70.1 Atherosclerosis of renal artery (principal)
CPT/HCPCS: 74175; Q9967